=== PATIENT | female | born 1980 | race Caucasian/White ===

== ENCOUNTER → 2017-12-22 12:44 | Outpatient (CLI) | payer OTHER, SELFPAY ==
[2017-12-23 10:35] LABS: HIV-1/2 Ag & Ab Screen Negative (NEGAT)
[2017-12-23 11:24] LABS: Hepatitis C Ab w Rflx HCV PCR Negative (NEGAT)
[2017-12-23 11:32] LABS: HBs Antibody, Quant 569.2 mIU/mL; Hep B Surface Ab Positive; Hepatitis B Core Antibody Negative (NEGAT); Hepatitis B Surface Antigen Negative (NEGAT)
== END ==
PROVIDERS: PCP Internal Medicine; Visit Provider Internal Medicine
DX: Z77.21 Contact with and (suspected) exposure to potentially hazardous body fluids (principal); Z11.59 Encounter for screening for other viral diseases
CPT/HCPCS: 36415; 86704; 86706; 86803; 87340; 87389

== ENCOUNTER 2018-06-02 00:39 | Outpatient (CLI) | payer OTHER, SELFPAY ==
--- NOTE | 2018-06-02 12:50 | DI.CT_ITS ---
SYMPTOMS/DIAGNOSIS: CHRONIC SINUSITIS, J32.[address]: Routine examination was performed. No priors for comparison. The frontal sinuses are clear. The ethmoid air cells are clear. The sphenoid sinuses are clear. There is minimal mucosal thickening seen in the maxillary sinuses bilaterally. No fluid levels are seen in the visualized paranasal sinuses. The nasal septum is predominantly midline. The turbinates and ostiomeatal complexes are unremarkable. The mastoid air cells are well pneumatized. The bones appear intact. The orbits and retro-orbital soft tissues are grossly unremarkable. IMPRESSION: Minimal mucoperiosteal thickening in the maxillary sinuses bilaterally. No fluid levels or findings to suggest acute sinusitis.
== END 2018-06-02 00:59 ==
PROVIDERS: PCP Internal Medicine; Visit Provider Internal Medicine
DX: J32.0 Chronic maxillary sinusitis (principal)
CPT/HCPCS: 70486

== ENCOUNTER 2018-09-14 10:35 | Outpatient (CLI) | payer OTHER, SELFPAY ==
[2018-09-14 14:43] LABS: Abs Immature Grans 0.02 k/cumm (0.0-0.09); Absolute Basophil Count 0.02 k/cumm (0.0-0.2); Absolute Eosinophil Count 0.11 k/cumm (0.0-0.7); Absolute Lymphocyte Count 2.25 k/cumm (1.2-3.4); Absolute Monocyte Count 0.64 k/cumm (0.11-0.7); Absolute Neutrophil Count 5.18 k/cumm (1.2-6.7); Basophils % 0.2; Eosinophils % 1.3; HCT 41.5 % (36.0-46.0); HGB 14.1 g/dL (12.0-15.5); Immature Grans % 0.2; Lymphocytes % 27.4; Mean Corpuscular Hemoglobin 30.9 pg (27.0-33.0); Mean Corpuscular Volume 90.8 fL (80-95); Mean Platelet Volume 11.2 fL (8.0-11.0); Monocytes % 7.8; Neutrophils % 63.1; Platelet Count 288 x1000/uL (130-400); RBC 4.57 m/cumm (4.00-5.20); RBC Distribution Width 13.1 % (11.7-14.6); White Blood Cell Count 8.22 k/cumm (4.4-10.8)
[2018-09-14 15:11] LABS: ALT 36 U/L (12-78); AST 21 U/L (15-37); Albumin 4.1 g/dL (3.4-5.0); Alkaline Phosphatase 63 U/L (46-116); Anion Gap 9.8 mmol/L (3-11); BUN 13 mg/dL (7-18); Bilirubin, Total 0.6 mg/dL (0.2-1.0); CO2 27.2 mmol/L (21.0-32.0); CREATININE 0.98 mg/dL (0.55-1.02); Calcium 9.3 mg/dL (8.5-10.1); Chloride 102 mmol/L (98-107); Glucose 106 mg/dL (70-100); Potassium 4.1 mmol/L (3.5-5.1); Sodium 139 mmol/L (136-145); Total Protein 7.9 g/dL (6.4-8.2)
== END 2018-09-14 10:55 ==
PROVIDERS: PCP Internal Medicine; Visit Provider Internal Medicine
DX: J32.9 Chronic sinusitis, unspecified (principal); R63.5 Abnormal weight gain
CPT/HCPCS: 36415; 80053; 84443; 85025

== ENCOUNTER 2019-03-17 10:23 | Outpatient (REF) | payer OTHER, SELFPAY ==
--- NOTE | 2019-03-17 10:00 | PAPFT_PTH ---
PATIENT: Zenia Monreal LOC: [facility] U#:[id number] AGE/SX: 39/F ROOM: RE03/17/[address]: HESHAM Padilla : 1980 BED: DIS: 03/17/2019 SPEC #: [id number] RECD: 03/17/19 13:07 STATUS: RADHA REQ #: [id number] MILLY: 03/17/19 10:[address]: Radha España DEPT: [facility] Cytology RECD BY: Libby Womack ENTERED: 03/17/19 13:08 SP TYPE: PAPFT OTHR DR: Flor Webb MD Tissues: 1 - CX/ENDOCX FOR PAP SMEARS Procedures: PAP THIN PREP/UVM Screening HPV DNA PROBE Comments: [id number]
[2019-03-20 15:46] LABS: Chlamydia Result Negative (Negative); GC Result Negative (Negative); Specimen Description CERVIX
== END 2019-03-17 10:43 ==
LOC: LBN 10:23
PROVIDERS: PCP Internal Medicine; Visit Provider Nurse Practitioner Family
DX: Z11.3 Encounter for screening for infections with a predominantly sexual mode of transmission (principal); Z12.4 Encounter for screening for malignant neoplasm of cervix; Z11.51 Encounter for screening for human papillomavirus (HPV)
CPT/HCPCS: 87491; 87591; 88142; 87624

== ENCOUNTER 2019-05-18 22:58 | Outpatient (REF) | payer OTHER, SELFPAY | END 2019-05-18 23:18 | LOC: LBN 22:58 | PROVIDERS: PCP Internal Medicine; Visit Provider Nurse Practitioner | DX: R68.89 Other general symptoms and signs (principal) | CPT/HCPCS: 87449 ==

== ENCOUNTER 2019-11-24 08:35 | Outpatient (CLI) | payer BC, SELFPAY ==
[2019-12-01 09:26] LABS: SARS-CoV-2 RNA Undetected (Undetected)
== END 2019-11-24 08:55 ==
PROVIDERS: PCP Nurse Practitioner; Visit Provider Nurse Practitioner
DX: R50.9 Fever, unspecified (principal); Z11.59 Encounter for screening for other viral diseases
CPT/HCPCS: U0003

== ENCOUNTER 2019-12-08 08:18 | Outpatient (CLI) | payer BC, SELFPAY ==
[2019-12-12 23:31] LABS: SARS-CoV-2 RNA Undetected (Undetected); SARS-CoV-2 Specimen Source Nasopharynx
== END 2019-12-08 08:38 ==
PROVIDERS: PCP Nurse Practitioner; Visit Provider Nurse Practitioner
DX: Z11.59 Encounter for screening for other viral diseases (principal)
CPT/HCPCS: U0003

== ENCOUNTER 2020-01-19 09:56 | Outpatient (CLI) | payer BC, SELFPAY ==
[2020-01-21 14:51] LABS: Patient Race White; SARS-CoV-2 RNA Undetected (Undetected); SARS-CoV-2 Specimen Source Nasopharynx
== END 2020-01-19 10:16 ==
PROVIDERS: PCP Nurse Practitioner; Visit Provider Nurse Practitioner
DX: Z11.59 Encounter for screening for other viral diseases (principal)
CPT/HCPCS: U0003

== ENCOUNTER 2020-04-22 21:35 | Outpatient (REF) | payer BC, SELFPAY ==
[2020-04-22 22:07] LABS: Abs Immature Grans 0.03 10^3/uL (0.0-0.06); Absolute Basophil Count 0.02 10^3/uL (0.0-0.2); Absolute Eosinophil Count 0.08 10^3/uL (0.0-0.7); Absolute Lymphocyte Count 1.74 10^3/uL (1.2-3.4); Absolute Monocyte Count 0.55 10^3/uL (0.1-0.8); Absolute Neutrophil Count 4.08 10^3/uL (1.2-6.7); Basophils % 0.3; Eosinophils % 1.2; HGB 14.3 g/dL (11.2-15.7); Immature Grans % 0.5; Lymphocytes % 26.8; MCH 30.9 pg (27.0-33.0); MCHC 33.3 % (32.0-36.0); MCV 92.9 fL (80-95); MPV 11.7 fL (8.0-11.0); Monocytes % 8.5; Neutrophils % 62.7; Nucleated RBC 0 %; Platelet Count 278 10^3/uL (130-400); RBC 4.63 10^6/uL (3.93-5.22); RDW 12.8 % (11.7-14.6); RDW-SD 43.7 fL
[2020-04-22 22:43] LABS: ALT 23 U/L (14-59); AST 15 U/L (15-37); Albumin 4.3 g/dL (3.4-5.0); Alkaline Phosphatase 49 U/L (46-116); Anion Gap 8.3 mmol/L (3-11); BUN 16 mg/dL (7-18); Bilirubin, Total 0.6 mg/dL (0.2-1.0); CO2 26.7 mmol/L (21.0-32.0); CREATININE 0.96 mg/dL (0.55-1.02); Calcium 9.2 mg/dL (8.5-10.1); Chloride 102 mmol/L (98-107); Glucose 89 mg/dL (74-106); Potassium 4.4 mmol/L (3.5-5.1); Sodium 137 mmol/L (136-145); Total Protein 7.9 g/dL (6.4-8.2)
== END 2020-04-22 21:55 ==
LOC: NCHCN 21:35
PROVIDERS: PCP Nurse Practitioner; Visit Provider Physician Assistant
DX: R07.89 Other chest pain (principal)
CPT/HCPCS: 80053; 83735; 85025

== ENCOUNTER 2020-06-11 03:11 | Outpatient (CLI) | payer BC, SELFPAY ==
[2020-06-12 12:53] LABS: COVID-19 RT-PCR UVMMC Result Negative (Negative)
== END 2020-06-11 03:31 ==
PROVIDERS: PCP Nurse Practitioner; Visit Provider Nurse Practitioner
DX: Z11.52 Encounter for screening for COVID-19 (principal)
CPT/HCPCS: U0003

== ENCOUNTER 2020-06-26 09:15 | Outpatient (CLI) | payer BC, SELFPAY ==
[2020-06-27 14:36] LABS: COVID-19 RT-PCR UVMMC Result Negative (Negative)
== END 2020-06-26 09:16 | disposition home or self-care (01) ==
LOC: LBO 09:15
PROVIDERS: PCP Nurse Practitioner; Visit Provider Nurse Practitioner
DX: Z20.822 Contact with and (suspected) exposure to COVID-19 (principal)
CPT/HCPCS: U0003

== ENCOUNTER 2020-07-10 11:17 | Outpatient (CLI) | payer BC, SELFPAY ==
[2020-07-11 11:34] LABS: COVID-19 RT-PCR UVMMC Result Negative (Negative)
== END 2020-07-10 11:18 | disposition home or self-care (01) ==
LOC: LBO 11:17
PROVIDERS: PCP Nurse Practitioner; Visit Provider Nurse Practitioner
DX: Z20.822 Contact with and (suspected) exposure to COVID-19 (principal)
CPT/HCPCS: U0003

== ENCOUNTER 2021-03-04 19:54 | Emergency (ER) | payer BC, SELFPAY ==
[2021-03-04 19:57] VITALS: BP 133/77; PULSE 90; RESP 16; TEMP 36.6; O2SAT 98
--- NOTE | 2021-03-04 20:29 | W.ED.GENAD ---
Discharge Plan Disposition Patient Disposition: HOME Condition: Good Discharge Details Clinical Impression: Incomplete miscarriage Primary Care Provider: Nhung Pinto ED Provider: Tye Bernal Home Meds and New Rx's Prescriptions: Continued Centrum Women 18-400 mg-mcg tablet 1 tab PO DAILY RF: 0 ginkgo biloba 120 mg tablet 120 mg PO DAILY RF: 0 docusate sodium [Colace] 100 mg capsule 100 mg PO DAILY PRNRF: 0 spironolactone [Aldactone] 25 mg tablet 100 mg PO BID RF: 0 methocarbamol [Robaxin-750] 750 mg tablet 750 mg PO Q4H PRN Qty: 20 RF: 0 norethindrone (contraceptive) [Deblitane] 0.35 mg tablet 0.35 mg PO DAILY Qty: 84 RF: 3 Nicotrol 10 mg cartridge 1 inh inhalation 4-6XD PRN (Reason: nicotine cravings) Qty: 168 RF: 0 omeprazole 20 mg capsule,delayed release(DR/EC) 40 mg PO DAILY PRN (Reason: gerd) Qty: 60 RF: 6 betamethasone, augmented 50 GM cream 50 gm Topical bid to foot rash Qty: 1 RF: 3 lorazepam 0.5 mg tablet 0.5 mg PO TID PRN (Reason: anxiety) Qty: 30 RF: 0 COVID-19 vacc,mRNA(Moderna)-PF 100 mcg/0.5 mL suspension 0.5 ml IM ONCE Qty: 0.5 RF: 0 methylphenidate HCl [Ritalin LA] 10 mg capsule,ER biphasic 50-50 10 mg PO DAILY MDD 1 Qty: 30 RF: 0 Discharge Instructions Instructions: Miscarriage (ED) Additional Instructions: At this time you have an incomplete miscarriage. You are likely transitioning towards the end of it. You have been given the pill Methergine. Please take each 0.2 mg tablet every 4 hours until all the pills are gone. You can take ibuprofen 800 mg starting at 3:30 AM. You can take 1000 mg of Tylenol as soon as you get home. You can take that every 6 hours. Please drink plenty of fluids and follow-up promptly with the [facility] OB doctors tomorrow. Please call them tomorrow for an appointment time. If you notice any worsening of your symptoms, or any new symptoms such as vomiting, diarrhea, fever, chills, shortness of breath, chest pain, numbness, weakness, or fainting , please return immediately to the emergency department for reevaluation. Please follow up with your primary care provider as soon as possible for reassessment and reevaluation. As always, it was a pleasure participating in your medical care today. Referrals: Desire Ellington MD [ [facility] STAFF PHYSICIAN] - Crys Kidd DO [OSTEOPATHIC DOCTOR] - Christina Houston MD [ [facility] STAFF PHYSICIAN] - Medical Decision Making 41-year-old female who is a G5, P3 10 weeks female who is being followed by [facility] with a history of a blighted ovum who noticed by ultrasound that [facility] a decrease in gestational sac size over the last 2 weeks, with expectant miscarriage presents today for evaluation of miscarriage. Yesterday the patient had notable pelvic cramps, today the cramps subsided but she had notable blood clots and vaginal bleeding. She soaked through multiple pads, including unfortunately multiple pairs of pants as well. She took ibuprofen prior to going to the urgent care earlier today, and was seen and assessed there. While there she had a drop in her hemoglobin, continued vaginal bleeding, and had notable lightheadedness and dizziness when trying to stand. She was sent to the ER for further evaluation. Patient currently denies any pain whatsoever. She is not on any blood thinners. She did receive 2 L of normal saline at the urgent care. No other complaints at this time. No other modifying factors. She was not started on methotrexate or any other abortive medications. Physical exam demonstrates no tenderness in the pelvis or abdomen whatsoever. Heart rate normal, blood pressure stable. Concern is for continued vaginal bleeding and depletion of hemoglobin levels. We will get repeat CBC, perform pelvic exam, and monitor closely. If the patient continues to have a drop in her hemoglobin we will contact OB for potential observation versus surgical intervention. 9:30 PM Laboratory work-up is returned, hemoglobin is 11.4, which is a drop from her previous hemoglobin of 14 a year ago, but actually stable and slightly higher than hemoglobin of 10 that she had at the urgent care. Electrolytes stable. Vaginal exam was performed, large clot was noted in the vaginal vault there was a small to moderate amount of tissue noted in it. Suspect this is the ovum remnants. Patient's heart rate and blood pressure have remained stable. Patient is adamant that she would like to go home. With clearly demonstrated hemodynamic stability, stabilizing hemoglobin, I do feel that this is a reasonable approach at this time. We did contact [facility]ER[facility] to discuss the case with Dr. Ellington they agree with the plan and do recommend adding Methergine, 0.2 mg every 4 hours for 6 doses total with close follow-up with OB tomorrow. Patient feels comfortable with this plan. I did discuss with the patient the importance of close OB follow-up, as well as my availability here for contact or consult at any point during the evening. Discussed red flags which to return. Bleeding has stabilized, patient hemodynamically stable. Patient appropriate for discharge at this time. I have extensively reviewed the treatment plan and discharge instructions with the patient. I have addressed all patient concerns at this time. The patient was made aware of what symptoms to monitor for that would warrant a return to the emergency department. Discussed the plan with the patient, they demonstrate verbal understanding and agreement with our assessment and plan at this time. The documentation in this chart was dictated using [employer] dictation software. Please excuse any dictation errors. I status is Rh+. No indication for RhoGam HPI General Date/Time Provider Initiated Documentation: 03/04/21 19:58. HPI Narrative: 41-year-old female who is a G5, P3 10 weeks female who is being followed by [facility] with a history of a blighted ovum who noticed by ultrasound that [facility] a decrease in gestational sac size over the last 2 weeks, with expectant miscarriage presents today for evaluation of miscarriage. Yesterday the patient had notable pelvic cramps, today the cramps subsided but she had notable blood clots and vaginal bleeding. She soaked through multiple pads, including unfortunately multiple pairs of pants as well. She took ibuprofen prior to going to the urgent care earlier today, and was seen and assessed there. While there she had a drop in her hemoglobin, continued vaginal bleeding, and had notable lightheadedness and dizziness when trying to stand. She was sent to the ER for further evaluation. Patient currently denies any pain whatsoever. She is not on any blood thinners. She did receive 2 L of normal saline at the urgent care. No other complaints at this time. No other modifying factors. She was not started on methotrexate or any other abortive medications. Related Data Home Medications Medication Instructions Recorded Confirmed betamethasone, augmented 50 gm TOPICAL bid to foot rash #1 12/28/16 03/04/21 script ginkgo biloba 120 mg tablet 120 mg PO DAILY 09/14/18 03/04/21 multivitamin-ferrous 1 tab PO DAILY 09/14/18 03/04/21 fumarate-folic acid 18 mg-400 mcg tablet spironolactone 25 mg tablet 100 mg PO BID tab-cap 03/08/19 03/04/21 lorazepam 0.5 mg tablet 0.5 mg PO TID PRN #30 tab 01/16/20 03/04/21 methocarbamol 750 mg tablet 750 mg PO Q4H PRN #20 tab-cap 04/22/20 03/04/21 norethindrone (contraceptive) 0.35 0.35 mg PO DAILY #84 tab 05/14/20 03/04/21 mg tablet docusate sodium 100 mg capsule 100 mg PO DAILY PRN 11/01/20 03/04/21 nicotine 10 mg inhalation cartridge 1 inh INHALATION 4-6XD PRN #168 ea 11/01/20 03/04/21 omeprazole 20 mg capsule,delayed 40 mg PO DAILY PRN #60 cap 11/01/20 03/04/21 release methylphenidate HCl 10 mg biphasic 10 mg PO DAILY #30 cap MDD 1 01/23/21 03/04/21 50-50 capsule,extended release Previous Rx's Medication Instructions Recorded lorazepam 0.5 mg tablet 0.5 mg PO TID PRN #30 tab 01/16/20 methocarbamol 750 mg tablet 750 mg PO Q4H PRN #20 tab-cap 04/22/20 norethindrone (contraceptive) 0.35 0.35 mg PO DAILY #84 tab 05/14/20 mg tablet nicotine 10 mg inhalation cartridge 1 inh INHALATION 4-6XD PRN #168 ea 11/01/20 omeprazole 20 mg capsule,delayed 40 mg PO DAILY PRN #60 cap 11/01/20 release methylphenidate HCl 10 mg biphasic 10 mg PO DAILY #30 cap MDD 1 01/23/21 50-50 capsule,extended release Allergies Allergy/AdvReac Type Severity Reaction Status Date / Time shellfish derived Allergy Severe vomiting Verified 03/04/21 20:03 latex AdvReac local Verified 03/04/21 20:03 sensitivity General Stated 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 YOHANNES: 2 Review of Systems All systems reviewed & are unremarkable except as noted in HPI and below PFSH Medical History Acne uses spironolactone ADHD, adult residual type Anxiety Concentration deficit Surgical History Cholecystectomy (12/21/14) Family History Mother Depression Father Hyperlipidemia Heart disease Sister Depression Grandfather Diabetes Hyperlipidemia Alcohol abuse Grandfather Essential hypertension Heart disease Grandmother Cancer breast Dementia Grandmother Depression Alcohol abuse Social History Smoking/Tobacco Use Status: Current-Occasional Tobacco Type: cigarettes Smoking risk assessment performed?: Yes Alcohol Intake: former Drug use: Never Substance use type: does not use Seatbelt use: always Do you feel safe in your relationship?: Yes Exam Narrative Exam Narrative: 1.Const: Well-nourished, Well-developed, appearing stated age 2.Eyes: PERRL, no conjunctival injection, and symmetrical lids. 3.ENT: Atraumatic external nose and ears. Moist MM. Neck: Symmetric, trachea midline, No thyromegaly. 4.CVS: +S1/S2, No murmurs or gallops. Peripheral pulses 2+ and equal in all extremities. Brisk capillary refill in all extremities. 5.RESP: Unlabored respiratory effort. Clear to auscultation bilaterally. No wheezes rales or rhonchi 6.GI: Soft, Nontender/Nondistended, No hepatosplenomegaly. No guarding or rebound. 7.MSK: Normocephalic/Atraumatic, Extremities w/o deformity or ttp No cyanosis or clubbing, Normal movement of all extremities 8.Skin: Warm, Dry. No rashes or lesions. 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 Sensation grossly intact, no focal neurologic deficits. 10.Psych: (AAO) x3. Appropriate mood and affect Course Vital Signs Vital signs: Vital Signs Temperature 36.6 C 03/04/21 19:57 Pulse 90 03/04/21 19:57 Respiratory Rate 16 03/04/21 19:57 Blood Pressure 133/77 03/04/21 19:57 Pulse Oximetry 98 03/04/21 19:57 Temperature 36.6 C 03/04/21 19:57 Temperature Source Skin 03/04/21 19:57 Pulse 90 03/04/21 19:57 Respiratory Rate 16 03/04/21 19:57 Respiratory Effort Non-Labored 03/04/21 19:57 Blood Pressure 133/77 03/04/21 19:57 Blood Pressure Position Supine 03/04/21 19:57 Pulse Oximetry 98 03/04/21 19:57 Oxygen Delivery Method Room Air 03/04/21 19:57 Oxygen Flow Rate 0 03/04/21 19:57 Pain Level 0 03/04/21 19:57
[2021-03-04 20:51] LABS: Abs Immature Grans 0.06 10^3/uL (0.0-0.06); Absolute Basophil Count 0.03 10^3/uL (0.0-0.2); Absolute Eosinophil Count 0.09 10^3/uL (0.0-0.7); Absolute Monocyte Count 0.72 10^3/uL (0.1-0.8); Absolute Neutrophil Count 8.42 10^3/uL (1.2-6.7); Basophils % 0.3; Eosinophils % 0.8; HCT 34.9 % (36.0-46.0); HGB 11.4 g/dL (11.2-15.7); Immature Grans % 0.5; Lymphocytes % 17.4; MCHC 32.7 % (32.0-36.0); MCV 91.8 fL (80-95); MPV 10.6 fL (8.0-11.0); Monocytes % 6.4; Neutrophils % 74.6; Nucleated RBC 0 %; Platelet Count 233 10^3/uL (130-400); RDW 12.5 % (11.7-14.6); RDW-SD 42.1 fL; WBC 11.29 10^3/uL (4.4-10.8)
--- NOTE | 2021-03-04 20:56 | NUR.NOTE ---
Nursing Note: Pelvic exam performed by Dr. Bernal, accompanied by this RN during exam. Patient tolerated well.
[2021-03-04 21:02] LABS: Absolute Lymphocyte Count 1.96 10^3/uL (1.2-3.4)
--- NOTE | 2021-03-04 21:16 | NUR.NOTE ---
Referral faxed to [facility] to be seen 03/05/21 for miscarriage, case discussed with Dr. Ellington.Nursing Note:
[2021-03-04 21:24] LABS: ALT 30 U/L (14-59); AST 18 U/L (15-37); Albumin 3.6 g/dL (3.4-5.0); Alkaline Phosphatase 46 U/L (46-116); Anion Gap 9.8 mmol/L (3-11); BUN 15 mg/dL (7-18); Bilirubin, Total 0.6 mg/dL (0.2-1.0); CO2 23.2 mmol/L (21.0-32.0); CREATININE 0.8 mg/dL (0.55-1.02); Calcium 8.7 mg/dL (8.5-10.1); Chloride 105 mmol/L (98-107); Glucose 93 mg/dL (74-106); Potassium 3.9 mmol/L (3.5-5.1); Sodium 138 mmol/L (136-145); Total Protein 7.1 g/dL (6.4-8.2)
[2021-03-04 21:25] LABS: HCG Quant, Pregnancy 4709 mIU/mL (1-3)
[2021-03-04] MEDS: Ketorolac 15 MG/ML VIAL IVP (21:40)
[2021-03-04 22:05] VITALS: BP 110/68; PULSE 107; RESP 16; TEMP 37; O2SAT 97
[2021-03-04] MEDS: Methylergonovine 0.2 MG TAB 1.2 MG PO (22:07)
[2021-03-04] MEDS: Methylergonovine 0.2 MG TAB (22:07)
[2021-03-04] MEDS: Ondansetron O.D.T. 4 MG TABEF, 3 TABS/BTL PO (22:12)
== END 2021-03-04 22:12 | disposition home or self-care (01) ==
LOC: ER 22:12
PROVIDERS: Emergency Provider Student in an Organized Health Care Education/Training Program; PCP Nurse Practitioner
DX: O03.4 Incomplete spontaneous abortion without complication (principal); O02.0 Blighted ovum and nonhydatidiform mole; Z3A.10 10 weeks gestation of pregnancy; R42 Dizziness and giddiness
CPT/HCPCS: 36415; 80053; 86850; 86900; 86901; 96374; 99284; 84702; 85025; J1885

== ENCOUNTER 2021-05-08 03:34 | Outpatient (CLI) | payer BC, SELFPAY ==
[2021-05-08 15:04] LABS: ALT 46 U/L (14-59); AST 22 U/L (15-37); Albumin 3.8 g/dL (3.4-5.0); Alkaline Phosphatase 53 U/L (46-116); Bilirubin, Direct 0.2 mg/dL (0.0-0.2); Bilirubin, Total 0.6 mg/dL (0.2-1.0); Total Protein 7.6 g/dL (6.4-8.2)
[2021-05-08 15:40] LABS: Calculated LDL 63 mg/dL (<100); Cholesterol 137 mg/dL (<200); HDL Cholesterol 50 mg/dL (40-60); Triglyceride 123 mg/dL (<150)
== END 2021-05-08 03:35 | disposition home or self-care (01) ==
LOC: LBO 03:34
PROVIDERS: PCP Nurse Practitioner; Visit Provider Nurse Practitioner
DX: R10.11 Right upper quadrant pain (principal); Z13.6 Encounter for screening for cardiovascular disorders
CPT/HCPCS: 36415; 80061; 80076

== ENCOUNTER 2021-06-25 10:42 | Outpatient (REF) | payer BC, SELFPAY ==
[2021-06-26 13:32] LABS: Chlamydia Result Negative (Negative); GC Result Negative (Negative)
== END 2021-06-25 10:43 | disposition home or self-care (01) ==
LOC: LBN 10:42
PROVIDERS: PCP Nurse Practitioner; Visit Provider Obstetrics & Gynecology
DX: Z11.3 Encounter for screening for infections with a predominantly sexual mode of transmission (principal); R10.2 Pelvic and perineal pain
CPT/HCPCS: 87491; 87591

== ENCOUNTER 2021-07-03 08:55 | Outpatient (CLI) | payer BC, SELFPAY ==
[2021-07-03 11:29] LABS: HCG Quant, Pregnancy < 1 mIU/mL (1-3)
[2021-07-04 09:56] LABS: Syphilis Serology (RPR) Negative (Negative)
[2021-07-04 10:23] LABS: HIV-1/2 Ag & Ab Screen Negative (Negative)
[2021-07-04 10:25] LABS: HBs Antibody, Qual Positive (See Note); HBs Antibody, Quant 646.9 mIU/mL (See Note); Hepatitis B Core Antibody Negative (Negative); Hepatitis B surface Ag Negative (Negative); Hepatitis C Ab w Rflx HCV PCR Negative (Negative)
== END 2021-07-03 08:56 | disposition home or self-care (01) ==
LOC: LBO 08:57
PROVIDERS: Obstetrics & Gynecology; PCP Nurse Practitioner; Visit Provider Obstetrics & Gynecology
DX: Z11.3 Encounter for screening for infections with a predominantly sexual mode of transmission (principal); O26.851 Spotting complicating pregnancy, first trimester
CPT/HCPCS: 36415; 86704; 86706; 86803; 87340; 87389; 84702; 86592

== ENCOUNTER 2021-08-25 09:53 | Outpatient (REF) | payer BC, SELFPAY ==
[2021-08-25 17:36] LABS: Abs Immature Grans 0.04 10^3/uL (0.0-0.06); Absolute Basophil Count 0.02 10^3/uL (0.0-0.2); Absolute Eosinophil Count 0.03 10^3/uL (0.0-0.7); Absolute Lymphocyte Count 1.72 10^3/uL (1.2-3.4); Absolute Monocyte Count 0.46 10^3/uL (0.1-0.8); Absolute Neutrophil Count 5.86 10^3/uL (1.2-6.7); Basophils % 0.2; Eosinophils % 0.4; HCT 38.1 % (36.0-46.0); HGB 12.6 g/dL (11.2-15.7); Immature Grans % 0.5; Lymphocytes % 21.2; MCH 30.7 pg (27.0-33.0); MCHC 33.1 % (32.0-36.0); MCV 92.7 fL (80-95); MPV 11.5 fL (8.0-11.0); Monocytes % 5.7; Nucleated RBC 0 %; Platelet Count 278 10^3/uL (130-400); RBC 4.11 10^6/uL (3.93-5.22); RDW 12.6 % (11.7-14.6); RDW-SD 43.1 fL; WBC 8.13 10^3/uL (4.4-10.8)
== END 2021-08-25 09:54 | disposition home or self-care (01) ==
LOC: LBN 09:53
PROVIDERS: PCP Nurse Practitioner; Visit Provider Surgery
DX: K21.9 Gastro-esophageal reflux disease without esophagitis (principal); K92.1 Melena; R10.13 Epigastric pain; R51.9 Headache, unspecified
CPT/HCPCS: 82728; 85025

== ENCOUNTER 2021-11-27 04:06 | Outpatient (CLI) | payer OTHER, SELFPAY ==
--- NOTE | 2021-11-27 13:00 | NS.NUTBLAN_ITS ---
Zenia was referred for weight management education. 6'0 280 lbs BMI 37 She reports that in her 20s and before children she weighed around 130 lbs. She then steadily gained weight and was unable to lose weight despite reducing portions and exercising. Her goal weight is 180 lbs. Diet Recall: B: coffee, 10 am: cottage cheese, no lunch, Dinner: 1/2 bag of lettuce. Jennifer has been eating mostly protein and vegetables for last month with weight loss. PMH: Sleep apnea- will get CPAP at end of month. Session today focused on how to follow 3 meals per day and meet 9766-8226 kcal, 60-80 g protein, 45-55 g fat. Recommended using rose on phone to log meals. ALso recommend tracking steps and getting a minimum of 5000 steps daily. Also discussed use of GLP1 such as trulicity to aid in weight loss. Reviewed eligibility for weight loss surgery if unable to lose significant weight in next 3 months. Goal: 28 lbs weight loss in next 90 days Follow up planned for 12/25/21 at 3 pm
== END 2021-11-27 04:07 | disposition home or self-care (01) ==
LOC: DS 04:07
PROVIDERS: PCP Nurse Practitioner; Visit Provider Dietitian, Registered
DX: E66.8 Other obesity (principal); Z68.37 Body mass index [BMI] 37.0-37.9, adult; Z71.3 Dietary counseling and surveillance
CPT/HCPCS: 97802

== ENCOUNTER → 2022-01-07 01:35 | Outpatient (CLI) | payer OTHER, SELFPAY ==
--- NOTE | 2022-01-07 09:19 | DI.MAMMO_ITS ---
Exam(s) MAMMO SCREENING EXAM: MAMMO SCREENING CLINICAL HISTORY: screening,z12.39. TECHNIQUE: Bilateral full field digital CC and MLO mammographic images were obtained with 3D tomosyn thesis and utilizing computer aided detection (CAD). COMPARISON: None. This is a baseline mammogram on this 41-year-old patient. FINDINGS: There are no spiculated masses nor malignant appearing microcalcification groups. There is no significant architectural distortion nor skin thickening-retraction. IMPRESSION: No radiographic evidence of malignancy. BI-RADS Category 1 - Negative Breast Density - Category C - Heterogeneously dense Breast density Category C or D implies that the patient has dense breast tissue. Dense breast tissue can make it harder to find cancer on a mammogram. Dense breast tissue is also associated with an incr eased risk of breast cancer. This information about the result of the mammogram report was provided to the patient to raise their awareness. Use this report when you speak with the patient about their risks for breast cancer, which includes their family history. At that time, you may recommend additional screening tests (Ultrasoun d or MRI) as these tests may add significant information. A negative radiographic report should not delay biopsy if a dominant or clinically suspicious mass is present. Up to ten percent of cancers are not identified on mammography. A negative report may reinforce clinical impression. Adenosis and dense breasts may obscure an underlying neoplasm. False positive reports average 6 to 10%. Patient will receive a letter notifying them of these results.
== END ==
PROVIDERS: PCP Nurse Practitioner; Visit Provider Obstetrics & Gynecology
DX: Z12.31 Encounter for screening mammogram for malignant neoplasm of breast (principal); R92.8 Other abnormal and inconclusive findings on diagnostic imaging of breast
CPT/HCPCS: 77063; 77067

== ENCOUNTER 2022-03-03 12:31 | Outpatient (CLI) | payer OTHER, SELFPAY ==
[2022-03-03 11:01] LABS: HCG Quant, Pregnancy 166 mIU/mL (1-3)
--- OUTSIDE RECORDS SUMMARY | 2022-03-03 12:40 | XMS_ITS | Encounter Summary ---
:1980 Author Organization [facility] Address [address] [place] [address] Care Team Providers Name Role Phone Prem Sheehan MD Primary Care Provider Encounter Details Date Type Department Care Team Description 06/16/2013 Results Only [facility] Yesica Ware MD [phone] [place] [address] Social History Tobacco Use Types Packs/Day Years Used Date Never Assessed Sex Assigned at Date Recorded Not on file documented as of this encounter Plan of Treatment Not on filedocumented as of this encounter Procedures Procedure Name Priority Date/Time Associated Diagnosis Comme nts PAP TEST- RESULT Routine 06/16/2013 0:00 EST Resu lts for this ONLY procedure are i n the results section. documented in this encounter Results PAP TEST- RESULT ONLY (06/16/2013 0:00 EST) Pathology Report: CYTOPATHOLOGY REPORT [facility] Reports generated via electronic interface contain shaheed ginal data; however they are lacking the format of the original re port. Caution should be taken when reading/interpreting unfo rmatted reports. Name: ? QI CASH ? Accession #: ? [id number] ? : ? 1980 (Age: 33) ??F ?Collect Da te: ? 06/16/2013 ? Location: ? [facility] ? Receive Date: ? 014 ? Provider: YESICA WARE MD Copy to: PREM SHEEHAN MD ? Final Report SPECIMEN ADEQUACY ? Satisfactory for Evaluation - transformation zone component present GENERAL CATEGORIZATION ? Negative for Intraepithelial Lesion or Malignan cy ?? Last Menstrual Period: 05/26/2013 Specimen/Source: ??Pap Test, Cervix/Endocervix, ThinPr ep Imaging System with manual evaluation Document reviewed and electronically signed by: ? ODELL Caraballo(ASCP) ? Report ??Date: 06/23/2013 14:17 HPV with Pap Test ? Date Ordered: ? 06/23/2013 ? Status: ?? Signed Out ?Date Complete: ? 06/27/2013 ? By: ??S ystem Interface ? Date Reported: ? 06/27/2013 ? Interpretation RESULT: Negative for HPV. No E6 or E7 mRNA is detected from HPV types 16,18,31,3 3,35, 39,45,51,52,56,58,59,66, and 68 by marketing technologist media christal amplification. Comments Document reviewed and electronically signed by: ? System Interface ? Report date: 06/27/2013 By the signature above, the attending physician certif ies that he/she has personally conducted a gross and/or microscopic examin ation of the described specimens and rendered or confirmed the above diagnosi s. End of Report Specimen Performing Organization Address City/State/ZIP Code Phon e Number [facility] [address] [place] [address] SERVICES [facility] [address] [place] [address] documented in this encounter Visit Diagnoses Not on filedocumented in this encounter Care Teams Bulb Assembler Relationship Specialty Start Date End Date Prem Sheehan MD PCP - General 01/21/10 12/24/[address] [place] [address] documented as of this encounter
--- OUTSIDE RECORDS SUMMARY | 2022-03-03 12:40 | XMS_ITS | Encounter Summary ---
:1980 Author Organization [facility] Address [address] [place] [address] Care Team Providers Name Role Phone Marco Antonio Hernandez MD Primary Care Provider Unavailable Encounter Details Date Type Department Care Team Description 06/11/2020 Lab Requisition [facility] Outr Resulting Lab, Pathology & Laboratory Provider [facility] [address] [place] [address] Social History Tobacco Use Types Packs/Day Years Used Date Never Assessed Sex Assigned at Date Recorded Not on file documented as of this encounter Plan of Treatment Not on filedocumented as of this encounter Procedures Procedure Name Priority Date/Time Associated Diagnosis Comme nts COVID-19 TEST [facility] Today 06/11/2020 8:56 EST LAB PCR COVID-19 TESTING Routine 06/11/2020 8:56 EST Resu lts for this procedure are i n the results section. documented in this encounter Results COVID-19 TEST [facility] LAB PCR (06/11/2020 8:56 EST) Specimen Swab - Entire nasopharynx (body structur e) Performing Organization Address City/State/ZIP Code Phon e Number [facility] [address] [place] [address] SERVICES COVID-19 TESTING (06/11/2020 8:56 EST) COVID-19 rt-PCR Negative Negative [facility] Result Comment: [facility] Negative results do not prec lude 2019-nCoV infection and should not be used as the sole basis for treatment or other patient management decisions. Negative results must be combined with clinical observa SERVICES tions, patient history, and epidemiological informatio n. This test was developed and its performance characteristics determined by [facility]. It has not been cleared or approved by the US Food and Drug Administration. FDA does not require this test to go through premarket FDA review. This t est is used for clinical purposes. It should not be regarded as investigational or for research. This laboratory is certified under the Clinical Laboratory Improvement Amendm ents (CLIA) as qualified to perform high complexity clinical laboratory testing. This test is based on the CD C COVID-19 Emergency Use Authorization (EUA) assay, with minor modification as defined by the FDA Performed on the MeroArte Flex RT-PCR System. Performing Lab [facility] SERVICES Specimen Swab Performing Organization Address City/State/ZIP Code Phon e Number [facility] [address] [place] [address] SERVICES documented in this encounter Visit Diagnoses Not on filedocumented in this encounter Care Teams Concession Manager Relationship Specialty Start Date End Date Marco Antonio Hernandez MD PCP - General 12/25/14 documented as of this encounter
--- OUTSIDE RECORDS SUMMARY | 2022-03-03 12:40 | XMS_ITS | Encounter Summary ---
:1980 Author Organization [facility] Address [address] [place] [address] Care Team Providers Name Role Phone Marco Antonio Hernandez MD Primary Care Provider Unavailable Encounter Details Date Type Department Care Team Description 05/04/2017 Results Only [facility]- [facility] Addy Robles, [address] [phone] (Wo rk) Social History Tobacco Use Types Packs/Day Years Used Date Never Assessed Sex Assigned at Date Recorded Not on file documented as of this encounter Plan of Treatment Not on filedocumented as of this encounter Procedures Procedure Name Priority Date/Time Associated Diagnosis Comme nts FUNGAL Routine 05/04/2017 11:15 Results for this CULTURE/SMEAR, EST procedure are in SKIN, HAIR OR NAIL the resul ts section. documented in this encounter Results FUNGAL CULTURE/SMEAR, SKIN, HAIR OR NAIL (05/04/2017 11:15 EST) Fungal Smear Rare [facility] Fungal elements seen LABORATORY SERVICES Result TRICHOPHYTON SPECIES This mo uld is a member of the dermatophytes, a group of fungi that affect [facility] skin, nails, and hair (Trichophyton, Microsporum , Epidermophyton). LABORATORY SERVICES Specimen Skin Performing Organization Address City/State/ZIP Code Phon e Number [facility] [address] [place] [address] SERVICES documented in this encounter Visit Diagnoses Not on filedocumented in this encounter Care Teams Fish Trapper Relationship Specialty Start Date End Date Marco Antonio Hernandez MD PCP - General 12/25/14 documented as of this encounter
--- OUTSIDE RECORDS SUMMARY | 2022-03-03 12:40 | XMS_ITS | Encounter Summary ---
:1980 Author Organization [facility] Address [address] [place] [address] Care Team Providers Name Role Phone Marco Antonio Hernandez MD Primary Care Provider Unavailable Encounter Details Date Type Department Care Team Description 07/03/2021 Lab Requisition [facility] Outr Resulting Lab, Pathology & Laboratory Provider [facility] [address], [place] [id number] Social History Tobacco Use Types Packs/Day Years Used Date Never Assessed Sex Assigned at Date Recorded Not on file documented as of this encounter Plan of Treatment Not on filedocumented as of this encounter Procedures Procedure Name Priority Date/Time Associated Diagnosis Comme nts CHRONIC HEPATITIS Routine 07/03/2021 9:53 EST Res ults for this PROFILE, UNKNOWN procedure a re in TYPE the results section. documented in this encounter Results CHRONIC HEPATITIS PROFILE, UNKNOWN TYPE (07/03/2021 9:53 EST) Hep B Surface Ag Negative Negative [facility] Hep B Surface Ab, 646.9 See Note mIU/mL [facility] Quantitative Comment: [facility] Reference Range for Hep B Surface Ab, Quant: SERVICES Positive: >= 10.0 mIU/mL Negative: ??< 10.0 mIU/mL Patient is presumed to be immune to infection with Hep atitis B Virus. Hep B Surface Ab, Positive See Note [facility] Qualitative Comment: [facility] Reference Range for Hep B Surface Ab, Qual: SERVICES Unvaccinated: ??Negative Vaccinated: ??Positive Hepatitis B Core Negative Negative [facility] Ab, Total [facility] Hep C Antibody Negative Negative [facility] Specimen Blood - Venous blood (substance) Performing Organization Address City/State/ZIP Code Phon e Number [facility] [address] [place] [address] SERVICES documented in this encounter Visit Diagnoses Not on filedocumented in this encounter Care Teams Imaging Aide Relationship Specialty Start Date End Date Marco Antonio Hernandez MD PCP - General 12/25/14 documented as of this encounter
--- OUTSIDE RECORDS SUMMARY | 2022-03-03 12:40 | XMS_ITS | Encounter Summary ---
:1980 Author Organization [facility] Address [address] [place] [address] Care Team Providers Name Role Phone Prem Sheehan MD Primary Care Provider Encounter Details Date Type Department Care Team Description 12/21/2014 Results Only [facility] Hector Claudiostevefaisal, DO [address] [place] [address] (Wo rk) Social History Tobacco Use Types Packs/Day Years Used Date Never Assessed Sex Assigned at Date Recorded Not on file documented as of this encounter Plan of Treatment Not on filedocumented as of this encounter Procedures Procedure Name Priority Date/Time Associated Diagnosis Comme [facility] SURGICAL PATHOLOGY Routine 12/21/2014 10:16 Resul ts for this EDT procedure are i n the results section. documented in this encounter Results SURGICAL PATHOLOGY (12/21/2014 10:16 EDT) Pathology Report: SURGICAL PATHOLOGY REPORT [facility] Reports generated via electronic interface contain shaheed ginal data; LABORATORY however they are lacking the format of the original re port. SERVICES Caution should be taken when reading/interpreting unfo rmatted reports. Name: ? Germain BLAIR ? Accession #: ? [id number] ? : ? 1980 (Age: 34) ??F ? Collect Date: ? 12/21/2014 ? Location: ? [facility] ? Receive Date: ? 5 ? Provider: WILLIAN CLAUDIO DO Copy to: BASIM CASTELLANO MD ? Final Pathologic Diagnosis: GALLBLADDER, CHOLECYSTECTOMY: - ??Chronic cholecystitis. - ??Cholelithiasis. Document reviewed and electronically signed by: KAREN MCCARTY MD Report ??Date: 12/26/2014 14:42 By the signature above, the attending physician certif ies that he/she has personally conducted a gross and/or microscopic examin ation of the described specimens and rendered or confirmed the above diagnosi s. Specimen(s) Received: Gallbladder Clinical History: Biliary colic Gross Description: ? Received in formalin labelled with proper patient identification (initials H, J) and gallbladder is an intact gal lbladder (11.1 x 2.2 x 1.8 cm) with an attached segment of cystic duct (0.3 cm in length x 0. 2 cm in diameter). ? The serosa is pink-purple, smooth, and glisteni ng with cauterized adventitia. The mucosa is palacios-pink and velvety with fo candice thinned areas. The wall thickness varies from 0.1-0.2 cm. The cysti c duct lumen is obstructed by gallstones. The cystic duct margin is inked blue. Mult iple red-brown multifaceted choleliths are present, ranging from 0.5 to 1.1 cm in greatest dimension. ? Two office services representative sections and the inked face cystic duct margin are submitted in 1. Casandra12/24/2014 11:58 AM End of Report Specimen Performing Organization Address City/State/ZIP Code Phon e Number [facility] [address] [place] [address] SERVICES documented in this encounter Visit Diagnoses Not on filedocumented in this encounter Care Teams Displayer Relationship Specialty Start Date End Date Prem Sheehan MD PCP - General 01/21/10 12/24/[address] [place] [address] documented as of this encounter
--- OUTSIDE RECORDS SUMMARY | 2022-03-03 12:40 | XMS_ITS | Encounter Summary ---
:1980 Author Organization [facility] Address [address] [place] [address] Care Team Providers Name Role Phone Marco Antonio Hernandez MD Primary Care Provider Unavailable Encounter Details Date Type Department Care Team Description 06/25/2021 Lab Requisition [facility] Outr Resulting Lab, Pathology & Laboratory Provider [facility] [address] [place] [address] Social History Tobacco Use Types Packs/Day Years Used Date Never Assessed Sex Assigned at Date Recorded Not on file documented as of this encounter Plan of Treatment Not on filedocumented as of this encounter Procedures Procedure Name Priority Date/Time Associated Comments Diagnosis CHLAMYDIA/N. Routine 06/25/2021 9:00 Results for this GONORRHOEAE AMPLIFIED EST proced ure are in RNA the results section. documented in this encounter Results CHLAMYDIA/N. GONORRHOEAE AMPLIFIED RNA (06/25/2021 9:00 EST) Pathologist Sig nature Gonococcus Result Negative Negative [facility] Chlamydia Result Negative Negative [facility] Specimen Urine - Urine, Initial Void Narrative [facility] - 06/26/2021 13:25 EST A first catch urine specimen is acceptab le for detection of Gonorrhea and Chlamydia, but might detect up to 10% fewer infecti ons when compared with vaginal and endocervical swab samples. Performing Organization Address City/State/ZIP Code Phon e Number [facility] [address] [place] [address] SERVICES documented in this encounter Visit Diagnoses Not on filedocumented in this encounter Care Teams Property Preservation Specialist Relationship Specialty Start Date End Date Marco Antonio Hernandez MD PCP - General 12/25/14 documented as of this encounter
--- OUTSIDE RECORDS SUMMARY | 2022-03-03 12:40 | XMS_ITS | Encounter Summary ---
:1980 Author Organization [facility] [place] [address] Care Team Providers Name Role Phone Flor Schuler MD Primary Care Provider Reason for Visit Reason Comments Follow-up Encounter Details Date Type Department Care Team Description 02/16/2019 Office Visit Dermatology at [facility] Norm Cassidy MD Acne vulgaris [address] [place] [address] DERMATOLOGY [phone] [place], [place] [address] (Wo rk) Social History Tobacco Use Types Packs/Day Years Used Date Never Smoker Smokeless Tobacco: Never Used Sex Assigned at Date Recorded Not on file documented as of this encounter Progress Notes Norm Cassidy MD - 02/16/2019 11:30 AM EDT PROBLEM: 1. Follow up acne vulgaris on spironolactone. 2. History of tinea corporis. Zenia follows up and is been 2-1/2-year since I saw her last. She decided not to conceive a childafter our last visit. She is been taking his prolactin on a regular basis. She been taking it 1 a day as we had decided at that last visit, but finds that this is not quite effective for her. She wonders about going back to twice daily dosing. She would also like to refill the Spectazole cream for possible recurrences of tinea corporis. She had on the buttocks before. She has intermittent tinea pedis. She is back on the control pill and has been for the last year. Because of her smoking history and her age of 38, her PCP has limited choices as to what they can prescribe. She states that her acne on the whole is controlled but not adequately suppressed with current spironolactone therapy. Patient denies any headaches, intermenstrual spotting, menstrual irregularities, or diuresis with her spironolactone. She is not planning on any pregnancies in the near future. Physical examination reveals a pleasant 38-year-old woman who has a single erythematous papule on her right mid cheek and some faint erythematous macules of old acne sites along the jawline. Fortunately today it is almost quiescent. She does not have involvement on the shoulders chest or back. Today she has no tinea pedis and no tinea corporis on the buttock. Assessment plan: Acne vulgaris, and adult 1. Increase spironolactone dosing back to 100 mg 1 p.o. twice daily. Will dispense #180 for a 3-month supply with 3 refills. This will be called in to [facility] [place] 2. Continue current control pill, she is not sure the name of it. 3. If no improvement after 6 to 8 weeks with twice daily dosing of spironolactone, could consider switching to to Ortho Tri-Cyclen for better acne control, if approved by her PCP. 4. Reviewed safety profile of spironolactone, discussed its side effects, answered patient questions. 5. Recommend return to clinic in another 1 to 2 years for repeat check History of tinea corporis 1. May be related to excessive sweating, and wintertime dry skin. Winter is when this usually flareson the buttock. 2. Recommended changing socks midday if her feet are sweaty, and recommended once every 1 to 2 weeksapplication of Spectazole cream to her feet the soles of the feet and the toe webspaces, utilizing econazole nitrate 1% cream. 3. Will call in refill for her econazole nitrate 1% cream for twice daily application to buttock rash/athlete's foot as needed, dispense 30 g with 2 refills. CC: Flor Shculer MD documented in this encounter Plan of Treatment Not on filedocumented as of this encounter Visit Diagnoses Diagnosis Acne vulgaris Other acne documented in this encounter Care Teams Licensing Services Clerk Relationship Specialty Start Date End Date Flor Schuler MD PCP - General Internal Medicine 02/16/[address] [place] [address] documented as of this encounter
--- OUTSIDE RECORDS SUMMARY | 2022-03-03 12:40 | XMS_ITS | Encounter Summary ---
:1980 Author Organization [facility] Address [address] [place] [address] Care Team Providers Name Role Phone Marco Antonio Hernandez MD Primary Care Provider Unavailable Encounter Details Date Type Department Care Team Description 07/10/2020 Lab Requisition [facility] Outr Resulting Lab, Pathology & Laboratory Provider [facility] [address] [place] [address] Social History Tobacco Use Types Packs/Day Years Used Date Never Assessed Sex Assigned at Date Recorded Not on file documented as of this encounter Plan of Treatment Not on filedocumented as of this encounter Procedures Procedure Name Priority Date/Time Associated Diagnosis Comme nts COVID-19 TEST [facility] Today 07/10/2020 11:26 LAB PCR EST COVID-19 TESTING Routine 07/10/2020 11:26 Results for this EST procedure are i n the results section. documented in this encounter Results COVID-19 TEST [facility] LAB PCR (07/10/2020 11:26 EST) Specimen Swab - Entire nasopharynx (body structur e) Performing Organization Address City/State/ZIP Code Phon e Number [facility] [address] [place] [address] SERVICES COVID-19 TESTING (07/10/2020 11:26 EST) COVID-19 rt-PCR Negative Negative [facility] Result Comment: [facility] This test has not been FDA c leared or approved. This test has been authorized by FDA under an EUA for use by authorized laboratories. This test has been authorized only for detection of nucleic acid fro SERVICES m 2018-nCoV, not for any oth er viruses or pathogens. This test is only authorized for the duration of the declaration that circumstances exist justifying the authorization of emergency use of in vitro d iagnostic tests for detectio n and/or diagnosis of 2019-nCoV under section 564(b)(1) of Act, 21 U.S.C ?? 360bbb-3(b) (1), unless the authorization is terminated or revoked sooner. Negative results do not prec lude 2019-nCoV infection and should not be used as the sole basis for treatment or other patient management decisions. Negative results must be combined with clinical observa tions, patient history, and epidemiological informatio n. Testing was performed using the marli SARS-CoV-2 assay ([employer] on the Marli 6800 System Performing Lab Marli [address] [facility] Lab [facility] SERVICES Specimen Swab Performing Organization Address City/State/ZIP Code Phon e Number [facility] [address] [place] [address] SERVICES documented in this encounter Visit Diagnoses Not on filedocumented in this encounter Care Teams Assembler Skylights Relationship Specialty Start Date End Date Marco Antonio Hernandez MD PCP - General 12/25/14 documented as of this encounter
--- OUTSIDE RECORDS SUMMARY | 2022-03-03 12:40 | XMS_ITS | Encounter Summary ---
:1980 Author Organization [facility] [place] [address] Care Team Providers Name Role Phone Catie Chu MD Primary Care Provider Reason for Visit Reason Comments Medication Refill Encounter Details Date Type Department Care Team Description 02/07/2019 Refill Dermatology at [facility] Norm Aguayo MD [address] [address] [place] [address] DERMATOLOGY [phone] [place], [place] [address] (Wo rk) Social History Tobacco Use Types Packs/Day Years Used Date Never Smoker Sex Assigned at Date Recorded Not on file documented as of this encounter Plan of Treatment Not on filedocumented as of this encounter Visit Diagnoses Not on filedocumented in this encounter Care Teams Project Archivist Relationship Specialty Start Date End Date Catie Chu MD PCP - General Pediatrics 08/27/16 02/15/[address] [place] [address] documented as of this encounter
--- OUTSIDE RECORDS SUMMARY | 2022-03-03 12:40 | XMS_ITS | Encounter Summary ---
:1980 Author Organization [facility] Address [address] [place] [address] Care Team Providers Name Role Phone Unknown, Provider Primary Care Provider Prem Sheehan MD Primary Care Provider Encounter Details Date Type Department Care Team Description 09/26/2007 Results Only [facility] [address] [place], [place] [id number] [place] [id number] [phone] Social History Tobacco Use Types Packs/Day Years Used Date Never Assessed Sex Assigned at Date Recorded Not on file documented as of this encounter Plan of Treatment Not on filedocumented as of this encounter Procedures Procedure Name Priority Date/Time Associated Comments Diagnosis HPV DETECTION, HIGH Routine 09/26/2007 11:00 Resu lts for this RISK TYPES EDT procedure are i n the results section. CYTOPATHOLOGY Routine 09/26/2007 0:00 Results for this EDT procedure are i n the results section. documented in this encounter Results HUMAN PAPILLOMA VIRUS DNA TEST (09/26/2007 11:00 EDT) Specimen Description Cervix, ThinPrep [facility] Result Positive for one or more of HPV types 16,18,31,33,35,39,45,51,52,56,58,59, or 68. These [facility] high/intermediate risk HPV t ypes are associated with dysplasia and some cervical cancers. LAB Report Status Final [facility] [id number] LAB Specimen Performing Organization Address City/State/ZIP Code Phon e Number [facility] [address] [place] [phone] SERVICES [facility] [address] [place] [address] CYTOPATHOLOGY (09/26/2007 0:00 EDT) Pathology Report: CYTOPATHOLOGY REPORT [facility] Reports generated via electronic interface contain shaheed ginal data; however they are lacking the format of the original re port. Caution should be taken when reading/interpreting unfo rmatted reports. Name: ? QI CASH ? Accession #: ? [id number] : ? 1980 (Age: 27) ??F ?Collect Date: ? 09/14 Location: ? [facility] ? Receive Date : ? 09/27/2007 Provider: ?[facility] Copy to: ? Specimen/Source: ? ThinPrep Pap Test, Cervix/Endocervix, processed on [employer] ThinPrep Imaging System, with manual evaluation Last Menstrual Period: ? 12/10/06 Menstrual/ Status: ? Post Other: ? HPVA - HPV testing requested if ASC-US on the current ThinPrep Pap test. ? SPECIMEN ADEQUACY ? Satisfactory for Evaluation - transformation zone component present GENERAL CATEGORIZATION ? Epithelial Cell Abnormality INTERPRETATION ? Squamous Cell Abnormality - Atypical squamous c ells, undetermined significance (ASC-US). EDUCATIONAL NOTES/RECOMMENDATIONS ? [facility] recommends traceeo wing the 2006 Consensus Guidelines for the Management of Women with Abnormal Cervical Cancer Screening Tests (JLGTD, 2007;11(4):201-222). ??Consensus guidelines are availa ble online at www.ASCCP.org. ? Document reviewed and electronically signed by: ? PRAVEENA KELLY MD ? Report Date: ??09/29/2007 15:45 End of Report Specimen Performing Organization Address City/State/ZIP Code Phon e Number [facility] [address] [place] [address] SERVICES [facility] [address] [place] [address] documented in this encounter Visit Diagnoses Not on filedocumented in this encounter Care Teams Hoisting Pile Driving Engineer Relationship Specialty Start Date End Date Unknown, Maria Luisa, PCP - General 01/08/10 01/20/10 Prem Sheehan MD PCP - General 01/21/10 12/24/14 [address] [place], [place] [address] documented as of this encounter
--- OUTSIDE RECORDS SUMMARY | 2022-03-03 12:40 | XMS_ITS | Encounter Summary ---
:1980 Author Organization [facility] [place] [address] Care Team Providers Name Role Phone Catie Chu MD Primary Care Provider Reason for Visit Reason Comments Follow-up Encounter Details Date Type Department Care Team Description 08/27/2016 Office Visit Dermatology at [facility] Norm Cassidy MD Acne vulgaris [address] [facility] [address] [place] [address] DERMATOLOGY [phone] [place], [place] [address] (Wo rk) Social History Tobacco Use Types Packs/Day Years Used Date Never Smoker Sex Assigned at Date Recorded Not on file documented as of this encounter Progress Notes Norm Cassidy MD - 08/27/2016 10:00 AM EDT PROBLEM: 1. Follow up acne vulgaris on spironolactone. 2. History of tinea corporis. Zenia follows up and the spironolactone has worked wonders for her. I last saw her in 06/2014 and 100 mg 1 p.o. b.i.d. really pretty much has cleared it up. If she misses several doses the acne starts to come back again. Recently she has just been taking 1 pill a day and that has been controlling things for her. She states that she initially did have excessive diuresis and actually had to receive some IV fluids. She has had no issues since then. She drinks plenty of water. Her menstrual cycles are regular. She denies any headaches. Discussed with patient, the need for yearly followups as long as she is on spironolactone. Physical examination reveals a pleasant 36-year-old woman who has no active acne vulgaris today. Her complexion is clear. A/P: Acne vulgaris, adult. a. Drop spironolactone dosing from 100 mg b.i.d. to 1 p.o. daily, which really is what she is taking anyway. Ninety dispensed for a 3-month supply with 3 refills. This will be called in to [facility] in [place]. b. Again discussed benefits and risks of spironolactone including but not limited to intermenstrual spotting, headaches, and diuresis. c. Patient may try to conceive another child in the upcoming months. Recommend she stop the spironolactone a month ahead of that and then I would be happy to call in topical erythromycin for her to use and she could use benzoyl peroxide products as well. NOTE: Patient is concerned that her blood pressure might be possibly lower on spironolactone. It was checked today and it was 110/78. She states this is a little bit higher than it normally is, but she is also worried at the moment because her son is in the Emergency Room as we speak following a lacrosse injury. Reassured her, however, about the lack of significant hypotension with spironolactone; continue medication. cc: Maxi Ang MD documented in this encounter Plan of Treatment Not on filedocumented as of this encounter Visit Diagnoses Diagnosis Acne vulgaris Other acne documented in this encounter Care Teams Vegetable Preparer Relationship Specialty Start Date End Date Catie Chu MD PCP - General Pediatrics 08/27/16 02/15/19 [address] [address] documented as of this encounter
--- OUTSIDE RECORDS SUMMARY | 2022-03-03 12:40 | XMS_ITS | Encounter Summary ---
:1980 Author Organization [facility] Address [address] [place] [address] Care Team Providers Name Role Phone Prem Sheehan MD Primary Care Provider Encounter Details Date Type Department Care Team Description 12/21/2014 Hospital Encounter [facility] - S Unknown, Pro Johnnie palacios MD [address] [facility] [phone] [place] [address] (Work) [phone] Social History Tobacco Use Types Packs/Day Years Used Date Never Assessed Sex Assigned at Date Recorded Not on file documented as of this encounter Discharge Disposition Disposition Code Departure Means Destination Home or Self Senior Care documented in this encounter Plan of Treatment Not on filedocumented as of this encounter Visit Diagnoses Not on filedocumented in this encounter Care Teams Credit Charge Authorizer Relationship Specialty Start Date End Date Prem Sheehan MD PCP - General 01/21/10 12/24/14 [address] [place] [address] documented as of this encounter
--- OUTSIDE RECORDS SUMMARY | 2022-03-03 12:40 | XMS_ITS | Clinical Summary ---
:1980 Author Organization [facility] [place] [address] Care Team Providers Name Role Phone Flor Schuler MD Primary Care Provider Allergies Active Allergy Reactions Severity Noted Date Comments Latex 08/27/2016 Medications Medication Sig Dispensed Refills Start Date End Date Status multivitamin Take 1 tablet by 0 Active (THERAGRAN) Tablet mouth daily. sertraline (ZOLOFT) TAKE ONE TABLET BY 3 06/08/2016 Active 25 mg Tablet MOUTH EVERY DAY hydrocortisone INSERT 1 4 11/06/2018 Acti ve (ANUSOL-HC) 25 mg SUPPOSITORY Suppository RECTALLY TWICE A DAY FOR 2 WEEKS LORazepam (ATIVAN) TAKE ONE TABLET BY 0 09/14/2018 Active 0.5 mg Tablet MOUTH THREE TIMES A DAY NEEDED FOR ANXIETY methocarbamol TAKE ONE TABLET BY 0 09/14/2018 Active (ROBAXIN) 750 mg MOUTH EVERY 4 Tablet HOURS MEEDED DEBLITANE 0.35 mg TAKE ONE TABLET BY 3 11/06/2018 Active Tablet MOUTH EVERY DAY omeprazole (PRILOSEC) TAKE TWO CAPSULES 6 12/08/2018 Active 20 mg Capsule, BY MOUTH EVERY DAY Delayed Release(E.C.) spironolactone Take one tablet 180 tablet 3 02/16/2019 Active (ALDACTONE) 100 mg twice daily by Tablet mouth econazole nitrate 1 % Apply every 1-2 30 g 2 02/16/2019 Active Cream weeks to feet, the soles of the feet, and the toe webspace's. Active Problems Problem Noted Date Dermatitis 05/29/2014 Tinea pedis 05/29/2014 Acne 05/29/2014 Social History Tobacco Use Types Packs/Day Years Used Date Never Smoker Smokeless Tobacco: Never Used Sex Assigned at Date Recorded Not on file Plan of Treatment Health Maintenance Due Date Last Done Comments Covid-19 Vaccine (#1) 1980 HIV screen 02/29/2000 Hepatitis C Screening 02/29/2000 Tdap adult 2001 Tetanus vaccine 2001 HPV test 02/29/2012 PAP Smear 02/29/2012 Influenza (Flu) vaccine (1 of - Influenza standard 01/15/2022 series) Insurance Payer Benefit Plan / Subscriber ID Effective Dates Phone Addre ss Type Group [place] [id number] 2018-Present [phone] [id number] [phone] Care Teams Risk Control Field Representative Relationship Specialty Start Date End Date Flor Schuler MD PCP - General Internal Medicine 02/16/[address] [place], [place] [address]
--- OUTSIDE RECORDS SUMMARY | 2022-03-03 12:40 | XMS_ITS | Encounter Summary ---
:1980 Author Organization [facility] [place] [address] Care Team Providers Name Role Phone Maxi Ang MD Primary Care Provider Reason for Visit Reason Comments Follow-up Encounter Details Date Type Department Care Team Description 07/02/2014 Office Visit Dermatology at [facility] Norm Aguayo MD Acne vulgaris; [address] [place] [address] [place] [address] [phone] (Wo rk) Social History Tobacco Use Types Packs/Day Years Used Date Never Smoker Sex Assigned at Date Recorded Not on file documented as of this encounter Patient Instructions Patient InstructionsMaría Elena Sutton LPN - 07/02/2014 2:08 PM EST Images from the original note were not included. [facility] Acne: After Your Visit Your Care Instructions Acne is a skin problem that shows up as blackheads, whiteheads, and pimples. It most often affects the face, neck, and upper body. Acne occurs when oil and skin cells clog the skin's pores. Acne usually starts during the teen years and often lasts into adulthood. Gentle cleansing every daycontrols most mild acne. If home treatment does not work, your doctor may prescribe creams, antibiotics, or a stronger medicine called isotretinoin. Sometimes control pills help women who have monthly acne flare-ups. Follow-up care is a barnes part of your treatment and safety. Be sure to make and go to all appointments, and call your doctor if you are having problems. It???s also a good idea to know your test resultsand keep a list of the medicines you take. How can you care for yourself at home? ?? Gently wash your face 1 or 2 times a day with warm (not hot) water and a mild soap or cleanser. Always rinse well. ?? Use an bxre-ndr-tfprbel lotion or gel that contains benzoyl peroxide. Start with a small amount of 2.5% benzoyl peroxide and increase the strength as needed. Benzoyl peroxide works well for acne, but you may need to use it for up to 2 months before your acne starts to improve. ?? Apply acne cream, lotion, or gel to all the places you get pimples, blackheads, or whiteheads, not just where you have them now. Follow the instructions carefully. If your skin gets too dry and scaly or red and sore, reduce the amount. For the best results, apply medicines as directed. Try not to miss doses. ?? Do not squeeze or pick pimples and blackheads. This can cause infection and scarring. ?? Use only oil-free makeup, sunscreen, and other skin care products that will not clog your pores. ?? Wash your hair every day, and try to keep it off your face and shoulders. Consider pinning it back or cutting it short. When should you call for help? Watch closely for changes in your health, and be sure to contact your doctor if: ?? You have tried home treatment for 6 to 8 weeks and your acne is not better or gets worse. Your doctor may need to add to or change your treatment. ?? Your pimples become large and hard or filled with fluid. ?? Scars form after pimples heal. ?? You feel sad or hopeless, lack energy, or have other signs of depression while you are taking theprescription medicine isotretinoin. ?? You start to have other symptoms, such as facial hair growth in women or bone and muscle pain. Where can you learn more? Visit our health information library at [email or web address] You can also view health information on [employer], your personal patient account. Log in or sign up today. Enter V108 in the search box to learn more about Acne: After Your Visit. ?? [id number] [employer]. Care instructions adapted under license by [facility]. This care instruction is for use with your licensed healthcare professional. If you have questionsabout a medical condition or this instruction, always ask your healthcare professional. [employer] disclaims any warranty or liability for your use of this information. Content Version: 10.3.146465; Current as of: July 26, 2013 documented in this encounter Progress Notes Norm Cassidy MD - 07/02/2014 2:14 PM EST Problem: 1. Facial acne. 2. Irritant dermatitis, buttocks. 3. Tinea pedis. 4. History of tinea corporis. Zenia follows up and the spironolactone has helped her acne but not cleared it really. She tolerated the medication well without side effects. The Spectazole has really helped her feet, but the triamcinolone worsened the buttocks dermatitis. Physical examination confirms that the acneform papules on the lateral cheeks have almost cleared, but she still has a few active sites on the mid cheeks. She has mild tinea pedis on the sole of the left foot. Assessment and Plan: 1. Acne vulgaris, adult. a. Advance spironolactone from 50 b.i.d. to 100 mg p.o. b.i.d.; #60 dispensed with three refills. b. Again discussed benefits and side effects of spironolactone, including but not limited to intermenstrual spotting, headaches, and diuresis. 2. Irritant eczematous dermatitis, buttocks. a. As this has worsened with triamcinolone cream, this may in fact be tinea corporis. b. Would recommend that she apply Spectazole to this area b.i.d. for a couple of weeks to help clear it. 3. Tinea pedis, sole of left foot. a. The patient was applying Spectazole on an intermittent q.day basis, and has seen marked improvement but not yet clearing. Recommend that she continue q.day applications for another week or so to help clear up the foot rash. Return to clinic here will be p.r.n. Note: I would be happy to give the patient refills of spironolactone as necessary. COPY: Maxi Ang M.D. documented in this encounter Plan of Treatment Not on filedocumented as of this encounter Visit Diagnoses Diagnosis Acne vulgaris Other acne Tinea pedis Dermatophytosis of foot documented in this encounter Care Teams Landscape Engineer Relationship Specialty Start Date End Date Maxi Ang MD PCP - General 04/08/10 08/26/[address] [place] [id number] documented as of this encounter
--- OUTSIDE RECORDS SUMMARY | 2022-03-03 12:40 | XMS_ITS | Encounter Summary ---
:1980 Author Organization [facility] Address [address] [place] [address] Care Team Providers Name Role Phone Marco Antonio Hernandez MD Primary Care Provider Unavailable Encounter Details Date Type Department Care Team Description 07/03/2021 Lab Requisition [facility] Outr Resulting Lab, Pathology & Laboratory Provider [facility] [address] [place] [address] Social History Tobacco Use Types Packs/Day Years Used Date Never Assessed Sex Assigned at Date Recorded Not on file documented as of this encounter Plan of Treatment Not on filedocumented as of this encounter Procedures Procedure Name Priority Date/Time Associated Diagnosis Comme nts SYPHILIS SEROLOGY Routine 07/03/2021 9:53 EST Res ults for this procedure are i n the results section. documented in this encounter Results SYPHILIS SEROLOGY (07/03/2021 9:53 EST) Pathologist Sig nature Syphilis Serology Negative Negative [facility] Specimen Blood - Venous blood (substance) Performing Organization Address City/State/ZIP Code Phon e Number [facility] [address] [place] [address] SERVICES documented in this encounter Visit Diagnoses Not on filedocumented in this encounter Care Teams Kosher Dietary Service Supervisor Relationship Specialty Start Date End Date Marco Antonio Hernandez MD PCP - General 12/25/14 documented as of this encounter
--- OUTSIDE RECORDS SUMMARY | 2022-03-03 12:40 | XMS_ITS | Encounter Summary ---
:1980 Author Organization [facility] Address [address] [place] [address] Care Team Providers Name Role Phone Marco Antonio Hernandez MD Primary Care Provider Unavailable Encounter Details Date Type Department Care Team Description 03/17/2019 Results Only [facility] Catie George MD [phone] [address] [place] [address] Social History Tobacco Use Types Packs/Day Years Used Date Never Assessed Sex Assigned at Date Recorded Not on file documented as of this encounter Plan of Treatment Not on filedocumented as of this encounter Procedures Procedure Name Priority Date/Time Associated Diagnosis Comme nts PAP TEST- RESULT Routine 03/17/2019 0:00 EDT Resu lts for this ONLY procedure are i n the results section. documented in this encounter Results PAP TEST- RESULT ONLY (03/17/2019 0:00 EDT) Pathology Report: CYTOPATHOLOGY REPORT [facility] Reports generated via electronic interface contain shaheed ginal data; SERVICES however they are lacking the format of the original re port. Caution should be taken when reading/interpreting unfo rmatted reports. Name: ? Germain BLAIR ? Accession #: ? [id number] ? : ? 1980 (Age: 39) ??F ?Collect Date: ? 03/17/2019 ? Location: ? [facility] ? Receive Date: ? 03/20/20 19 ? Provider: CATIE GEORGE MD Copy to: DANIEL RODRIGUEZ MD ? Final Report SPECIMEN ADEQUACY ? Satisfactory for Evaluation - transformation zone component present GENERAL CATEGORIZATION ? Negative for Intraepithelial Lesion or Malignan cy ?? Hormonal/Contraceptive status: Yes: Progestin only pil l Specimen/Source: ??Pap Test, Cervix, ThinPrep Imaging System with manual evaluation Document reviewed and electronically signed by: ? Wilman Alex, CT(ASCP) ? Report ??Date: 03/23/2019 11:27 HPV with Pap Test ? Date Ordered: ? 03/23/2019 ? Status: ?? Signed Out ?Date Complete: ? 03/24/2019 ? By: ??Sy stem Interface ? Date Reported: ? 03/24/2019 ? Interpretation RESULT: Negative for HPV. No E6 or E7 mRNA is detected from HPV types 16,18,31,3 3,35, 39,45,51,52,56,58,59,66, and 68 by phlebotomy technician media christal amplification. Comments Document reviewed and electronically signed by: ? System Interface ? Report date: 03/24/2019 By the signature above, the attending physician certif ies that he/she has personally conducted a gross and/or microscopic examin ation of the described specimens and rendered or confirmed the above diagnosi s. End of Report Specimen Performing Organization Address City/State/ZIP Code Phon e Number [facility] [address] [place] [address] SERVICES documented in this encounter Visit Diagnoses Not on filedocumented in this encounter Care Teams Design Director Relationship Specialty Start Date End Date Marco Antonio Hernandez MD PCP - General 12/25/14 documented as of this encounter
--- OUTSIDE RECORDS SUMMARY | 2022-03-03 12:40 | XMS_ITS | Encounter Summary ---
:1980 Author Organization [facility] Address [address] [place] [address] Care Team Providers Name Role Phone Marco Antonio Hernandez MD Primary Care Provider Unavailable Encounter Details Date Type Department Care Team Description 07/03/2021 Lab Requisition [facility] Outr Resulting Lab, Pathology & Laboratory Provider [facility] [address] [place] [id number] Social History Tobacco Use Types Packs/Day Years Used Date Never Assessed Sex Assigned at Date Recorded Not on file documented as of this encounter Plan of Treatment Not on filedocumented as of this encounter Procedures Procedure Name Priority Date/Time Associated Comments Diagnosis HIV 1/2 ANTIGEN AND Routine 07/03/2021 9:53 EST R esults for this ANTIBODY, 4TH procedure are in GENERATION the results section. documented in this encounter Results HIV 1/2 ANTIGEN AND ANTIBODY, 4TH GENERATION (07/03/2021 9:53 EST) HIV 1 and 2 NegativeComment: If Negative [facility] Antibody/p24 acute HIV-1 LABORATORY Antigen, 4th infection is SERVICES Generation suspected in a high risk patient, submit plasma specimen for HIV-1 RNA quantitation test. Specimen Blood - Venous blood (substance) Narrative [facility] SERVICES - 07/04/2021 10:18 EST Fourth Generation assay performed on the Siemens BuysideFXaur XPT. Performing Organization Address City/State/ZIP Code Phon e Number [facility] [address] [place] [address] SERVICES documented in this encounter Visit Diagnoses Not on filedocumented in this encounter Care Teams Buzzsaw Operator Relationship Specialty Start Date End Date Marco Antonio Hernandez MD PCP - General 12/25/14 documented as of this encounter
--- OUTSIDE RECORDS SUMMARY | 2022-03-03 12:40 | XMS_ITS | Encounter Summary ---
:1980 Author Organization [facility] Address [address] [place] [address] Care Team Providers Name Role Phone Unknown, Provider Primary Care Provider Encounter Details Date Type Department Care Team Description 01/09/2010 Hospital Encounter [facility] - Luh Ware MD Other [address] [place] [phone] Social History Tobacco Use Types Packs/Day Years Used Date Never Assessed Sex Assigned at Date Recorded Not on file documented as of this encounter Discharge Disposition Disposition Code Departure Means Destination Home or Self Care documented in this encounter Plan of Treatment Not on filedocumented as of this encounter Visit Diagnoses Not on filedocumented in this encounter Care Teams Supervisor Prepress Relationship Specialty Start Date End Date Unknown, Provider, PCP - General 01/08/10 01/20/10 documented as of this encounter
--- OUTSIDE RECORDS SUMMARY | 2022-03-03 12:40 | XMS_ITS | Encounter Summary ---
:1980 Author Organization [facility] Address [address] [place] [address] Care Team Providers Name Role Phone Unavailable Primary Care Provider Unavailable Encounter Details Date Type Department Care Team Description 07/04/2008 Before [facility] Converted [facility] - Loreto De Luna, Visit (Maple) Maple conversion PUBLICIST [address] [place] [address] Social History Tobacco Use Types Packs/Day Years Used Date Never Assessed Sex Assigned at Date Recorded Not on file documented as of this encounter Plan of Treatment Not on filedocumented as of this encounter Procedures Procedure Name Priority Date/Time Associated Diagnosis Comme nts CYTOPATHOLOGY Routine 07/04/2008 0:00 EST Results for this procedure are i n the results section . documented in this encounter Results CYTOPATHOLOGY (07/04/2008 0:00 EST) Pathology Report: CYTOPATHOLOGY REPORT ? [facility] ? LAB Reports generated via electr Radius App interface contain original data; ? however they are lacking the format of the original report. ? Caution should be taken when reading/interpreting unformatted reports. ? Name: ? SHAILESH, QI L ? Accession #: ? [id number] ? : ? 1980 (Age: 28) ??F ?Collect Date: ? 07/04/2008 ? Location: ? [facility] ? Receive Date: ? 07/05/2008 ? Provider: ?JUAN M RO WLETT PUBLICIST ? Copy to: ? Specimen/Source: ? Pap Test, Cervix/Endocervix, ThinPrep Imaging System ? with manual evaluation ? Last Menstrual Period: ? Edgar.09 ? Hormonal/Contraceptive Statu s: ? Intrauterine device: Paragar d ? Previous Gynecologic Patholo gy: ? ASC-US: 5/12/08 ? HPV: + 5/12/08 ? Treatment History: ? Colposcopy: 6/24/08 Fragment s benign endocervical tissue ? SPECIMEN ADEQUACY ? - scant squamous epit helial component secondary to excessive inflammation ?? Satisfactory for Evaluation ? - transformation zone compon ent present ? GENERAL CATEGORIZATION ? Negative for Intraepi thelial Lesion or Malignancy ? INTERPRETATION ? Reactive cellular francesco nges associated with inflammation present (includes ?? repair). ? Shift in joshua present sugge stive of bacterial vaginosis. ? Document reviewed and electr onically signed by: ? Cindy C. Snider, MD ? Report Date: ??03/03/ 2009 09:13 ? End of Report ? Specimen Performing Organization Address City/State/ZIP Code Phon e Number [facility] [address] [place] [address] SERVICES [facility] [address] [place] [address] documented in this encounter Visit Diagnoses Not on filedocumented in this encounter
--- OUTSIDE RECORDS SUMMARY | 2022-03-03 12:40 | XMS_ITS | Encounter Summary ---
:1980 Author Organization [facility] Address [address] [place] [address] Care Team Providers Name Role Phone Unknown, Provider Primary Care Provider Prem Sheehan MD Primary Care Provider Encounter Details Date Type Department Care Team Description 11/08/2007 Results Only [facility] - Kellie nguyen, Latonia Francisco MD conversion [address] [place] [phone] Social History Tobacco Use Types Packs/Day Years Used Date Never Assessed Sex Assigned at Date Recorded Not on file documented as of this encounter Plan of Treatment Not on filedocumented as of this encounter Procedures Procedure Name Priority Date/Time Associated Diagnosis Comme [facility] SURGICAL PATHOLOGY Routine 11/08/2007 0:00 EDT Re sults for this procedure are i n the results section. documented in this encounter Results SURGICAL PATHOLOGY (11/08/2007 0:00 EDT) Pathology Report: SURGICAL PATHOLOGY REPORT [facility] Reports generated via electronic interface contain shaheed ginal data; LAB however they are lacking the format of the original re port. Caution should be taken when reading/interpreting unfo rmatted reports. Name: ? QI CASH ? Accession #: ? [id number] ? : ? 1980 (Age: 27) ??F ? Collect Date: ? 11/08/2007 ? Location: ? [facility] ? Receive Date: ? 008 ? Provider: LATONIA HAWLEY MD Copy to: DONY BOND MD ? Final Pathologic Diagnosis: A. ?Endocervix, curettage: 1. ?Fragments of benign endocervical tiss ue. 2. ? No dysplasia identified. B. ?Cervix, 12:00, biopsy: 1. ?Squamous metaplasia wit h mild chronic cervicitis and reactive epithelial changes. 2. ? No dysplasia identified. Document reviewed and electronically signed by: Kristin Mcdermott MD Report ??Date: 11/14/2007 16:45 By the signature above, the attending physician certif ies that he/she has personally conducted a gross and/or microscopic examin ation of the described specimens and rendered or confirmed the above diagnosi s. Specimen(s) Received: A. ?ECC (#1) B. ? Cervical biopsy @ 12 o'clock (#2) Clinical History: ? ASCUS Pap with (+) HPV; CECIL I on colpo Gross Description: ? Received in formalin labelled Heroux and endo cx is a 0.4 x 0.3 x 0.1 cm aggregate of mucinous and focally hemorrhagic mater ial. ??The specimen is submitted in toto as (A). Received in formalin labelled Heroux and cx 12 is a 0.4 x 0.3 x 0.2 cm palacios-pink, firm piece of tissue which is submitted inta ct as (B). ??(James Gomes/[facility] End of Report Specimen Performing Organization Address City/State/ZIP Code Phon e Number [facility] [address] [place] [phone] SERVICES [facility] [address] [place] [address] documented in this encounter Visit Diagnoses Not on filedocumented in this encounter Care Teams Field Identification Specialist Relationship Specialty Start Date End Date Unknown, Provider, PCP - General 01/08/10 01/20/10 Prem Sheehan MD PCP - General 01/21/10 12/24/[address] [place] [phone] documented as of this encounter
--- OUTSIDE RECORDS SUMMARY | 2022-03-03 12:40 | XMS_ITS | Encounter Summary ---
:1980 Author Organization [facility] Address [address] [place] [address] Care Team Providers Name Role Phone Unavailable Primary Care Provider Unavailable Encounter Details Date Type Department Care Team Description 01/06/2010 Results Only [facility] Yesica Ware MD [phone] [place] [address] Social History Tobacco Use Types Packs/Day Years Used Date Never Assessed Sex Assigned at Date Recorded Not on file documented as of this encounter Plan of Treatment Not on filedocumented as of this encounter Procedures Procedure Name Priority Date/Time Associated Diagnosis Comme nts SURGICAL PATHOLOGY Routine 01/06/2010 0:00 EDT Re sults for this procedure are i n the results section. documented in this encounter Results SURGICAL PATHOLOGY (01/06/2010 0:00 EDT) Pathology Report: SURGICAL PATHOLOGY REPORT ? [facility] ? LAB Reports generated via Mapplas interface contain original data; ? however they are lacking the format of the original report. ? Caution should be taken when reading/interpreting unformatted reports. ? Name: ? HEROUX, QI L ? Accession #: ? [id number] ? : ? 1980 (Age: 29) ??F ?Collect Date: ? 01/06/2010 ? Location: ? [facility] ? R eceive Date: ? 01/07/2010 ? Provider: YESICA WARE MD ? Copy to: SHANITA Arciniega D ? Addendum ? Date Ordered: ? 0 01/22/2010 ? Status: Signed Out ? Date Complete: ? 01/22/2010 ? By: Elena Chapa ? Date Reported: ? 01/23/2010 ? Addendum Comment ? This addendum is bein g issued to report the result of DNA ploidy analysis ?? by florescent in situ hybrid ization (FISH) performed at the [facility]. ??No ? clonal aneuploidy was detect ed and therefore there is no support for a partial ?? molar . ??The morph ologic ??changes seen in this case can also be ? observed in early non-molar . ??The findings have been communicated to ?? Dr. Yesica Ware's office on 01/22/[address] Damon Melendez. ??A copy of the ? FISH analysis will be faxed to the clinician's office under separate cover. ??The original diagnosis is unchan ged. ??(Dr. Ambaye)/mpl ? Document reviewed and electr onically signed by: ? SALVADOR B AMBAYE MD ? Report date: 01/24/20 ? By the signature above, the attending physician certifies that he/she has ? personally conducted a gross and/or microscopic examination of the described ? specimens and rendered or co nfirmed the above diagnosis. ? Final Report ? Final Pathologic Diagnosis: ? Uterine contents, cur ettage: ? 1. ?Immature ch orionic villi with hydropic changes. See comment. ? 2. ? Gestational endomet rium with placental site change. ? Comment: ? This case was reviewe d in the intradepartmental consultation conference. ?? The specimen consists of a m ixture of hydropic and normal appearing chorionic ?? villi. Some of the hydropic villi show a central, acellular cistern-like ? formation. The trophoblastic proliferation is essentially polar. A non-molar ? hydropic abortus, is favored . However a partial molar can not be ruled out on H&E morphologic groun ds alone. Hence Formalin fixed paraffin embedded ? block (A3) is being sent to the [facility], for evaluation of DNA ploidy. The result of this a ssay will be issued separately in an addendum ? report. ? Gross Description: ? Received in formalin labelled Heroux, Qi and uterus are 3.0 x 2.5 x 0.4 cm of multiple palacios-pin k to red, hemorrhagic irregular soft tissue ? fragments. ??No parts are grossly identified. ??The specimen is entirely ? submitted as (A1)-(A3) follo wing filtration. ??(Santos Mistry)/mpl ? Clinical History: ? Blighted ovum on U/S IUD in cervix ? Specimens Received: ? Uterine suctioned con tents with office P[place] ? Document reviewed and electr onically signed by: ? SALVADOR B AMBAYE MD ? Report ??Date: 2009 08:37 ? By the signature above, the attending physician certifies that he/she has ? personally conducted a gross and/or microscopic examination of the described ? specimens and rendered or co nfirmed the above diagnosis. ? End of Report ? Specimen Performing Organization Address City/State/ZIP Code Phon e Number [facility] [address] [place] [address] SERVICES [facility] [address] [place] [address] documented in this encounter Visit Diagnoses Not on filedocumented in this encounter
--- OUTSIDE RECORDS SUMMARY | 2022-03-03 12:40 | XMS_ITS | Encounter Summary ---
:1980 Author Organization [facility] Address [address] [place] [address] Care Team Providers Name Role Phone Unknown, Provider Primary Care Provider Encounter Details Date Type Department Care Team Description 01/09/2010 Results Only [facility] Diana Ware MD [phone] [place] [address] Social History Tobacco Use Types Packs/Day Years Used Date Never Assessed Sex Assigned at Date Recorded Not on file documented as of this encounter Plan of Treatment Not on filedocumented as of this encounter Procedures Procedure Name Priority Date/Time Associated Comments Diagnosis MISCELLANEOUS TEST, Routine 01/09/2010 11:22 Resu lts for this OTHER EDT procedure are i n the results section. documented in this encounter Results MISCELLANEOUS TEST, OTHER (01/09/2010 11:22 EDT) Pathologist Sig nature Test Name ANEUPLOIDY DETECTION BY [facility] FISH Result [facility] Aneuploidy Detection, POC, F ANDRIY ? Specimen ?? Tissue-Paraffin ? Specimen ID ?? [id number] ? Source ? POC [id number] ? Order Date ?? 10 Jan 2010 08 :21 ? Reason For Referral ??r/o mo lar ? Method ? FISH analysis of 100 nuclei with probes for Xcen (DXZ1), ? Ycen (DYZ3), 13q14 (Rb1), 15 sotero (D15Z4), 16cen (D16Z3), ? 18cen (D18Z1), 21q22 (D21S34 1) and 22q11.2 (BCR). ? Results ? Chromosome ??Result ? --- ? XY ?? normal ? 13 ?? normal ? 15 ?? normal ? 16 ?? normal ? 18 ?? normal ? 21 ?? normal ? 22 ?? normal ? NOMENCLATURE: ? nuc ? andriy(DXZ1x1,DYZ3x1,A85L7i8),( Rb1,P23M369)x2,(D15Z4,D16Z3, ? BCR)x2 ? Of 100 nuclei, 99 had 1 DXZ1 and 1 DYZ3 signal, 97 had 2 ? D18Z1 signals, 97 had 2 sign als for 13q14, 99 had 2 signals ? for 21q22, 97 had 2 signals for D15Z4, 99 had 2 signals for ? D16Z3 and 97 had 2 signals f or BCR. ? Interpretation ? A normal signal pattern for chromosomes 13, 15, 16, 18, 21, ? 22 and XY was observed. ? The reason for testing provi ded was rule out molar ? . This testing is not sufficient to rule out a ? complete molar . A surgical pathology consult on ? paraffin-embedded tissue (te st #[id number]) is recommended to test ? for complete molar . If interested in this ? testing, please call [phone]. ? DISCLAIMER: This test was de veloped and its performance ? characteristics determined b y Laboratory Medicine and ? Pathology, [facility] Reta ster. It has not been cleared ? or approved by the U.S. Food and Drug Administration. This ? FISH test does not rule out other chromosome anomalies. ? Arti et al., [place] Clin Proc 73:132-137, 1998. ? Alcohol Still Operator ? Maxi Carolina MD, PhD ? Report Date ?? 22 Jan 2010 1 0:21 ? * Performing Site: ? [facility] Dpt of Lab Med & Pathology ? [address] [facility] [address] ? Supervisor Mixing: Von howard III, M.D. ? Specimen Performing Organization Address City/[facility]/ZIP Code Phon e Number [facility] [address] [place] [address] SERVICES [facility] [address] [place] [address] documented in this encounter Visit Diagnoses Not on filedocumented in this encounter Care Teams Commercial Counsel Relationship Specialty Start Date End Date Unknown, Provider, PCP - General 01/08/10 01/20/10 documented as of this encounter
--- OUTSIDE RECORDS SUMMARY | 2022-03-03 12:40 | XMS_ITS | Encounter Summary ---
:1980 Author Organization [facility] [place] [address] Care Team Providers Name Role Phone Maxi Ang MD Primary Care Provider Encounter Details Date Type Department Care Team Description 05/29/2014 Office Visit Dermatology at [facility] Norm Cassidy MD Dermatitis; [address] Tinea pedis; [place] [address] DERMATOLOGY Acne vulgaris [phone] [place], [place] [address] (Wo rk) Social History Tobacco Use Types Packs/Day Years Used Date Never Assessed Sex Assigned at Date Recorded Not on file documented as of this encounter Progress Notes Norm Cassidy MD - 05/29/2014 9:35 AM EST Problems: 1. Facial acne. 2. Buttocks rash. 3. Foot rash. 4. History of tinea corporis. Zenia follows up and has been having problems this winter again with a rash on the bottom. In the past, it has been tinea corporis, ANNA positive. She also had a rash on her left foot, which has not responded to clotrimazole cream. She has been having a problem with facial acne for the last four or five years that has not responded to numerous [id number] products including witch simone, Proactiv, etc. I last saw the patient in 2009. Physical examination reveals a pleasant, 34-year-old woman who has ANNA-negative erythematous patches on the buttocks, not extending into the gluteal cleft, consistent most with irritant eczematous dermatitis. She has dry scaling and peeling with some subcorneal vesicles present on the sole of her left foot, extending up into the toe web spaces of that left foot as well. She has tinea unguium only of the left fifth toenail. She has no involvement on the right foot. Assessment and Plan: 1. Acne vulgaris, adult. a. The patient points out that her brother and sister also have problems with adult acne. b. I explained that she needs to advance from topicals to orals. I recommended spironolactone 50 mg one p.o. q.a.m. for a week, then one p.o. b.i.d.; #60 dispensed with two refills. c. Return to clinic in a month and a half for repeat check. d. We discussed benefits and side effects of the spironolactone including but not limited to intermenstrual spotting, headaches, and diuresis. 2. Irritant eczematous dermatitis, buttocks. a. Begin trial of triamcinolone cream 0.1%, applying b.i.d. to affected area for a week, then discontinue; 30 grams dispensed with zero refills. 3. Tinea pedis, sole of left foot. a. Prescription given for Spectazole cream to apply b.i.d. to affected area for seven days, then discontinue; 30 grams dispensed with two refills. b. Return to clinic in a month and a half for repeat check. Note: The patient in winter often has the buttock/flank rash. We have discussed using milder soap, decreasing frequency of washing and showering, etc. COPY: Maxi Ang M.D. Note: Half an hour was spent with the patient, more than half spent in counseling. documented in this encounter Plan of Treatment Not on filedocumented as of this encounter Visit Diagnoses Diagnosis Dermatitis Contact dermatitis and other eczema, due to unspecified cause Tinea pedis Dermatophytosis of foot Acne vulgaris Other acne documented in this encounter Care Teams Umbrella Tipper Machine Relationship Specialty Start Date End Date Maxi Ang MD PCP - General 04/08/10 08/26/[address] [place] [id number] documented as of this encounter
--- OUTSIDE RECORDS SUMMARY | 2022-03-03 12:40 | XMS_ITS | Encounter Summary ---
:1980 Author Organization [facility] [place] [address] Care Team Providers Name Role Phone Flor Schuler MD Primary Care Provider Encounter Details Date Type Department Care Team Description 02/16/2019 Refill Dermatology at [facility] Marlin Jameson, GENDER STUDIES PROFESSOR [address] [place] [address] Social History Tobacco Use Types Packs/Day Years Used Date Never Smoker Smokeless Tobacco: Never Used Sex Assigned at Date Recorded Not on file documented as of this encounter Plan of Treatment Not on filedocumented as of this encounter Visit Diagnoses Not on filedocumented in this encounter Care Teams Overhauler Bus Truck Relationship Specialty Start Date End Date Flor Schuler MD PCP - General Internal Medicine 02/16/[address] [place] [address] documented as of this encounter
--- OUTSIDE RECORDS SUMMARY | 2022-03-03 12:40 | XMS_ITS | Encounter Summary ---
:1980 Author Organization [facility] [address] Care Team Providers Name Role Phone Catie Chu MD Primary Care Provider Reason for Visit Reason Comments Medication Refill Encounter Details Date Type Department Care Team Description 08/25/2016 Refill Dermatology at [facility] Norm Aguayo MD [address] [facility] [address] [place] [address] DERMATOLOGY [phone] [place], [place] [address] (Wo rk) Social History Tobacco Use Types Packs/Day Years Used Date Never Smoker Sex Assigned at Date Recorded Not on file documented as of this encounter Plan of Treatment Not on filedocumented as of this encounter Visit Diagnoses Not on filedocumented in this encounter Care Teams Assistant Winemaker Relationship Specialty Start Date End Date Catie Chu MD PCP - General Pediatrics 08/27/16 02/15/[address] [place] [address] [place] [address] documented as of this encounter
== END 2022-03-03 12:32 | disposition home or self-care (01) ==
LOC: LBO 12:38
PROVIDERS: PCP Nurse Practitioner; Visit Provider Nurse Practitioner Women's Health
DX: N92.5 Other specified irregular menstruation (principal)
CPT/HCPCS: 36415; 84702

== ENCOUNTER 2022-04-16 03:52 | Outpatient (CLI) | payer OTHER, SELFPAY ==
[2022-04-16 15:11] LABS: Panorama Kit Sent via Fed Ex
[2022-04-16 15:14] LABS: Abs Immature Grans 0.05 10^3/uL (0.0-0.06); Absolute Basophil Count 0.03 10^3/uL (0.0-0.2); Absolute Eosinophil Count 0.13 10^3/uL (0.0-0.7); Absolute Lymphocyte Count 1.91 10^3/uL (1.2-3.4); Absolute Monocyte Count 0.84 10^3/uL (0.1-0.8); Absolute Neutrophil Count 7.13 10^3/uL (1.2-6.7); Basophils % 0.3; Eosinophils % 1.3; HGB 13.1 g/dL (11.2-15.7); Immature Grans % 0.5; Lymphocytes % 18.9; MCH 31.2 pg (27.0-33.0); MCHC 34.5 % (32.0-36.0); MCV 91 fL (80-95); MPV 10.5 fL (8.0-11.0); Monocytes % 8.3; Neutrophils % 70.7; Platelet Count 279 10^3/uL (130-400); RDW 13.2 % (11.7-14.6); RDW-SD 43.3 fL; WBC 10.09 10^3/uL (4.4-10.8)
[2022-04-16 15:25] LABS: Glucose,1 Hr (Glucola) 76 mg/dL (80-140)
[2022-04-16 16:14] LABS: ALT 39 U/L (14-59); AST 19 U/L (15-37); Albumin 3.7 g/dL (3.4-5.0); Alkaline Phosphatase 60 U/L (46-116); Anion Gap 6.1 mmol/L (3-11); BUN 18 mg/dL (7-18); Bilirubin, Total 0.5 mg/dL (0.2-1.0); CO2 27.9 mmol/L (21.0-32.0); CREATININE 0.9 mg/dL (0.55-1.02); Calcium 9.1 mg/dL (8.5-10.1); Chloride 100 mmol/L (98-107); Estimated GFR 82.88 (mL/min/1.73m2); Glucose 76 mg/dL (74-106); Potassium 3.3 mmol/L (3.5-5.1); Sodium 134 mmol/L (136-145); TSH (W/Ref FT4) 3.33 uIU/mL (0.36-3.74); Total Protein 8.1 g/dL (6.4-8.2)
[2022-04-19 14:26] LABS: Syphilis IgG w/Reflex Nonreactive (Nonreactive)
[2022-04-20 09:14] LABS: Varicella IgG Antibody Positive (See Note)
[2022-04-20 09:17] LABS: Rubella IgG Ab (UVM) Positive (See Note)
[2022-04-20 09:34] LABS: Hepatitis B Surface Ag Negative (Negative)
[2022-04-20 10:06] LABS: Hepatitis C Ab w Rflx HCV PCR Negative (Negative)
[2022-04-20 10:15] LABS: HIV-1/2 Ag & Ab Screen Negative (Negative)
== END 2022-04-16 03:53 | disposition home or self-care (01) ==
LOC: LBO 03:52
PROVIDERS: PCP Family Medicine; Visit Provider Advanced Practice Midwife
DX: O09.521 Supervision of elderly multigravida, first trimester (principal); O99.341 Other mental disorders complicating pregnancy, first trimester; F41.8 Other specified anxiety disorders; F90.8 Attention-deficit hyperactivity disorder, other type; Z3A.12 12 weeks gestation of pregnancy
CPT/HCPCS: 36415; 80053; 82950; 86787; 86803; 86850; 86900; 86901; 87340; 87389; 84443; 85025; 86762; 86780

== ENCOUNTER 2022-04-16 16:20 | Outpatient (REF) | payer OTHER, SELFPAY ==
[2022-04-16 17:27] LABS: *AMPHETAMINES SCREEN URINE Negative (Negative); *BENZODIAZEPINES SCREEN URINE Negative (Negative); Cocaine Screen,Urine Negative (Negative)
[2022-04-16 17:28] LABS: *BARBITURATES SCREEN URINE Negative (Negative); Cannabinoids THC Negative (Negative); OPIATES URINE SCREEN Negative (Negative); Tricyclic Antidepressants Negative (Negative)
[2022-04-23 12:38] LABS: Buprenorphine Negative ng/mL (Cutoff: 5.0); Norbuprenorphine Negative ng/mL (Cutoff: 2.5)
== END 2022-04-16 16:21 | disposition home or self-care (01) ==
LOC: LBN 16:20
PROVIDERS: PCP Family Medicine; Visit Provider Advanced Practice Midwife
DX: Z34.91 Encounter for supervision of normal pregnancy, unspecified, first trimester (principal)
CPT/HCPCS: 80307; 80348; 87086

== ENCOUNTER 2022-04-29 03:12 | Outpatient (CLI) | payer OTHER, SELFPAY ==
[2022-05-04 17:37] LABS: Specimen WB Whole Blood
[2022-06-08 15:34] LABS: Specimen WB Whole Blood
== END 2022-04-29 03:13 | disposition home or self-care (01) ==
LOC: LBO 03:12
PROVIDERS: PCP Family Medicine; Visit Provider Advanced Practice Midwife
DX: Z34.91 Encounter for supervision of normal pregnancy, unspecified, first trimester (principal)
CPT/HCPCS: 36415; 81220; 81222; 81329

== ENCOUNTER 2022-04-30 17:35 | Outpatient (REF) | payer OTHER, SELFPAY ==
[2022-04-30 16:48] LABS: ROM Plus Negative
== END 2022-04-30 17:36 | disposition home or self-care (01) ==
LOC: LBN 17:35
PROVIDERS: PCP Family Medicine; Visit Provider Advanced Practice Midwife
DX: N89.8 Other specified noninflammatory disorders of vagina (principal); Z34.91 Encounter for supervision of normal pregnancy, unspecified, first trimester
CPT/HCPCS: 84112; 87480; 87510; 87660

== ENCOUNTER 2022-05-22 12:34 | Outpatient (REF) | payer OTHER, SELFPAY ==
[2022-05-24 12:17] LABS: COVID-19 RT-PCR UVMMC Result Negative (Negative)
== END 2022-05-22 12:35 | disposition home or self-care (01) ==
LOC: LBN 12:34
PROVIDERS: PCP Family Medicine; Visit Provider Physician Assistant Medical
DX: Z20.822 Contact with and (suspected) exposure to COVID-19 (principal); J34.89 Other specified disorders of nose and nasal sinuses
CPT/HCPCS: U0003

== ENCOUNTER 2022-08-06 12:33 | Outpatient (CLI) | payer OTHER, SELFPAY ==
[2022-08-06 12:49] LABS: HCT 33.2 % (36.0-46.0); HGB 11.3 g/dL (11.2-15.7); MCV 91 fL (80-95); Platelet Count 244 10^3/uL (130-400); RBC 3.65 10^6/uL (3.93-5.22); RDW 13.2 % (11.7-14.6); RDW-SD 43.5 fL; WBC 9.52 10^3/uL (4.4-10.8)
[2022-08-07 16:22] LABS: Bile Acids, Total 7 mcmol/L (<=10)
== END 2022-08-06 12:34 | disposition home or self-care (01) ==
LOC: LBO 12:37
PROVIDERS: Advanced Practice Midwife; PCP Family Medicine; Visit Provider Advanced Practice Midwife
DX: Z34.90 Encounter for supervision of normal pregnancy, unspecified, unspecified trimester (principal)
CPT/HCPCS: 36415; 85027; 82239

== ENCOUNTER 2022-08-10 15:24 | Outpatient (CLI) | payer OTHER, SELFPAY ==
[2022-08-10 15:48] VITALS: BP 112/60; PULSE 91; TEMP 36.6
[2022-08-10 15:55] VITALS: BP 112/60; PULSE 91
[2022-08-10 16:20] VITALS: BP 112/60; PULSE 91; TEMP 36.6
--- NOTE | 2022-08-10 16:20 | W.OBNST ---
Date of service: 08/10/22 Time of Service: 16:20 NST Evaluation Reason for NST Reasons for Nonstress Test: OTHER, SEE COMMENT Reason for NST Other: headache Gestational Age Gestational Age in Weeks and Days: 27 Weeks and 3Days Test and Monitor Explained Test/Monitor Explained: Test Explained, Monitor Explained and Patient Verbalized Understanding Vital Signs Blood Pressure: 112/60 Pulse: 91 Temperature: 97.9 F Urine Results Urine Protein: Negative NST Information Time on Monitor: 15:46 Date off Monitor: 08/10/22 Time off Monitor: 16:13 NST Interventions: PO Hydration Contraction Frequency: 0 NST Evaluation Patient States Movement: Present FHR Baseline: 135 Variability: Moderate 6-25 bpm Accelerations: 15x15 Decelerations: None NST Results: Reactive Note N/A NST Note Note: Urine protein is negative but specific gravity is high. Has not taken tylenol for FINN but has had relief with ice and hydration. VS stable. We discussed signs of pre-eclampsia and when to call. To keep next appointment as scheduled. [place] NST Reviewed and Verified by: Cara Smith
== END 2022-08-10 16:23 | disposition home or self-care (01) ==
LOC: BCD 15:25 → OBS 15:36
PROVIDERS: PCP Family Medicine; Visit Provider Advanced Practice Midwife
DX: R51.9 Headache, unspecified (principal); Z3A.27 27 weeks gestation of pregnancy; O26.893 Other specified pregnancy related conditions, third trimester
CPT/HCPCS: 59025

== ENCOUNTER 2022-08-20 03:29 | Outpatient (CLI) | payer OTHER, SELFPAY ==
[2022-08-20 15:09] LABS: Glucose,1 Hr (Glucola) 154 mg/dL (80-140)
[2022-08-22 09:34] LABS: Bile Acids, Total 6 mcmol/L (<=10)
== END 2022-08-20 03:30 | disposition home or self-care (01) ==
LOC: LBO 03:29
PROVIDERS: Advanced Practice Midwife; PCP Family Medicine; Visit Provider Advanced Practice Midwife
DX: O12.03 Gestational edema, third trimester (principal); O99.713 Diseases of the skin and subcutaneous tissue complicating pregnancy, third trimester; L29.8 Other pruritus; Z3A.29 29 weeks gestation of pregnancy
CPT/HCPCS: 36415; 82950; 82239

== ENCOUNTER 2022-09-01 02:33 | Outpatient (CLI) | payer OTHER, SELFPAY ==
[2022-09-01 09:42] LABS: COMMENT (LAB VIEW ONLY) 116.82 mg/dL; PROTEIN 19.6 mg/dL; Prot/Crea Ur Ratio 0.16
[2022-09-01 11:00] LABS: Glucose 1 Hour 178 mg/dL
[2022-09-01 13:14] LABS: Glucose 3 Hour 66 mg/dL
== END 2022-09-01 02:34 | disposition home or self-care (01) ==
LOC: LBO 02:33
PROVIDERS: Advanced Practice Midwife; PCP Family Medicine; Visit Provider Advanced Practice Midwife
DX: O09.523 Supervision of elderly multigravida, third trimester (principal); O12.03 Gestational edema, third trimester; Z3A.30 30 weeks gestation of pregnancy
CPT/HCPCS: 36415; 82565; 82951; 84156

== ENCOUNTER 2022-09-30 15:03 | Outpatient (REF) | payer OTHER, SELFPAY | END 2022-09-30 15:04 | disposition home or self-care (01) | LOC: LBN 15:03 | PROVIDERS: PCP Family Medicine; Visit Provider Advanced Practice Midwife | DX: O26.893 Other specified pregnancy related conditions, third trimester (principal); N89.8 Other specified noninflammatory disorders of vagina; Z3A.34 34 weeks gestation of pregnancy | CPT/HCPCS: 87086 ==

== ENCOUNTER 2022-09-30 17:06 | Outpatient (CLI) | payer OTHER, SELFPAY ==
[2022-10-02 20:25] LABS: Bile Acids, Total 9 mcmol/L (<=10)
== END 2022-09-30 17:07 | disposition home or self-care (01) ==
LOC: LBO 17:17
PROVIDERS: PCP Family Medicine; Visit Provider Advanced Practice Midwife
DX: O12.03 Gestational edema, third trimester (principal); O99.713 Diseases of the skin and subcutaneous tissue complicating pregnancy, third trimester; L29.8 Other pruritus; Z87.19 Personal history of other diseases of the digestive system; Z87.59 Personal history of other complications of pregnancy, childbirth and the puerperium; Z3A.34 34 weeks gestation of pregnancy
CPT/HCPCS: 36415; 82239

== ENCOUNTER 2022-10-07 05:48 | Outpatient (CLI) | payer OTHER, SELFPAY ==
[2022-10-10 08:49] LABS: Bile Acids, Total 52 mcmol/L (<=10)
== END 2022-10-07 05:49 | disposition home or self-care (01) ==
LOC: LBO 05:49
PROVIDERS: PCP Family Medicine; Visit Provider Advanced Practice Midwife
DX: L29.8 Other pruritus (principal); O99.713 Diseases of the skin and subcutaneous tissue complicating pregnancy, third trimester; Z3A.35 35 weeks gestation of pregnancy
CPT/HCPCS: 36415; 82239

== ENCOUNTER 2022-10-11 18:37 | Outpatient (CLI) | payer OTHER, SELFPAY ==
[2022-10-11 18:56] VITALS: BP 139/67; PULSE 93; TEMP 36.7
[2022-10-11 19:18] VITALS: BP 119/66; PULSE 91
--- NOTE | 2022-10-11 20:05 | W.OBNST ---
Date of service: 10/11/22 Time of Service: 19:45 NST Evaluation Reason for NST Reasons for Nonstress Test: OTHER, SEE COMMENT Reason for NST Other: Elevated bile acids Gestational Age Gestational Age in Weeks and Days: 36 Weeks and 2Days Test and Monitor Explained Test/Monitor Explained: Test Explained, Monitor Explained and Patient Verbalized Understanding Vital Signs Blood Pressure: 139/67 Pulse: 93 Temperature: 98.1 F Urine Results Urine Protein: Positive Urine Ketones: Negative Urine Glucose: Negative Urine Blood: Negative NST Information Date on Monitor: 10/11/22 Time on Monitor: 18:54 Date off Monitor: 10/11/22 Time off Monitor: 19:16 Total Time on Monitor: 22 NST Interventions: PO Hydration NST Evaluation Patient States Movement: Present FHR Baseline: 125 Variability: Moderate 6-25 bpm Accelerations: 15x15 Decelerations: None NST Results: Reactive Note Ultrasound Done: N/A. NST Note Note: NST is reactive and reassuring. Will return in 2 days for repeat NST. Plan IOL 37 weeks due to IHC. Ursodiol initiated and consult with Dr. Bernabe jones who agrees with plan. NST Reviewed and Verified by: Cara Smith
[2022-10-11 20:06] VITALS: BP 139/67; PULSE 93; TEMP 36.7
[2022-10-11] MEDS: Ursodiol 300 MG CAP PO (20:08)
== END 2022-10-11 20:12 | disposition home or self-care (01) ==
LOC: BCD 18:41 → OBS 18:46
PROVIDERS: PCP Family Medicine; Visit Provider Advanced Practice Midwife
DX: O26.613 Liver and biliary tract disorders in pregnancy, third trimester (principal); Z3A.36 36 weeks gestation of pregnancy
CPT/HCPCS: 59025

== ENCOUNTER 2022-10-11 23:41 | Observation (INO) | payer OTHER, SELFPAY ==
--- NOTE | 2022-10-11 23:22 | HPE_ITS ---
Date of service: 10/11/22 Time of Service: 23:23 Assessment and Plan Assessment and plan (1) Shortness of breath due to in third trimester: Status: Acute Assessment and plan: 1. Patient feels she is having an adverse reaction to her Ursodiol she received earlier today 2. Physical exam is normal 3. Will give IV hydration and IV benadryl 4. Will get CMP, CBC, LDH due to cholestasis 5. 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 No evidence of jaundice 2. Will draw labs and continue to assess. [facility] OB-HPI Labor/Delivery History of Present Illness Reason for Visit: NST Chief Complaint: Other (fatigue and feeling she cannot get a deep breath status post ursodiol). BOB Calculator Estimated Delivery Date Method Current WG Current Estimate 11/06/22 Ultrasound #1 36w 2d Other Estimates 10/11/22 LMP (Uncertain) 40w 0d History of Present Expected Delivery Route/Plan - CNM FOB - Mitchell Reyna (his first child) BB yes to circ Specific Issues/Plan 1. BM 38 and hx macrosomia w/first baby - early GTT = 76 2. AMA- referred for level 2 US at [facility]; genetic screens drawn 3a. Level 2 scan @ [facility] is nml 3. 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 SMA=neg, AFP declined. 4. Hx intrahepatic cholestasis of , baseline CMP nml at initial visit 4a. Pruritis - Bile Acid 08/06/22 - 7 4b. Bile acids repeated 08/20/22-6 4c. 9 5. Discussed recommendation for ASA due to age and BMI. Pt declines d/t hx gastric ulcer 6. History of anxiety and ADHD- Discontinued trazadone, taking ritalin daily- stopped taking 7. History of sleep apnea - recently prescribed CPAP and will start using soon. 05/13 - has not started yet. 8. GERD and ulcer, no meds currently, manages symptoms with foods, declines medications. 9. 1 hour 154, 3 hr- 97/178/119/66- Jennifer will continue to monitor QID at home 3 x per week due to elevated fasting. 9A. Jennifer has been monitoring fasting blood sugar and fasting levels have been 96, she will bring logs at next visit. 10. Pedal edema - protein/creatinene ratio ordered-09/01 -0.16 11. Bile acids 52 on 10/11. NST's and plan delivery at 37 weeks per consult with Dr. Kidd. Ursodiol started 10/11 Assessment: History Reviewed & Current Review of Systems Narrative: Patient was seen for NST earlier due to cholestasis. She was urged to begin Ursodiol therapy for bile acids of 52. She was hesitant but agreed to begin therapy. She had 300 mg PO prior to discharge to home but became very fatigued and anxious feeling. Reports difficulty breathing when being upright but better when reclining or laying down. She is able to answer questions and talk without SOB. She is breathing a a normal rate. NST is already reactive. Tolerating PO hydration. Agreed to IV and benadryl. Will get labs of CMP, CBC, LDH. As O2 sat is 98% on room air and lung sounds are clear on auscultation to bases on both sides will observe with rest, hydration and benadryl and reassess as indicated. 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, antepartum (Acute) Leukorrhea (Acute) Advanced maternal age in multigravida (Acute) Sleep apnea (Acute) CPAP prescribed recently (Acute) BMI 38.0-38.9,adult (Acute) ADHD, adult residual type (Acute) GERD (gastroesophageal reflux disease) (Chronic) Anxiety (Chronic) Nausea (Acute) Medical History (Updated 10/11/22 @ 23:31 by Cara Smith CNM) Acne uses spironolactone Allergic rhinitis (10/19/14) warm months Former tobacco use Pelvic pain SAB (spontaneous ) Snoring Surgical History (Updated 10/02/22 @ 12:02 by Cara Leigh CNM) Cholecystectomy (12/21/14) H/O hemorrhoidectomy 2019 S/P appendectomy Family History Father Hyperlipidemia Heart disease Alcohol use disorder Sister Depression Grandfather Diabetes Hyperlipidemia Alcohol abuse Grandfather Essential hypertension Heart disease Grandmother Cancer breast Dementia Social History Smoking/Tobacco Use Status: Former Tobacco Use Quit Date: 04/03/21 Smoking risk assessment performed?: Yes Alcohol Intake: former Drug use: Never Substance use type: does not use Number of Children: 3 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 Date GA/Weeks # Preg Succ Route Wgt Sex Labor Lgth Anesth esia Location Prov Complic Unknown No 06/18/02 42 No Yes vaginal 9 lb 15 oz [place] 12/04/03 41 Yes Yes vaginal 6 lb 15 oz Male [place] 12/04/03 41 Yes Yes vaginal 7 lb 2 oz [place] 08/15/08 38 No Yes vaginal 7 lb Male [facility] 03/04/21 No in [place] Delivery Date: Last Updated by: Cara Leigh CNM ETOP Delivery Date: 06/18/02 Last Updated by: Cara Leigh CNM precipitous delivery Delivery Date: 12/04/03 Last Updated by: Yolande Manrique IOL postdates. twins 6-15 and 7-2 Delivery Date: 08/15/08 Last Updated by: Yolande Manrique IOL for intrahepatic cholestasis of Gregg Delivery Date: 03/04/21 Last Updated by: Yolande Manrique SAB of twins Meds Allergies and Home Medications Allergies Allergy/AdvReac Type Severity Reaction Status Date / Time shellfish derived Allergy Severe vomiting Verified 09/30/22 13:49 citalopram AdvReac Mild sarai Verified 09/30/22 13:49 latex AdvReac local Verified 09/30/22 13:49 sensitivity lotions Allergy Hives Uncoded 09/30/22 13:49 Home Medications Medication Instructions Recorded Confirmed Type omega-3 fatty acids 1,250 mg 1,250 mg PO DAILY 01/07/22 09/30/22 History capsule vit no.95-ferrous 1 tab PO DAILY 06/10/22 09/30/22 History fumarate 28 mg-folic acid 800 mcg tablet ( Multivitamins) cholecalciferol (vitamin D3) 25 25 mcg PO DAILY 09/18/22 09/30/22 History mcg (1,000 unit) capsule magnesium citrate 100 mg capsule 100 mg PO DAILY 09/18/22 09/30/22 History ursodiol 300 mg capsule 300 mg PO BID #14 caps 10/11/22 Rx Exam Constitutional Constitutional: mild distress (anxious about her breathing but reassured by O2 saturation) Detailed Labor and Delivery Exam Everett Score: Cervical Points Exam 0 1 2 3 Dilation Closed 1-2cm 3-4 cm 5-6cm Effacement 0-30% 40-50% 60-70% 80% Consistency Firm Medium Soft Station -3 -2 -1,0 +1,+2 Position Posterior Mid Anterior Comments: VE deferred, not in labor, antepartum patient Fetus A Heart Rate Baseline: 125 Monitor Accelerations: 15 X 15 Monitor Decelerations: None Variability: Moderate (6-25 BPM) Categories: Category I HEENT Exam HEENT Exam: Normal (visual exam) Neck Exam Neck Exam: Normal (visual exam) Chest/Brest/Axilla Exam Chest Exam: Normal (breath sounds clear to auscultation bilaterally to bases) Breast Exam Breast Exam: Not Done Respiratory Exam Respiratory Exam: Normal (breath sounds clear to auscultation bilaterally) Abdominal Exam Abdominal Exam: Normal (gravid uterus at 36w2d) Rectal Exam Rectal Exam: Not Done Exam Exam: Not Done Extremities Exam Extremities Exam: Abnormal (1-2+ edema of lower extremities bilaterally, urine dip earlier today, trace protein) Back/Spine/Pelvis Exam Back Exam: Not Done Skin Exam Skin Exam: Normal Neurological Exam Neurological Exam: Normal Psychiatric Exam Psychiatric Exam: Normal (mildly anxious) Risk Assessment Risk for Shoulder Dystocia Historical/Initial OB: POSITIVE FOR: Previous Macrosomia Risk for Pre-Eclampsia Yes, if 2 or more: POSITIVE FOR: Age>= 35 yrs and BMI>30 Risk for Post- Hemorrhage Initial: NEGATIVE FOR: Multiple Gestation, Previous PPH, Known Clotting Deficiency, Grand Multiparity or Anticoagulation Risks Reviewed Risks Reviewed Upon Admission: No (antepartum patient, not in labor)
[2022-10-11 23:27] VITALS: PULSE 93
[2022-10-11 23:28] VITALS: PULSE 92; O2SAT 97
[2022-10-11 23:31] VITALS: PULSE 94
[2022-10-11 23:33] VITALS: PULSE 95; O2SAT 97
[2022-10-11 23:35] VITALS: PULSE 96
--- NOTE | 2022-10-11 23:39 | W.PM.PROGNOT ---
Date of Service Date of service: 10/11/22 Time of Service: 23:39 Assessment and Plan Assessment and plan (1) Shortness of breath due to in third trimester: Status: Acute Assessment and plan: 1. Exam reviewed with Dr. Kidd, physician agrees to this plan of care. Will keep patient overnight for observation. Exam Narrative Exam Narrative: Exam reviewed with Dr. Kidd, physician agrees to this plan of care. Will keep patient overnight for observation. Objective Last Vital Signs Pulse 96 H 10/11/22 23:35 Pulse Ox 97 10/11/22 23:33 Time Spent with Patient Time Spent with Patient: <25 minutes Time was spent: referring, communicating with other health healthcare educator
[2022-10-11] MEDS: diphenhydrAMINE 50 MG/ML VIAL 25 MG IVP (23:44)
[2022-10-11] MEDS: Lactated Ringers 1,000 ML 150 ML IV (23:45)
[2022-10-11 23:48] LABS: HCT 33.8 % (36.0-46.0); HGB 11.2 g/dL (11.2-15.7); MCHC 33.1 % (32.0-36.0); MCV 91 fL (80-95); MPV 10.6 fL (8.0-11.0); Platelet Count 246 10^3/uL (130-400); RBC 3.73 10^6/uL (3.93-5.22); RDW 14.1 % (11.7-14.6); RDW-SD 46.4 fL; WBC 9.33 10^3/uL (4.4-10.8)
[2022-10-11] MEDS: Normal Saline Flush 10 ML SYR ×2 (23:51→23:54)
[2022-10-11] MEDS: Ondansetron 4 MG/2 ML VIAL IVP (23:52)
[2022-10-12 00:04] VITALS: BP 121/73; PULSE 96; PULSE 99; RESP 18; TEMP 36.4; O2SAT 97
[2022-10-12 00:04] LABS: ALT 29 U/L (14-59); AST 18 U/L (15-37); Albumin 2.2 g/dL (3.4-5.0); Alkaline Phosphatase 211 U/L (46-116); BUN 12 mg/dL (7-18); Bilirubin, Total 0.5 mg/dL (0.2-1.0); CREATININE 0.7 mg/dL (0.55-1.02); Calcium 8.9 mg/dL (8.5-10.1); Chloride 102 mmol/L (98-107); Estimated GFR 112.05 (mL/min/1.73m2); Glucose 154 mg/dL (74-106); LDH 120 U/L (81-234); Potassium 3.3 mmol/L (3.5-5.1); Sodium 136 mmol/L (136-145); Total Protein 6.5 g/dL (6.4-8.2)
[2022-10-12 05:14] VITALS: BP 120/75; PULSE 81
[2022-10-12 05:18] VITALS: BP 120/75; PULSE 81; TEMP 36.4
[2022-10-12 06:34] VITALS: BP 120/75; PULSE 83; TEMP 36.4
--- NOTE | 2022-10-12 06:57 | W.OBNST ---
Date of service: 10/12/22 Time of Service: 06:57 NST Evaluation Reason for NST Reasons for Nonstress Test: OTHER, SEE COMMENT Reason for NST Other: c/o reaction to ursidol Gestational Age Gestational Age in Weeks and Days: 36 Weeks and 3Days Test and Monitor Explained Test/Monitor Explained: Test Explained, Monitor Explained and Patient Verbalized Understanding Vital Signs Blood Pressure: 120/75 Pulse: 83 Temperature: 97.6 F Urine Results Urine Protein: Negative Urine Ketones: Negative Urine Glucose: Negative Urine Blood: Negative NST Information Date on Monitor: 10/12/22 Time on Monitor: 06:05 Date off Monitor: 10/12/22 Time off Monitor: 06:36 Total Time on Monitor: 31 NST Interventions: None Contraction Frequency: irregular NST Evaluation Patient States Movement: Present FHR Baseline: 125 Variability: Moderate 6-25 bpm Accelerations: 15x15 Decelerations: None NST Results: Reactive Note Ultrasound Done: N/A. NST Note Note: NST was done and is reactive and reassuring. Will return on 10/13 for NST and 10/16 for induction due to cholestasis affecting . She will discontinue Ursodiol due to adverse reaction. [place] NST Reviewed and Verified by: Cara Smith
[2022-10-12 06:59] VITALS: BP 120/75; PULSE 83; TEMP 36.4
--- NOTE | 2022-10-12 06:59 | DSE_ITS ---
Date of service: 10/12/22 Time of Service: 06:59 DS: Diagnosis Discharge Diagnosis (1) Shortness of breath due to in third trimester: Status: Acute Asessment and Plan: 1. All symptoms have resolved, will add Ursodiol to allergy list due to adverse reaction 2. Will return on 10/13 for NST due to Cholestasis and then induction on 10/[address] Kidd as bile acids increased to 52. Discharge Plan Disposition Patient Disposition: Home Condition: Good Discharge Details Reason For Visit: NST Admit Date/Time: 10/11/22 23:41 Admit Provider: Cara Smith Attending Provider: Cara Smith Primary Care Provider: Alejandar Jorgensen Hospital Course Hospital Course: Zenia Monreal arrived for evaluation and treatment of adverse reaction to Ursodiol. She had perceived difficulty breathing and extreme fatigue from a single dose of Ursodiol 300 mg in the evening of 10/11. Her VS and physical exam were benign on arrival to hospital but symptoms improved with IV hydration and a dose of 25mg IV Bendaryl. She had NST on arrival and this morning which were reactive and reassuring. Lab evaluation of liver enzymes were normal. She plans to return 10/13 for NST and IOL on Wednesday, 10/16 due to cholestasis affecting . KH Home Meds and New Rx's Prescriptions: Continued cholecalciferol (vitamin D3) 25 mcg (1,000 unit) capsule 25 mcg PO DAILY Patient Comments: with K2 omega-3 fatty acids 1,250 mg capsule 1,250 mg PO DAILY PNV cmb#95-ferrous fumarate-FA [ Multivitamins] 28 mg iron- 800 mcg tablet 1 tab PO DAILY magnesium citrate 100 mg capsule 100 mg PO DAILY Discontinued ursodiol 300 mg capsule 300 mg PO BID Qty: 14 0RF Discharge Instructions Activity:: Activity as Tolerated Equipment/Supplies:: No Equipment Needed Diet:: As Tolerated Discharge Orders Discharge Orders: Discharge Order (Routine); Ordered 10/12/22 Ordered By: Caar Smith OB:DS Summary Contraception Discussed Contraception Discussed: No (N/A antepartum patient), Status at Discharge Functional status at discharge: independent ambulation Overall status at discharge: patient is back to baseline Mental Status: mental status grossly normal Speech and Movement: speech and movement normal Mood: congruent mood Affect: normal affect Time Spent with Patient providing and/or coordinating discharge services: Less than 30 minutes Exam Physical Exam Vital signs: Temp Pulse Resp BP Pulse Ox 97.6 F 81 18 120/75 97 10/12/22 05:18 10/12/22 05:18 10/12/22 00:04 10/12/22 05:18 10/12/22 00:04 Vital Signs Reviewed: Yes Constitutional Constitutional: no acute distress HEENT Exam HEENT Exam: Normal (visual exam) Neck Exam Neck Exam: Normal (visual exam) Respiratory Exam Respiratory Exam: Normal Cardiovascular Exam Cardiovascular Exam: Normal Abdominal Exam Comments: gravid uterus Rectal Exam Rectal Exam: Not Done Exam Comments: not indicated for admission concnermyrna. 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, antepartum (Acute) Leukorrhea (Acute) Advanced maternal age in multigravida (Acute) Sleep apnea (Acute) CPAP prescribed recently (Acute) BMI 38.0-38.9,adult (Acute) ADHD, adult residual type (Acute) GERD (gastroesophageal reflux disease) (Chronic) Anxiety (Chronic) Nausea (Acute) Medical History Acne uses spironolactone Allergic rhinitis (10/19/14) warm months Former tobacco use Pelvic pain SAB (spontaneous ) Snoring Surgical History Cholecystectomy (12/21/14) H/O hemorrhoidectomy 2019 S/P appendectomy Family History Father Hyperlipidemia Heart disease Alcohol use disorder Sister Depression Grandfather Diabetes Hyperlipidemia Alcohol abuse Grandfather Essential hypertension Heart disease Grandmother Cancer breast Dementia Social History Smoking/Tobacco Use Status: Former Tobacco Use Quit Date: 04/03/21 Smoking risk assessment performed?: Yes Alcohol Intake: former Drug use: Never Substance use type: does not use Number of Children: 3 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 Date GA/Weeks # Preg Succ Route Wgt Sex Labor Lgth Anesth esia Location Prov Complic Unknown No 06/18/02 42 No Yes vaginal 9 lb 15 oz Female regional [place] 12/04/03 41 Yes Yes vaginal 6 lb 15 oz Male [place] 12/04/03 41 Yes Yes vaginal 7 lb 2 oz [place] 08/15/08 38 No Yes vaginal 7 lb Male [facility] 03/04/21 No in [place] Delivery Date: Last Updated by: Cara Leigh CNM ETOP Delivery Date: 06/18/02 Last Updated by: Cara Leigh CNM precipitous delivery Delivery Date: 12/04/03 Last Updated by: Yolande Manrique IOL postdates. twins 6-15 and 7-2 Delivery Date: 08/15/08 Last Updated by: Yolande Manrique IOL for intrahepatic cholestasis of Gregg Delivery Date: 03/04/21 Last Updated by: Yolande Manrique SAB of twins DS: Data Vitals/I&O Vitals and I&O: Vital Signs Temperature 97.6 F 10/12/22 05:18 Temperature 97.6 F 10/12/22 06:59 Temperature Source Oral 10/12/22 05:18 Pulse 81 10/12/22 05:18 Pulse 83 10/12/22 06:59 Respiratory Rate 18 10/12/22 00:04 Blood Pressure 120/75 10/12/22 05:18 Blood Pressure 120/75 10/12/22 06:59 Blood Pressure Mean 90 10/12/22 05:18 Pulse Oximetry 97 10/12/22 00:04 Oxygen Delivery Method Room Air 10/12/22 00:04 Oxygen Flow Rate 0 10/12/22 00:04 Pain Level 0 10/12/22 00:04 Intake & Output 10/11/22 10/11/22 10/12/22 11:59 23:59 11:59 Weight 320 lb 320 lb Other: Urine Color Light Allie Data Completed and Pending Labs on day of discharge: Labs from last 24 hours 10/11/22 10/11/22 23:38 23:38 WBC 9.33 RBC 3.73 L Hgb 11.2 Hct 33.8 L MCV 91 MCH 30.0 MCHC 33.1 RDW 14.1 Plt Count 246 MPV 10.6 Sodium 136 Potassium 3.3 L Chloride 102 Carbon Dioxide 20.0 L Anion Gap 14.0 H BUN 12 Creatinine 0.7 Est GFR (CKD-EPI 2020) 112.05 Glucose 154 H Calcium 8.9 Total Bilirubin 0.5 AST 18 ALT 29 Alkaline Phosphatase 211 H Lactate Dehydrogenase 120 Total Protein 6.5 Albumin 2.2 L
[2022-10-12 14:06] VITALS: BP 137/88; PULSE 75
== END 2022-10-12 06:40 | disposition home or self-care (01) ==
LOC: OBS 10-12 00:26 → BCD 10-16 12:25
PROVIDERS: Admitting Provider Advanced Practice Midwife; PCP Family Medicine; Visit Provider Advanced Practice Midwife
DX: O26.893 Other specified pregnancy related conditions, third trimester (principal); R06.02 Shortness of breath; T50.995A Adverse effect of other drugs, medicaments and biological substances, initial encounter; O26.613 Liver and biliary tract disorders in pregnancy, third trimester; K83.1 Obstruction of bile duct; Z3A.36 36 weeks gestation of pregnancy; O99.613 Diseases of the digestive system complicating pregnancy, third trimester; K21.9 Gastro-esophageal reflux disease without esophagitis; G47.33 Obstructive sleep apnea (adult) (pediatric); Z87.11 Personal history of peptic ulcer disease; F90.9 Attention-deficit hyperactivity disorder, unspecified type; F41.9 Anxiety disorder, unspecified; O99.343 Other mental disorders complicating pregnancy, third trimester; L29.9 Pruritus, unspecified; O12.03 Gestational edema, third trimester; O99.513 Diseases of the respiratory system complicating pregnancy, third trimester
CPT/HCPCS: 36415; 80053; 85027; 96360; 96361; 59025; 83615; G0378; J1200; J2405

== ENCOUNTER 2022-10-14 03:41 | Outpatient (CLI) | payer OTHER, SELFPAY ==
[2022-10-14 08:37] VITALS: BP 116/62; PULSE 96; TEMP 36.4
--- NOTE | 2022-10-14 10:08 | W.OBNST ---
Date of service: 10/14/22 Time of Service: 10:08 NST Evaluation Reason for NST Reasons for Nonstress Test: OTHER, SEE COMMENT Reason for NST Other: Cholestasis Gestational Age Gestational Age in Weeks and Days: 36 Weeks and 5Days Test and Monitor Explained Test/Monitor Explained: Test Explained, Monitor Explained and Patient Verbalized Understanding Vital Signs Blood Pressure: 116/62 Pulse: 96 Temperature: 97.5 F NST Information Date on Monitor: 10/14/22 Time on Monitor: 08:00 Date off Monitor: 10/14/22 Time off Monitor: 08:29 Total Time on Monitor: 29 NST Interventions: PO Hydration Contraction Frequency: 0 NST Evaluation Patient States Movement: Present FHR Baseline: 130 Variability: Moderate 6-25 bpm Accelerations: 15x15 Decelerations: None NST Results: Reactive Note Ultrasound Done: N/A. NST Note Note: Reacive NST. matias wishes to proceed with IOL due to discomforts of , itching and cholestasis of . She will return tomorrow evening to begin cervical ripening. She declines cervical exam today. She has one more day of work today. NST Reviewed and Verified by: Cara Leigh
[2022-10-14 10:10] VITALS: BP 116/62; PULSE 96; TEMP 36.4
== END 2022-10-14 09:00 | disposition home or self-care (01) ==
LOC: BCD 03:47 → OBS 08:11
PROVIDERS: PCP Family Medicine; Visit Provider Advanced Practice Midwife
DX: O26.613 Liver and biliary tract disorders in pregnancy, third trimester (principal); Z3A.36 36 weeks gestation of pregnancy
CPT/HCPCS: 59025

== ENCOUNTER 2022-10-15 16:45 | Inpatient (IN) | payer OTHER, SELFPAY ==
[2022-10-15] VITALS (8 sets, daily range): BP systolic 109–117; BP diastolic 61–67; PULSE 0–110; RESP 20; TEMP 36.6; O2SAT 97
--- NOTE | 2022-10-15 18:12 | PDOC.ANES ---
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 The patient reports felt fine after the spinal until she went home and then developed a significant headache and lost her vision it was total blackness. Per patient came to the ER for blood patches x2. Discussed that I can give no assurances that a subsequent spinal (foe section) or inadvertant puncture of the dura during an epidural would not result in the same symtpoms. Discussed that the rate of inadvertant dural puncture is low and that I think an epidural would be a reasonable therapy for her during her induction. Patient reports that she had epidurals x3 prior to her last spinal and that they worked well for her past deliveries. She reports a slipped disc at what the patient believes was the L5 level and a compressed nerve as well for which she received one YOHANNES, worked well and did not get the additional two ESIs that were offered to her. Patient denied any further questions and I educated her on how to get in contact with the anesthesia oncall and that we are available 24 hours a day.
[2022-10-15 18:25] LABS: Abs Immature Grans 0.14 10^3/uL (0.0-0.06); Absolute Basophil Count 0.03 10^3/uL (0.0-0.2); Absolute Eosinophil Count 0.18 10^3/uL (0.0-0.7); Absolute Lymphocyte Count 2.19 10^3/uL (1.2-3.4); Absolute Monocyte Count 0.88 10^3/uL (0.1-0.8); Absolute Neutrophil Count 5.61 10^3/uL (1.2-6.7); Basophils % 0.3; HCT 34.6 % (36.0-46.0); HGB 11.7 g/dL (11.2-15.7); Immature Grans % 1.6; Lymphocytes % 24.3; MCH 30.1 pg (27.0-33.0); MCHC 33.8 % (32.0-36.0); MCV 89 fL (80-95); MPV 10.6 fL (8.0-11.0); Monocytes % 9.7; Neutrophils % 62.1; Platelet Count 269 10^3/uL (130-400); RBC 3.89 10^6/uL (3.93-5.22); RDW 13.9 % (11.7-14.6); RDW-SD 44.9 fL; WBC 9.03 10^3/uL (4.4-10.8)
[2022-10-15] MEDS: miSOPROStol 25 MCG TAB PO ×2 (18:37→23:11)
[2022-10-15 18:40] LABS: ALT 34 U/L (14-59); AST 22 U/L (15-37); Albumin 2.4 g/dL (3.4-5.0); Alkaline Phosphatase 237 U/L (46-116); Bilirubin, Direct 0.2 mg/dL (0.0-0.2); Bilirubin, Total 0.6 mg/dL (0.2-1.0)
[2022-10-15] MEDS: Zolpidem 5 MG TAB 10 MG PO (23:52)
[2022-10-16] VITALS (26 sets, daily range): BP systolic 107–126; BP diastolic 67–68; PULSE 0–110; RESP 16; TEMP 36.4–36.6; O2SAT 98–99
--- NOTE | 2022-10-16 00:02 | W.PM.OBHPL1 ---
Date of service: 10/15/22 Time of Service: 18:00 Assessment and Plan Assessment and plan (1) Intrahepatic cholestasis of in third trimester: Status: Acute Assessment and plan: Admit to Center. Per consultation with MD group, IOL at 37 weeks has been recommended to Zenia previously due to bile acids of 52. Due to pruritis and discomfort and intolerance of ursadiol previously, Zenia and her partner strongly desire cervical ripening this evening. methods of ripening discussed and Zenia prefers to use oral misoprostol. This was ordered to start this evening. Risks and benefits of IOL at 37 weeks discussed including respiratory and feeding issues related to near-term . Risks of cholestasis also discussed. Will proceed with oral misoprostol per protocol. CBCand type and screen with liver enzymes ordered. Comfort measures. Anticipate . (2) Advanced maternal age in multigravida: Status: Acute (3) Encounter for induction of labor: Status: Acute OB-HPI Labor/Delivery History of Present Illness Reason for Visit: Cholestasis of Chief Complaint: Scheduled Induction of Labor (intrahepatic cholestasis of ) Indication for Induction: Other. BOB Calculator Estimated Delivery Date Method Current WG Current Estimate 11/06/22 Ultrasound #1 37w 0d Other Estimates 10/11/22 LMP (Uncertain) 40w 5d History of Present Expected Delivery Route/Plan - CNM FOB - Mitchell Reyna (his first child) BB yes to circ Specific Issues/Plan 1. BM 38 and hx macrosomia w/first baby - early GTT = 76 2. AMA- [place] 2 [place] [facility] screens drawn 3a. Level 2 scan @ [facility] [place] nml 3. 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 SMA=neg, AFP declined. 4. Hx intrahepatic cholestasis of , baseline CMP nml at initial visit 4a. Pruritis - Bile Acid 08/06/22 - 7 4b. Bile acids repeated 08/20/22-6 4c. 9 5. Discussed recommendation for ASA due to age and BMI. Pt declines d/t hx gastric ulcer 6. History of anxiety and ADHD- Discontinued trazadone, taking ritalin daily- stopped taking 7. History of sleep apnea - recently prescribed CPAP and will start using soon. 05/13 - has not started yet. 8. GERD and ulcer, no meds currently, manages symptoms with foods, declines medications. 9. 1 hour 154, 3 hr- 97/178/119/66- Jennifer will continue to monitor QID at home 3 x per week due to elevated fasting. 9A. Jennifer has been monitoring fasting blood sugar and fasting levels have been 96, she will bring logs at next visit. 10. Pedal edema - protein/creatinene ratio ordered-09/01 -0.16 11. Bile acids 52 on 10/11. NST's and plan delivery at 37 weeks per consult with Dr. Kidd. 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, antepartum (Acute) Leukorrhea (Acute) Advanced maternal age in multigravida (Acute) Sleep apnea (Acute) CPAP prescribed recently (Acute) BMI 38.0-38.9,adult (Acute) ADHD, adult residual type (Acute) GERD (gastroesophageal reflux disease) (Chronic) Anxiety (Chronic) Nausea (Acute) Medical History Acne uses spironolactone Allergic rhinitis (10/19/14) warm months Former tobacco use Pelvic pain SAB (spontaneous ) Snoring Surgical History Cholecystectomy (12/21/14) H/O hemorrhoidectomy 2019 S/P appendectomy Family History Father Hyperlipidemia Heart disease Alcohol use disorder Sister Depression Grandfather Diabetes Hyperlipidemia Alcohol abuse Grandfather Essential hypertension Heart disease Grandmother Cancer breast Dementia Social History Smoking/Tobacco Use Status: Former Tobacco Use Quit Date: 04/03/21 Smoking risk assessment performed?: Yes Alcohol Intake: former Drug use: Never Substance use type: does not use Number of Children: 3 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 Date GA/Weeks # Preg Succ Route Wgt Sex Labor Lgth Anesthesia Location Prov Complic Unknown No 06/18/02 42 No Yes vaginal 9 lb 15 oz Female [place] 12/04/03 41 Yes Yes vaginal 6 lb 15 oz [place] 12/04/03 41 Yes Yes vaginal 7 lb 2 oz [place] 08/15/08 38 No Yes vaginal 7 lb Male [facility] 03/04/21 No in [place] Delivery Date: Last Updated by: Cara Leigh CNM ETOP Delivery Date: 06/18/02 Last Updated by: Cara Leigh CNM precipitous delivery Delivery Date: 12/04/03 Last Updated by: Yolande Manrique IOL postdates. twins 6-15 and 7-2 Delivery Date: 08/15/08 Last Updated by: Yolande Manrique IOL for intrahepatic cholestasis of Gregg Delivery Date: 03/04/21 Last Updated by: Yolande Manrique SAB of twins Meds Allergies and Home Medications Allergies Allergy/AdvReac Type Severity Reaction Status Date / Time shellfish derived Allergy Severe vomiting Verified 09/30/22 13:49 citalopram AdvReac Mild sarai Verified 09/30/22 13:49 ursodiol AdvReac Mild Other (See Verified 10/12/22 06:56 Comment) latex AdvReac local Verified 09/30/22 13:49 sensitivity lotions Allergy Hives Uncoded 09/30/22 13:49 Home Medications Medication Instructions Recorded Confirmed Type omega-3 fatty acids 1,250 mg 1,250 mg PO DAILY 01/07/22 10/15/22 History capsule vit no.95-ferrous 1 tab PO DAILY 06/10/22 10/15/22 History fumarate 28 mg-folic acid 800 mcg tablet ( Multivitamins) cholecalciferol (vitamin D3) 25 25 mcg PO DAILY 09/18/22 10/15/22 History mcg (1,000 unit) capsule magnesium citrate 100 mg capsule 100 mg PO DAILY 09/18/22 10/15/22 History Exam Physical Exam Vital signs: Temp Pulse Resp BP Pulse Ox 97.9 F 88 20 109/61 97 10/15/22 17:30 10/15/22 23:13 10/15/22 17:30 10/15/22 23:13 10/15/22 17:33 Detailed Labor and Delivery Exam Dilation: 1 Effacement (%): 50 station: -2 Cervix position: mid Consistency: soft Maynard Score: Cervical Points Exam 0 1 2 3 Dilation Closed 1-2cm 3-4 cm 5-6cm Effacement 0-30% 40-50% 60-70% 80% Consistency Firm Medium Soft Station -3 -2 -1,0 +1,+2 Position Posterior Mid Anterior MAYNARD Score(Cervical Ripeness Score): 6 Amniotic Membrane Status: Intact Monitor Mode: External Contraction Frequency(min): none Fetus A Heart Rate Baseline: 140 Monitor Accelerations: 15 X 15 Monitor Decelerations: None Variability: Moderate (6-25 BPM) Presentation: Vertex Categories: Category I Respiratory Exam Respiratory Exam: Normal Cardiovascular Exam Cardiovascular Exam: Normal Abdominal Exam Abdominal Exam: Normal Exam Exam: Normal Extremities Exam Extremities Exam: Normal Skin Exam Skin Exam: Normal Psychiatric Exam Psychiatric Exam: Normal Results Abnormal Lab Findings: Abnormal Labs 10/15/22 10/15/22 18:12 18:12 RBC 3.89 L Hct 34.6 L Absolute Monocytes 0.88 H Alkaline Phosphatase 237 H Albumin 2.4 L Risk Assessment Risk for Shoulder Dystocia Historical/Initial OB: POSITIVE FOR: Previous Macrosomia Delivery Plan @ 36wks: delivery at 37 weeks due to cholestasis of Risk for Pre-Eclampsia Daily Dose ASA Indicated: Yes Date Initiated/Initials: Zenia declined due to history of ulcer Yes, if 2 or more: POSITIVE FOR: Age>= 35 yrs and BMI>30 Risk for Post- Hemorrhage Initial: NEGATIVE FOR: Multiple Gestation, Previous PPH, Known Clotting Deficiency, Grand Multiparity or Anticoagulation Risks Reviewed Risks Reviewed Upon Admission: Yes
[2022-10-16] MEDS: miSOPROStol 25 MCG TAB PO ×2 (03:32→07:35)
--- NOTE | 2022-10-16 09:11 | W.PM.OBNL1 ---
Date of service: 10/16/22 Time of Service: 08:00 Pelvic Exam Comments: Exam deferred at this time Contractions Monitor Mode: External Contraction Frequency(min): evry 3-5 Contraction Duration(sec): 50-60 Intensity: Mild Fetus A Monitor: External (US) Heart Rate Baseline: 125 Variability: Moderate (6-25 BPM) Categories: Category I Accelerations: 15 X 15 Decelerations: None Amniotic Membrane Status: Intact Assessment and Plan Assessment and plan (1) Encounter for induction of labor: Status: Acute Assessment and plan: Reassess after 1100 and consider repeat dose of misoprostol if indicated. (2) Intrahepatic cholestasis of in third trimester: Status: Acute Objective Abnormal lab results 10/15/22 10/15/22 Range/Units 18:12 18:12 RBC 3.89 L (3.93-5.22) 10^6/uL Hct 34.6 L (36.0-46.0) % Absolute Monocytes 0.88 H (0.1-0.8) 10^3/uL Alkaline Phosphatase 237 H (46-116) U/L Albumin 2.4 L (3.4-5.0) g/dL Temp Pulse Resp BP Pulse Ox 97.9 F 79 16 113/67 99 10/16/22 07:29 10/16/22 09:08 10/16/22 07:29 10/16/22 07:29 10/16/22 07:29 Laboratory Results WBC 9.03 10^3/uL (4.4-10.8) 10/15/22 18:12 RBC 3.89 10^6/uL (3.93-5.22) L 10/15/22 18:12 Hgb 11.7 g/dL (11.2-15.7) 10/15/22 18:12 Hct 34.6 % (36.0-46.0) L 10/15/22 18:12 MCV 89 fL (80-95) 10/15/22 18:12 MCH 30.1 pg (27.0-33.0) 10/15/22 18:12 MCHC 33.8 % (32.0-36.0) 10/15/22 18:12 RDW 13.9 % (11.7-14.6) 10/15/22 18:12 Plt Count 269 10^3/uL (130-400) 10/15/22 18:12 MPV 10.6 fL (8.0-11.0) 10/15/22 18:12 Immature Gran % 1.6 10/15/22 18:12 Neutrophils % 62.1 10/15/22 18:12 Lymphocytes % 24.3 10/15/22 18:12 Monocytes % 9.7 10/15/22 18:12 Eosinophils % 2.0 10/15/22 18:12 Basophils % 0.3 10/15/22 18:12 Nucleated RBC % 0.0 % (0.0-0.3) 10/15/22 18:12 Absolute Neutrophils 5.61 10^3/uL (1.2-6.7) 10/15/22 18:12 Absolute Lymphocytes 2.19 10^3/uL (1.2-3.4) 10/15/22 18:12 Absolute Monocytes 0.88 10^3/uL (0.1-0.8) H 10/15/22 18:12 Absolute Eosinophils 0.18 10^3/uL (0.0-0.7) 10/15/22 18:12 Absolute Basophils 0.03 10^3/uL (0.0-0.2) 10/15/22 18:12 Total Bilirubin 0.6 mg/dL (0.2-1.0) 10/15/22 18:12 Conjugated Bilirubin 0.2 mg/dL (0.0-0.2) 10/15/22 18:12 AST 22 U/L (15-37) 10/15/22 18:12 ALT 34 U/L (14-59) 10/15/22 18:12 Alkaline Phosphatase 237 U/L (46-116) H 10/15/22 18:12 Total Protein 7.0 g/dL (6.4-8.2) 10/15/22 18:12 Albumin 2.4 g/dL (3.4-5.0) L 10/15/22 18:12 Patient ABO/Rh A Positive 10/15/22 18:12 Antibody Screen NEGATIVE 10/15/22 18:12 Subjective Interval history since last seen: Zenia slept intermittently last night and she received 4th dose of misoprostol this morning. She is experiencing pressure but mild discomfort. Vital signs stable. Results Hemoglobin/Hematocrit: Hgb 11.7 g/dL (11.2-15.7) 10/15/22 18:12 Hct 34.6 % (36.0-46.0) L 10/15/22 18:12 Abnormal Lab Findings: Abnormal Labs 10/15/22 10/15/22 18:12 18:12 RBC 3.89 L Hct 34.6 L Absolute Monocytes 0.88 H Alkaline Phosphatase 237 H Albumin 2.4 L
[2022-10-16] MEDS: miSOPROStol 25 MCG TAB 50 MCG VG (11:25)
--- NOTE | 2022-10-16 12:32 | W.PM.OBNL1 ---
Date of service: 10/16/22 Time of Service: 12:32 Pelvic Exam Dilation: 1 Effacement (%): 50 station: -3 Position: VAN Cervix Position: mid Consistency: soft Contractions Monitor Mode: External Contraction Frequency(min): every 5-6 Contraction Duration(sec): 50-60 Intensity: Mild Fetus A Monitor: External (US) Heart Rate Baseline: 130 Presentation: Vertex Variability: Moderate (6-25 BPM) Categories: Category I Accelerations: 15 X 15 Decelerations: None Assessment and Plan Assessment and plan (1) Encounter for induction of labor: Status: Acute Assessment and plan: Reviewed options of pitocin augmentation with a cervical ripening balloon or misoprostol with a cervical ripening balloon. Zenia prefers misoprostol but would like to wait a few hours before inserting the balloon. Dr. Houston notified of progress of IOL. Objective Abnormal lab results 10/15/22 10/15/22 Range/Units 18:12 18:12 RBC 3.89 L (3.93-5.22) 10^6/uL Hct 34.6 L (36.0-46.0) % Absolute Monocytes 0.88 H (0.1-0.8) 10^3/uL Alkaline Phosphatase 237 H (46-116) U/L Albumin 2.4 L (3.4-5.0) g/dL Temp Pulse Resp BP Pulse Ox 97.9 F 79 16 113/67 99 10/16/22 07:29 10/16/22 09:08 10/16/22 07:29 10/16/22 07:29 10/16/22 07:29 Laboratory Results WBC 9.03 10^3/uL (4.4-10.8) 10/15/22 18:12 RBC 3.89 10^6/uL (3.93-5.22) L 10/15/22 18:12 Hgb 11.7 g/dL (11.2-15.7) 10/15/22 18:12 Hct 34.6 % (36.0-46.0) L 10/15/22 18:12 MCV 89 fL (80-95) 10/15/22 18:12 MCH 30.1 pg (27.0-33.0) 10/15/22 18:12 MCHC 33.8 % (32.0-36.0) 10/15/22 18:12 RDW 13.9 % (11.7-14.6) 10/15/22 18:12 Plt Count 269 10^3/uL (130-400) 10/15/22 18:12 MPV 10.6 fL (8.0-11.0) 10/15/22 18:12 Immature Gran % 1.6 10/15/22 18:12 Neutrophils % 62.1 10/15/22 18:12 Lymphocytes % 24.3 10/15/22 18:12 Monocytes % 9.7 10/15/22 18:12 Eosinophils % 2.0 10/15/22 18:12 Basophils % 0.3 10/15/22 18:12 Nucleated RBC % 0.0 % (0.0-0.3) 10/15/22 18:12 Absolute Neutrophils 5.61 10^3/uL (1.2-6.7) 10/15/22 18:12 Absolute Lymphocytes 2.19 10^3/uL (1.2-3.4) 10/15/22 18:12 Absolute Monocytes 0.88 10^3/uL (0.1-0.8) H 10/15/22 18:12 Absolute Eosinophils 0.18 10^3/uL (0.0-0.7) 10/15/22 18:12 Absolute Basophils 0.03 10^3/uL (0.0-0.2) 10/15/22 18:12 Total Bilirubin 0.6 mg/dL (0.2-1.0) 10/15/22 18:12 Conjugated Bilirubin 0.2 mg/dL (0.0-0.2) 10/15/22 18:12 AST 22 U/L (15-37) 10/15/22 18:12 ALT 34 U/L (14-59) 10/15/22 18:12 Alkaline Phosphatase 237 U/L (46-116) H 10/15/22 18:12 Total Protein 7.0 g/dL (6.4-8.2) 10/15/22 18:12 Albumin 2.4 g/dL (3.4-5.0) L 10/15/22 18:12 Patient ABO/Rh A Positive 10/15/22 18:12 Antibody Screen NEGATIVE 10/15/22 18:12 Subjective Interval history since last seen: Zenia took a nap and she is experiencing cramping. her contractions are mild Results Hemoglobin/Hematocrit: Hgb 11.7 g/dL (11.2-15.7) 10/15/22 18:12 Hct 34.6 % (36.0-46.0) L 10/15/22 18:12 Abnormal Lab Findings: Abnormal Labs 10/15/22 10/15/22 18:12 18:12 RBC 3.89 L Hct 34.6 L Absolute Monocytes 0.88 H Alkaline Phosphatase 237 H Albumin 2.4 L Pocus Exam Limited OB Exam DATE OF EXAM:: 10/16/22 TIME OF EXAM:: 12:36 PROVIDER THAT PERFORMED THE STUDY: Cara Leigh IS THIS A REPEAT EXAM DURING THIS ENCOUNTER: No Type of Exam: Pelvic OB Trans Abdominal (confirm position) REASON FOR EXAM: other (confirm position) indication: confirm position Exam Complete.
--- NOTE | 2022-10-16 21:03 | W.PM.OBNL1 ---
Date of service: 10/16/22 Time of Service: 18:30 Pelvic Exam Dilation: 3 Effacement (%): 70 station: -2 Cervix Position: mid Consistency: soft Contractions Monitor Mode: External Contraction Frequency(min): every 3-5 Contraction Duration(sec): 50-60 Intensity: Mild/Moderate Fetus A Monitor: External (US) Heart Rate Baseline: 130 Presentation: Vertex Variability: Moderate (6-25 BPM) Categories: Category I Accelerations: 15 X 15 Decelerations: None Amniotic Membrane Status: Intact Assessment and Plan Assessment and plan (1) Encounter for induction of labor: Status: Acute Assessment and plan: Will continue to assess labor progress and anticipate . Will consider pitocin augmentation or AROM if indicated. (2) Intrahepatic cholestasis of in third trimester: Status: Acute Objective Temp Pulse Resp BP Pulse Ox 97.5 F L 96 H 16 126/67 98 10/16/22 13:00 10/16/22 17:31 10/16/22 13:00 10/16/22 17:31 10/16/22 13:00 Laboratory Results WBC 9.03 10^3/uL (4.4-10.8) 10/15/22 18:12 RBC 3.89 10^6/uL (3.93-5.22) L 10/15/22 18:12 Hgb 11.7 g/dL (11.2-15.7) 10/15/22 18:12 Hct 34.6 % (36.0-46.0) L 10/15/22 18:12 MCV 89 fL (80-95) 10/15/22 18:12 MCH 30.1 pg (27.0-33.0) 10/15/22 18:12 MCHC 33.8 % (32.0-36.0) 10/15/22 18:12 RDW 13.9 % (11.7-14.6) 10/15/22 18:12 Plt Count 269 10^3/uL (130-400) 10/15/22 18:12 MPV 10.6 fL (8.0-11.0) 10/15/22 18:12 Immature Gran % 1.6 10/15/22 18:12 Neutrophils % 62.1 10/15/22 18:12 Lymphocytes % 24.3 10/15/22 18:12 Monocytes % 9.7 10/15/22 18:12 Eosinophils % 2.0 10/15/22 18:12 Basophils % 0.3 10/15/22 18:12 Nucleated RBC % 0.0 % (0.0-0.3) 10/15/22 18:12 Absolute Neutrophils 5.61 10^3/uL (1.2-6.7) 10/15/22 18:12 Absolute Lymphocytes 2.19 10^3/uL (1.2-3.4) 10/15/22 18:12 Absolute Monocytes 0.88 10^3/uL (0.1-0.8) H 10/15/22 18:12 Absolute Eosinophils 0.18 10^3/uL (0.0-0.7) 10/15/22 18:12 Absolute Basophils 0.03 10^3/uL (0.0-0.2) 10/15/22 18:12 Total Bilirubin 0.6 mg/dL (0.2-1.0) 10/15/22 18:12 Conjugated Bilirubin 0.2 mg/dL (0.0-0.2) 10/15/22 18:12 AST 22 U/L (15-37) 10/15/22 18:12 ALT 34 U/L (14-59) 10/15/22 18:12 Alkaline Phosphatase 237 U/L (46-116) H 10/15/22 18:12 Total Protein 7.0 g/dL (6.4-8.2) 10/15/22 18:12 Albumin 2.4 g/dL (3.4-5.0) L 10/15/22 18:12 Patient ABO/Rh A Positive 10/15/22 18:12 Antibody Screen NEGATIVE 10/15/22 18:12 Subjective Interval history since last seen: cervical ripening balloon placed at 1545. Zenia reported stronger contractions and the balloon expelled spontaneously at 1730. Results Hemoglobin/Hematocrit: Hgb 11.7 g/dL (11.2-15.7) 10/15/22 18:12 Hct 34.6 % (36.0-46.0) L 10/15/22 18:12 Abnormal Lab Findings: Abnormal Labs 10/15/22 10/15/22 18:12 18:12 RBC 3.89 L Hct 34.6 L Absolute Monocytes 0.88 H Alkaline Phosphatase 237 H Albumin 2.4 L
[2022-10-17] VITALS (79 sets, daily range): BP systolic 98–135; BP diastolic 54–74; PULSE 0–118; RESP 17–20; TEMP 36.4–37; O2SAT 85–99; BMI 43.0
--- NOTE | 2022-10-17 03:02 | W.PM.OBNL1 ---
Date of service: 10/17/22 Time of Service: 03:03 Pelvic Exam Dilation: 4 Effacement (%): 70 station: -2 Cervix Position: posterior Consistency: soft Vaginal Exam Presentation: Vertex Comments: vertex is well applied. Contractions Monitor Mode: External Contraction Frequency(min): every 6 min Contraction Duration(sec): 50-80 Intensity: Mild Fetus A Monitor: External (US) Heart Rate Baseline: 120 Presentation: Vertex Variability: Moderate (6-25 BPM) Categories: Category I FHR Rhythm: Regular Accelerations: 15 X 15 Decelerations: None Amniotic Membrane Status: Ruptured Rupture Method: Artifical Amniotic Fluid: Clear Assessment and Plan Assessment and plan (1) Encounter for induction of labor: Status: Acute Assessment and plan: Anticipate . Zenia requests to use the tub for comfort when necessary. Dr Houston is present on the unit. (2) Intrahepatic cholestasis of in third trimester: Status: Acute Objective Temp Pulse Resp BP Pulse Ox 97.5 F L 96 H 16 126/67 98 10/16/22 13:00 10/16/22 17:31 10/16/22 13:00 10/16/22 17:31 10/16/22 13:00 Laboratory Results WBC 9.03 10^3/uL (4.4-10.8) 10/15/22 18:12 RBC 3.89 10^6/uL (3.93-5.22) L 10/15/22 18:12 Hgb 11.7 g/dL (11.2-15.7) 10/15/22 18:12 Hct 34.6 % (36.0-46.0) L 10/15/22 18:12 MCV 89 fL (80-95) 10/15/22 18:12 MCH 30.1 pg (27.0-33.0) 10/15/22 18:12 MCHC 33.8 % (32.0-36.0) 10/15/22 18:12 RDW 13.9 % (11.7-14.6) 10/15/22 18:12 Plt Count 269 10^3/uL (130-400) 10/15/22 18:12 MPV 10.6 fL (8.0-11.0) 10/15/22 18:12 Immature Gran % 1.6 10/15/22 18:12 Neutrophils % 62.1 10/15/22 18:12 Lymphocytes % 24.3 10/15/22 18:12 Monocytes % 9.7 10/15/22 18:12 Eosinophils % 2.0 10/15/22 18:12 Basophils % 0.3 10/15/22 18:12 Nucleated RBC % 0.0 % (0.0-0.3) 10/15/22 18:12 Absolute Neutrophils 5.61 10^3/uL (1.2-6.7) 10/15/22 18:12 Absolute Lymphocytes 2.19 10^3/uL (1.2-3.4) 10/15/22 18:12 Absolute Monocytes 0.88 10^3/uL (0.1-0.8) H 10/15/22 18:12 Absolute Eosinophils 0.18 10^3/uL (0.0-0.7) 10/15/22 18:12 Absolute Basophils 0.03 10^3/uL (0.0-0.2) 10/15/22 18:12 Total Bilirubin 0.6 mg/dL (0.2-1.0) 10/15/22 18:12 Conjugated Bilirubin 0.2 mg/dL (0.0-0.2) 10/15/22 18:12 AST 22 U/L (15-37) 10/15/22 18:12 ALT 34 U/L (14-59) 10/15/22 18:12 Alkaline Phosphatase 237 U/L (46-116) H 10/15/22 18:12 Total Protein 7.0 g/dL (6.4-8.2) 10/15/22 18:12 Albumin 2.4 g/dL (3.4-5.0) L 10/15/22 18:12 Patient ABO/Rh A Positive 10/15/22 18:12 Antibody Screen NEGATIVE 10/15/22 18:12 Subjective Interval history since last seen: Zenia requested to sleep before proceeding with the next phase of induction. She was able to take a nap and is now awake but she reports that her contractions are mild. We discussed AROM at this time and Zenia agrees. She is experiencing mild pruritis Results Hemoglobin/Hematocrit: Hgb 11.7 g/dL (11.2-15.7) 06/01/23 18:12 Hct 34.6 % (36.0-46.0) L 10/15/22 18:12 Abnormal Lab Findings: Abnormal Labs 10/15/22 10/15/22 18:12 18:12 RBC 3.89 L Hct 34.6 L Absolute Monocytes 0.88 H Alkaline Phosphatase 237 H Albumin 2.4 L
--- NOTE | 2022-10-17 07:06 | ANES.PREOP_ITS ---
General Info Date of Service Date Performed: 10/17/22 Height: 6 ft Weight: 143.789 kg Body Mass Index (BMI): 43.0 Meds Allergies and Home Medications Allergies Allergy/AdvReac Type Severity Reaction Status Date / Time shellfish derived Allergy Severe vomiting Verified 09/30/22 13:49 citalopram AdvReac Mild sarai Verified 09/30/22 13:49 ursodiol AdvReac Mild Other (See Verified 10/12/22 06:56 Comment) latex AdvReac local Verified 09/30/22 13:49 sensitivity lotions Allergy Hives Uncoded 09/30/22 13:49 Home Medication Medication Instructions Recorded omega-3 fatty acids 1,250 mg 1,250 mg PO DAILY 01/07/22 capsule vit no.95-ferrous 1 tab PO DAILY 06/10/22 fumarate 28 mg-folic acid 800 mcg tablet ( Multivitamins) cholecalciferol (vitamin D3) 25 25 mcg PO DAILY 09/18/22 mcg (1,000 unit) capsule magnesium citrate 100 mg capsule 100 mg PO DAILY 09/18/22 Current Visit Medications: Current Medications Generic Name Dose Route Start Last Admin Trade Name Freq PRN Reason Stop Dose Admin Fentanyl/Ropivacaine 200 ml 10/17/22 07:00 Fentanyl/Ropivacaine 2 Mcg/Ml And 0.1% 200 Ml Cadd Cassette EP DIRECTED JO-ANN Ringer's Solution 1,000 mls @ 200 mls/hr 10/15/22 16:45 IV INFUSION JO-ANN Sodium Chloride 500 mls @ 0 mls/hr 10/15/22 16:45 Saline 500ml Bag IV PRN PRN As Directed IV Miscellaneous Supplies 1 each 10/15/22 16:45 Iv Access IV DIRECTED JO-ANN Misoprostol 25 mcg 10/15/22 17:00 10/16/22 07:35 Misoprostol 25 Mcg Tab PO 25 mcg Q4H JO-ANN Administration Sodium Chloride 0 ml 10/15/22 16:45 Normal Saline Flush 10 Ml Syr IVP PRN PRN Terbutaline Sulfate 0.25 mg 10/15/22 16:45 Terbutaline 1 Mg/Ml Vial SC PRN PRN PFSH Active Problems Active Problems: Problem Status Onset Code Encounter for induction of labor Z34.90 Intrahepatic cholestasis of in third trimester O26.613, K83.1 Vaginal irritation N89.8 Edema R60.9 Pruritus of in third trimester O99.713, L29.9 History of cholestasis during Z87.59, Z87.19 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, antepartum 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.892, Z14.1 Leukorrhea N89.8 Advanced maternal age in multigravida O09.529 Sleep apnea G47.30 Z34.90 BMI 38.0-38.9,adult Z68.38 ADHD, adult residual type F90.8 GERD (gastroesophageal reflux disease) K21.9 Anxiety F41.9 Nausea R11.0 Medical History Medical History Acne uses spironolactone Allergic rhinitis (10/19/14) warm months Former tobacco use Pelvic pain SAB (spontaneous ) Snoring Surgical History Surgical History Cholecystectomy (12/21/14) H/O hemorrhoidectomy 2019 S/P appendectomy Tobacco Smoking/Tobacco Use Status: Former Tobacco Use Alcohol Alcohol Intake: former Substance Use Substance use: Never Substance use type: does not use Prental History History 7 Para 3 Hx # Term Pregnancies 3 Multiple births 1 Hx # Pregnancies 0 Ectopic pregnancies 1 AB induced 1 Hx Number of Living Children 4 AB spontaneous 2 Past Pregnancies Del. Date GA/Weeks # Preg Succ Route Wgt Sex Labor Lgth Anesth esia Location Prov Complic Unknown No 06/18/02 42 No Yes vaginal 4507.574 g Female [place] 12/04/03 41 Yes Yes vaginal 3146.797 g Male [place] 12/04/03 41 Yes Yes vaginal 3231.846 g [place] 08/15/08 38 No Yes vaginal 3175.147 g Male [facility] 03/04/21 No in [place] Delivery Date: Last Updated by: Cara Leigh CNM ETOP Delivery Date: 06/18/02 Last Updated by: Cara Leigh CNM precipitous delivery Delivery Date: 12/04/03 Last Updated by: Yolande Manrique IOL postdates. twins 6-15 and 7-2 Delivery Date: 08/15/08 Last Updated by: Yolande Manrique IOL for intrahepatic cholestasis of [place] Delivery Date: 03/04/21 Last Updated by: Yolande Manrique SAB of twins Vital Signs and Lab Results Vital Signs Most Recent Vital Signs in EMR: Most Recent Vital Signs Temp Pulse Resp BP Pulse Ox 36.4 C L 76 16 121/73 98 10/17/22 04:50 10/17/22 04:51 10/16/22 13:00 10/17/22 04:51 10/16/22 13:00 Lab Results 10/15/22 18:12 Blood Type / Crossmatch: Patient ABO/Rh A Positive 10/15/22 Antibody Screen NEGATIVE 10/15/22 Complete Blood Count: White Blood Count 9.03 10^3/uL (4.4-10.8) 10/15/22 18:12 Red Blood Count 3.89 10^6/uL (3.93-5.22) L 10/15/22 18:12 Hemoglobin 11.7 g/dL (11.2-15.7) 10/15/22 18:12 Hematocrit 34.6 % (36.0-46.0) L 10/15/22 18:12 Platelet Count 269 10^3/uL (130-400) 10/15/22 18:12 Complete Metabolic Panel: Sodium 136 mmol/L (136-145) 10/11/22 23:38 Potassium 3.3 mmol/L (3.5-5.1) L 10/11/22 23:38 Chloride 102 mmol/L (98-107) 10/11/22 23:38 Carbon Dioxide 20.0 mmol/L (21.0-32.0) L 10/11/22 23:38 BUN 12 mg/dL (7-18) 10/11/22 23:38 Creatinine 0.7 mg/dL (0.55-1.02) 10/11/22 23:38 Est GFR (CKD-EPI 2020) 112.05 (mL/min/1.73m2) 10/11/22 23:38 Calcium 8.9 mg/dL (8.5-10.1) 10/11/22 23:38 Albumin 2.4 g/dL (3.4-5.0) L 10/15/22 18:12 Glucose 154 mg/dL (74-106) H 10/11/22 23:38 Liver Function Panel: Alanine Aminotransferase (ALT/SGPT) 34 U/L (14-59) 10/15/22 18: 12 Aspartate Amino Transf (AST/SGOT) 22 U/L (15-37) 10/15/22 18:12 Coagulation Panel: No Data to Display Cardiac Panel: No Data to Display Arterial Blood Gas: No Data to Display Venous Blood Gas: No Data to Display Pancreas Panel: No Data to Display Thyroid Panel: No Data to Display Infectious Disease: No Data to Display Blood Cultures: No Data to Display Toxicology Panel: No Data to Display Panel: No Data to Display Anesthesia Assessment and Plan Anesthesia History Personal History: No History of Anesthesia Complications Family History: No Family History of Anesthesia Complications Exercise Tolerance Exercise Tolerance: Metabolic Equivalents>4 Cardiac & Pulmonary Exam Cardiac Exam: Normal S1/S2 Heart Sounds Pulmonary Exam: Clear Bilateral Breath Sounds Implantable Cardiac Device Does patient have a Pacemaker or an ICD?: No Airway Exam Known Difficult Airway: No Mallampati Class: 2 Mouth Opening: Normal (> 3cm) Thyromental Distance: Greater than 3 cm Neck Range of Motion: Full ROM Neck Circumference: Normal Teeth Condition: Normal Dentition ASA Classification ASA Score: ASA 2 Emergency Case?: No NPO Status NPO Status: Full Stomach Status Status: Confirmed Anesthesia Plan Resuscitation Status: Full Code Anesthesia Technique: Labor Epidural Airway Planned: Natural Airway Monitors Used: Standard Monitors
--- NOTE | 2022-10-17 07:27 | W.ANESPROC ---
Intrathecal Analgesia Date Performed: 10/17/22 Procedure Time: 07:25 Requesting Provider: Cara Leigh Procedure Location: Obstetrics Reason Performed: Labor Intrathecal Analgesia Standard Monitors Applied: Blood Pressure, SpO2 and See EMR for corresponding vital signs Patient Position: Sitting Timeout Performed: Yes Sedation Given (Indicate Dose Given): No Sedation given Patient Mental Status: Awake Sterility: Hand Hygiene, Surgical Cap, Surgical Mask, Sterile Gloves, Sterile Drape/Sheet and Chlorhexidine Placement Site: L3-L4 Interspace Spinal Needle Type: Sprotte 25 Gauge Needle Length: 3.5 Inch Spinal Procedure: Site Prepped, Sterile Drape Placed, 1% Lidocaine to skin and subcutaneous tissue with 25G needle, Introducer Needle Used, Spinal Needle Placed, Negative Heme, Positive CSF Flow and Medication Injected Paresthesia: None Spinal Local Anesthetic (Indicate Dose Given): Bupivacaine 0.25% PF (ml) Dose:: 1 ml Additives (Indicate Dose Given): Fentanyl PF Dose:: 20 mcg and Duramorph PF Dose:: 200 mcg Ultrasound: Not Used Number of Attempts (See previous attempts in note section): 1 Procedure Tolerated: No Complications Procedure Outcome: Successful Performed By: Michelle Oleary
[2022-10-17] MEDS: Oxytocin/Normal Saline 30 UNITS/500 ML BAG 95 UNITS IV (09:25)
[2022-10-17] MEDS: Methylergonovine 0.2 MG/ML VIAL IM (09:30)
[2022-10-17] MEDS: miSOPROStol 200 MCG TAB 800 MCG PR (09:36)
[2022-10-17] MEDS: hydrOXYzine HCL 25 MG TAB PO (10:25)
--- NOTE | 2022-10-17 10:31 | W.PM.OBNL1 ---
Date of service: 10/17/22 Time of Service: 08:00 Pelvic Exam Dilation: 6 Effacement (%): 100 Position: SALMA Cervix Position: mid Consistency: soft Pooling: Positive Contractions Monitor Mode: External Contraction Frequency(min): ever 2-3 min Contraction Duration(sec): 60 Intensity: Moderate/Strong Fetus A Monitor: External (US) Heart Rate Baseline: 120 Presentation: Vertex Variability: Moderate (6-25 BPM) Categories: Category I Accelerations: 15 X 15 Decelerations: None Assessment and Plan Assessment and plan (1) Encounter for induction of labor: Status: Acute Assessment and plan: Rest encouraged. Anticipate (2) Intrahepatic cholestasis of in third trimester: Status: Acute Objective Temp Pulse Resp BP Pulse Ox 97.7 F 81 18 106/59 L 85 L 10/17/22 08:03 10/17/22 10:22 10/17/22 08:03 10/17/22 10:22 10/17/22 09:18 Laboratory Results WBC 9.03 10^3/uL (4.4-10.8) 10/15/22 18:12 RBC 3.89 10^6/uL (3.93-5.22) L 10/15/22 18:12 Hgb 11.7 g/dL (11.2-15.7) 10/15/22 18:12 Hct 34.6 % (36.0-46.0) L 10/15/22 18:12 MCV 89 fL (80-95) 10/15/22 18:12 MCH 30.1 pg (27.0-33.0) 10/15/22 18:12 MCHC 33.8 % (32.0-36.0) 10/15/22 18:12 RDW 13.9 % (11.7-14.6) 10/15/22 18:12 Plt Count 269 10^3/uL (130-400) 10/15/22 18:12 MPV 10.6 fL (8.0-11.0) 10/15/22 18:12 Immature Gran % 1.6 10/15/22 18:12 Neutrophils % 62.1 10/15/22 18:12 Lymphocytes % 24.3 10/15/22 18:12 Monocytes % 9.7 10/15/22 18:12 Eosinophils % 2.0 10/15/22 18:12 Basophils % 0.3 10/15/22 18:12 Nucleated RBC % 0.0 % (0.0-0.3) 10/15/22 18:12 Absolute Neutrophils 5.61 10^3/uL (1.2-6.7) 10/15/22 18:12 Absolute Lymphocytes 2.19 10^3/uL (1.2-3.4) 10/15/22 18:12 Absolute Monocytes 0.88 10^3/uL (0.1-0.8) H 10/15/22 18:12 Absolute Eosinophils 0.18 10^3/uL (0.0-0.7) 10/15/22 18:12 Absolute Basophils 0.03 10^3/uL (0.0-0.2) 10/15/22 18:12 Total Bilirubin 0.6 mg/dL (0.2-1.0) 10/15/22 18:12 Conjugated Bilirubin 0.2 mg/dL (0.0-0.2) 10/15/22 18:12 AST 22 U/L (15-37) 10/15/22 18:12 ALT 34 U/L (14-59) 10/15/22 18:12 Alkaline Phosphatase 237 U/L (46-116) H 10/15/22 18:12 Total Protein 7.0 g/dL (6.4-8.2) 10/15/22 18:12 Albumin 2.4 g/dL (3.4-5.0) L 10/15/22 18:12 Patient ABO/Rh A Positive 10/15/22 18:12 Antibody Screen NEGATIVE 10/15/22 18:12 Subjective Interval history since last seen: Zenia progressed into active labor after AROM for clear fluid. She used the ball and tub for comfort and progressed to 6 cms. She requested an epidural/ intrathecal and that was placed an 0725 with good effect and she is resting. Results Hemoglobin/Hematocrit: Hgb 11.7 g/dL (11.2-15.7) 10/15/22 18:12 Hct 34.6 % (36.0-46.0) L 10/15/22 18:12 Abnormal Lab Findings: Abnormal Labs 10/15/22 10/15/22 18:12 18:12 RBC 3.89 L Hct 34.6 L Absolute Monocytes 0.88 H Alkaline Phosphatase 237 H Albumin 2.4 L
--- NOTE | 2022-10-17 10:35 | W.OBDELIVERY ---
Date of service: 10/17/22 Time of Service: 10:35 OB Labor/ Delivery Information Baby A Delivery Delivery Method: Spontaneaous Presentation: Vertex Vertex Position: Left Occipital Anterior Amniotic Fluid: Clear Estimated Blood Loss: 1200 Delivery Outcome: Liveborn Infant Complications: none Transferred: Remains with Mother Note: xFHTs 120s during first stage of labor. Zenia awoke with discomfort from a nap after intrathecal was placed. She was examined and was fully dilated and +3. FHTs 120s in second stage. Progressed to full dilation and began pushing. She began pushing and rapidly delivered a male infant in LOAposition. Baby was placed on mother's abdomen and dried and stimulated. Spontaneous cry. Cord was clamped and cut by the baby's father after it stopped pulsing The placenta delivered spontaneously and appears to by intact with a three vessel cord. (See post hemorrhage). The perineum was inspected and it was intact . The baby did breastfeed. After delivery, Mother and baby and father of the baby were stable and bonding well in the delivery room. Providers Nurse Professor Of Architecture: Cara Leigh Nurse: Cindy Red Nurse: Soniya Stewart Labor/Delivery Information Number of Babies in Womb: 1 Steroids Given: None Reason Steroids Not Administered: N/A Group Beta Strep: N/A Rubella Status: Immune Blood Type: A+ Varicella Immunity: Immune Born En Route: No Maternal Complications: None Shoulder Dystocia: No Stages of Labor ROM Baby A: 10/17/22 ROM Baby A: 02:48 Infant Delivery Date-Baby A: 10/17/22 Delivery Time-Baby A: 09:18 Placenta Delivery Date-Baby A: 10/17/22 Placenta Delivery Time-Baby A: 09:27 Labor-Stage 3 Duration: 9 minutes Baby A Gender: Male Gestational Status: Early Term (37-38.6 wks) Gestational Age in Weeks/Days: 37 Weeks and 1 Days Hemorrrhage Note Note Note: Pitocin 30 Units IV was administered immediately after delivery per protocol. There was a large gush of blood and amniotic fluid prior to the delivery of the placenta, The placenta delivered spontaneously and there was another large gush after the placenta was delivered. Cytotec 800 mcg was adminstered per rectum and fundal massage performed. She was straight catheterized for 200 cc concentrated urine. QBL was 1200 cc poured from the drape and captured in the basin after the placenta delivered. methergine 0.2 mg IM was administered and the fundus remained firm with minimal bleeding. I plan to continue methergine 0.2 mg PO every 4 hours x 24 hours. Hemorrhage Recognized Date Hemorrhage Recognized: 10/17/22 Time Hemorrhage Recognized: 09:28 Call for Help Date: 10/17/22 Time: 09:28 2nd RN in Room Date: 10/17/22 Time: 09:28 2nd RN: Soniya Stewart Provider in Room Date: 10/17/22 Time: 09:18 Provider: Cara Leigh QBL Scale in Room Date: 10/17/22 Time: 09:28 OB Emergency Cart at Bedside Date: 10/17/22 Time: 09:28 Renee Catheter Urinary Catheter Date of Insertion: 10/17/22 Time of insertion: 09:29 Inserted by: axel Medication Administration 1st Administration: Medication: Oxytocin 30U/500 ml IV Administration Date: 10/17/22 Administration Time: 09:20 2nd Administration: Medication: Misoprostol 800 mcg Rectal Administration Date: 10/17/22 Administration Time: 09:20 3rd Administration: Medication: Methergine 0.2 mg IM Administration Date: 10/17/22 Administration Time: 09:34 4th Administration: Medication: Methergine 0.2 mg PO Administration Date: 10/17/22 Administration Time: 11:30 Total Blood Loss for PPH Event Quantitative Blood Loss: 1,200
[2022-10-17] MEDS: Ondansetron 4 MG/2 ML VIAL IVP (11:25)
[2022-10-17] MEDS: Methylergonovine 0.2 MG TAB PO ×4 (11:30→23:46)
[2022-10-17] MEDS: diphenhydrAMINE 50 MG/ML VIAL 25 MG IVP ×2 (11:40→20:01)
[2022-10-17] MEDS: Lactated Ringers 500 ML IV (11:45)
[2022-10-17] MEDS: Lactated Ringers 1,000 ML 200 ML IV (13:45)
--- NOTE | 2022-10-17 17:27 | W.ANESPOSTOP ---
Postoperative Evaluation Date, Time and Location Date Performed: 10/17/22 Time Performed: 17:27 Patient Location: Obstetrics Vital Signs Most Recent Imported Vital Signs: Most Recent Vital Signs Temp Pulse Resp BP Pulse Ox 36.5 C 84 20 113/74 96 10/17/22 15:15 10/17/22 15:15 10/17/22 15:15 10/17/22 15:15 10/17/22 15:15 Pain Score Most Recent Pain Score: Most Recent Pain Score Pain Level 0 10/15/22 17:30 Assessment Mental Status: Awake (Alert & Oriented to Patient Baseline) Airway and Respiratory Function: Patent airway with normal (patient baseline) respiratory exam Cardiovascular Function: Hemodynamically Stable Hydration Status: Adequately Hydrated Nausea & Vomiting: No Nausea or Vomiting Pain: Pain is tolerable per patient Peripheral Nerve Block: Patient did not receive a nerve block
[2022-10-17] MEDS: Normal Saline Flush 10 ML SYR IVP (20:02)
[2022-10-18] MEDS: Methylergonovine 0.2 MG TAB PO (05:02)
[2022-10-18 06:47] LABS: MCH 30.1 pg (27.0-33.0); MCHC 33.3 % (32.0-36.0); MCV 90 fL (80-95); MPV 11.5 fL (8.0-11.0); Platelet Count 248 10^3/uL (130-400); RBC 3.66 10^6/uL (3.93-5.22); RDW-SD 46.4 fL; WBC 14.44 10^3/uL (4.4-10.8)
[2022-10-18 08:05] VITALS: BP 105/68; PULSE 84; RESP 16; TEMP 36.7
[2022-10-18 15:40] VITALS: BP 108/64; PULSE 78; RESP 16; TEMP 36.5
--- NOTE | 2022-10-18 15:56 | OBPPV_ITS ---
Date of service: 10/18/22 Time of Service: 15:56 Assessment and Plan Assessment and plan (1) Term of male : Status: Acute Assessment and plan: Caring for baby independently. Pain is managed well with oral analgesics. Voiding without difficulty. well. A - stable mother and baby , Post day 1 P - Discharge to home tomorrow. Routine post instructions. [facility] Subjective Subjective Interval history: Baby has been spitting up and Jennifer and her partner Mitchell are concerned about this. Baby Geoff has been stable and well. Jennifer was catheterized yesterday for 600 cc but today has been OOB and caring for herself and baby independently Patient comments: Other (occasional cramping) Patient's Mood: good. [place] baby status: Doing well and Nursing well [place] feeding status: Exclusively breast feeding Exam Physical Exam Vital signs: Temp Pulse Resp BP Pulse Ox 98.1 F 84 16 105/68 98 10/18/22 08:05 10/18/22 08:05 10/18/22 08:05 10/18/22 08:05 10/17/22 23:47 Respiratory Exam Respiratory Exam: Normal Cardiovascular Exam Cardiovascular Exam: Normal Fundal Exam Fundus: Below Umbilicus and Firm Exam Comments: delivered over intact perineum Extremities Exam Extremity Exam: Normal Psychiatric Exam Psychiatric Exam: Normal Results Hemoglobin/Hematocrit: Hgb 11.0 g/dL (11.2-15.7) L 10/18/22 05:53 Hct 33.0 % (36.0-46.0) L 10/18/22 05:53 Abnormal Lab Findings: Abnormal Labs 10/15/22 10/15/22 10/18/22 18:12 18:12 05:53 WBC 14.44 H RBC 3.89 L 3.66 L Hgb 11.0 L Hct 34.6 L 33.0 L MPV 11.5 H Absolute Monocytes 0.88 H Alkaline Phosphatase 237 H Albumin 2.4 L 10/15/22 17:25 Vaginal/Rectal Group B Streptococcus Culture - Final Hemorrrhage Note Hemorrhage Recognized Date Hemorrhage Recognized: 10/17/22 Time Hemorrhage Recognized: 09:28 Call for Help Date: 10/17/22 Time: 09:28 2nd RN in Room Date: 10/17/22 Time: 09:28 2nd RN: Soniya Stewart Provider in Room Date: 10/17/22 Time: 09:18 Provider: Cara Leigh QBL Scale in Room Date: 10/17/22 Time: 09:28 OB Emergency Cart at Bedside Date: 10/17/22 Time: 09:28 Renee Catheter Urinary Catheter Date of Insertion: 10/17/22 Time of insertion: 09:29 Inserted by: axel Total Blood Loss for PPH Event Quantitative Blood Loss: 1,200
[2022-10-18] MEDS: Ibuprofen 600 MG TAB PO (18:30)
[2022-10-19 08:00] VITALS: BP 114/75; PULSE 76; RESP 14; TEMP 36.8
[2022-10-19] MEDS: Ibuprofen 600 MG TAB PO (09:45)
--- NOTE | 2022-10-19 10:58 | W.PM.OBDISCH ---
Date of service: 10/19/22 Time of Service: 10:58 DS: Diagnosis Discharge Diagnosis (1) Term of male : Status: Acute Asessment and Plan: Jennifer complains of left ankle pain which she noticed yesterday. Caring for baby independently. Pain is managed well with oral analgesics. Voiding without difficulty. well. O- slightly mor edema in left ankle A - stable mother and baby , Post day 2, left ankle pain P - Discharge to home today. Routine post instructions. Ice, epsom salt baths and heat recommended and ibuprofen in scheduled dosing at home. Call if no improvement in ankle pain. [facility] Discharge Plan Disposition Patient Disposition: Home Condition: Good Discharge Details Reason For Visit: Cholestasis of Admit Date/Time: 10/15/22 16:45 Admit Provider: Cara Leigh Attending Provider: Cara Leigh Primary Care Provider: Alejandra Jorgensen Home Meds and New Rx's Prescriptions: No Action cholecalciferol (vitamin D3) 25 mcg (1,000 unit) capsule 25 mcg PO DAILY Patient Comments: with K2 omega-3 fatty acids 1,250 mg capsule 1,250 mg PO DAILY PNV cmb#95-ferrous fumarate-FA [ Multivitamins] 28 mg iron- 800 mcg tablet 1 tab PO DAILY magnesium citrate 100 mg capsule 100 mg PO DAILY Discharge Instructions Stand Alone Forms: BC Instructions, BC Post Vaginal Deliver Activity:: Activity as Tolerated Equipment/Supplies:: No Equipment Needed Diet:: As Tolerated Discharge Orders Discharge Orders: Discharge Order (Routine); Ordered 10/19/22 Ordered By: Cara Leigh OB:DS Summary Summary Vaginal Delivery Method: Spontaneaous Episiotomy Description: None Laceration Description: None Laceration Extension: N/A Contraception Discussed Contraception Discussed: No, [place] Gender-Baby A: Male weight: 8 lb 3.219 oz Status at Discharge Functional status at discharge: independent ambulation Overall status at discharge: patient is back to baseline Mental Status: mental status grossly normal Speech and Movement: speech and movement normal Mood: congruent mood Affect: normal affect Exam Physical Exam Vital signs: Temp Pulse Resp BP Pulse Ox 98.2 F 76 14 114/75 98 10/19/22 08:00 10/19/22 08:00 10/19/22 08:00 10/19/22 08:00 10/17/22 23:47 Respiratory Exam Respiratory Exam: Normal Cardiovascular Exam Cardiovascular Exam: Normal Fundal Exam Fundus: Below Umbilicus and Firm Exam Patient deferred: external exam Comments: intact perineum Extremities Exam Extremity Exam: Edema (no edma in left ankle, trace in left ankle) Skin Exam Skin Exam: Normal Psychiatric Exam Psychiatric Exam: Normal PFSH All Active Problems (Updated 10/18/22 @ 16:01 by Cara Leigh CNM) Term of male (Acute) Vaginal irritation (Acute) Edema (Acute) Leukorrhea (Acute) Sleep apnea (Acute) CPAP prescribed recently BMI 38.0-38.9,adult (Acute) ADHD, adult residual type (Acute) GERD (gastroesophageal reflux disease) (Chronic) Anxiety (Chronic) Nausea (Acute) Medical History (Updated 10/18/22 @ 16:01 by Cara Leigh CNM) Acne uses spironolactone Allergic rhinitis (10/19/14) warm months 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, antepartum Former tobacco use History of cholestasis during Pelvic pain SAB (spontaneous ) Snoring Surgical History Cholecystectomy (12/21/14) H/O hemorrhoidectomy 2019 S/P appendectomy Family History Father Hyperlipidemia Heart disease Alcohol use disorder Sister Depression Grandfather Diabetes Hyperlipidemia Alcohol abuse Grandfather Essential hypertension Heart disease Grandmother Cancer breast Dementia Social History Smoking/Tobacco Use Status: Former Tobacco Use Quit Date: 04/03/21 Smoking risk assessment performed?: Yes Alcohol Intake: former Drug use: Never Substance use type: does not use Number of Children: 3 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 Date GA/Weeks # Preg Succ Route Wgt Sex Labor Lgth Anesthesia Location Prov Complic Unknown No 06/18/02 42 No Yes vaginal 9 lb 15 oz Female regional [place] 12/04/03 41 Yes Yes vaginal 6 lb 15 oz Male [place] 12/04/03 41 Yes Yes vaginal 7 lb 2 oz [place] 08/15/08 38 No Yes vaginal 7 lb Male [facility] 03/04/21 No in [place] Delivery Date: Last Updated by: Cara Leigh CNM ETOP Delivery Date: 06/18/02 Last Updated by: Cara Leigh CNM precipitous delivery Delivery Date: 12/04/03 Last Updated by: Yolande Manrique IOL postdates. twins 6-15 and 7-2 Delivery Date: 08/15/08 Last Updated by: Yolande Manrique IOL for intrahepatic cholestasis of [place] Delivery Date: 03/04/21 Last Updated by: Yolande Manrique SAB of twins DS: Data Vitals/I&O Vitals and I&O: Vital Signs Temperature 98.2 F 10/19/22 08:00 Temperature Source Oral 10/19/22 08:00 Pulse 76 10/19/22 08:00 Pulse Rhythm Regular 10/19/22 08:00 Respiratory Rate 14 10/19/22 08:00 Respiratory Depth Normal 10/17/22 20:12 Blood Pressure 114/75 10/19/22 08:00 Blood Pressure Mean 88 10/19/22 08:00 Pulse Oximetry 98 10/17/22 23:47 Oxygen Delivery Method Room Air 10/15/22 17:30 Oxygen Flow Rate 0 10/15/22 17:30 Pain Level 5 10/19/22 09:45 Comment pt respecfully declines 10/19/22 04:00 Intake & Output 10/18/22 10/18/22 10/19/22 11:59 23:59 11:59 Output Total 250 / 250 Balance -250 / -250 Output: Urine 250 / 250 Other: Urine Color Yellow Yellow
== END 2022-10-19 16:00 | disposition home or self-care (01) | DRG 805 ==
PROVIDERS: Admitting Provider Advanced Practice Midwife; PCP Family Medicine; Visit Provider Advanced Practice Midwife
DX: O26.62 Liver and biliary tract disorders in childbirth (principal); K83.1 Obstruction of bile duct; Z37.0 Single live birth; O72.1 Other immediate postpartum hemorrhage; Z3A.37 37 weeks gestation of pregnancy; O99.344 Other mental disorders complicating childbirth; F41.9 Anxiety disorder, unspecified; O12.04 Gestational edema, complicating childbirth; O99.62 Diseases of the digestive system complicating childbirth; K21.9 Gastro-esophageal reflux disease without esophagitis; K27.9 Peptic ulcer, site unspecified, unspecified as acute or chronic, without hemorrhage or perforation; Z14.1 Cystic fibrosis carrier; G47.30 Sleep apnea, unspecified; O26.893 Other specified pregnancy related conditions, third trimester; Z87.891 Personal history of nicotine dependence
CPT/HCPCS: 36415; 80076; 85027; 86850; 86900; 86901; 85025; 87081; J1200; J2210; J2405; J3010; J3490

== ENCOUNTER 2022-10-26 04:51 | Outpatient (CLI) | payer OTHER, SELFPAY ==
[2022-10-26 12:19] LABS: Abs Immature Grans 0.04 10^3/uL (0.0-0.06); Absolute Basophil Count 0.04 10^3/uL (0.0-0.2); Absolute Eosinophil Count 0.17 10^3/uL (0.0-0.7); Absolute Lymphocyte Count 2.51 10^3/uL (1.2-3.4); Absolute Monocyte Count 0.56 10^3/uL (0.1-0.8); Absolute Neutrophil Count 3.48 10^3/uL (1.2-6.7); Basophils % 0.6; Eosinophils % 2.5; HCT 39.4 % (36.0-46.0); HGB 13.2 g/dL (11.2-15.7); Immature Grans % 0.6; Lymphocytes % 36.9; MCH 29.9 pg (27.0-33.0); MCHC 33.5 % (32.0-36.0); MCV 89 fL (80-95); MPV 10.6 fL (8.0-11.0); Monocytes % 8.2; Neutrophils % 51.2; Platelet Count 320 10^3/uL (130-400); RBC 4.41 10^6/uL (3.93-5.22); RDW 13.5 % (11.7-14.6); RDW-SD 44.3 fL
[2022-10-26 12:22] LABS: ESR 34 mm/hr (0-20)
[2022-10-26 12:51] LABS: ALT 35 U/L (14-59); AST 20 U/L (15-37); Alkaline Phosphatase 137 U/L (46-116); Anion Gap 9.5 mmol/L (3-11); BUN 12 mg/dL (7-18); Bilirubin, Total 0.4 mg/dL (0.2-1.0); CO2 25.5 mmol/L (21.0-32.0); Calcium 9.2 mg/dL (8.5-10.1); Chloride 102 mmol/L (98-107); Estimated GFR 73.04 (mL/min/1.73m2); Glucose 91 mg/dL (74-106); Potassium 3.8 mmol/L (3.5-5.1); Sodium 137 mmol/L (136-145); TSH (W/Ref FT4) 3.13 uIU/mL (0.36-3.74); Total Protein 7.7 g/dL (6.4-8.2)
[2022-10-26 21:54] LABS: CRP, High Sensitivity 7.41 mg/L (See Note)
[2022-10-27 11:28] LABS: Lyme Ab w Rflx to Lyme Confirm Negative (Negative)
[2022-10-29 13:17] LABS: Lab Add On Test DONE
[2022-10-29 15:49] LABS: Anaplasma phagocytophilum Negative (Negative); B. miyamotoi PCR Negative (Negative); Babesia divergens/MO-1 Negative (Negative); Babesia duncani Negative (Negative); Babesia microti Negative (Negative); Ehrlichia chaffeensis Negative (Negative); Ehrlichia ewingii/canis Negative (Negative); Ehrlichia muris eauclairensis Negative (Negative)
[2022-10-29 21:46] LABS: Rheumatoid Factor <8.6 IU/mL (<12.0)
[2022-10-30 14:59] LABS: ANA Interpretation Negative (Negative)
== END 2022-10-26 04:52 | disposition home or self-care (01) ==
LOC: LOS 04:52
PROVIDERS: Nurse Practitioner Family; PCP Family Medicine; Visit Provider Nurse Practitioner Family
DX: M13.89 Other specified arthritis, multiple sites (principal)
CPT/HCPCS: 36415; 80053; 85652; 86141; 87798; 84443; 85025; 86038; 86431; 86618

== ENCOUNTER 2022-11-11 02:47 | Outpatient (CLI) | payer OTHER, SELFPAY ==
[2022-11-11 10:48] LABS: ESR 24 mm/hr (0-20)
[2022-11-11 11:10] LABS: ALT 41 U/L (14-59); AST 19 U/L (15-37); Albumin 3.4 g/dL (3.4-5.0); Alkaline Phosphatase 85 U/L (46-116); Anion Gap 13.2 mmol/L (3-11); BUN 20 mg/dL (7-18); Bilirubin, Total 0.4 mg/dL (0.2-1.0); CO2 22.8 mmol/L (21.0-32.0); CREATININE 1.1 mg/dL (0.55-1.02); Calcium 9.3 mg/dL (8.5-10.1); Chloride 103 mmol/L (98-107); Estimated GFR 65.14 (mL/min/1.73m2); Ferritin 33 ng/mL (8-252); Glucose 128 mg/dL (74-106); Potassium 4.2 mmol/L (3.5-5.1); Sodium 139 mmol/L (136-145); Total Protein 7.8 g/dL (6.4-8.2)
[2022-11-11 18:27] LABS: CRP, High Sensitivity 4.16 mg/L (See Note)
[2022-11-13 10:32] LABS: EBNA IgG Positive (Negative); EBV Interpretation (See Note); VCA IgG Positive (Negative); VCA IgM Negative (Negative)
== END 2022-11-11 02:48 | disposition home or self-care (01) ==
LOC: LOS 02:47
PROVIDERS: PCP Family Medicine; Visit Provider Nurse Practitioner Family
DX: M25.50 Pain in unspecified joint (principal)
CPT/HCPCS: 36415; 80053; 85652; 86141; 82728; 86664; 86665

== ENCOUNTER 2022-11-16 10:56 | Outpatient (CLI) | payer OTHER, SELFPAY | END 2022-11-16 10:57 | disposition home or self-care (01) | LOC: DI.CM 10:57 | PROVIDERS: PCP Family Medicine; Visit Provider Nurse Practitioner Family | DX: R10.9 Unspecified abdominal pain (principal) | CPT/HCPCS: 93010 ==

== ENCOUNTER 2022-11-19 12:02 | Outpatient (CLI) | payer OTHER, SELFPAY ==
--- NOTE | 2022-11-19 11:00 | DI.RAD_ITS ---
Exam(s) XR ANKLE LT COMPLETE EXAM: XR ANKLE LT COMPLETE CLINICAL HISTORY: left ankle pain, M25.572 TECHNIQUE: 2D digital imaging was performed. Three views. COMPARISON: No exams were available for comparison FINDINGS: BONES: No acute fracture is present. No bony destructive lesion is seen. JOINTS:The ankle mortise is normally aligned. SOFT TISSUE: Lateral swelling. IMPRESSION: Lateral swelling. DATA REPOSITORY: RADIATION DOSE DELIVERED:
== END 2022-11-19 12:22 ==
LOC: DI 12:08
PROVIDERS: PCP Family Medicine; Visit Provider Nurse Practitioner Family
DX: M25.572 Pain in left ankle and joints of left foot (principal); R22.42 Localized swelling, mass and lump, left lower limb
CPT/HCPCS: 73610

== ENCOUNTER 2022-12-01 01:44 | Day surgery (SDC) | payer OTHER, SELFPAY ==
[2022-12-01] VITALS (57 sets, daily range): BP systolic 108–138; BP diastolic 61–96; PULSE 48–90; RESP 8–28; TEMP 36.3–36.5; O2SAT 91–99; BMI 41.6
--- NOTE | 2022-12-01 02:00 | DI.CT_ITS ---
Exam(s) CT ABDOMEN PELVIS W EXAM: CT ABDOMEN PELVIS W CLINICAL HISTORY: left mid abdominal pain TECHNIQUE: Imaging Protocol: Axial computed tomography images with coronal and sagittal reformatted images were created and reviewed CONTRAST MATERIAL: Intravenous: Omnipaque 350 Contrast volume:100 mL Oral: No COMPARISON: CT CHEST FOR PULMONARY EMBOLUS from 11/02/2016 FINDINGS: ABDOMEN: Lung Bases: Normal where visualized. Liver: There is fatty infiltration of the liver. No measurable mass. Portal, Superior Mesenteric, and Splenic Veins: Unremarkable. Gallbladder and Biliary Tract: Status post cholecystectomy. No biliary ductal dilatation. Pancreas: Normal density, no abnormal calcifications or inflammatory process. Spleen: Normal. Adrenals: No masses seen. Kidneys: Normal size, contour and axis. No radiodense stones or obstructive uropathy. No masses seen. Abdominal Aorta: Abdominal portion non-dilated. Bowel: No obstruction or bowel wall thickening. There is no evidence of appendicitis. There is a sma ll hyperattenuating focus in the gastric antrum. Peritoneal Cavity: No ascites, collection or mesenteric inflammatory response. No free air. Lymph Nodes: Within normal limits. Bones: Within normal limits for the patient's age. Soft Tissues: There is a fat containing umbilical hernia. PELVIS: Bladder: The urinary bladder is incompletely distended but grossly unremarkable. Reproductive Organs: There is a normal uterus. Lymph Nodes: Within normal limits. Bones: Within normal limits for the patient's age. IMPRESSION: 1. Small hyperattenuating focus in the gastric antrum likely reflecting gastric contents but hemorrha ge is not excludable. Please correlate clinically for upper GI bleed. 2. No other findings to suggest an acute abdominal or pelvic process. RADIATION DOSE DELIVERED: 1,422.29mGy.cm Total DLP DATA REPOSITORY: All CT scans at this facility are submitted to the National Radiology Data Registry (NRDR) Dose Index Registry (DIR) with the [employer] (ACR). RADIATION OPTIMIZATION: All CT scans at this facility use at least one of these dose optimization te chniques: automated exposure control; mA and/or kV adjustment per patient size (includes targeted exa ms where dose is matched to clinical indication); or iterative reconstruction.
[2022-12-01 02:20] LABS: Abs Immature Grans 0.05 10^3/uL (0.0-0.06); Absolute Basophil Count 0.04 10^3/uL (0.0-0.2); Absolute Eosinophil Count 0.23 10^3/uL (0.0-0.7); Absolute Lymphocyte Count 3.45 10^3/uL (1.2-3.4); Absolute Monocyte Count 0.63 10^3/uL (0.1-0.8); Absolute Neutrophil Count 5.65 10^3/uL (1.2-6.7); Basophils % 0.4; Eosinophils % 2.3; HCT 38.4 % (36.0-46.0); Immature Grans % 0.5; Lymphocytes % 34.3; MCHC 33.9 % (32.0-36.0); MCV 89 fL (80-95); MPV 10.4 fL (8.0-11.0); Monocytes % 6.3; Neutrophils % 56.2; Platelet Count 253 10^3/uL (130-400); RBC 4.34 10^6/uL (3.93-5.22); RDW 14.6 % (11.7-14.6); RDW-SD 47.4 fL; WBC 10.05 10^3/uL (4.4-10.8)
[2022-12-01 02:36] LABS: Albumin 3.9 g/dL (3.4-5.0); Alkaline Phosphatase 69 U/L (46-116); Anion Gap 9.8 mmol/L (3-11); BUN 21 mg/dL (7-18); Bilirubin, Total 0.6 mg/dL (0.2-1.0); CO2 25.2 mmol/L (21.0-32.0); CREATININE 1.5 mg/dL (0.55-1.02); Calcium 8.9 mg/dL (8.5-10.1); Chloride 103 mmol/L (98-107); Glucose 114 mg/dL (74-106); Lipase 42 U/L (16-77); Potassium 3.6 mmol/L (3.5-5.1); Sodium 138 mmol/L (136-145); Total Protein 7.8 g/dL (6.4-8.2)
[2022-12-01] MEDS: ACETAMINOPHEN 1,000 MG/100 ML BTL 400 MG IVPB (02:40)
[2022-12-01] MEDS: Normal Saline Flush 10 ML SYR IVP (02:44)
[2022-12-01] MEDS: Omnipaque 350 MG/ML 100 ML BTL IJ (02:44)
[2022-12-01] MEDS: Normal Saline - Diluent 50 ML VIAL IJ (02:44)
[2022-12-01] MEDS: Lactated Ringers 1,000 ML 150 ML IV ×2 (02:46→09:29)
--- NOTE | 2022-12-01 02:50 | ED.GENADUL_ITS ---
Discharge Plan Disposition Patient Disposition: Admit to [facility] Discharge Details Chief Complaint: Abd Prob Clinical Impression: Abdominal pain, acute, Gastric ulcer Primary Care Provider: Alejandra Jorgensen ED Provider: Andreas Lane Home Meds and New Rx's Prescriptions: No Action cholecalciferol (vitamin D3) 25 mcg (1,000 unit) capsule 25 mcg PO DAILY Patient Comments: with K2 omega-3 fatty acids 1,250 mg capsule 1,250 mg PO DAILY PNV cmb#95-ferrous fumarate-FA [ Multivitamins] 28 mg iron- 800 mcg tablet 1 tab PO DAILY magnesium citrate 100 mg capsule 100 mg PO DAILY Patient Comments: Not currently taking prednisone 20 mg tablet 10 - 60 mg PO DAILY Qty: 58 0RF Rx Instructions: Take 3 tablets for 10 days then 2 tablets for 7 days then 1 tablet for 7 days then half a tablet for 7 days ferrous sulfate [iron] 325 mg (65 mg iron) tablet 325 mg PO DAILY calcium carbonate 600 mg calcium (1,500 mg) tablet 600 mg PO DAILY glucosamine-chondroitin 900 mg tablet See Rx Instructions PO DAILY Patient Comments: Not currently taking Rx Instructions: 3 tablets orally daily; sodium hyaluronate 20 mg capsule See Rx Instructions PO DAILY Patient Comments: Not currently taking Rx Instructions: 1 tablet orally daily; fenugreek seed extract 500 mg capsule See Rx Instructions PO DAILY Patient Comments: Not currently taking Rx Instructions: 2 tablets daily orally daily; norethindrone (contraceptive) [Ml] 0.35 mg tablet 0.35 mg PO DAILY Qty: 84 3RF Patient Comments: Not currently taking cyclobenzaprine 5 mg tablet 5 mg PO QHS Qty: 10 1RF Patient Comments: Not currently taking Medical Decision Making 255 --42-year-old female here approximately 1.5 months status post induced vaginal delivery with severe left mid to upper abdominal pain over the past 2 to 3 days. Left upper abdomen is tender to palpation. Patient also with recent vaginal bleeding over the past 4 days. Patient has had polyarthralgia and has been taking prednisone over the past 3 weeks. Consider gastric ulcer and perforation versus other acute surgical pathology. Plan to obtain CT of the abdomen pelvis. I will give acetaminophen IV for pain. Will give pepcid IV. 432 --CT of the abdomen pelvis interpreted by radiology: Hyperattenuating focus in the gastric antrum may represent gastric contents but hemorrhage is not excluded. Correlate for evidence of upper GI bleed. Fatty liver. Umbilical hernia containing fat. Will start Protonix 80 mg IV infusion. --Patient was reassessed and pain has improved but still present. 615 --spoke with on-call surgeon, Dr. Pires, discussed ED presentation and course, plan will be for admission for endoscopy. HPI General Mode of arrival: ambulatory . Date/Time Provider Initiated Documentation: 12/01/22 01:50 . Limitations to Documentation: no limitations . Information obtained by: patient . HPI Narrative: 42-year-old female presents approximately 1.5 months status post induced vaginal delivery with complaint of abdominal pain. Patient notes abdominal pain for the past 2 days, worsening and now severe. Pain localized to the mid to upper left abdomen. Pain is now constant. No associated nausea or vomiting. Patient is on prednisone for treatment of polyarthralgias over the past 3 weeks. Patient also notes fairly heavy vaginal bleeding over the past 4 days. Related Data Home Medications Medication Instructions Recorded Confirmed omega-3 fatty acids 1,250 mg 1,250 mg PO DAILY 01/07/22 12/01/22 capsule vit no.95-ferrous 1 tab PO DAILY 06/10/22 12/01/22 fumarate 28 mg-folic acid 800 mcg tablet ( Multivitamins) cholecalciferol (vitamin D3) 25 25 mcg PO DAILY 09/18/22 12/01/22 mcg (1,000 unit) capsule magnesium citrate 100 mg capsule 100 mg PO DAILY 09/18/22 11/20/22 cyclobenzaprine 5 mg tablet 5 mg PO QHS #10 tabs 10/20/22 11/20/22 antiarthritic combination no.2 900 See Rx Instructions PO DAILY 11/03/22 11/20/22 mg tablet (glucosamine-chondroitin) calcium carbonate 600 mg calcium 600 mg PO DAILY 11/03/22 12/01/22 (1,500 mg) tablet fenugreek seed extract 500 mg See Rx Instructions PO DAILY 11/03/22 11/20/22 capsule ferrous sulfate 325 mg (65 mg 325 mg PO DAILY 11/03/22 12/01/22 iron) tablet (iron) norethindrone (contraceptive) 0.35 0.35 mg PO DAILY #84 tabs 11/03/22 11/20/22 mg tablet (Ml) sodium hyaluronate 20 mg capsule See Rx Instructions PO DAILY 11/03/22 11/20/22 prednisone 20 mg tablet 10 - 60 mg PO DAILY #58 tabs 11/20/22 12/01/22 Previous Rx's Medication Instructions Recorded cyclobenzaprine 5 mg tablet 5 mg PO QHS #10 tabs 10/20/22 norethindrone (contraceptive) 0.35 0.35 mg PO DAILY #84 tabs 11/03/22 mg tablet (Ml) prednisone 20 mg tablet 10 - 60 mg PO DAILY #58 tabs 11/20/22 Allergies Allergy/AdvReac Type Severity Reaction Status Date / Time shellfish derived Allergy Severe vomiting Verified 12/01/22 02:15 citalopram AdvReac Mild sarai Verified 12/01/22 02:15 ursodiol AdvReac Mild Other (See Verified 12/01/22 02:15 Comment) latex AdvReac local Verified 12/01/22 02:15 sensitivity General Stated Complaint: Abd Prob YOHANNES: 3 Review of Systems All systems reviewed & are unremarkable except as noted in HPI and below Constitutional Constitutional: Denies fever(s) Gastrointestinal Gastrointestinal: Reports as per HPI, Reports abdominal pain, Denies melena, Denies hematochezia and Denies nausea PFSH All Active Problems (Updated 12/01/22 @ 06:[address] MD) Abdominal pain, acute (Acute) Gastric ulcer (Acute) Umbilical hernia (Acute) Polyarthralgia (Acute ~10/2022) Obstructive sleep apnea (Chronic) ADHD, adult residual type (Chronic) Generalized anxiety disorder (Chronic) GERD (gastroesophageal reflux disease) (Chronic) Allergic rhinitis (Chronic) Medical History 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, antepartum Former tobacco use History of cholestasis during Surgical History H/O hemorrhoidectomy 2019 S/P appendectomy Status post cholecystectomy Family History Mother Rheumatoid arthritis Father Depression Heart disease Alcohol use disorder Hyperlipidemia Sister Depression Son Psoriasis Social History Smoking/Tobacco Use Status: Former Tobacco Use Quit Date: 04/03/21 Smoking risk assessment performed?: Yes Alcohol Intake: former Drug use: Never Substance use type: does not use Number of Children: 3 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 Date GA/Weeks # Preg Succ Route Wgt Sex Labor Lgth Anesth esia Location Prov Complic Unknown No 06/18/02 42 No Yes vaginal 4507.574 g Female regional [place] 12/04/03 41 Yes Yes vaginal 3146.797 g Male [place] 12/04/03 41 Yes Yes vaginal 3231.846 g [place] 08/15/08 38 No Yes vaginal 3175.147 g Male [facility] 03/04/21 No in [place] 10/17/22 37 No Yes vaginal 3719.457 g Male [facility] Harry CNM Delivery Date: Last Updated by: Cara Leigh CNM ETOP Delivery Date: 06/18/02 Last Updated by: Cara Leigh CNM precipitous delivery Delivery Date: 12/04/03 Last Updated by: Yolande Manrique IOL postdates. twins 6-15 and 7-2 Delivery Date: 08/15/08 Last Updated by: Yolande Manrique IOL for intrahepatic cholestasis of [place] Delivery Date: 03/04/21 Last Updated by: Yolande Manrique SAB of twins Delivery Date: 10/17/22 Last Updated by: MAKENNA Segovia; Intrahepatic cholestasis of , 3rd trimester. Exam [facility] Mouth: moist mucous membranes Eyes Conjunctivae: normal conjunctivae Sclera: normal sclerae Resp Auscultation: clear to auscultation bilaterally, no rales, no rhonchi and no wheezes Cardio Rate: tachycardic Rhythm: regular rhythm GI Palpation: soft, not firm, no guarding, no masses, not rigid and tender in the LUQ Auscultation: normal bowel sounds Skin General skin exam: no rashes or lesions noted Neuro General: patient alert, patient awake and tone normal Extrem General: no edema Psych Appearance: grossly normal Mental Status: mental status grossly normal Course Vital Signs Vital signs: Vital Signs Temperature 36.5 C 12/01/22 01:48 Pulse 88 12/01/22 01:48 Respiratory Rate 16 12/01/22 01:48 Blood Pressure 131/66 12/01/22 01:48 Pulse Oximetry 98 12/01/22 01:48 Temperature 36.5 C 12/01/22 01:48 Pulse 88 12/01/22 01:48 Respiratory Rate 16 12/01/22 01:48 Blood Pressure 131/66 12/01/22 01:48 Pulse Oximetry 98 12/01/22 01:48 Oxygen Delivery Method Room Air 12/01/22 01:48 Oxygen Flow Rate 0 12/01/22 01:48 Pain Level 8 12/01/22 01:48 Lab/Test Results Lab/Test Results: Laboratory Tests Range/Units 12/01/22 12/01/22 12/01/22 01:57 01:57 02:34 WBC (4.4-10.8) 10^3/uL 10.05 RBC (3.93-5.22) 10^6/uL 4.34 Hgb (11.2-15.7) g/dL 13.0 Hct (36.0-46.0) % 38.4 MCV (80-95) fL 89 MCH (27.0-33.0) pg 30.0 MCHC (32.0-36.0) % 33.9 RDW (11.7-14.6) % 14.6 Plt Count (130-400) 10^3/uL 253 MPV (8.0-11.0) fL 10.4 Immature Gran % 0.5 Neutrophils % 56.2 Lymphocytes % 34.3 Monocytes % 6.3 Eosinophils % 2.3 Basophils % 0.4 Nucleated RBC % (0.0-0.3) % 0.0 Absolute Neutrophils (1.2-6.7) 10^3/uL 5.65 Absolute Lymphocytes (1.2-3.4) 10^3/uL 3.45 H Absolute Monocytes (0.1-0.8) 10^3/uL 0.63 Absolute Eosinophils (0.0-0.7) 10^3/uL 0.23 Absolute Basophils (0.0-0.2) 10^3/uL 0.04 VBG Lactate (0.6-1.4) mmol/L 1.0 Sodium (136-145) mmol/L 138 Potassium (3.5-5.1) mmol/L 3.6 Chloride (98-107) mmol/L 103 Carbon Dioxide (21.0-32.0) mmol/L 25.2 Anion Gap (3-11) mmol/L 9.8 BUN (7-18) mg/dL 21 H Creatinine (0.55-1.02) mg/dL 1.5 H Est GFR (CKD-EPI 2020) (mL/min/1.73m2) 44.90 Glucose (74-106) mg/dL 114 H Calcium (8.5-10.1) mg/dL 8.9 Total Bilirubin (0.2-1.0) mg/dL 0.6 Alkaline Phosphatase (46-116) U/L 69 Total Protein (6.4-8.2) g/dL 7.8 Albumin (3.4-5.0) g/dL 3.9 Lipase (16-77) U/L 42
[2022-12-01 03:01] LABS: ALT 13 U/L (14-59); AST 15 U/L (15-37)
[2022-12-01 03:02] LABS: HCG Qual (Serum) Negative
[2022-12-01] MEDS: Famotidine 20 MG/2 ML VIAL IVP (03:07)
[2022-12-01 03:27] LABS: Bilirubin Negative (Negative); Blood Moderate (Negative); Clarity Sl Cloudy (Clear); Glucose Negative (Negative); Ketones Negative (Negative); Leukocyte Esterase Negative (Negative); Nitrite Negative (Negative); Urobilinogen 0.2 mg/dL (Up to 0.2)
[2022-12-01 03:35] LABS: Bacteria Rare HPF (Negative); C & S Indicated? No; Crystals Negative HPF (Negative); Epithelial Cells Rare HPF (Negative); Mucus Trace (Negative); WBC 0-2 HPF (0-5)
--- NOTE | 2022-12-01 04:23 | DI.VRAD_ITS ---
PROCEDURE INFORMATION: Exam: CT Abdomen And Pelvis With Contrast Exam date and time: 12/01/2022 2:49 AM Age: 42 years old Clinical indication: Localized; Prior surgery; Surgery date: 6+ months; Surgery type: Cholecystectomy and appendectomy; Patient HX: Left mid abdominal pain; Additional info: 6 weeks TECHNIQUE: Imaging protocol: Computed tomography of the abdomen and pelvis with contrast. Radiation optimization: All CT scans at this facility use at least one of these dose optimization techniques: automated exposure control; mA and/or kV adjustment per patient size (includes targeted exams where dose is matched to clinical indication); or iterative reconstruction. Contrast material: OMNIPAQUE 350; Contrast volume: 100 ml; Contrast route: INTRAVENOUS (IV); COMPARISON: US ABDOMEN 05/08/2021 1:39 PM FINDINGS: Liver: Hepatic fatty infiltration. Gallbladder and bile ducts: Cholecystectomy. Pancreas: Normal. No ductal dilation. Spleen: Normal. No splenomegaly. Adrenal glands: Normal. No mass. Kidneys and ureters: Normal. No hydronephrosis. Stomach and bowel: Small hyperattenuating focus in the gastric antrum. No obstruction. No mucosal thickening. Appendix: Appendectomy by history. Intraperitoneal space: Unremarkable. No free air. No significant fluid collection. Vasculature: Unremarkable. No abdominal aortic aneurysm. Lymph nodes: Prominent right inguinal lymph nodes. Urinary bladder: Unremarkable as visualized. Reproductive: Prominent uterus. Bones/joints: Degenerative disc disease at L5-S1. No fracture. Soft tissues: Umbilical hernia containing fat. IMPRESSION: 1. Hyperattenuating focus in the gastric antrum may represent gastric contents but hemorrhage is not excluded. Correlate for evidence of upper GI bleed. 2. Fatty liver. 3. Umbilical hernia containing fat. Dictated and Authenticated by: Pavel Hidalgo MD. Ordering:JV Johns MD
[2022-12-01] MEDS: PANTOPRAZOLE 80 MG in Normal Saline 100 ML 10 MG IV (05:58)
--- NOTE | 2022-12-01 08:22 | HPE_ITS ---
Date of service: 12/01/22 Time of Service: 08:44 Assessment and Plan Assessment and plan (1) Abdominal pain, acute: Status: Acute Assessment and plan: Abdominal pain for 3-4 days without improvement. Abdominal pain has improved slightly after IV tylenol and Protonix. DDX Gastritis vs. gastric ulcer -Discussed Upper endoscopy procedure and the need to be NPO after midnight the night prior. Discussed possible complications of the procedure to include bleeding, pain, perforation, missed small lesion/polyp/ulcers, sore throat, aspiration and adverse reaction to the medications or sedation. Questions were answered to patient?s satisfaction. No guarantees were implied or given. Will proceed with EGD with Dr. Mcgrath. Will recheck labs. -see notation on H&P from surgery (2) Gastric ulcer: Status: Deleted (3) Polyarthralgia: Status: Acute Assessment and plan: Currently on Prednisone Concern for increased bleeding with this. (4) ADHD, adult residual type: Status: Chronic (5) Obstructive sleep apnea: Status: Chronic (6) GERD (gastroesophageal reflux disease): Status: Chronic (7) state: Status: Acute Assessment and plan: 6 weeks 3 days post- s/p vaginal delivery Patient describes that she started menstrating 5 days ago and describes her flow as heavy. She states that her post- bleeding subsided prior to starting her period. History of Present Illness Narrative: 42 y/o female with a history of ADHD, polyarthralgia, MOISES and GERD presented to the ER for further evaluation of severe abdominal pain in her upper abdominal area for the past 3-4 days. Patient describes her pain as severe, which caused her to double over in pain, that she could not walk. She is 6 wks 3 days post . She describes that she started menstruating 5 days ago and shortly afterwards she noted abdominal discomfort. She describes in the past she has taken sucrafate and PPI's for her GERD, which she stopped because she did not like how they made her feel. Denies chest pain, palpitations, dyspnea or dyspnea with exertion. Denies personal or family history of adverse reactions to anesthesia. She states that she has had previous complications with anesthesia involving spinal's during labor. Denies any history of DC, stroke, seizures, clotting disorders. She has been noticing bruising on her legs and arms since starting the prednisone. Denies having any implanted metal. Denies any history of chemotherapy or radiation. While in the ER CT of the abdomen pelvis interpreted by radiology: Hyperattenuating focus in the gastric antrum may represent gastric contents but hemorrhage is not excluded.? Correlate for evidence of upper GI bleed.? Fatty liver.? Umbilical hernia containing fat. She was treated with IV tylenol and Protonix with some improvement in her symptoms. 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, antepartum Former tobacco use History of cholestasis during Surgical History H/O hemorrhoidectomy 2019 S/P appendectomy Status post cholecystectomy Family History Mother Rheumatoid arthritis Father Depression Heart disease Alcohol use disorder Hyperlipidemia Sister Depression Son Psoriasis Social History Smoking/Tobacco Use Status: Former Tobacco Use Quit Date: 04/03/21 Smoking risk assessment performed?: Yes Alcohol Intake: former Drug use: Never Substance use type: does not use Number of Children: 3 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 Date GA/Weeks # Preg Succ Route Wgt Sex Labor Lgth Anesth esia Location Prov Complic Unknown No 06/18/02 42 No Yes vaginal 4507.574 g Female regional [place] 12/04/03 41 Yes Yes vaginal 3146.797 g Male [place] 12/04/03 41 Yes Yes vaginal 3231.846 g [place] 08/15/08 38 No Yes vaginal 3175.147 g Male [facility] 03/04/21 No in [place] 10/17/22 37 No Yes vaginal 3719.457 g Male [facility] Luh Harry CNM Delivery Date: Last Updated by: Cara Leigh CNM ETOP Delivery Date: 06/18/02 Last Updated by: Cara Leigh CNM precipitous delivery Delivery Date: 12/04/03 Last Updated by: Yolande Manrique IOL postdates. twins 6-15 and 7-2 Delivery Date: 08/15/08 Last Updated by: Yolande Manrique IOL for intrahepatic cholestasis of Gregg Delivery Date: 03/04/21 Last Updated by: Yolande Manrique SAB of twins Delivery Date: 10/17/22 Last Updated by: MAKENNA Segovia; Intrahepatic cholestasis of , 3rd trimester. Meds Allergies and Home Medications Allergies Allergy/AdvReac Type Severity Reaction Status Date / Time shellfish derived Allergy Severe vomiting Verified 12/01/22 08:41 citalopram AdvReac Mild sarai Verified 12/01/22 08:41 ursodiol AdvReac Mild Other (See Verified 12/01/22 08:41 Comment) latex AdvReac local Verified 12/01/22 08:41 sensitivity Home Medications Medication Instructions Recorded Confirmed Type omega-3 fatty acids 1,250 mg 1,250 mg PO DAILY 01/07/22 12/01/22 History capsule vit no.95-ferrous 1 tab PO DAILY 06/10/22 12/01/22 History fumarate 28 mg-folic acid 800 mcg tablet ( Multivitamins) cholecalciferol (vitamin D3) 25 25 mcg PO DAILY 09/18/22 12/01/22 History mcg (1,000 unit) capsule magnesium citrate 100 mg capsule 100 mg PO DAILY 09/18/22 12/01/22 History cyclobenzaprine 5 mg tablet 5 mg PO QHS #10 tabs 10/20/22 12/01/22 Rx antiarthritic combination no.2 900 See Rx Instructions PO DAILY 11/03/22 12/01/22 History mg tablet (glucosamine-chondroitin) calcium carbonate 600 mg calcium 600 mg PO DAILY 11/03/22 12/01/22 History (1,500 mg) tablet fenugreek seed extract 500 mg See Rx Instructions PO DAILY 11/03/22 12/01/22 History capsule ferrous sulfate 325 mg (65 mg 325 mg PO DAILY 11/03/22 12/01/22 History iron) tablet (iron) norethindrone (contraceptive) 0.35 0.35 mg PO DAILY #84 tabs 11/03/22 12/01/22 Rx mg tablet (Ml) sodium hyaluronate 20 mg capsule See Rx Instructions PO DAILY 11/03/22 12/01/22 History prednisone 20 mg tablet 10 - 60 mg PO DAILY #58 tabs 11/20/22 12/01/22 Rx Exam Const General: cooperative, healthy appearing and comfortable Orientation: alert and oriented x3 Other: Afebrile, Non-toxic Resp Effort & Inspection: normal respiratory effort, no audible wheezes and no cough Auscultation: clear to auscultation bilaterally GI Inspection: normal to inspection Palpation: soft, no guarding and tender Skin Other: scattered bruises on joni. LE's and UEs. Results Labs 12/01/22 09:05 12/01/22 01:57 Labs: Laboratory Results - last 24 hr 12/01/22 12/01/22 12/01/22 01:57 01:57 02:34 WBC 10.05 RBC 4.34 Hgb 13.0 Hct 38.4 MCV 89 MCH 30.0 MCHC 33.9 RDW 14.6 Plt Count 253 MPV 10.4 Immature Gran % 0.5 Neutrophils % 56.2 Lymphocytes % 34.3 Monocytes % 6.3 Eosinophils % 2.3 Basophils % 0.4 Nucleated RBC % 0.0 Absolute Neutrophils 5.65 Absolute Lymphocytes 3.45 H Absolute Monocytes 0.63 Absolute Eosinophils 0.23 Absolute Basophils 0.04 VBG Lactate 1.0 Sodium 138 Potassium 3.6 Chloride 103 Carbon Dioxide 25.2 Anion Gap 9.8 BUN 21 H Creatinine 1.5 H Est GFR (CKD-EPI 2020) 44.90 Glucose 114 H Calcium 8.9 Total Bilirubin 0.6 AST 15 ALT 13 L Alkaline Phosphatase 69 Total Protein 7.8 Albumin 3.9 Lipase 42 Serum HCG, Qual Urine Color Urine Clarity Urine pH Ur Specific Jackson Urine Protein Urine Ketones Urine Blood Urine Nitrite Urine Bilirubin Urine Urobilinogen Ur Leukocyte Esterase Urine RBC Urine WBC Ur Epithelial Cells Urine Crystals Urine Bacteria Urine Mucus Ur Culture Indicated? Urine Glucose 12/01/22 12/01/22 02:34 03:15 WBC RBC Hgb Hct MCV MCH MCHC RDW Plt Count MPV Immature Gran % Neutrophils % Lymphocytes % Monocytes % Eosinophils % Basophils % Nucleated RBC % Absolute Neutrophils Absolute Lymphocytes Absolute Monocytes Absolute Eosinophils Absolute Basophils VBG Lactate Sodium Potassium Chloride Carbon Dioxide Anion Gap BUN Creatinine Est GFR (CKD-EPI 2020) Glucose Calcium Total Bilirubin AST ALT Alkaline Phosphatase Total Protein Albumin Lipase Serum HCG, Qual Negative Urine Color Yellow Urine Clarity Sl Cloudy Urine pH 5.0 Ur Specific Jackson 1.020 Urine Protein Negative Urine Ketones Negative Urine Blood Moderate H Urine Nitrite Negative Urine Bilirubin Negative Urine Urobilinogen 0.2 Ur Leukocyte Esterase Negative Urine RBC 10-20 H Urine WBC 0-2 Ur Epithelial Cells Rare Urine Crystals Negative Urine Bacteria Rare Urine Mucus Trace Ur Culture Indicated? No Urine Glucose Negative Last Vital Signs Temp 36.5 C 12/01/22 01:48 Pulse 66 12/01/22 07:01 Resp 17 12/01/22 07:20 BP 121/63 12/01/22 07:01 Pulse Ox 97 12/01/22 07:20 Time Spent Time spent with Patient: 55-74 minutes Time was spent: preparing to see the patient(eg.review tests), obtaining and/or reviewing separately otained hiistory, ordering medications,tests, procedures, referring, communicating with other health hospice patient care secretary, indepentently interpreting results, counseling the patient and care coordination
[2022-12-01 09:12] LABS: Abs Immature Grans 0.02 10^3/uL (0.0-0.06); Absolute Basophil Count 0.03 10^3/uL (0.0-0.2); Absolute Eosinophil Count 0.18 10^3/uL (0.0-0.7); Absolute Lymphocyte Count 2.23 10^3/uL (1.2-3.4); Absolute Monocyte Count 0.53 10^3/uL (0.1-0.8); Absolute Neutrophil Count 4.26 10^3/uL (1.2-6.7); Basophils % 0.4; Eosinophils % 2.5; HCT 37.4 % (36.0-46.0); HGB 12.3 g/dL (11.2-15.7); Immature Grans % 0.3; Lymphocytes % 30.8; MCH 28.7 pg (27.0-33.0); MCHC 32.9 % (32.0-36.0); MCV 87 fL (80-95); MPV 9.9 fL (8.0-11.0); Monocytes % 7.3; Neutrophils % 58.7; Platelet Count 209 10^3/uL (130-400); RBC 4.28 10^6/uL (3.93-5.22); RDW 14.5 % (11.7-14.6); RDW-SD 46.6 fL; WBC 7.25 10^3/uL (4.4-10.8)
[2022-12-01 09:36] LABS: HCG Quant, Pregnancy < 1 mIU/mL (1-3)
[2022-12-01 09:45] LABS: Folate > 20.0 ng/mL (8.6-20.0)
[2022-12-01 09:56] LABS: Ferritin 63 ng/mL (8-252); Vitamin B12 339 pg/mL (193-986)
--- NOTE | 2022-12-01 10:29 | ANES.PREOP_ITS ---
General Info Date of Service Date Performed: 12/01/22 Height: 6 ft Weight: 139.253 kg Body Mass Index (BMI): 41.6 Surgical Procedure: Operation Date: 12/01/22 10:05 Proposed Procedure Side Surgeon p Gastroscopy Monica Mcgrath, DO Meds Allergies and Home Medications Allergies Allergy/AdvReac Type Severity Reaction Status Date / Time shellfish derived Allergy Severe vomiting Verified 12/01/22 08:41 citalopram AdvReac Mild sarai Verified 12/01/22 08:41 ursodiol AdvReac Mild Other (See Verified 12/01/22 08:41 Comment) latex AdvReac local Verified 12/01/22 08:41 sensitivity Home Medication Medication Instructions Recorded omega-3 fatty acids 1,250 mg 1,250 mg PO DAILY 01/07/22 capsule vit no.95-ferrous 1 tab PO DAILY 06/10/22 fumarate 28 mg-folic acid 800 mcg tablet ( Multivitamins) cholecalciferol (vitamin D3) 25 25 mcg PO DAILY 09/18/22 mcg (1,000 unit) capsule magnesium citrate 100 mg capsule 100 mg PO DAILY 09/18/22 cyclobenzaprine 5 mg tablet 5 mg PO QHS #10 tabs 10/20/22 antiarthritic combination no.2 900 See Rx Instructions PO DAILY 11/03/22 mg tablet (glucosamine-chondroitin) calcium carbonate 600 mg calcium 600 mg PO DAILY 11/03/22 (1,500 mg) tablet fenugreek seed extract 500 mg See Rx Instructions PO DAILY 11/03/22 capsule ferrous sulfate 325 mg (65 mg 325 mg PO DAILY 11/03/22 iron) tablet (iron) norethindrone (contraceptive) 0.35 0.35 mg PO DAILY #84 tabs 11/03/22 mg tablet (Ml) sodium hyaluronate 20 mg capsule See Rx Instructions PO DAILY 11/03/22 prednisone 20 mg tablet 10 - 60 mg PO DAILY #58 tabs 11/20/22 Current Visit Medications: Current Medications Generic Name Dose Route Start Last Admin Trade Name Freq PRN Reason Stop Dose Admin Ferrous Sulfate 325 mg 12/01/22 08:30 Ferrous Sulfate 325 Mg Tab PO DAILY JO-ANN Ringer's Solution 1,000 mls @ 150 mls/hr 12/01/22 02:30 12/01/22 09:42 IV 75 mls/hr INFUSION JO-ANN Infusion Pantoprazole Sodium 80 mg/ 100 mls @ 10 mls/hr 12/01/22 04:30 12/01/22 09:27 Sodium Chloride IV 10 mls/hr INFUSION [facility] Infusion Sodium Chloride 500 mls @ 0 mls/hr 12/01/22 07:02 Saline 500ml Bag IV PRN PRN As Directed Ringer's Solution 1,000 mls @ 75 mls/hr 12/01/22 07:15 IV INFUSION JO-ANN Acetaminophen 1,000 mg in 100 mls @ 400 mls/hr 12/01/22 07:15 Ofirmev IVPB Q6H [facility] IV Miscellaneous Supplies 1 each 12/01/22 02:15 Iv Access-Emergency Dept IV DIRECTED [facility] IV Miscellaneous Supplies 1 each 12/01/22 07:15 Iv Access IV DIRECTED [facility] Iohexol 100 ml 12/01/22 02:45 12/01/22 02:44 Omnipaque 350 Mg/Ml 100 Ml Btl IJ 12/31/22 23:59 100 ml DIRECTED JO-ANN Administration Morphine Sulfate 2 mg 12/01/22 07:02 Morphine 2 Mg/Ml Syr IVP Q1H PRN PRN Ondansetron HCl 4 mg 12/01/22 07:02 Ondansetron 4 Mg/2 Ml Vial IVP Q4H PRN PRN Prednisone 10 - 60 mg 12/01/22 08:30 Prednisone 20 Mg Tab PO DAILY JO-ANN Sodium Chloride 0 ml 12/01/22 02:08 12/01/22 02:44 Normal Saline Flush 10 Ml Syr IVP 10 ml PRN PRN Administration Sodium Chloride 50 ml 12/01/22 02:45 12/01/22 02:44 Normal Saline - Diluent 50 Ml Vial IJ 50 ml .FOR DI USE JO-ANN Administration Sodium Chloride 0 ml 12/01/22 07:02 Normal Saline Flush 10 Ml Syr IVP PRN PRN PFSH Active Problems Active Problems: Problem Status Onset Code Abdominal pain, acute R10.9 Gastric ulcer K25.9 Umbilical hernia K42.9 Polyarthralgia ~10/2022 M25.50 Obstructive sleep apnea G47.33 ADHD, adult residual type F90.8 Generalized anxiety disorder F41.1 GERD (gastroesophageal reflux disease) K21.9 Allergic rhinitis J30.9 Medical History Medical History 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 Date GA/Weeks # Preg Succ Route Wgt Sex Labor Lgth Anesth esia Location Prov Complic Unknown No 06/18/02 42 No Yes vaginal 4507.574 g Female regional [place] 12/04/03 41 Yes Yes vaginal 3146.797 g Male [place] 12/04/03 41 Yes Yes vaginal 3231.846 g [place] 08/15/08 38 No Yes vaginal 3175.147 g Male [facility] 03/04/21 No in [place] 10/17/22 37 No Yes vaginal 3719.457 g Male [facility] [place] Luh Harry CNM Delivery Date: Last Updated by: Cara Leigh CNM ETOP Delivery Date: 06/18/02 Last Updated by: Cara Leigh CNM precipitous delivery Delivery Date: 12/04/03 Last Updated by: Yolande Manrique IOL postdates. twins 6-15 and 7-2 Delivery Date: 08/15/08 Last Updated by: Yolande Manrique IOL for intrahepatic cholestasis of Gregg Delivery Date: 03/04/21 Last Updated by: Yolande Manrique SAB of twins Delivery Date: 10/17/22 Last Updated by: MAKENNA Segovia; Intrahepatic cholestasis of , 3rd trimester. Vital Signs and Lab Results Vital Signs Most Recent Vital Signs in EMR: Most Recent Vital Signs Temp Pulse Resp BP Pulse Ox 36.5 C 71 16 117/80 96 12/01/22 08:42 12/01/22 08:42 12/01/22 08:42 12/01/22 08:42 12/01/22 08:42 Lab Results 12/01/22 09:05 12/01/22 01:57 Blood Type / Crossmatch: No Data to Display Complete Blood Count: White Blood Count 7.25 10^3/uL (4.4-10.8) 12/01/22 09:05 Red Blood Count 4.28 10^6/uL (3.93-5.22) 12/01/22 09:05 Hemoglobin 12.3 g/dL (11.2-15.7) 12/01/22 09:05 Hematocrit 37.4 % (36.0-46.0) 12/01/22 09:05 Platelet Count 209 10^3/uL (130-400) 12/01/22 09:05 Venous Blood Lactate 1.0 mmol/L (0.6-1.4) 12/01/22 02:34 Complete Metabolic Panel: Sodium 138 mmol/L (136-145) 12/01/22 01:57 Potassium 3.6 mmol/L (3.5-5.1) 12/01/22 01:57 Chloride 103 mmol/L (98-107) 12/01/22 01:57 Carbon Dioxide 25.2 mmol/L (21.0-32.0) 12/01/22 01:57 BUN 21 mg/dL (7-18) H 12/01/22 01:57 Creatinine 1.5 mg/dL (0.55-1.02) H 12/01/22 01:57 Est GFR (CKD-EPI 2020) 44.90 (mL/min/1.73m2) 12/01/22 01:57 Calcium 8.9 mg/dL (8.5-10.1) 12/01/22 01:57 Albumin 3.9 g/dL (3.4-5.0) 12/01/22 01:57 Glucose 114 mg/dL (74-106) H 12/01/22 01:57 Liver Function Panel: Alanine Aminotransferase (ALT/SGPT) 13 U/L (14-59) L 12/01/22 0 1:57 Aspartate Amino Transf (AST/SGOT) 15 U/L (15-37) 12/01/22 01:57 Coagulation Panel: No Data to Display Cardiac Panel: No Data to Display Arterial Blood Gas: No Data to Display Venous Blood Gas: 2 No Data to Display Pancreas Panel: Lipase 42 U/L (16-77) 12/01/22 01:57 Thyroid Panel: No Data to Display Infectious Disease: No Data to Display Blood Cultures: No Data to Display Toxicology Panel: No Data to Display Panel: Serum HCG, Qualitative Negative 12/01/22 02:34 Beta HCG, Quantitative < 1 mIU/mL (1-3) L 12/01/22 09:05 Anesthesia Assessment and Plan Anesthesia History Personal History: Other Family History: No Family History of Anesthesia Complications Exercise Tolerance Exercise Tolerance: Metabolic Equivalents>4 Cardiac & Pulmonary Exam Cardiac Exam: Normal S1/S2 Heart Sounds Pulmonary Exam: Clear Bilateral Breath Sounds Implantable Cardiac Device Does patient have a Pacemaker or an ICD?: No Airway Exam Known Difficult Airway: No Mallampati Class: 2 Mouth Opening: Normal (> 3cm) Thyromental Distance: Greater than 3 cm Neck Range of Motion: Full ROM Neck Circumference: Normal Teeth Condition: Normal Dentition ASA Classification ASA Score: ASA 3 Emergency Case?: Yes NPO Status NPO Status: NPO Clears >2 hours, Solids >8 hours Status Status: Negative HCG Anesthesia Plan Resuscitation Status: Full Code Anesthesia Technique: General Anesthesia Airway Planned: Endotracheal Tube Monitors Used: Standard Monitors
--- NOTE | 2022-12-01 11:40 | BOWEL_PTH ---
PATIENT: Zenia Monreal LOC: [facility] U#:[id number] AGE/SX: 42/F ROOM: RE12/01/[address]: Monica Mcgrath : 1980 BED: DIS: 12/01/2022 SPEC #: [id number] RECD: 12/01/22 13:08 STATUS: RADHA RE #: [id number] MILLY: 12/01/22 11:[address]: Jarvis Pires DEPT: Surgical Specimen RECD BY: Silvia Molina ENTERED: 12/01/22 13:13 SP TYPE: Bowel OTHR DR: Alejandra Jorgensen Tissues: 1 - BIOPSY BOWEL 2 - BIOPSY BOWEL 3 - STOMACH BIOPSY 4 - ESOPHAGUS BIOPSY 5 - ESOPHAGUS BIOPSY Procedures: GROSS AND MICRO LEVEL 4 Comments: [id number]
--- NOTE | 2022-12-01 11:59 | PDOC.DSDIS_ITS ---
Date of service: 12/01/22 Time of Service: 11:59 Discharge Plan Disposition Patient Disposition: Home Condition: Good Discharge Details Reason For Visit: Peptic Ulcer Attending Provider: Jarvis Pires Primary Care Provider: Alejandra Jorgensen Home Meds and New Rx's Prescriptions: No Action cholecalciferol (vitamin D3) 25 mcg (1,000 unit) capsule 25 mcg PO DAILY Patient Comments: with K2 omega-3 fatty acids 1,250 mg capsule 1,250 mg PO DAILY PNV cmb#95-ferrous fumarate-FA [ Multivitamins] 28 mg iron- 800 mcg tablet 1 tab PO DAILY magnesium citrate 100 mg capsule 100 mg PO DAILY Patient Comments: Not currently taking prednisone 20 mg tablet 10 - 60 mg PO DAILY Qty: 58 0RF Rx Instructions: Take 3 tablets for 10 days then 2 tablets for 7 days then 1 tablet for 7 days then half a tablet for 7 days ferrous sulfate [iron] 325 mg (65 mg iron) tablet 325 mg PO DAILY calcium carbonate 600 mg calcium (1,500 mg) tablet 600 mg PO DAILY glucosamine-chondroitin 900 mg tablet See Rx Instructions PO DAILY Patient Comments: Not currently taking Rx Instructions: 3 tablets orally daily; sodium hyaluronate 20 mg capsule See Rx Instructions PO DAILY Patient Comments: Not currently taking Rx Instructions: 1 tablet orally daily; fenugreek seed extract 500 mg capsule See Rx Instructions PO DAILY Patient Comments: Not currently taking Rx Instructions: 2 tablets daily orally daily; norethindrone (contraceptive) [Ml] 0.35 mg tablet 0.35 mg PO DAILY Qty: 84 3RF Patient Comments: Not currently taking cyclobenzaprine 5 mg tablet 5 mg PO QHS Qty: 10 1RF Patient Comments: Not currently taking Discharge Instructions Additional Instructions: No lifting over 20# x 24 hours No asa/nsaids ? Tylenol is OK - Continue with lifestyle modifications: no alcohol, tobacco products, Aspirin or NSAID's (ibuprofen, Motrin, Naprosyn, aleve, etc), soda pop/any carbonated beverages, caffeine (including tea & chocolate), and acidic foods, (tomatoes, citrus, onions, peppermints) spicy or fried/fatty foods. Do not lie down for 30 minutes after eating, and do not eat 2 hours prior to bedtime. Avoid wearing tight fitting clothing/ belts Rx: Carafate QID until follow-up appt.. It is okay to take if you are breast- feeding. Make sure you are taking it on an empty stomach. Do not take any other medications with the Carafate/ do not take other medications 2 hours after taking carafate US: pelvis next week to evaluate bleeding OK to resume breast feeding today No driving x 24 hours. Do not return to work for 24 hours. ? You will receive a letter with results of polyp in about 2 weeks, and when to repeat colonoscopy. EGD's should follow-up in clinic w/ Dr. Mcgrath in 2 weeks? s time After EGD: For the first meal after the scope, eat a light diet- don't eat any fast foods/heavy or greasy foods.? Start with a light meal, otherwise you may experience some nausea or vomiting from the sedation.? You may have a sore throat for 1-2 days after the procedure.? If you experience any bleeding with bowel movements, please call the clinic or go to the ER after hours. If you experience severe chest pain, shortness of breath, or uncontrollable vomiting, go to the ER. Activity:: see above Diet:: see above DS: Diagnosis Discharge Diagnosis (1) Abdominal pain, acute: Status: Acute (2) Polyarthralgia: Status: Acute (3) ADHD, adult residual type: Status: Chronic (4) Obstructive sleep apnea: Status: Chronic (5) GERD (gastroesophageal reflux disease): Status: Chronic (6) state: Status: Acute (7) Bile reflux gastritis: Status: Acute Asessment and Plan: Patient is seen and examined after they are endoscopy.? Patient has minimal sore throat.? They have been able to tolerate liquids.? They do not have any nausea vomiting.? They are not having any chest pain or shortness of breath.? They have been able to pass gas and are not having any abdominal pain or distention.? They have not vomited any blood.? The vital signs have been stable-see nursing notes. We discussed findings on their endoscopy. We reviewed the importance of lifestyle modification-see discharge instructions We reviewed any new medications that the patient may be prescribed-see discharge instructions Patient will either be sent a letter with the biopsy results or follow-up in the office-see discharge instructions. Patient was given explicit instructions to follow-up regarding post endoscopy- refer to discharge Patient verbalized understanding and discharged in stable and satisfactory condition.? See nursing notes. (8) Former tobacco use: (9) Pelvic pain: Status: Acute (10) bleeding: Status: Acute
--- NOTE | 2022-12-01 12:30 | ENDO_ITS ---
Date of service: 12/01/22 Time of Service: 12:31 Endoscopy Report DATE OF PROCEDURE: 12/01/22 PRE-OP DIAGNOSIS: epigastric abdominal pain/Hx of GERD POST-OP DIAGNOSIS: other (same and bile reflux gastritis ) SURGEON: Monica Mcgrath ANESTHESIA TYPE: General LMA/ETT ESTIMATED BLOOD LOSS: 1 PATHOLOGY: other COMPLICATIONS: None DISPOSITION: same day PROCEDURE DESCRIPTION: After informed consent was obtained the patient was take to the procedure room and placed in a supine position. Monitors were applied and a time out was done. The patients name, date of , procedure type, allergies to medications and metal in their body was reviewed. A bite block was placed and the patient was sedated. Once sedated and comfortable the gastroscope was advanced through the oropharynx which was grossly normal into the esophagus. The proximal and mid- esophagus were normal. In the distal esophagus there was some mild esophagitis. There is no hiatal hernia. There is no stricture or diverticula noted. Upon entering the stomach there is a large amount of bile noted within the stomach. There is some mild gastritis noted in the antrum. It is in a diffuse erythematous pattern. There is no signs of active bleeding or infection. The scope was advanced into the stomach and through the pylorus into the 3rd portion of the duodenum. The duodenum was noted to be normal; the mucosa has a normal architectural gross visualization. Biopsies were done, all specimens are retrieved and no bleeding is noted.. The scope was retracted back into the stomach and biopsies were done to rule out H. pylori. There were no ulcers. The scope was retroflexed. The cardia and fundus were noted to be normal. There is no hiatal hernia noted. The scope was retracted back into the esophagus and biopsies were done of the GE junction to rule out Javier's. The Z line was regular. The GE junction was at 38 cm. Biopsies were taken of the distal esophagus which is at 36 cm. The scope was removed and the patient was woken up and taken back to [facility] in stable condition. Follow up: 2 wks See discharge orders.
[2022-12-01] MEDS: Sucralfate 1 GM TAB PO (12:53)
--- NOTE | 2022-12-01 12:53 | W.ANESPOSTOP ---
Postoperative Evaluation Date, Time and Location Date Performed: 12/01/22 Time Performed: 12:53 Patient Location: Day Surgery Unit Vital Signs Most Recent Imported Vital Signs: Most Recent Vital Signs Temp Pulse Resp BP Pulse Ox 36.3 C L 75 16 128/90 97 12/01/22 12:20 12/01/22 12:20 12/01/22 12:20 12/01/22 12:20 12/01/22 12:20 Pain Score Most Recent Pain Score: Most Recent Pain Score Pain Level 0 12/01/22 12:20 Assessment Mental Status: Awake (Alert & Oriented to Patient Baseline) Airway and Respiratory Function: Patent airway with normal (patient baseline) respiratory exam Cardiovascular Function: Hemodynamically Stable Hydration Status: Adequately Hydrated Nausea & Vomiting: No Nausea or Vomiting Pain: Pt. Denies Any Pain Peripheral Nerve Block: Patient did not receive a nerve block
[2022-12-01 17:43] LABS: Lab Add On Test DONE
[2022-12-01 17:51] LABS: C-Reactive Protein 0.74 mg/dL (0.0-0.3)
== END 2022-12-01 13:48 | disposition home or self-care (01) ==
LOC: ER 08:11 → SUR 08:37 → ER 08:50
PROVIDERS: Emergency Provider Student in an Organized Health Care Education/Training Program; PCP Family Medicine; Visit Provider Surgery
PROC: 0DJ68ZZ Inspection of Stomach, Via Natural or Artificial Opening Endoscopic (ICD-10-PCS; CPT 43235; principal; 2022-12-01 10:00)
DX: K29.60 Other gastritis without bleeding (principal); K21.9 Gastro-esophageal reflux disease without esophagitis; R10.10 Upper abdominal pain, unspecified; G47.33 Obstructive sleep apnea (adult) (pediatric); K22.89 Other specified disease of esophagus
CPT/HCPCS: 43239; 36415; 80053; 81025; 83690; 88305; 74177; 81003; 81015; 82607; 82728; 82746; 83605; 84702; 84703; 85025; 86140; J0131; J2001; J2405; J2704; J3490

== ENCOUNTER 2022-12-08 02:08 | Outpatient (CLI) | payer OTHER, SELFPAY ==
--- NOTE | 2022-12-08 08:30 | DI.MRI_ITS ---
Exam(s) MR LOWER JOINT LT WO EXAM: MR LOWER JOINT LT WO CLINICAL HISTORY: left ankle pain, M25.572 TECHNIQUE: Multiplanar multisequence MRI was performed without intravenous contrast. COMPARISON: CR XR ANKLE LT COMPLETE from 11/19/2022 FINDINGS: SKIN: No evidence of ulcer nor subcutaneous tract. BONES/JOINTS: There is bone contusion signal evident within the distal half of the calcaneus. No oth er intraosseous signal abnormality including at the talar dome level. No evidence of osseous tarsal coalition. Small amount of increased fluid in the tibiotalar joint. The ankle mortise is maintain ed. There is no evidence of para-articular ganglion. LIGAMENTS: The anterior and posterior tibiofibular and calcaneofibular ligaments are intact. The ante rior and posterior talofibular ligaments are intact. The deltoid ligament is intact. SINUS TARSI: There is no loss of the normal fat signal in this space. Interosseous ligament is intac t. There is no evidence of sinus tarsi ganglion cyst. ANTEROLATERAL GUTTER:There is no abnormal signal/abnormal tissue in this space. MUSCULOTENDINOUS STRUCTURES: Achilles tendon: Unremarkable. No evidence of tear nor tendinitis/tendinosis. Plantar fascia: Unremarkable. No evidence of tear, abnormal thickening, nor abnormal nodularity. Anterior Extensor tendons: Unremarkable. Medial Tendons: Posterior Tibialis: No tear. Very mild tenosynovitis. Flexor Digitorum longus: Unremarkable. No tear or tenosynovitis evident. Flexor Hallicus longus: Unremarkable. No tear or tenosynovitis evident. Lateral Tendons: Peroneus longus: Unremarkable. No tear nor tenosynovitis evident. Peroneus brevis:Unremarkable. No tear nor tenosynovitis evident. SOFT TISSUES: Unremarkable. OTHER FINDINGS: None. IMPRESSION: 1. There is signal abnormality in the distal half of the calcaneus consistent with bone contusion. T here are no distinct fracture lines. No other intraosseous signal abnormality in the ankle and malle adela. Talar dome unremarkable.. 2. No tendon tears nor prominent tenosynovitis. There is very mild tenosynovitis of the tibialis pos terior tendon. No evidence of tendon tear. 3. No significant ligament tears. DATA REPOSITORY:
== END 2022-12-08 02:28 ==
LOC: DI 02:08
PROVIDERS: PCP Nurse Practitioner Family; Visit Provider Nurse Practitioner Family
DX: M25.572 Pain in left ankle and joints of left foot (principal); S90.32XA Contusion of left foot, initial encounter; X58.XXXA Exposure to other specified factors, initial encounter
CPT/HCPCS: 73721

== ENCOUNTER 2023-01-06 08:22 | Day surgery (SDC) | payer OTHER, SELFPAY ==
[2023-01-06] VITALS (11 sets, daily range): BP systolic 98–124; BP diastolic 55–86; PULSE 55–83; RESP 14–24; TEMP 36.3–36.7; O2SAT 94–98; BMI 41.1
--- NOTE | 2023-01-06 06:13 | W.ANESPRE ---
General Info Date of Service Date Performed: 01/06/23 Height: 6 ft Weight: 137.438 kg Body Mass Index (BMI): 41.1 Surgical Procedure: Operation Date: 01/06/23 10:55 Proposed Procedure Side Surgeon p Herniorrhaphy Umbilical w/Mesh Nunu Olivas MD Meds Allergies and Home Medications Allergies Allergy/AdvReac Type Severity Reaction Status Date / Time shellfish derived Allergy Severe vomiting Verified 01/06/23 08:42 citalopram AdvReac Mild sarai Verified 01/06/23 08:42 ursodiol AdvReac Mild Other (See Verified 01/06/23 08:42 Comment) latex AdvReac local Verified 01/06/23 08:42 sensitivity Home Medication Medication Instructions Recorded omega-3 fatty acids 1,250 mg 1,250 mg PO DAILY 01/07/22 capsule vit no.95-ferrous 1 tab PO DAILY 06/10/22 fumarate 28 mg-folic acid 800 mcg tablet ( Multivitamins) cholecalciferol (vitamin D3) 25 25 mcg PO DAILY 09/18/22 mcg (1,000 unit) capsule magnesium citrate 100 mg capsule 100 mg PO DAILY 09/18/22 antiarthritic combination no.2 900 See Rx Instructions PO DAILY 11/03/22 mg tablet (glucosamine-chondroitin) calcium carbonate 600 mg calcium 600 mg PO DAILY 11/03/22 (1,500 mg) tablet fenugreek seed extract 500 mg See Rx Instructions PO DAILY 11/03/22 capsule sodium hyaluronate 20 mg capsule See Rx Instructions PO DAILY 11/03/22 omeprazole 40 mg capsule,delayed 40 mg PO DAILY #90 caps 12/25/22 release famotidine 40 mg tablet 40 mg PO DAILY 01/04/23 norethindrone (contraceptive) 0.35 0.35 mg PO DAILY 01/04/23 mg tablet (Deblitane) Current Visit Medications: Current Medications Generic Name Dose Route Start Last Admin Trade Name Freq PRN Reason Stop Dose Admin Acetaminophen 1,000 mg 01/06/23 06:00 Acetaminophen 500 Mg Tab PO 01/06/23 23:59 PREOP JO-ANN Celecoxib 200 mg 01/06/23 06:00 Celecoxib 200 Mg Cap PO 01/06/23 23:59 PREOP JO-ANN Gabapentin 600 mg 01/06/23 06:00 Gabapentin 300 Mg Cap PO 01/06/23 23:59 PREOP JO-ANN Ringer's Solution 1,000 mls @ 80 mls/hr 01/06/23 06:00 IV 01/06/23 23:59 INFUSION JO-ANN Cefazolin Sodium/Dextrose 2 gm in 50 mls @ 100 mls/hr 01/06/23 06:00 Ancef Duplex IVPB 01/06/23 23:59 PREOP JO-ANN IV Miscellaneous Supplies 1 each 01/06/23 06:00 Iv Access IV 01/06/23 23:59 DIRECTED JO-ANN Sodium Chloride 0 ml 01/06/23 06:00 Normal Saline Flush 10 Ml Syr IV 01/06/23 23:59 PRN PRN Sodium Chloride 0 ml 01/06/23 06:00 Normal Saline 10 Ml Vial IJ 01/06/23 23:59 DIRECTED PRN Sterile Water 0 ml 01/06/23 06:00 Water,Injection,Sterile 10 Ml Vial IJ 01/06/23 23:59 DIRECTED PRN PFSH Active Problems Active Problems: Problem Status Onset Code Allergic rhinitis J30.9 ADHD, adult residual type F90.8 GERD (gastroesophageal reflux disease) K21.9 Obstructive sleep apnea G47.33 Generalized anxiety disorder F41.1 Umbilical hernia K42.9 bleeding O72.1 Pelvic pain R10.2 Bile reflux gastritis K29.60 Fibromyalgia M79.7 Herpes simplex B00.9 Medical History Medical History 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 Date GA/Weeks # Preg Succ Route Wgt Sex Labor Lgth Anesthesia Location Prov Complic Unknown No 06/18/02 42 No Yes vaginal 4507.574 g Female [place] 12/04/03 41 Yes Yes vaginal 3146.797 g Male [place] 12/04/03 41 Yes Yes vaginal 3231.846 g [place] 08/15/08 38 No Yes vaginal 3175.147 g Male [facility] 03/04/21 No in [place] 10/17/22 37 No Yes vaginal 3719.457 g Male [facility] Delivery Date: Last Updated by: Cara Leigh CNM ETOP Delivery Date: 06/18/02 Last Updated by: Cara Leigh CNM precipitous delivery Delivery Date: 12/04/03 Last Updated by: Yolande Manrique IOL postdates. twins 6-15 and 7-2 Delivery Date: 08/15/08 Last Updated by: Yolande Manrique IOL for intrahepatic cholestasis of [place] Delivery Date: 03/04/21 Last Updated by: Yolande Manrique SAB of twins Delivery Date: 10/17/22 Last Updated by: MAKENNA Segovia; Intrahepatic cholestasis of , 3rd trimester. Vital Signs and Lab Results Vital Signs Most Recent Vital Signs in EMR: Temp Pulse Resp BP Pulse Ox 36.4 C L 83 17 121/86 96 01/06/23 08:29 01/06/23 08:29 01/06/23 08:29 01/06/23 08:29 01/06/23 08:29 Lab Results Blood Type / Crossmatch: No Data to Display Complete Blood Count: No Data to Display Complete Metabolic Panel: No Data to Display Liver Function Panel: No Data to Display Coagulation Panel: No Data to Display Cardiac Panel: No Data to Display Arterial Blood Gas: No Data to Display Venous Blood Gas: No Data to Display Pancreas Panel: No Data to Display Thyroid Panel: No Data to Display Infectious Disease: No Data to Display Blood Cultures: No Data to Display Toxicology Panel: No Data to Display Panel: No Data to Display Anesthesia Assessment and Plan Anesthesia History Personal History: No History of Anesthesia Complications Family History: No Family History of Anesthesia Complications Exercise Tolerance Exercise Tolerance: Metabolic Equivalents>4 Pertinent Negatives Pertinent Negatives: No Symptoms of GERD and No Major Cardiovascular Symptoms or Complaints Cardiac & Pulmonary Exam Cardiac Exam: Normal S1/S2 Heart Sounds Pulmonary Exam: Clear Bilateral Breath Sounds Implantable Cardiac Device Does patient have a Pacemaker or an ICD?: No Airway Exam Known Difficult Airway: No Mallampati Class: 2 Mouth Opening: Normal (> 3cm) Thyromental Distance: Greater than 3 cm Neck Range of Motion: Full ROM Neck Circumference: Normal Teeth Condition: Normal Dentition ASA Classification ASA Score: ASA 3 Emergency Case?: No NPO Status NPO Status: NPO Clears >2 hours, Solids >8 hours Status Status: Negative HCG Anesthesia Plan Resuscitation Status: Full Code Anesthesia Technique: General Anesthesia Airway Planned: Endotracheal Tube Pain Management: Surgeon and patient request nerve block Monitors Used: Standard Monitors Preoperative Comments:: 42 yo female for umbilical hernia repair. Sig PMHx: GERD/bile reflux (omeprazole, famotidine), fibromyalgia, polyarthralgia (has been on prednisone in the past, last dose 11/30/22), OMISES, anxiety, former smoker. Previous Anes: - EGD, prop, midaz, glide 3 grade 1, no issues.
--- NOTE | 2023-01-06 06:48 | PGE_ITS ---
Date of Service Date of service: 01/06/23 Time of Service: 08:41 Assessment and Plan Assessment and plan (1) Umbilical hernia: Status: Acute Assessment and plan: Jennifer has a quarter size reducible umbilical hernia.? It is causing her discomfort.? I reviewed the surgery with her using a pamphlet.? We reviewed the surgery as well as the risks, complications and benefits.? After our conversation she had a good understanding of the risks, benefits and complications.? Risks, benefits and complications have been reviewed. Complications include but are not limited to bleeding, pain, infection, injury to underlying structures like bowel, recurrence, hematoma, seroma, chronic pain and adverse reaction to the medication.? Questions were entertained and answered to their satisfaction and they wished to proceed. No guarantees were given or implied.? Subjective Subjective Interval history since last seen: I saw Cielo in the SDS room prior to her surgery. She is doing well. She has had no new issues with her hernia. She has no chest pain or SOB. She is having some post nasal drip due to allergies. NO fevers or chills. We reviewed the complications and the surgery. =She had no questions about the surgery or the complications and wished to proceed. Exam Const General: comfortable and no acute distress [facility] Head: normocephalic and atraumatic Resp Effort & Inspection: normal respiratory effort GI Inspection: visible herniation Palpation: soft and hernia umbilical Time Spent with Patient Time Spent with Patient: <25 minutes Time was spent: counseling the patient
--- NOTE | 2023-01-06 06:49 | W.PM.OP ---
Date of service: 01/06/23 Time of Service: 11:26 Operative Note Operative Note DATE OF PROCEDURE: 01/06/23 PRE-OP DIAGNOSIS: umbilical hernia PROCEDURE: Umbilical hernia repair with mesh SURGEON: Nunu Olivas HOSPITAL SECURITY OFFICER: Joshua Babcock ANESTHESIA TYPE: General LMA/ETT Refer to Anesthesia Record ESTIMATED BLOOD LOSS: 10 PATHOLOGY: none sent COMPLICATIONS: None Patient was transported to: PACU Patient's condition: stable Implants: Ventralex 2.5: REF- [id number] LOT- [id number] 2023-11-12 Indications: Jennifer has a quarter size reducible umbilical hernia.? It is causing her discomfort.? I reviewed the surgery with her using a pamphlet.? We reviewed the surgery as well as the risks, complications and benefits.? After our conversation she had a good understanding of the risks, benefits and complications.? Risks, benefits and complications have been reviewed. Complications include but are not limited to bleeding, pain, infection, injury to underlying structures like bowel, recurrence, hematoma, seroma, chronic pain and adverse reaction to the medication.? Questions were entertained and answered to their satisfaction and they wished to proceed. No guarantees were given or implied.? We also discussed signs and symptoms of incarceration between now and the time of her surgery for which she should get immediate medical attention. Findings: Incarcerated omentum Procedure Description: After informed consent was obtained the patient was taken to the operating room and placed in a supine position. Monitors and SCDs were applied and a timeout was done. The patient's name, date of , procedure type, procedure site, allergies to medications, preoperative antibiotic, and DVT prophylaxis were all reviewed. Fire risk was assessed. Once anesthesia was done the abdomen was prepped and draped in a sterile surgical fashion. 0.5% Bupivacaine was injected into the dermis just above the umbilicus. An incision was made with a 10 blade. Dissection was done with cautery through the subcutaneous tissues down to the fascia. The hernia defect was identified and measured 2 cm. The hernia sac was opened and there was incarcerated omentum. I was unable to reduce the omentum. I suture ligated the omentum and ambutated it with cautery. The rest was then easily reduced. The peritoneum was swept for adhesions. No adhesions were noted. A 2.5 inch round mesh was then placed under the peritoneum and secured in 2 quarters with 2-0 Vicryl. The other 2 quarters were secured with tacks. Once the mesh was secured the tissues were irrigated with some normal saline. No bleeding was identified. The fascia was closed over the mesh with 2-0 proline running suture. The subcutaneous tissue was re-approximated with 0 vicryl. The dermis was re-approximated with a running 4-0 Vicryl. The skin was cleaned and dried and skin affix was applied. The patient was woken up and taken back to recovery in stable condition. There were no immediate complications. Sponge, instrument and needle counts were correct at the end of the case x2.
--- NOTE | 2023-01-06 06:50 | W.PM.DSUDISC ---
Date of service: 01/06/23 Time of Service: 13:03 Discharge Plan Disposition Patient Disposition: Home Condition: Stable Discharge Details Reason For Visit: umbilical hernia Attending Provider: Nunu Daley Primary Care Provider: Araceli Miner Home Meds and New Rx's Prescriptions: New oxycodone 5 mg tablet 5 mg PO Q6H PRNQty: 14 0RF Continued cholecalciferol (vitamin D3) 25 mcg (1,000 unit) capsule 25 mcg PO DAILY Patient Comments: with K2 omega-3 fatty acids 1,250 mg capsule 1,250 mg PO DAILY PNV cmb#95-ferrous fumarate-FA [ Multivitamins] 28 mg iron- 800 mcg tablet 1 tab PO DAILY magnesium citrate 100 mg capsule 100 mg PO DAILY Patient Comments: Not currently taking calcium carbonate 600 mg calcium (1,500 mg) tablet 600 mg PO DAILY glucosamine-chondroitin 900 mg tablet See Rx Instructions PO DAILY Patient Comments: Not currently taking Rx Instructions: 3 tablets orally daily; sodium hyaluronate 20 mg capsule See Rx Instructions PO DAILY Patient Comments: Not currently taking Rx Instructions: 1 tablet orally daily; fenugreek seed extract 500 mg capsule See Rx Instructions PO DAILY Patient Comments: Not currently taking Rx Instructions: 2 tablets daily orally daily; omeprazole 40 mg capsule,delayed release(DR/EC) 40 mg PO DAILY Qty: 90 3RF famotidine 40 mg tablet 40 mg PO DAILY Patient Comments: TAKE 1 TABLET BY MOUTH EVERY NIGHT AT BEDTIME norethindrone (contraceptive) [Deblitane] 0.35 mg tablet 0.35 mg PO DAILY Patient Comments: TAKE ONE TABLET BY MOUTH EVERY DAY Discharge Instructions Instructions: Umbilical Hernia Repair (GEN) Additional Instructions: Activity at Home after surgery: 1. Make sure you walk outside at least 4 times per day 2. You should be able to climb a flight of stairs 3. No driving while in pain or taking pain medications 4. No strenuous activity or heavy lifting for 2 weeks (laparoscopic surgery) or 4 weeks (open surgery) Diet, Nutrition, & wound healin. Avoid alcohol until after you are recovered from your surgery 2. Make sure to eat plenty of lean protein (meat, fish, eggs, cottage cheese, beans) 3. Eat a variety of fruits and vegetables. Eat plenty of high fiber foods to avoid constipation. 4. Drink plenty of liquids to stay hydrated and avoid constipation Pain Medications: 1. Tylenol 650mg every 6 hours as needed and Ibuprofen 600 mg every 6 hours as needed. You may alternate between the 2 medications every 3 hours 2. If a narcotic has been prescribed take as directed only for breakthrough pain For Constipation: 1. Take Milk of Magnesia or MiraLax as needed for constipation Other: 1. You may shower daily. Do not scrub the incisions 2. Do not soak the incisions for 1 week 3. You may alternate ice and heat as needed for pain and swelling Wound Care: 1. Keep the incisions clean and dry Please call our office if you develop: 1. Fevers >101.5 2. Nausea or Vomiting 3. Worsening pain 4. Redness and thick discharge from the wounds If after hours please call the Hospital at and ask to speak to the on-call surgeon Dr. daley's Cell phone: - if I do not answer I may not have service. Please call the hospital and speak to the continuous dryout operator helper Surgeon Activity:: as above Remove Dressings/Wound Care:: 24 hours Shower/Bathe:: 24 hours Diet:: As Tolerated Discharge Orders Discharge Orders: Discharge Order (Routine); Ordered 01/06/23 Ordered By: Nunu Daley DS: Diagnosis Discharge Diagnosis (1) Umbilical hernia: Status: Acute Asessment and Plan: The patient is doing well post-op from their umbilical hernia surgery.? They are having no nausea or vomiting. They are tolerating liquids and a snack. The pt is not having any chest pain or SOB.? Their pain is adequately controlled. They have been able to urinate.? ?HEENT:? no eye pain/drainage/redness/swelling. Mild sore throat ?Cardio- NSR, no chest pain, BP stable- see VS record ?Pulm: no sob or productive cough. No hemoptysis ?Incision- dressing is c/d/i w/ no excessive bleeding or drainage ?I discussed with the patient the findings at the time of surgery and the patient?s progress. ?We reviewed expectations at home; what the patient could expect for recovery time, and in the post-operative period.? We discussed the importance of walking to avoid blood clots and pneumonia.? We discussed and reviewed the patient's post-operative wound care and dressing needs.?? We reviewed their step-pina pain management plan, Rx called to the pharmacy of their choice.? We reviewed activity and limitations-see discharge instructions. We reviewed warning signs, and when to seek medical attention- see d/c instructions.?? Patient was given a postoperative follow-up appointment. Patient verbalized understanding of their postoperative instructions, how do to take care of themselves and their incision, and the pain management plan. Please see discharge instructions.?
[2023-01-06] MEDS: Lactated Ringers 1,000 ML 80 ML IV (08:59)
[2023-01-06] MEDS: Gabapentin 300 MG CAP 600 MG PO (09:24)
[2023-01-06] MEDS: Acetaminophen 500 MG TAB 1000 MG PO (09:25)
[2023-01-06] MEDS: Celecoxib 200 MG CAP PO (09:25)
[2023-01-06] MEDS: Scopolamine 1 MG/3 DAYS PATCH TD (09:26)
[2023-01-06] MEDS: ceFAZolin 3,000 MG in Normal Saline 100 ML 200 MG IVPB (10:28)
[2023-01-06] MEDS: Bupivacaine 0.25% Pres-Free 30 ML VIAL (10:45)
--- NOTE | 2023-01-06 11:40 | W.ANESPOSTOP ---
Postoperative Evaluation Date, Time and Location Date Performed: 01/06/23 Time Performed: 11:40 Patient Location: PACU Vital Signs Most Recent Imported Vital Signs: Most Recent Vital Signs Temp Pulse Resp BP Pulse Ox 36.4 C L 56 L 14 110/68 95 01/06/23 11:35 01/06/23 11:35 01/06/23 11:35 01/06/23 11:35 01/06/23 11:35 Pain Score Most Recent Pain Score: Most Recent Pain Score Pain Level 5 01/06/23 11:35 Assessment Mental Status: Awake (Alert & Oriented to Patient Baseline) Airway and Respiratory Function: Patent airway with normal (patient baseline) respiratory exam Cardiovascular Function: Hemodynamically Stable Hydration Status: Adequately Hydrated Nausea & Vomiting: No Nausea or Vomiting Pain: Pain is Moderate or Severe Postoperative Pain Management: Pain being addressed with medication Peripheral Nerve Block: Patient did not receive a nerve block
[2023-01-06] MEDS: fentaNYL 100 MCG/2 ML VIAL IVP ×2 (11:50→12:00)
[2023-01-06] MEDS: oxyCODONE 5 MG TAB PO (12:50)
== END 2023-01-06 14:05 | disposition home or self-care (01) ==
PROVIDERS: PCP Nurse Practitioner Family; Visit Provider Surgery
PROC: (CPT 49592; principal; 2023-01-06 10:45)
DX: K42.9 Umbilical hernia without obstruction or gangrene (principal); K21.9 Gastro-esophageal reflux disease without esophagitis; G47.33 Obstructive sleep apnea (adult) (pediatric)
CPT/HCPCS: 49592; 81025; C1781; J0690; J1100; J1885; J2250; J2405; J2704; J3010; J3475

== ENCOUNTER 2023-01-08 16:54 | Observation (INO) | payer OTHER, SELFPAY ==
--- NOTE | 2023-01-08 17:00 | DI.CT_ITS ---
Exam(s) CT ABDOMEN PELVIS W EXAM: CT ABDOMEN PELVIS W CLINICAL HISTORY: post operative pain. TECHNIQUE: Imaging Protocol: Axial computed tomography images with coronal and sagittal reformatted images were created and reviewed CONTRAST MATERIAL: Intravenous: Omnipaque-350 100cc Oral: None COMPARISON: CT CT ABDOMEN PELVIS W from 12/01/2022 FINDINGS: VISUALIZED LUNG BASES: There is atelectasis and mild infiltrate in both lung bases. No pleural effus ions.. ABDOMEN: There is density-streaking in the umbilicus probably postop port site findings. However, there are g as bubbles in the subcutaneous fat at this level and infectious etiology is also consideration althou gh there is no drainable fluid collection at this location. Just deep to this there is some abnormal density in the anterior fat of the mesentery in the abdominal cavity. Small fluid collection at thi s level with free gas bubbles. Probable abscess. Cannot exclude possibility of injury of the adjace nt small bowel loop. LIVER: There are no focal hepatic lesions evident. No dilated intrahepatic ducts. GALLBLADDER/BILIARY: Gallbladder is again noted be surgically absent. CBD is not dilated. PANCREAS: No evidence of pancreatic mass nor dilatation of the pancreatic duct. SPLEEN: Spleen is not enlarged. No obvious intrasplenic lesions. Splenic and portal veins are paten t. ADRENALS: There are no significant adrenal masses. KIDNEYS:No cysts evident. No solid renal masses. No calculi nor hydronephrosis.. ABDOMINAL AORTA: Abdominal aorta is not enlarged. LYMPH NODES:There is no retroperitoneal nor paraaortic adenopathy. ABDOMINAL WALL: See above discussion. GI: See above discussion PELVIS: GI: No evidence of appendicitis.No evidence of sigmoid diverticulitis. LYMPH NODES: There is no intrapelvic nor inguinal adenopathy. REPRODUCTIVE: Uterus and adnexal regions age-appropriate. Tiny amount of fluid in the cul-de-sac. URINARY BLADDER: No calculi nor obvious masses evident. No gas within the urinary bladder lumen. OSSEOUS: No fractures and no significant osseous lesions. Chronic disc space narrowing evident at L5-S1 level. IMPRESSION: 1. Compared to the prior CT scan of 12/01/2022 there has been interval midline surgery which is proba eileen umbilical hernia repair. However, there is now abnormal density in the umbilicus and surrounding subcutaneous fat as well as in the anterior intraperitoneal fat. There is abnormal fat streaking an d gas bubbles and what appears to be possible developing abscess in the anterior aspect of the abdomi nal cavity at this level. There is an adjacent small bowel loop which appears slightly thickened. C annot exclude the possibility of subjacent bowel wall injury. Report called by myself to ER provider. RADIATION DOSE DELIVERED: 1,536.95mGy.cm Total DLP DATA REPOSITORY: All CT scans at this facility are submitted to the National Radiology Data Registry (NRDR) Dose Index Registry (DIR) with the [employer] (A[employer]). RADIATION OPTIMIZATION: All CT scans at this facility use at least one of these dose optimization te chniques: automated exposure control; mA and/or kV adjustment per patient size (includes targeted exa ms where dose is matched to clinical indication); or iterative reconstruction.
[2023-01-08 17:02] VITALS: PULSE 85; RESP 18; TEMP 36.6; O2SAT 98
[2023-01-08 18:00] LABS: Lactate 1.3 mmol/L (0.6-1.4)
[2023-01-08 18:01] LABS: Abs Immature Grans 0.03 10^3/uL (0.0-0.06); Absolute Basophil Count 0.03 10^3/uL (0.0-0.2); Absolute Eosinophil Count 0.18 10^3/uL (0.0-0.7); Absolute Lymphocyte Count 2.05 10^3/uL (1.2-3.4); Absolute Monocyte Count 0.75 10^3/uL (0.1-0.8); Absolute Neutrophil Count 5.76 10^3/uL (1.2-6.7); Basophils % 0.3; HCT 39.2 % (36.0-46.0); HGB 13.1 g/dL (11.2-15.7); Immature Grans % 0.3; Lymphocytes % 23.3; MCH 29.2 pg (27.0-33.0); MCHC 33.4 % (32.0-36.0); MCV 88 fL (80-95); MPV 10.3 fL (8.0-11.0); Monocytes % 8.5; Neutrophils % 65.6; Platelet Count 227 10^3/uL (130-400); RBC 4.48 10^6/uL (3.93-5.22); RDW 14.7 % (11.7-14.6); RDW-SD 47.5 fL
[2023-01-08] MEDS: ACETAMINOPHEN 1,000 MG/100 ML BTL 400 MG IVPB (18:08)
[2023-01-08] MEDS: Ketorolac 30 MG/ML VIAL IVP (18:08)
[2023-01-08] MEDS: Droperidol 5 MG/2 ML VIAL 2.5 MG IVP (18:08)
[2023-01-08] MEDS: Normal Saline 1,000 ML 1000 ML IV (18:08)
[2023-01-08] MEDS: Omnipaque 350 MG/ML 100 ML BTL IJ (18:14)
[2023-01-08] MEDS: Normal Saline - Diluent 50 ML VIAL IJ (18:14)
[2023-01-08 18:31] LABS: ALT 74 U/L (14-59); AST 46 U/L (15-37); Albumin 3.5 g/dL (3.4-5.0); Alkaline Phosphatase 66 U/L (46-116); BUN 18 mg/dL (7-18); CREATININE 1.1 mg/dL (0.55-1.02); Calcium 8.8 mg/dL (8.5-10.1); Chloride 103 mmol/L (98-107); Estimated GFR 65.14 (mL/min/1.73m2); Glucose 91 mg/dL (74-106); Potassium 3.9 mmol/L (3.5-5.1); Sodium 139 mmol/L (136-145); Total Protein 7.7 g/dL (6.4-8.2)
--- NOTE | 2023-01-08 18:55 | ED.GENADUL_ITS ---
Discharge Plan Disposition Patient Disposition: Admit to [facility] Condition: Stable Discharge Details Clinical Impression: Postoperative abdominal pain Admit Date/Time: 01/08/23 20:46 Admit Provider: Jarvis Pires Attending Provider: Jarvis Pires Primary Care Provider: Araceli Miner ED Provider: Gale Orta Discharge Data Discharge Date/Time-TO BE ENTERED AT DEPARTURE: 01/08/23 21:28 Medical Decision Making This is a 42-year-old female patient status post umbilical hernia repair on Wednesday presents to the emergency department today after reporting bilateral umbilical abdominal pain. She has had no fever she reports nausea she has been using APAP and ibuprofen with no improvement in her symptoms. IV will be established we will check CBC CMP lactic acid give 1 L of normal saline with droperidol 2.5 mg IV push 1000 mg of acetaminophen IV piggyback and Toradol 30 mg IV push. Labs reviewed and are reassuring with normal white count and lactic acid but CT report per radiologist concerning for possible small bowel injury possible abscess. Case is discussed with Dr. Pires from general surgery who came to assess patient and will refer to observation for further management and evaluation. Report and care of patient signed off to Dr. Pires Medical Records Medical records reviewed: Yes I reviewed the patient's medical records. Imaging Data Radiologic Study: Radiologist's impression: Exam(s) a CT:CT abdomen & pelvis w Exam(s) CT ABDOMEN ? PELVIS W EXAM: ? CT ABDOMEN ? PELVIS W CLINICAL HISTORY: ? post operative pain. ? TECHNIQUE:? Imaging Protocol: Axial computed tomography images with coronal and sagittal reformatted images were created and reviewed CONTRAST MATERIAL:? Intravenous: Omnipaque-350? 100cc Oral: None COMPARISON:? CT CT ABDOMEN ? PELVIS W from 12/01/2022 FINDINGS: VISUALIZED LUNG BASES: There is atelectasis and mild infiltrate in both lung bases.? No pleural effusions..? ABDOMEN: There is density-streaking in the umbilicus probably postop port site findings.? However, there are gas bubbles in the subcutaneous fat at this level and inf ectious etiology is also consideration although there is no drainable fluid collection at this location.? Just deep to this there is some abnormal density in the anterior fat of the mesentery in the abdominal cavity.? Small fluid collection at this level with free gas bubbles.? Probable abscess.? Cannot exclude possibility of injury of the adjacent small bowel loop. LIVER: There are no focal hepatic lesions evident.? No dilated intrahepatic ducts. GALLBLADDER/BILIARY: Gallbladder is again noted be surgically absent.? CBD is not dilated. PANCREAS: No evidence of pancreatic mass nor dilatation of the pancreatic duct.? SPLEEN: Spleen is not enlarged.? No obvious intrasplenic lesions.? Splenic and portal veins are patent. ADRENALS: There are no significant adrenal masses. KIDNEYS:No cysts evident.? No solid renal masses.? No calculi nor hydronephrosis.. ABDOMINAL AORTA: Abdominal aorta is not enlarged. LYMPH NODES:There is no retroperitoneal nor paraaortic adenopathy. ABDOMINAL WALL: See above discussion. GI: See above discussion PELVIS:? GI: No evidence of appendicitis.No evidence of sigmoid diverticulitis. LYMPH NODES: There is no intrapelvic nor inguinal adenopathy. REPRODUCTIVE: Uterus and adnexal regions age-appropriate.? Tiny amount of fluid in the cul-de-sac. URINARY BLADDER: No calculi nor obvious masses evident.? No gas within the urinary bladder lumen. OSSEOUS: No fractures and no significant osseous lesions. Chronic disc space narrowing evident at L5-S1 level. IMPRESSION: 1. Compared to the prior CT scan of 12/01/2022 there has been interval midline surgery which is probably umbilical hernia repair.? However, there is now abnormal density in the umbilicus and surrounding subcutaneous fat as well as in the anterior intraperitoneal fat.? There is abnormal fat streaking and gas bubbles and what appears to be possible developing abscess in the anterior aspect of the abdominal cavity at this level.? There is an adjacent small bowel loop which appears slightly thickened.? Cannot exclude the possibility of subjacent bowel wall injury. Report called by myself to ER provider. Lab Data Lab results reviewed: Yes I reviewed the patient's lab results. Lab results narrative: Laboratory Tests Range/Units 01/08/23 01/08/23 01/08/23 17:56 17:56 17:56 WBC (4.4-10.8) 10^3/uL 8.80 RBC (3.93-5.22) 10^6/uL 4.48 Hgb (11.2-15.7) g/dL 13.1 Hct (36.0-46.0) % 39.2 MCV (80-95) fL 88 MCH (27.0-33.0) pg 29.2 MCHC (32.0-36.0) % 33.4 RDW (11.7-14.6) % 14.7 H Plt Count (130-400) 10^3/uL 227 MPV (8.0-11.0) fL 10.3 Immature Gran % 0.3 Neutrophils % 65.6 Lymphocytes % 23.3 Monocytes % 8.5 Eosinophils % 2.0 Basophils % 0.3 Nucleated RBC % (0.0-0.3) % 0.0 Absolute Neutrophils (1.2-6.7) 10^3/uL 5.76 Absolute Lymphocytes (1.2-3.4) 10^3/uL 2.05 Absolute Monocytes (0.1-0.8) 10^3/uL 0.75 Absolute Eosinophils (0.0-0.7) 10^3/uL 0.18 Absolute Basophils (0.0-0.2) 10^3/uL 0.03 VBG Lactate (0.6-1.4) mmol/L 1.3 Sodium (136-145) mmol/L 139 Potassium (3.5-5.1) mmol/L 3.9 Chloride (98-107) mmol/L 103 Carbon Dioxide (21.0-32.0) mmol/L 27.0 Anion Gap (3-11) mmol/L 9.0 BUN (7-18) mg/dL 18 Creatinine (0.55-1.02) mg/dL 1.1 H Est GFR (CKD-EPI 2020) (mL/min/1.73m2) 65.14 Glucose (74-106) mg/dL 91 Calcium (8.5-10.1) mg/dL 8.8 Total Bilirubin (0.2-1.0) mg/dL 1.0 AST (15-37) U/L 46 H ALT (14-59) U/L 74 H Alkaline Phosphatase (46-116) U/L 66 Total Protein (6.4-8.2) g/dL 7.7 Albumin (3.4-5.0) g/dL 3.5 Urine Color (Yellow) Urine Clarity (Clear) Urine pH (5-8) Ur Specific [place] (1.005-1.025) Urine Protein (Negative) mg/dL Urine Ketones (Negative) mg/dL Urine Blood (Negative) Urine Nitrite (Negative) Urine Bilirubin (Negative) Urine Urobilinogen (Up to 0.2) mg/dL Ur Leukocyte Esterase (Negative) Urine RBC (0-2) HPF Urine WBC (0-5) HPF Ur Epithelial Cells (Negative) HPF Urine Crystals (Negative) HPF Urine Bacteria (Negative) HPF Urine Casts (Negative) LPF Urine Mucus (Negative) Ur Culture Indicated? Urine Glucose (Negative) mg/dL Range/Units 01/08/23 19:10 WBC (4.4-10.8) 10^3/uL RBC (3.93-5.22) 10^6/uL Hgb (11.2-15.7) g/dL Hct (36.0-46.0) % MCV (80-95) fL MCH (27.0-33.0) pg MCHC (32.0-36.0) % RDW (11.7-14.6) % Plt Count (130-400) 10^3/uL MPV (8.0-11.0) fL Immature Gran % Neutrophils % Lymphocytes % Monocytes % Eosinophils % Basophils % Nucleated RBC % (0.0-0.3) % Absolute Neutrophils (1.2-6.7) 10^3/uL Absolute Lymphocytes (1.2-3.4) 10^3/uL Absolute Monocytes (0.1-0.8) 10^3/uL Absolute Eosinophils (0.0-0.7) 10^3/uL Absolute Basophils (0.0-0.2) 10^3/uL VBG Lactate (0.6-1.4) mmol/L Sodium (136-145) mmol/L Potassium (3.5-5.1) mmol/L Chloride (98-107) mmol/L Carbon Dioxide (21.0-32.0) mmol/L Anion Gap (3-11) mmol/L BUN (7-18) mg/dL Creatinine (0.55-1.02) mg/dL Est GFR (CKD-EPI 2020) (mL/min/1.73m2) Glucose (74-106) mg/dL Calcium (8.5-10.1) mg/dL Total Bilirubin (0.2-1.0) mg/dL AST (15-37) U/L ALT (14-59) U/L Alkaline Phosphatase (46-116) U/L Total Protein (6.4-8.2) g/dL Albumin (3.4-5.0) g/dL Urine Color (Yellow) Yellow Urine Clarity (Clear) Sl Cloudy Urine pH (5-8) 5.5 Ur Specific [place] (1.005-1.025) 1.010 Urine Protein (Negative) mg/dL Negative Urine Ketones (Negative) mg/dL Negative Urine Blood (Negative) Small H Urine Nitrite (Negative) Negative Urine Bilirubin (Negative) Negative Urine Urobilinogen (Up to 0.2) mg/dL 0.2 Ur Leukocyte Esterase (Negative) Negative Urine RBC (0-2) HPF 5-10 H Urine WBC (0-5) HPF 3-5 Ur Epithelial Cells (Negative) HPF Few Urine Crystals (Negative) HPF Negative Urine Bacteria (Negative) HPF Negative Urine Casts (Negative) LPF Negative Urine Mucus (Negative) Negative Ur Culture Indicated? No Urine Glucose (Negative) mg/dL Negative HPI General Mode of arrival: ambulatory . Date/Time Provider Initiated Documentation: 01/08/23 16:57 . Limitations to Documentation: no limitations . Information obtained by: patient . HPI Narrative: patient presents with onset of severe abdominal pain following a umbilical hernia repair, no fever, has nausea, pain not responsive to apap, ibuprofen and oxydocone. Related Data Home Medications Medication Instructions Recorded Confirmed omega-3 fatty acids 1,250 mg 1,250 mg PO DAILY 01/07/22 01/08/23 capsule vit no.95-ferrous 1 tab PO DAILY 06/10/22 01/08/23 fumarate 28 mg-folic acid 800 mcg tablet ( Multivitamins) cholecalciferol (vitamin D3) 25 25 mcg PO DAILY 09/18/22 01/08/23 mcg (1,000 unit) capsule magnesium citrate 100 mg capsule 100 mg PO DAILY 09/18/22 01/08/23 antiarthritic combination no.2 900 See Rx Instructions PO DAILY 11/03/22 01/08/23 mg tablet (glucosamine-chondroitin) calcium carbonate 600 mg calcium 600 mg PO DAILY 11/03/22 01/08/23 (1,500 mg) tablet fenugreek seed extract 500 mg See Rx Instructions PO DAILY 11/03/22 01/08/23 capsule sodium hyaluronate 20 mg capsule See Rx Instructions PO DAILY 11/03/22 01/08/23 omeprazole 40 mg capsule,delayed 40 mg PO DAILY #90 caps 12/25/22 01/08/23 release famotidine 40 mg tablet 40 mg PO DAILY 01/04/23 01/08/23 norethindrone (contraceptive) 0.35 0.35 mg PO DAILY 01/04/23 01/08/23 mg tablet (Deblitane) oxycodone 5 mg tablet 5 mg PO Q6H PRN #14 tabs 01/06/23 01/08/23 scopolamine base 1 mg over 3 days 1 mg transdermal 3XD 01/08/23 01/08/23 transdermal patch spironolactone 100 mg tablet 100 mg PO 2XD 01/08/23 01/08/23 sucralfate 1 gram tablet 1 g PO 1XD 01/08/23 01/08/23 cyclobenzaprine 10 mg tablet 10 mg PO TID PRN #9 tabs 01/09/23 lidocaine 4 % topical patch 1 patch topical DAILY #5 ea 01/09/23 tramadol 50 mg tablet 50 mg PO BID PRN #6 tabs 01/09/23 Previous Rx's Medication Instructions Recorded omeprazole 40 mg capsule,delayed 40 mg PO DAILY #90 caps 12/25/22 release oxycodone 5 mg tablet 5 mg PO Q6H PRN #14 tabs 01/06/23 cyclobenzaprine 10 mg tablet 10 mg PO TID PRN #9 tabs 01/09/23 lidocaine 4 % topical patch 1 patch topical DAILY #5 ea 01/09/23 tramadol 50 mg tablet 50 mg PO BID PRN #6 tabs 01/09/23 Allergies Allergy/AdvReac Type Severity Reaction Status Date / Time shellfish derived Allergy Severe vomiting Verified 01/06/23 08:42 citalopram AdvReac Mild sarai Verified 01/06/23 08:42 ursodiol AdvReac Mild Other (See Verified 01/06/23 08:42 Comment) latex AdvReac local Verified 01/06/23 08:42 sensitivity General Stated Complaint: Abd Prob YOHANNES: 3 Review of Systems All systems reviewed & are unremarkable except as noted in HPI and below PFSH All Active Problems (Updated 01/10/23 @ 14:08 by Gale Orta NP) Postoperative abdominal pain (Acute) Post-operative pain (Acute) Allergic rhinitis (Chronic) ADHD, adult residual type (Chronic) GERD (gastroesophageal reflux disease) (Chronic) Obstructive sleep apnea (Chronic) Generalized anxiety disorder (Chronic) bleeding (Acute) Pelvic pain (Acute) Bile reflux gastritis (Acute) Fibromyalgia (Chronic) Herpes simplex (Acute) Medical History 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, antepartum Former tobacco use History of cholestasis during Surgical History H/O esophagogastroduodenoscopy (~12/02/22) H/O hemorrhoidectomy 2019-pt .denies S/P appendectomy Status post cholecystectomy Umbilical hernia (~12/2022) Family History Mother Rheumatoid arthritis Father Depression Heart disease Alcohol use disorder Hyperlipidemia Sister Depression Son Psoriasis Social History Smoking/Tobacco Use Status: Former Tobacco Use Quit Date: 04/03/21 Smoking risk assessment performed?: Yes Alcohol Intake: never Drug use: Never Substance use type: does not use Housing: house Number of Children: 3 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 Date GA/Weeks # Preg Succ Route Wgt Sex Labor Lgth Anesth esia Location Prov Complic Unknown No 06/18/02 42 No Yes vaginal 4507.574 g Female [facility] 12/04/03 41 Yes Yes vaginal 3146.797 g Male [place] 12/04/03 41 Yes Yes vaginal 3231.846 g [place] 08/15/08 38 No Yes vaginal 3175.147 g Male [facility] 03/04/21 No in [place] 10/17/22 37 No Yes vaginal 3719.457 g Male [facility] Luh Harry CNM Delivery Date: Last Updated by: Cara Leigh CNM ETOP Delivery Date: 06/18/02 Last Updated by: Cara Leigh CNM precipitous delivery Delivery Date: 12/04/03 Last Updated by: Yolande Manrique IOL postdates. twins 6-15 and 7-2 Delivery Date: 08/15/08 Last Updated by: Yolande Manrique IOL for intrahepatic cholestasis of [place] Delivery Date: 03/04/21 Last Updated by: Yolande Manrique SAB of twins Delivery Date: 10/17/22 Last Updated by: MAKENNA Segovia; Intrahepatic cholestasis of , 3rd trimester. Exam Const General: in distress (Abdominal pain) moderate Nutritional Appearance: obese Orientation: alert, awake and oriented x3 HENMT Head: normal to inspection, normocephalic and atraumatic Face and sinus: normal facial exam Mouth: moist mucous membranes abnormal (Slightly dry) Chest Chest: normal inspection of the chest Resp Effort & Inspection: tachypneic Auscultation: clear to auscultation bilaterally Cardio Rate: regular rate Rhythm: regular rhythm GI Inspection: normal to inspection Palpation: guarding and tender periumbilically Auscultation: hypoactive bowel sounds Skin Rashes: no rashes Neuro General: patient alert, patient awake and patient oriented x3 Course Vital Signs Vital signs: Vital Signs Temperature 36.6 C 01/08/23 17:02 Pulse 85 01/08/23 17:02 Respiratory Rate 18 01/08/23 17:02 Pulse Oximetry 98 01/08/23 17:02 Temperature 36.6 C 01/08/23 17:02 Temperature Source Temporal Artery Scan 01/08/23 17:02 Pulse 85 01/08/23 17:02 Respiratory Rate 18 01/08/23 17:02 Respiratory Effort Normal, Non-Labored 01/08/23 17:05 Blood Pressure Position Sitting 01/08/23 17:02 Pulse Oximetry 98 01/08/23 17:02 Oxygen Delivery Method Room Air 01/08/23 17:02 Oxygen Flow Rate 0 01/08/23 17:02 Pain Level 10 01/08/23 17:02 Lab/Test Results Lab/Test Results: Laboratory Tests Range/Units 01/08/23 01/08/23 01/08/23 17:56 17:56 17:56 WBC (4.4-10.8) 10^3/uL 8.80 RBC (3.93-5.22) 10^6/uL 4.48 Hgb (11.2-15.7) g/dL 13.1 Hct (36.0-46.0) % 39.2 MCV (80-95) fL 88 MCH (27.0-33.0) pg 29.2 MCHC (32.0-36.0) % 33.4 RDW (11.7-14.6) % 14.7 H Plt Count (130-400) 10^3/uL 227 MPV (8.0-11.0) fL 10.3 Immature Gran % 0.3 Neutrophils % 65.6 Lymphocytes % 23.3 Monocytes % 8.5 Eosinophils % 2.0 Basophils % 0.3 Nucleated RBC % (0.0-0.3) % 0.0 Absolute Neutrophils (1.2-6.7) 10^3/uL 5.76 Absolute Lymphocytes (1.2-3.4) 10^3/uL 2.05 Absolute Monocytes (0.1-0.8) 10^3/uL 0.75 Absolute Eosinophils (0.0-0.7) 10^3/uL 0.18 Absolute Basophils (0.0-0.2) 10^3/uL 0.03 VBG Lactate (0.6-1.4) mmol/L 1.3 Sodium (136-145) mmol/L 139 Potassium (3.5-5.1) mmol/L 3.9 Chloride (98-107) mmol/L 103 Carbon Dioxide (21.0-32.0) mmol/L 27.0 Anion Gap (3-11) mmol/L 9.0 BUN (7-18) mg/dL 18 Creatinine (0.55-1.02) mg/dL 1.1 H Est GFR (CKD-EPI 2020) (mL/min/1.73m2) 65.14 Glucose (74-106) mg/dL 91 Calcium (8.5-10.1) mg/dL 8.8 Total Bilirubin (0.2-1.0) mg/dL 1.0 AST (15-37) U/L 46 H ALT (14-59) U/L 74 H Alkaline Phosphatase (46-116) U/L 66 Total Protein (6.4-8.2) g/dL 7.7 Albumin (3.4-5.0) g/dL 3.5
[2023-01-08 19:22] LABS: Bilirubin Negative (Negative); Blood Small (Negative); Clarity Sl Cloudy (Clear); Glucose Negative (Negative); Ketones Negative (Negative); Leukocyte Esterase Negative (Negative); Nitrite Negative (Negative); Urobilinogen 0.2 mg/dL (Up to 0.2); pH 5.5 (5-8)
[2023-01-08 19:28] LABS: Bacteria Negative HPF (Negative); C & S Indicated? No; Casts Negative LPF (Negative); Crystals Negative HPF (Negative); Epithelial Cells Few HPF (Negative); Mucus Negative (Negative)
[2023-01-08] MEDS: PIPERACILLIN/TAZO 3.375 GM in Normal Saline 50 ML IVPB (20:00)
--- NOTE | 2023-01-08 20:51 | HPE_ITS ---
Date of service: 01/08/23 Time of Service: 20:51 Assessment and Plan Assessment and plan (1) Umbilical hernia: Assessment and plan: Although her pain is very concerning, other clinical features are inconsistent with iatrogenic injury or infection. Certainly, the skin does not seem consistent with acute surgical site infection. And while I agree that there are some periumbilical changes on the CAT scan, there is certainly no evidence of s ignificant free air or free fluid to suggest iatrogenic hollow visceral perforation. Furthermore, her white blood cell count and hemodynamics are reassuring For now, we will admit her to the hospital for observation and try to get her pain a little better controlled. I will repeat the white blood cell count as well as a CRP tomorrow. If her symptoms worsen, or any of the other surrogate markers start to decompensate, that we can give reconsideration to exploratory laparoscopy to rule out surgical site problems. History of Present Illness History of Present Illness Chief Complaint: Abdominal pain Narrative: It is very nice to meet Zenia in the emergency department. She is 42 years old, and she underwent open umbilical herniorrhaphy with implantation of a Ventralex mesh 2 days ago. Her postoperative course has been complicated by pain across the midportion of her abdomen. Medications were adjusted yesterday, but they failed to provide appropriate relief. Pain increased again today, and she has been unable to tolerate pain medications by mouth because of nausea and vomiting. In the emergency department, she is afebrile, with a normal white blood cell count. She underwent CAT scan of the abdomen and pelvis that showed some changes in the soft tissues around the umbilical incision site. She tells me that the pain feels like stabbing of a knife, a little more so to the right of her umbilicus than towards the left. Pain is worse when she lays on her side. She has some relief laying on her back. She has not moved her bowels since the operation. She has nausea without vomiting at this time. Past surgical history includes a laparoscopic cholecystectomy and an open appendectomy. Past medical history is significant for obstructive sleep apnea, anxiety, gastritis, fibromyalgia Review of Systems Constitutional Constitutional: Reports fatigue, Denies fever(s), Reports night sweats, Reports poor appetite and Reports weakness Eyes Eyes: Reports system reviewed and no additional complaints, except as documented ENT Ears, Nose, Mouth, and Throat: Reports system reviewed and no additional complaints, except as documented Cardiovascular Cardiovascular: Denies chest pain, Denies irregular heart rhythm, Reports lightheadedness and Denies dyspnea Respiratory Respiratory: Denies cough and Denies dyspnea Gastrointestinal Gastrointestinal: Reports abdominal pain, Reports bloating, Denies diarrhea, Rep orts nausea and Denies vomiting Genitourinary Genitourinary: Reports system reviewed and no additional complaints, except as documented Musculoskeletal Musculoskeletal: Reports system reviewed and no additional complaints, except as documented Neurologic Neurologic: Reports system reviewed and no additional complaints, except as documented and Reports weakness Psychiatric Psychiatric: Reports system reviewed and no additional complaints, except as documented Endocrine Endocrine: Reports fatigue Hematologic/Lymphatic Hematologic/Lymphatic: Denies easy bleeding and Denies easy bruising PFSH All Active Problems Allergic rhinitis (Chronic) ADHD, adult residual type (Chronic) GERD (gastroesophageal reflux disease) (Chronic) Obstructive sleep apnea (Chronic) Generalized anxiety disorder (Chronic) bleeding (Acute) Pelvic pain (Acute) Bile reflux gastritis (Acute) Fibromyalgia (Chronic) Herpes simplex (Acute) Medical History 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, antepartum Former tobacco use History of cholestasis during Surgical History H/O esophagogastroduodenoscopy (~12/02/22) H/O hemorrhoidectomy 2019-pt .denies S/P appendectomy Status post cholecystectomy Umbilical hernia (~12/2022) Family History Mother Rheumatoid arthritis Father Depression Heart disease Alcohol use disorder Hyperlipidemia Sister Depression Son Psoriasis Social History Smoking/Tobacco Use Status: Former Tobacco Use Quit Date: 04/03/21 Smoking risk assessment performed?: Yes Alcohol Intake: never Drug use: Never Substance use type: does not use Housing: house Number of Children: 3 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 Date GA/Weeks # Preg Succ Route Wgt Sex Labor Lgth Anesth esia Location Prov Complic Unknown No 06/18/02 42 No Yes vaginal 9 lb 15 oz Female [facility] [place] 12/04/03 41 Yes Yes vaginal 6 lb 15 oz Male [place] 12/04/03 41 Yes Yes vaginal 7 lb 2 oz [place] 08/15/08 38 No Yes vaginal 7 lb Male [facility] 03/04/21 No in [place] 10/17/22 37 No Yes vaginal 8 lb 3.2 oz Male [facility] Delivery Date: Last Updated by: Cara Leigh CNM ETOP Delivery Date: 06/18/02 Last Updated by: Cara Leigh CNM precipitous delivery Delivery Date: 12/04/03 Last Updated by: Yolande Manrique IOL postdates. twins 6-15 and 7-2 Delivery Date: 08/15/08 Last Updated by: Yolande Manrique IOL for intrahepatic cholestasis of [place] Delivery Date: 03/04/21 Last Updated by: Yolande Manrique SAB of twins Delivery Date: 10/17/22 Last Updated by: MAKENNA Segovia; Intrahepatic cholestasis of , 3rd trimester. Meds Allergies and Home Medications Allergies Allergy/AdvReac Type Severity Reaction Status Date / Time shellfish derived Allergy Severe vomiting Verified 01/06/23 08:42 citalopram AdvReac Mild sarai Verified 01/06/23 08:42 ursodiol AdvReac Mild Other (See Verified 01/06/23 08:42 Comment) latex AdvReac local Verified 01/06/23 08:42 sensitivity Home Medications Medication Instructions Recorded Confirmed Type omega-3 fatty acids 1,250 mg 1,250 mg PO DAILY 01/07/22 01/08/23 History capsule vit no.95-ferrous 1 tab PO DAILY 06/10/22 01/08/23 History fumarate 28 mg-folic acid 800 mcg tablet ( Multivitamins) cholecalciferol (vitamin D3) 25 25 mcg PO DAILY 09/18/22 01/08/23 History mcg (1,000 unit) capsule magnesium citrate 100 mg capsule 100 mg PO DAILY 09/18/22 01/08/23 History antiarthritic combination no.2 900 See Rx Instructions PO DAILY 11/03/22 01/08/23 History mg tablet (glucosamine-chondroitin) calcium carbonate 600 mg calcium 600 mg PO DAILY 11/03/22 01/08/23 History (1,500 mg) tablet fenugreek seed extract 500 mg See Rx Instructions PO DAILY 11/03/22 01/08/23 History capsule sodium hyaluronate 20 mg capsule See Rx Instructions PO DAILY 11/03/22 01/08/23 History omeprazole 40 mg capsule,delayed 40 mg PO DAILY #90 caps 12/25/22 01/08/23 Rx release famotidine 40 mg tablet 40 mg PO DAILY 01/04/23 01/08/23 History norethindrone (contraceptive) 0.35 0.35 mg PO DAILY 01/04/23 01/08/23 History mg tablet (Deblitane) oxycodone 5 mg tablet 5 mg PO Q6H PRN #14 tabs 01/06/23 01/08/23 Rx scopolamine base 1 mg over 3 days 1 mg transdermal 3XD 01/08/23 01/08/23 History transdermal patch spironolactone 100 mg tablet 100 mg PO 2XD 01/08/23 01/08/23 History sucralfate 1 gram tablet 1 g PO 1XD 01/08/23 01/08/23 History Exam Const General: cooperative and not in acute distress Nutritional Appearance: overweight Orientation: alert, awake and oriented x3 HENMT Head: normal to inspection Neck Neck: normal visual inspection and full ROM Resp Auscultation: clear to auscultation bilaterally Cardio Rate: regular rate Rhythm: regular rhythm GI Inspection: non-distended Palpation: soft, guarding, no hernias and tender Auscultation: hypoactive bowel sounds Other: The incision site is clean. The wound is closed with skin affix. Its not swollen. There are some mild discoloration mostly on the underside. There is no erythema or discharge. There is no fluctuance. Results Imaging Abdomen CT scan report/results: report reviewed and image reviewed CT scan - pelvis: report reviewed and image reviewed Labs 01/08/23 17:56 01/08/23 17:56 Labs: Laboratory Results - last 24 hr 01/08/23 01/08/23 01/08/23 17:56 17:56 17:56 WBC 8.80 RBC 4.48 Hgb 13.1 Hct 39.2 MCV 88 MCH 29.2 MCHC 33.4 RDW 14.7 H Plt Count 227 MPV 10.3 Immature Gran % 0.3 Neutrophils % 65.6 Lymphocytes % 23.3 Monocytes % 8.5 Eosinophils % 2.0 Basophils % 0.3 Nucleated RBC % 0.0 Absolute Neutrophils 5.76 Absolute Lymphocytes 2.05 Absolute Monocytes 0.75 Absolute Eosinophils 0.18 Absolute Basophils 0.03 VBG Lactate 1.3 Sodium 139 Potassium 3.9 Chloride 103 Carbon Dioxide 27.0 Anion Gap 9.0 BUN 18 Creatinine 1.1 H Est GFR (CKD-EPI 2020) 65.14 Glucose 91 Calcium 8.8 Total Bilirubin 1.0 AST 46 H ALT 74 H Alkaline Phosphatase 66 Total Protein 7.7 Albumin 3.5 Urine Color Urine Clarity Urine pH Ur Specific [place] Urine Protein Urine Ketones Urine Blood Urine Nitrite Urine Bilirubin Urine Urobilinogen Ur Leukocyte Esterase Urine RBC Urine WBC Ur Epithelial Cells Urine Crystals Urine Bacteria Urine Casts Urine Mucus Ur Culture Indicated? Urine Glucose 01/08/23 19:10 WBC RBC Hgb Hct MCV MCH MCHC RDW Plt Count MPV Immature Gran % Neutrophils % Lymphocytes % Monocytes % Eosinophils % Basophils % Nucleated RBC % Absolute Neutrophils Absolute Lymphocytes Absolute Monocytes Absolute Eosinophils Absolute Basophils VBG Lactate Sodium Potassium Chloride Carbon Dioxide Anion Gap BUN Creatinine Est GFR (CKD-EPI 2020) Glucose Calcium Total Bilirubin AST ALT Alkaline Phosphatase Total Protein Albumin Urine Color Yellow Urine Clarity Sl Cloudy Urine pH 5.5 Ur Specific [place] 1.010 Urine Protein Negative Urine Ketones Negative Urine Blood Small H Urine Nitrite Negative Urine Bilirubin Negative Urine Urobilinogen 0.2 Ur Leukocyte Esterase Negative Urine RBC 5-10 H Urine WBC 3-5 Ur Epithelial Cells Few Urine Crystals Negative Urine Bacteria Negative Urine Casts Negative Urine Mucus Negative Ur Culture Indicated? No Urine Glucose Negative Last Vital Signs Temp 97.8 F 01/08/23 17:02 Pulse 85 01/08/23 17:02 Resp 18 01/08/23 17:02 Pulse Ox 98 01/08/23 17:02 Time Spent Time spent with Patient: 55-74 minutes Time was spent: preparing to see the patient(eg.review tests), obtaining and/or reviewing separately otained hiistory, ordering medications,tests, procedures, referring, communicating with other health medicare insurance specialist, indepentently interpreting results and counseling the patient
[2023-01-08] MEDS: Famotidine 20 MG/2 ML VIAL (21:21)
[2023-01-08 21:35] VITALS: BP 124/73; PULSE 68; RESP 21; TEMP 36.7; O2SAT 94
[2023-01-08] MEDS: Enoxaparin 40 MG/0.4 ML SYR SC (23:43)
[2023-01-08] MEDS: Ondansetron 4 MG/2 ML VIAL IVP (23:43)
[2023-01-08] MEDS: Lactated Ringers 1,000 ML 75 ML IV (23:45)
[2023-01-09] MEDS: Ketorolac 30 MG/ML VIAL IVP ×3 (02:29→14:49)
[2023-01-09] MEDS: traMADol 50 MG TAB 100 MG PO (02:29)
--- NOTE | 2023-01-09 07:10 | W.PM.PROGNOT ---
Date of Service Date of service: 01/09/23 Time of Service: 07:11 Assessment and Plan Assessment and plan (1) Post-operative pain: Status: Acute Assessment and plan: The WBC and CRP are reassuring. Hemodynaics are fine. Wound does not appear infected. I'll add some cyclobenzaprine this morning and advance the diet a bit. I'll stop the IVF today and we can see how her pain evolves as I cut down the IV meds Subjective Subjective Interval history since last seen: She feels better this morning with pain decreased from 10 yeaterday to 5 through the night. She is tolerating clears witout any nausea. She had a bowel movement this morning. Exam GI Other: Abdomen remains soft. She is not distended this morning. Tenderness is the same. Wound looks the same. Objective Last Vital Signs Temp 98.1 F 01/08/23 21:35 Pulse 68 01/08/23 21:35 Resp 21 01/08/23 21:35 BP 124/73 01/08/23 21:35 Pulse Ox 94 01/08/23 21:35 Laboratory Results - last 24 hr 01/08/23 01/08/23 01/08/23 17:56 17:56 17:56 WBC 8.80 RBC 4.48 Hgb 13.1 Hct 39.2 MCV 88 MCH 29.2 MCHC 33.4 RDW 14.7 H Plt Count 227 MPV 10.3 Immature Gran % 0.3 Neutrophils % 65.6 Lymphocytes % 23.3 Monocytes % 8.5 Eosinophils % 2.0 Basophils % 0.3 Nucleated RBC % 0.0 Absolute Neutrophils 5.76 Absolute Lymphocytes 2.05 Absolute Monocytes 0.75 Absolute Eosinophils 0.18 Absolute Basophils 0.03 VBG Lactate 1.3 Sodium 139 Potassium 3.9 Chloride 103 Carbon Dioxide 27.0 Anion Gap 9.0 BUN 18 Creatinine 1.1 H Est GFR (CKD-EPI 2020) 65.14 Glucose 91 Calcium 8.8 Total Bilirubin 1.0 AST 46 H ALT 74 H Alkaline Phosphatase 66 Total Protein 7.7 Albumin 3.5 Urine Color Urine Clarity Urine pH Ur Specific [place] Urine Protein Urine Ketones Urine Blood Urine Nitrite Urine Bilirubin Urine Urobilinogen Ur Leukocyte Esterase Urine RBC Urine WBC Ur Epithelial Cells Urine Crystals Urine Bacteria Urine Casts Urine Mucus Ur Culture Indicated? Urine Glucose 01/08/23 19:10 WBC RBC Hgb Hct MCV MCH MCHC RDW Plt Count MPV Immature Gran % Neutrophils % Lymphocytes % Monocytes % Eosinophils % Basophils % Nucleated RBC % Absolute Neutrophils Absolute Lymphocytes Absolute Monocytes Absolute Eosinophils Absolute Basophils VBG Lactate Sodium Potassium Chloride Carbon Dioxide Anion Gap BUN Creatinine Est GFR (CKD-EPI 2020) Glucose Calcium Total Bilirubin AST ALT Alkaline Phosphatase Total Protein Albumin Urine Color Yellow Urine Clarity Sl Cloudy Urine pH 5.5 Ur Specific [place] 1.010 Urine Protein Negative Urine Ketones Negative Urine Blood Small H Urine Nitrite Negative Urine Bilirubin Negative Urine Urobilinogen 0.2 Ur Leukocyte Esterase Negative Urine RBC 5-10 H Urine WBC 3-5 Ur Epithelial Cells Few Urine Crystals Negative Urine Bacteria Negative Urine Casts Negative Urine Mucus Negative Ur Culture Indicated? No Urine Glucose Negative Time Spent with Patient Time Spent with Patient: 25-34 minutes Time was spent: preparing to see the patient(eg.review tests), indepentently interpreting results and counseling the patient
[2023-01-09 07:12] LABS: Abs Immature Grans 0.03 10^3/uL (0.0-0.06); Absolute Basophil Count 0.02 10^3/uL (0.0-0.2); Absolute Eosinophil Count 0.22 10^3/uL (0.0-0.7); Absolute Lymphocyte Count 1.78 10^3/uL (1.2-3.4); Absolute Neutrophil Count 4.84 10^3/uL (1.2-6.7); Basophils % 0.3; Eosinophils % 2.9; HCT 34.8 % (36.0-46.0); HGB 11.6 g/dL (11.2-15.7); Immature Grans % 0.4; Lymphocytes % 23.5; MCHC 33.3 % (32.0-36.0); MCV 87 fL (80-95); MPV 10.6 fL (8.0-11.0); Monocytes % 9.2; Neutrophils % 63.7; Platelet Count 213 10^3/uL (130-400); RDW 14.8 % (11.7-14.6); RDW-SD 47.6 fL; WBC 7.59 10^3/uL (4.4-10.8)
[2023-01-09 07:21] LABS: Anion Gap 9.4 mmol/L (3-11); BUN 17 mg/dL (7-18); CO2 25.6 mmol/L (21.0-32.0); Calcium 8.9 mg/dL (8.5-10.1); Chloride 104 mmol/L (98-107); Estimated GFR 73.04 (mL/min/1.73m2); Glucose 92 mg/dL (74-106); Potassium 4.1 mmol/L (3.5-5.1); Sodium 139 mmol/L (136-145)
[2023-01-09 07:24] LABS: C-Reactive Protein 3.24 mg/dL (0.0-0.3)
[2023-01-09 07:26] VITALS: BP 101/68; PULSE 62; RESP 16; TEMP 36.4; O2SAT 95
[2023-01-09] MEDS: Famotidine 20 MG TAB 40 MG PO (07:30)
[2023-01-09] MEDS: ACETAMINOPHEN 1,000 MG/100 ML BTL 400 MG IVPB (07:47)
[2023-01-09] MEDS: Sucralfate 1 GM TAB PO ×2 (07:49→10:58)
[2023-01-09] MEDS: Omeprazole 20 MG CAPCR 40 MG PO (07:49)
[2023-01-09] MEDS: Ondansetron 4 MG/2 ML VIAL IVP (07:50)
[2023-01-09] MEDS: Cyclobenzaprine 10 MG TAB PO (11:40)
--- NOTE | 2023-01-09 11:47 | PDOC.CMIN ---
Date of service: 01/09/23 Time of Service: 11:47 Care Management Initial Assmt Initial Assessment REASON FOR HOSPITALIZATION:: umbilical hernia PREVIOUS FUNCTIONAL STATUS/SOCIAL/FAMILY SUPPORTS:: Jennifer lives in a single family home in [place] with her life partner Mitchell. She has 5 children including a son who is 2 months old. 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 She is independent at baseline and does not receive any community services. CURRENT FUNCTIONAL STATUS:: Jennifer was lying in bed when CM met with her. 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 Jennifer discussed her current and recent medical issues and the challenges they have presented, especially since the baby was born. She has been told she either has post- arthritis which should clear in 6 months from the or fibromyalgia. She also had an umbilical hernia repaired 3 days ago and continues to have issues with nausea, vomiting and pain. Jennifer shared that with all of her recent health issues and hospitalizations, she has some significant medical expenses. She requested a Patient Financial Assist packet, which CM provided. ADVANCE DIRECTIVES:: none on file Has patient been provided with info about the portal/API?: Yes Did the patient sign up for the portal?: Yes CODE STATUS:: Full Code INSURANCE COVERAGE / FINANCIAL ISSUES:: CBA PRIMARY CARE PHYSICIAN:: Araceli Miner POTENTIAL DISCHARGE NEEDS:: follow up with PATIENT/FAMILY EDUCATION NEEDS:: Review of discharge instructions, limitations, activity, follow up plan, discuss Ask Me Three TRANSPORTATION:: via private vehicle with family PLAN:: Anticipate Jennifer will be discharged home with no new services. She will follow up with her surgeon and plan of care and transport with Mitchell. 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, antepartum Former tobacco use History of cholestasis during Surgical History H/O esophagogastroduodenoscopy (~12/02/22) H/O hemorrhoidectomy 2019-pt .denies S/P appendectomy Status post cholecystectomy Umbilical hernia (~12/2022) Family History Mother Rheumatoid arthritis Father Depression Heart disease Alcohol use disorder Hyperlipidemia Sister Depression Son Psoriasis Social History Smoking/Tobacco Use Status: Former Tobacco Use Quit Date: 04/03/21 Smoking risk assessment performed?: Yes Alcohol Intake: never Drug use: Never Substance use type: does not use Housing: house Number of Children: 3 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 Date GA/Weeks # Preg Succ Route Wgt Sex Labor Lgth Anesthesia Location Prov Complic Unknown No 06/18/02 42 No Yes vaginal 4507.574 g Female [facility] 12/04/03 41 Yes Yes vaginal 3146.797 g Male [place] 12/04/03 41 Yes Yes vaginal 3231.846 g [place] 08/15/08 38 No Yes vaginal 3175.147 g Male [facility] 03/04/21 No in [place] 10/17/22 37 No Yes vaginal 3719.[address] [facility] Delivery Date: Last Updated by: Cara Leigh CNM ETOP Delivery Date: 06/18/02 Last Updated by: Cara Leigh CNM precipitous delivery Delivery Date: 12/04/03 Last Updated by: Yolande Manrique IOL postdates. twins 6-15 and 7-2 Delivery Date: 08/15/08 Last Updated by: Yolande Manrique IOL for intrahepatic cholestasis of [place] Delivery Date: 03/04/21 Last Updated by: Yolande Manrique SAB of twins Delivery Date: 10/17/22 Last Updated by: MAKENNA Segovia; Intrahepatic cholestasis of , 3rd trimester.
[2023-01-09] MEDS: Scopolamine 1 MG/3 DAYS PATCH TD (12:00)
[2023-01-09] MEDS: Patch Removal 1 EACH TP (12:01)
--- NOTE | 2023-01-09 13:34 | W.PM.DS.N ---
Date of service: 01/09/23 Time of Service: 13:35 DS: Diagnosis Discharge Diagnosis (1) Post-operative pain: Status: Acute Asessment and Plan: Improved with gentle resuscitation and adjustment of medications. Discharge Plan Disposition Condition: Stable Condition: Good Discharge Details Reason For Visit: umbilica hernia Admit Date/Time: 01/08/23 20:46 Admit Provider: Jarvis Pires Attending Provider: Jarvis Pires Primary Care Provider: Araceli Miner [facility] Hospital Course: Jennifer is a 42-year-old woman who underwent umbilical hernia repair with implantation of a permanent mesh 2 days prior to her presentation. While recovering at home, she was experiencing pain that was poorly controlled. She had difficulty maintaining appropriate diet and hydration since her pain was complicated by nausea with vomiting. She came to the emergency department, was found to have a normal white blood cell count. She underwent a CAT scan of the abdomen and pelvis that demonstrated appropriate postoperative findings. She was admitted for short period of observation. She remained afebrile with a normal white blood cell count. Pain control was improved with adjustment of medications. She was discharged home with plan short interval follow-up. Home Meds and New Rx's Prescriptions: New cyclobenzaprine 10 mg tablet 10 mg PO TID PRNQty: 9 0RF Rx Instructions: Take 1 tablet by mouth up to every 8 hours if needed for pain and muscle spasms. Do not drive while taking this medication. lidocaine 4 % adhesive patch,medicated 1 patch topical DAILY Qty: 5 0RF Rx Instructions: may leave on for up to 12 hrs tramadol 50 mg tablet 50 mg PO BID PRNQty: 6 0RF Rx Instructions: Take 1 tablet by mouth up to twice a day if needed for severe pain. This tablet can be broken in half, for a smaller dose. Take great caution while using this medication with cyclobenzaprine, as they can be quite sedating when combined. Continued cholecalciferol (vitamin D3) 25 mcg (1,000 unit) capsule 25 mcg PO DAILY Patient Comments: with K2 omega-3 fatty acids 1,250 mg capsule 1,250 mg PO DAILY PNV cmb#95-ferrous fumarate-FA [ Multivitamins] 28 mg iron- 800 mcg tablet 1 tab PO DAILY magnesium citrate 100 mg capsule 100 mg PO DAILY Patient Comments: Not currently taking calcium carbonate 600 mg calcium (1,500 mg) tablet 600 mg PO DAILY glucosamine-chondroitin 900 mg tablet See Rx Instructions PO DAILY Patient Comments: Not currently taking Rx Instructions: 3 tablets orally daily; sodium hyaluronate 20 mg capsule See Rx Instructions PO DAILY Patient Comments: Not currently taking Rx Instructions: 1 tablet orally daily; fenugreek seed extract 500 mg capsule See Rx Instructions PO DAILY Patient Comments: Not currently taking Rx Instructions: 2 tablets daily orally daily; omeprazole 40 mg capsule,delayed release(DR/EC) 40 mg PO DAILY Qty: 90 3RF famotidine 40 mg tablet 40 mg PO DAILY Patient Comments: TAKE 1 TABLET BY MOUTH EVERY NIGHT AT BEDTIME norethindrone (contraceptive) [Deblitane] 0.35 mg tablet 0.35 mg PO DAILY Patient Comments: TAKE ONE TABLET BY MOUTH EVERY DAY oxycodone 5 mg tablet 5 mg PO Q6H PRNQty: 14 0RF scopolamine base 1 mg over 3 days Patch 3 Day 1 mg transdermal 3XD Rx Instructions: R ear sucralfate 1 gram tablet 1 g PO 1XD spironolactone 100 mg tablet 100 mg PO 2XD Discharge Instructions Additional Instructions: Jennifer I am glad you are feeling better after your stay in the hospital with us. I have made some changes to your pain medications to see if that helps over the coming days. Like we talked about, I added some cyclobenzaprine (Flexeril) to help with muscle spasms. Please feel free to shrimp picker the prescription, or use the 1 that you have at home. I have also added a prescription for some tramadol, which was one of the medications that we used here. Please stop the oxycodone that was previously prescribed, and use the tramadol instead. I have also provided a prescription for some lidocaine patches. Check with the pharmacy to see the gonzalez. Sometimes these are cheaper to buy [id number]. I will have the office reach out to you early this week to check up. Assuming that she continue to improve a little bit each day, we will plan to just keep your routine postoperative follow-up visit. If you need to get in sooner, we can try to accommodate that. I would also make sure that you maintain a normal bowel pattern with the use of these pain medications. They can be constipating, and that can contribute to some of the pain like we talked about this morning. Metamucil, Colace, Senokot, MiraLAX, and similar medications can all provide great therapeutic effect. If you have any questions at all, please do not hesitate to call. Activity:: no heavy lifting Shower/Bathe:: 24 hours Diet:: As Tolerated DS: Summary Time Spent with Patient providing and/or coordinating discharge services: Less than 30 minutes Status at Discharge Functional status at discharge: independent ambulation Overall status at discharge: patient is progressing back to baseline Mental Status: mental status grossly normal Speech and Movement: speech and movement normal Mood: congruent mood Affect: normal affect Exam GI Other: Abdomen is soft and nondistended. The wound looks clean. Psych Mental Status: mental status grossly normal Speech and Movement: speech and movement normal Mood: congruent mood Affect: normal affect DS: Data Vitals/I&O Vitals and I&O: Vital Signs Temperature 97.5 F L 01/09/23 07:26 Temperature Source Tympanic 01/09/23 07:26 Pulse 62 01/09/23 07:26 Pulse Rhythm Irregular 01/09/23 08:00 Respiratory Rate 16 01/09/23 07:26 Respiratory Effort Normal, Non-Labored 01/09/23 08:00 Respiratory Depth Normal 01/09/23 08:00 Respiratory Pattern Normal 01/09/23 08:00 Blood Pressure 101/68 01/09/23 07:26 Blood Pressure Position Sitting 01/08/23 17:02 Pulse Oximetry 95 01/09/23 07:26 Oxygen Delivery Method Room Air 01/09/23 07:26 Oxygen Flow Rate 0 01/09/23 07:26 Pain Level 0 01/09/23 08:49 Intake & Output 01/08/23 01/09/23 01/09/23 23:59 11:59 23:59 Intake Total 1150 / 1150 803.75 / 803.75 Output Total 750 / 750 Balance 1150 / 1150 53.75 / 53.75 Weight 303 lb Intake: IV 1150 / 1150 803.75 / 803.75 Output: Urine 750 / 750 Other: Urine Color Straw Urine Appearance Clear Urine Odor Strong Voiding Methods Toilet Data Completed and Pending Labs on day of discharge: Labs from last 24 hours 01/09/23 01/09/23 01/09/23 06:15 06:15 06:15 WBC 7.59 RBC 4.00 Hgb 11.6 Hct 34.8 L MCV 87 MCH 29.0 MCHC 33.3 RDW 14.8 H Plt Count 213 MPV 10.6 Immature Gran % 0.4 Neutrophils % 63.7 Lymphocytes % 23.5 Monocytes % 9.2 Eosinophils % 2.9 Basophils % 0.3 Nucleated RBC % 0.0 Absolute Neutrophils 4.84 Absolute Lymphocytes 1.78 Absolute Monocytes 0.70 Absolute Eosinophils 0.22 Absolute Basophils 0.02 VBG Lactate Sodium 139 Potassium 4.1 Chloride 104 Carbon Dioxide 25.6 Anion Gap 9.4 BUN 17 Creatinine 1.0 Est GFR (CKD-EPI 2020) 73.04 Glucose 92 Calcium 8.9 Total Bilirubin AST ALT Alkaline Phosphatase C-Reactive Protein 3.24 H Total Protein Albumin Urine Color Urine Clarity Urine pH Ur Specific [place] Urine Protein Urine Ketones Urine Blood Urine Nitrite Urine Bilirubin Urine Urobilinogen Ur Leukocyte Esterase Urine RBC Urine WBC Ur Epithelial Cells Urine Crystals Urine Bacteria Urine Casts Urine Mucus Ur Culture Indicated? Urine Glucose 01/08/23 01/08/23 01/08/23 19:10 17:56 17:56 WBC 8.80 RBC 4.48 Hgb 13.1 Hct 39.2 MCV 88 MCH 29.2 MCHC 33.4 RDW 14.7 H Plt Count 227 MPV 10.3 Immature Gran % 0.3 Neutrophils % 65.6 Lymphocytes % 23.3 Monocytes % 8.5 Eosinophils % 2.0 Basophils % 0.3 Nucleated RBC % 0.0 Absolute Neutrophils 5.76 Absolute Lymphocytes 2.05 Absolute Monocytes 0.75 Absolute Eosinophils 0.18 Absolute Basophils 0.03 VBG Lactate Sodium 139 Potassium 3.9 Chloride 103 Carbon Dioxide 27.0 Anion Gap 9.0 BUN 18 Creatinine 1.1 H Est GFR (CKD-EPI 2020) 65.14 Glucose 91 Calcium 8.8 Total Bilirubin 1.0 AST 46 H ALT 74 H Alkaline Phosphatase 66 C-Reactive Protein Total Protein 7.7 Albumin 3.5 Urine Color Yellow Urine Clarity Sl Cloudy Urine pH 5.5 Ur Specific [place] 1.010 Urine Protein Negative Urine Ketones Negative Urine Blood Small H Urine Nitrite Negative Urine Bilirubin Negative Urine Urobilinogen 0.2 Ur Leukocyte Esterase Negative Urine RBC 5-10 H Urine WBC 3-5 Ur Epithelial Cells Few Urine Crystals Negative Urine Bacteria Negative Urine Casts Negative Urine Mucus Negative Ur Culture Indicated? No Urine Glucose Negative 01/08/23 17:56 WBC RBC Hgb Hct MCV MCH MCHC RDW Plt Count MPV Immature Gran % Neutrophils % Lymphocytes % Monocytes % Eosinophils % Basophils % Nucleated RBC % Absolute Neutrophils Absolute Lymphocytes Absolute Monocytes Absolute Eosinophils Absolute Basophils VBG Lactate 1.3 Sodium Potassium Chloride Carbon Dioxide Anion Gap BUN Creatinine Est GFR (CKD-EPI 2020) Glucose Calcium Total Bilirubin AST ALT Alkaline Phosphatase C-Reactive Protein Total Protein Albumin Urine Color Urine Clarity Urine pH Ur Specific [place] Urine Protein Urine Ketones Urine Blood Urine Nitrite Urine Bilirubin Urine Urobilinogen Ur Leukocyte Esterase Urine RBC Urine WBC Ur Epithelial Cells Urine Crystals Urine Bacteria Urine Casts Urine Mucus Ur Culture Indicated? 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, antepartum Former tobacco use History of cholestasis during Surgical History H/O esophagogastroduodenoscopy (~12/02/22) H/O hemorrhoidectomy 2019-pt .denies S/P appendectomy Status post cholecystectomy Umbilical hernia (~12/2022) Family History Mother Rheumatoid arthritis Father Depression Heart disease Alcohol use disorder Hyperlipidemia Sister Depression Son Psoriasis Social History Smoking/Tobacco Use Status: Former Tobacco Use Quit Date: 04/03/21 Smoking risk assessment performed?: Yes Alcohol Intake: never Drug use: Never Substance use type: does not use Housing: house Number of Children: 3 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 Date GA/Weeks # Preg Succ Route Wgt Sex Labor Lgth Anesthesia Location Prov Complic Unknown No 06/18/02 42 No Yes vaginal 9 lb 15 oz Female regional [facility] 12/04/03 41 Yes Yes vaginal 6 lb 15 oz Male ID 12/04/03 41 Yes Yes vaginal 7 lb 2 oz ID 08/15/08 38 No Yes vaginal 7 lb Male [facility] 03/04/21 No in ID 10/17/22 37 No Yes vaginal 8 lb 3.[address] [facility] Delivery Date: Last Updated by: Cara Leigh CNM ETOP Delivery Date: 06/18/02 Last Updated by: Cara Leigh CNM precipitous delivery Delivery Date: 12/04/03 Last Updated by: Yolande Manrique IOL postdates. twins 6-15 and 7-2 Delivery Date: 08/15/08 Last Updated by: Yolande Manrique IOL for intrahepatic cholestasis of [place] Delivery Date: 03/04/21 Last Updated by: Yolande Manrique SAB of twins Delivery Date: 10/17/22 Last Updated by: MAKENNA Segovia; Intrahepatic cholestasis of , 3rd trimester. Time Spent with Patient Time Spent with Patient: <45 minutes Time was spent: preparing to see the patient(eg.review tests) and counseling the patient
[2023-01-09] MEDS: Acetaminophen 500 MG TAB 1000 MG PO (14:48)
--- NOTE | 2023-01-09 16:49 | PDOC.CMDIS ---
Date of service: 01/09/23 Time of Service: 16:49 LACE Index Scoring Tool Questions: Length of Stay (in days): 1 Was the patient admitted via the E.D.?: Yes E.D. Visits: 1 Answers: Total Score: 5 Risk of Readmission: Low Risk Care Management Discharge Plan Reason for Hospitalization: umbilical hernia Discharge Plan: Jennifer will be discharged home with no new services. She will follow up with her surgeon and plan of care and transport with [facility]. Patient/Family Education Needs: Review of discharge instructions, limitations, activity, follow up plan, discuss Ask Me Three
== END 2023-01-09 15:15 | disposition home or self-care (01) ==
LOC: ER 21:31 → MS 01-09 14:05 → ER 01-11 15:13 → MS 01-11 15:13
PROVIDERS: Admitting Provider Surgery; Emergency Provider Nurse Practitioner Acute Care; PCP Nurse Practitioner Family; Visit Provider Surgery
DX: K42.9 Umbilical hernia without obstruction or gangrene (principal); G89.18 Other acute postprocedural pain; R10.33 Periumbilical pain; R11.2 Nausea with vomiting, unspecified; G47.33 Obstructive sleep apnea (adult) (pediatric); M79.7 Fibromyalgia; K29.70 Gastritis, unspecified, without bleeding; J30.9 Allergic rhinitis, unspecified; F90.9 Attention-deficit hyperactivity disorder, unspecified type; K21.9 Gastro-esophageal reflux disease without esophagitis; F41.1 Generalized anxiety disorder; Z87.891 Personal history of nicotine dependence
CPT/HCPCS: 36415; 80048; 80053; 96365; 96367; 96374; 96375; 99285; J1650; 74177; 81003; 81015; 83605; 85025; 86140; G0378; J0131; J1790; J1885; J2405; J2543; J3490

== ENCOUNTER 2023-01-19 02:27 | Outpatient (CLI) | payer OTHER, SELFPAY ==
[2023-01-19 11:47] LABS: C-Reactive Protein 1.35 mg/dL (0.0-0.3)
[2023-01-20 09:52] LABS: HSV Type 1 Ab, IgG Positive (Negative); HSV Type 2 Ab, IgG Positive (Negative)
== END 2023-01-19 02:28 | disposition home or self-care (01) ==
LOC: LBO 02:27
PROVIDERS: Advanced Practice Midwife; PCP Nurse Practitioner Family; Visit Provider Advanced Practice Midwife
DX: Z72.51 High risk heterosexual behavior (principal); B00.9 Herpesviral infection, unspecified
CPT/HCPCS: 36415; 82951; 86140; 86695; 86696

== ENCOUNTER 2023-02-02 03:34 | Outpatient (CLI) | payer OTHER, SELFPAY ==
[2023-02-02 11:33] LABS: GTT Comment See Comments
[2023-02-03 09:49] LABS: HSV Type 1 Ab, IgG Negative (Negative); HSV Type 2 Ab, IgG Positive (Negative)
== END 2023-02-02 03:35 | disposition home or self-care (01) ==
LOC: LBO 03:34
PROVIDERS: PCP Nurse Practitioner Family; Visit Provider Advanced Practice Midwife
DX: L98.9 Disorder of the skin and subcutaneous tissue, unspecified; B00.9 Herpesviral infection, unspecified
CPT/HCPCS: 36415; 82951; 86695; 86696

== ENCOUNTER 2023-12-09 08:16 | Outpatient (CLI) | payer OTHER, SELFPAY ==
[2023-12-09 08:19] LABS: Anion Gap 6.5 mmol/L (3-11); BUN 16 mg/dL (7-18); CO2 26.5 mmol/L (21.0-32.0); Calculated LDL 74 mg/dL (<100); Chloride 103 mmol/L (98-107); Cholesterol 136 mg/dL (<200); Estimated GFR 72.58 (mL/min/1.73m2); Glucose 115 mg/dL (74-106); HDL Cholesterol 41 mg/dL (40-60); Potassium 3.7 mmol/L (3.5-5.1); Sodium 136 mmol/L (136-145); Triglyceride 105 mg/dL (<150)
--- OUTSIDE RECORDS SUMMARY | 2023-12-09 08:19 | XMS_ITS | Clinical Summary ---
Author Organization [facility] Address [address] [place] [id number] Care Team Providers Care Die Repair Name Role Phone Marco Antonio Hernandez MD Primary Care Provider [phone] Social History Tobacco Use Types Packs/Day Years Used Date Smoking Tobacco: Never Assessed Sex and Gender Information Value Date Recorded Sex Assigned at Not on file Gender Identity Not on file Sexual Orientation Not on file Plan of Treatment Health Maintenance Due Date Last Done Comments Hepatitis B Vaccine (1 of 3 - 19+ 3-dose series) 02/28 COVID-19 Vaccine ( season) 2023 Hepatitis C Screen Completed 04/16/2022 Procedures Procedure Name Priority Date/Time Associated Diagnosis Comments HEPATITIS C AB W REFLEX TO HCV RNA BY PCR Routine 04/16/2022 14:58 EST from Last 3 Months or Most Recently Relevant to Health Maintenance Results * HEPATITIS C AB W REFLEX TO HCV RNA BY PCR (04/16/2022 14:58 EST) Hep C Antibody Negative Negative 04/20/2022 10:02 EST [facility] Blood VENOUS BLOOD / Unknown 04/16/2022 14:58 EST 04/17/2022 18:35 EST Provider Outr Resulting Lab CHEMISTRY & BLOOD GAS ORDERABLES [facility] [address] [place] [address] from Last 3 Months or Most Recently Relevant to Health Maintenance Care Teams Die Repair Relationship Specialty Start Date End Date Marco Antonio Hernandez MD PCP - General 12/25/14
--- OUTSIDE RECORDS SUMMARY | 2023-12-09 08:19 | XMS_ITS | Encounter Summary ---
Author Organization [facility] Address [address] [place] [address] Care Team Providers Care Coffee Plantation Worker Name Role Phone Marco Antonio Hernandez MD Primary Care Provider [phone] Encounter Details Date Type Department Care Team (Late st Contact Info) Description 10/29/2022 Lab Requisition [facility] Pathology & Laboratory Medicine - [address] [address] Outr Resulting Lab, Provider Social History Tobacco Use Types Packs/Day Years Used Date Smoking Tobacco: Never Assessed Sex and Gender Information Value Date Recorded Sex Assigned at Not on file Gender Identity Not on file Sexual Orientation Not on file documented as of this encounter Plan of Treatment Not on file documented as of this encounter Procedures Procedure Name Priority Date/Time Associated Diagnosis Comments RHEUMATOID FACTOR Routine 10/26/2022 11: 05 EDT ANTI NUCLEAR AB (JENNA), IFA Routine 10/26/2022 11:05 EDT documented in this encounter Results * RHEUMATOID FACTOR (10/26/2022 11:05 EDT) Rheumatoid Factor <8.6 <12.0 IU/mL 10/29/2022 21:41 EDT [facility] Blood VENOUS BLOOD / Unknown 10/26/2022 11:05 EDT 10/29/2022 21:18 EDT Provider Outr Resulting Lab CHEMISTRY & BLOOD GAS ORDERABLES Performing Organization Address City/[facility] Co de Phone Number [facility] [address] [place] [address] * ANTI NUCLEAR AB (JENNA), IFA (10/26/2022 11:05 EDT) JENNA Interpretation Negative Negative 2022 14:52 EDT [facility] Comment:No titer performed, JENNA Screen is negative. Blood VENOUS BLOOD / Unknown 10/26/2022 11:05 EDT 10/29/2022 21:18 EDT Narrative [facility] - 10/30/2022 14:52 EDT Results were obtained with the [employer] NOVA Lite HEp-2 JENNA Kit by indirect immunofluorescence. Provider Outr Resulting Lab IMMUNOLOGY A ND SEROLOGY ORDERABLES Performing Organization Address [facility] de Phone Number [facility] [address] [place] [address] documented in this encounter Visit Diagnoses Not on filedocumented in this encounter Care Teams Coffee Plantation Worker Relationship Specialty Start Date End Date Marco Antonio Hernandez MD PCP - General 12/25/14 documented as of this encounter
--- OUTSIDE RECORDS SUMMARY | 2023-12-09 08:19 | XMS_ITS | Encounter Summary ---
Author Organization [facility] Address [address] [place] [address] Care Team Providers Care Cloth Washer Back Tender Name Role Phone Marco Antonio Hernandez MD Primary Care Provider [phone] Encounter Details Date Type Department Care Team (Late st Contact Info) Description 10/26/2022 Lab Requisition [facility] Pathology & Laboratory Medicine - [address] [address] Outr Resulting Lab, Provider Social History Tobacco [...] Procedure Name Priority Date/Time Associated Diagnosis Comments LYME AB Routine 10/26/2022 11:00 EDT HIGH SENSITIVITY C-REACTIVE PROTEIN (CARDIOVASCULAR DISEASE) Routine 10/26/2022 11:00 EDT documented in this encounter Results * LYME AB (10/26/2022 11:00 EDT) Lyme Ab Negative Negative 10/27/2022 11:22 EDT [facility] Blood VENOUS BLOOD / Unknown 10/26/2022 11:00 EDT 10/26/2022 21:34 EDT Provider Outr Resulting Lab IMMUNOLOGY A ND SEROLOGY ORDERABLES [facility] [address] [place] [address] * HIGH SENSITIVITY C-REACTIVE PROTEIN (CARDIOVASCULAR DISEASE) (10/26/2022 11:00 EDT) High Sensitivity CRP 7.41 See Note mg/L 10/26/2022 21:50 EDT [facility] Comment: Reference Range: ??Low Risk: ? <1.0 mg/L ??Average Risk: ?? 1.0 - 3.0 mg/L ??High Risk: ?>3.0 mg/L ??Indeterminate*: >10.0 mg/L ??*May be an indication of another source of inflammation or infection Blood VENOUS BLOOD / Unknown 10/26/2022 11:00 EDT 10/26/2022 21:34 EDT Provider Outr Resulting Lab CHEMISTRY & BLOOD GAS ORDERABLES Performing Organization Address [facility] Co de Phone Number [facility] [address] [place] [address] documented in this encounter Visit Diagnoses Not on filedocumented in this encounter Care Teams Cloth Washer Back Tender Relationship Specialty Start Date End Date Marco Antonio Hernandez MD PCP - General 12/25/14 documented as of this encounter
--- OUTSIDE RECORDS SUMMARY | 2023-12-09 08:19 | XMS_ITS | Encounter Summary ---
Author Organization [facility] Address [address] [place] [address] Care Team Providers Care Meter Tester Polyphase Name Role Phone Marco Antonio Hernandez MD Primary Care Provider [phone] Encounter Details Date Type Department Care Team (Late st Contact Info) Description 02/02/2023 Lab Requisition [facility] Pathology & Laboratory Medicine - [address] [address] Outr Resulting Lab, Provider Social History Tobacco [...] Procedure Name Priority Date/Time Associated Diagnosis Comments HERPES SIMPLEX VIRUS (HSV) TYPE 1 & 2 AB, IGG Routine 02/02/2023 9:01 EDT documented in this encounter Results * (ABNORMAL) HERPES SIMPLEX VIRUS (HSV) TYPE 1 & 2 AB, IGG (02/02/2023 9:01 EDT) HSV Type 1 Ab, IgG Negative Negative 02/03/2023 9:44 EDT [facility] Comment: No detectable antibodies to HSV 1 were found. A negative result generally indicates that the patient has not been infected, but does not always rule out acute HSV infection. If clinical exposure to HSV is suspected despite a negative finding a second sample should be collected and tested no less than 4-6 weeks later. HSV Type 2 Ab, IgG Positive(A) Negative 02/03/2023 9:44 EDT [facility] Comment:Indicates the presen ce of detectable IGG antibody to HSV 2 Blood VENOUS BLOOD / Unknown 02/02/2023 9:01 EDT 02/02/2023 17:29 EDT Provider Outr Resulting Lab IMMUNOLOGY A ND SEROLOGY ORDERABLES [facility] [address] [place] [address] documented in this encounter Visit Diagnoses Not on filedocumented in this encounter Care Teams Meter Tester Polyphase Relationship Specialty Start Date End Date Marco Antonio Hernandez MD PCP - General 12/25/14 documented as of this encounter
--- OUTSIDE RECORDS SUMMARY | 2023-12-09 08:19 | XMS_ITS | Encounter Summary ---
Author Organization [facility] Address [address] [place] [address] Care Team Providers Care Musical Engineer Name Role Phone Marco Antonio Hernandez MD Primary Care Provider [phone] Encounter Details Date Type Department Care Team (Late st Contact Info) Description 11/11/2022 Lab Requisition [facility] Pathology & Laboratory Medicine - [address] [address] Outr Resulting Lab, Provider Social History Tobacco [...] Procedure Name Priority Date/Time Associated Diagnosis Comments HANANE-VELA PANEL Routine 11/11/2022 9: 23 EDT HIGH SENSITIVITY C-REACTIVE PROTEIN (CARDIOVASCULAR DISEASE) Routine 11/11/2022 9:23 EDT documented in this encounter Results * (ABNORMAL) HANANE-VELA PANEL (11/11/2022 9:23 EDT) EBV VCA IgM, Antibody Negative Negative 11/13/2022 10:27 EDT [facility] Comment:Absence of detectabl e VCA IgM antibodies. EBV VCA IgG, Antibody Positive(A) Negative 11/13/2022 10:27 EDT [facility] Comment:Presence of detectab le VCA IgG antibodies. EBNA IgG Antibody Positive(A) Negative 2022 10:27 EDT [facility] Comment:Presence of detectab le EBNA IgG antibodies. 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 <1.0 mg/L ??Average Risk: ?? 1.0 - 3.0 mg/L ??High Risk: ?>3.0 mg/L ??Indeterminate*: >10.0 mg/L ??*May be an indication of another source of inflammation or infection Blood VENOUS BLOOD / Unknown 11/11/2022 9:23 EDT 11/11/2022 17:07 EDT Provider Outr Resulting Lab CHEMISTRY & BLOOD GAS ORDERABLES Performing Organization Address [facility] Co de Phone Number [facility] [address] [place] [address] documented in this encounter Visit Diagnoses Not on filedocumented in this encounter Care Teams Musical Engineer Relationship Specialty Start Date End Date Marco Antonio Hernandez MD PCP - General 12/25/14 documented as of this encounter
--- OUTSIDE RECORDS SUMMARY | 2023-12-09 08:19 | XMS_ITS | Encounter Summary ---
Author Organization [facility] Address [address] [place] [address] Care Team Providers Care Sink Cutter Name Role Phone Marco Antonio Hernandez MD Primary Care Provider [phone] Encounter Details Date Type Department Care Team (Late st Contact Info) Description 12/01/2022 Lab Requisition [facility] Pathology & Laboratory Medicine - [address] [address] Monica Mcgrath, DO [address] [place] [address] Gastric ulcer, unspecified as acute or chronic, without hemorrhage or perforation; Other immediate hemorrhage; Pelvic and perineal pain; Personal history of nicotine dependence; Other gastritis without bleeding; Encounter for routine follow-up; Gastro-esophageal reflux disease without esophagitis; Obstructive sleep apnea (adult) (pediatric); Attention-deficit hyperactivity disorder, other type; Pain in unspecified joint; Unspecified abdominal pain Social History Tobacco Use Types Packs/Day Years Used Date Smoking Tobacco: Never Assessed Sex and Gender Information Value Date Recorded Sex Assigned at Not on file Gender Identity Not on file Sexual Orientation Not on file documented as of this encounter Plan of Treatment Not on file documented as of this encounter Procedures Procedure Name Priority Date/Time Associated Diagnosis Comments SURGICAL PATHOLOGY Today 12/01/2022 11 :40 EDT Gastric ulcer, unspecified as acute or chronic, without hemorrhage or perforation Other immediate hemorrhage Pelvic and perineal pain Personal history of nicotine dependence Other gastritis without bleeding Encounter for routine follow-up Gastro-esophageal reflux disease without esophagitis Obstructive sleep apnea (adult) (pediatric) Attention-deficit hyperactivity disorder, other type Pain in unspecified joint Unspecified abdominal pain documented in this encounter Results * SURGICAL PATHOLOGY (12/01/2022 11:40 EDT) Note to Patient The following pathology results have been interpreted by your pathologist and may be available to you before your health provider has had the opportunity to review them. Please allow time for your provider to receive these results and explore management options, if applicable. 12/02/2022 11:33 [facility] Final Diagnosis A. JEJUNUM, PROXIMAL, BIOPSY: - Small intestinal mucosa with no significant diagnostic abnormalities. B. DUODENUM, BULB, BIOPSY: - Duodenal mucosa with no significant diagnostic abnormalities. C. STOMACH, ANTRUM, BIOPSY: - Antral mucosa with reactive (chemical) gastropathy. - Negative for Helicobacter pylori on H&E stained sections. D. GASTROESOPHAGEAL JUNCTION, 38 CMS, BIOPSY: - Consistent with reflux esophagitis. E. ESOPHAGUS, DISTAL, BIOPSY: - Squamous mucosa with mild reactive changes. 12/02/2022 11:33 [facility] Attestation By the signature below, the attending physician certifies that they have 1) personally conducted a gross and/or microscopic examination of the described specimen(s), and/or personally interpreted the results of laboratory testing of the described specimen(s), and 2) personally rendered or confirmed the above diagnosis. 12/02/2022 11:33 [facility] at 1133 Clinical History Bile reflux gastritis, mild; GERD 12/02/2022 11:33 [facility] Gross Description A. Received in formalin labelled with proper patient identification (initials H, J) and proximal jejunum bx is a palacios-pink tissue measuring 0.3 x 0.3 x 0.2 cm. Submitted intact in A1. B. Received in formalin labelled with proper patient identification (initials H, J) and duodenal bulb bx is palacios-pink tissue measuring 0.4 x 0.2 x 0.2 cm. Submitted intact in B1. C. Received in formalin labelled with proper patient identification (initials H, J) and antrum bx are 2 palacios-pink tissues measuring 0.2 x 0.2 x 0.1 cm and 0.3 x 0.3 x 0.2 cm. Submitted intact in C1. D. Received in formalin labelled with proper patient identification (initials H, J) and GE junction at 38 cm are 2 palacios-pink tissues measuring 0.3 x 0.3 x 0.1 cm and 0.5 x 0.2 x 0.1 cm. Submitted intact in D1. E. Received in formalin labelled with proper patient identification (initials H, J) and distal esophagus bx is a palacios-pink tissue measuring 0.3 x 0.2 x 0.2 cm. Submitted intact in E1. DAMIAN PULIDO(ASCP) 12/01/2022 19:22 12/02/2022 11:33 EDT [facility] Performing Lab [facility] 11:33 EDT [facility] Scanned Images 12/02/2022 11:33 EDT [facility] Tissue ENTIRE ESOPHAGUS / Unknown 12/01/2022 11:40 EDT 12/01/2022 17:33 EDT Tissue specimen (specimen) STRUCTURE OF SMALL INTESTINE / Unknown 12/01/2022 11:40 EDT 12/01/2022 17:33 EDT Tissue specimen (specimen) STOMACH STRUCTURE / Unknown 12/01/2022 11:40 EDT 12/01/2022 17:33 EDT Tissue specimen (specimen) ESOPHAGEAL STRUCTURE / Unknown 12/01/2022 11:40 EDT 12/01/2022 17:33 EDT Tissue specimen (specimen) ESOPHAGEAL STRUCTURE / Unknown 12/01/2022 11:40 EDT 12/01/2022 17:33 EDT Monica Mcgrath DO PATHOLOGY ORDERABLES [facility] [address] [place] [address] documented in this encounter Visit Diagnoses Diagnosis Gastric ulcer, unspecified as acute or chronic, without hemorrhage or perforation Other immediate hemorrhage Pelvic and perineal pain Unspecified symptom associated with female genital organs Personal history of nicotine dependence Personal history of tobacco use, presenting hazards to health Other gastritis without bleeding Encounter for routine follow-up Routine follow-up Gastro-esophageal reflux disease without esophagitis Esophageal reflux Obstructive sleep apnea (adult) (pediatric) Attention-deficit hyperactivity disorder, other type Pain in unspecified joint Unspecified abdominal pain documented in this encounter Care Teams Sink Cutter Relationship Specialty Start Date End Date Marco Antonio Hernandez MD PCP - General 12/25/14 documented as of this encounter
--- OUTSIDE RECORDS SUMMARY | 2023-12-09 08:19 | XMS_ITS | Encounter Summary ---
Author Organization [facility] Address [address] [place] [address] Care Team Providers Care Web Press Jogger Name Role Phone Marco Antonio Hernandez MD Primary Care Provider [phone] Encounter Details Date Type Department Care Team (Late st Contact Info) Description 05/23/2022 Lab Requisition [facility] Pathology & Laboratory Medicine - [address] [address] Outr Resulting Lab, Provider Social History Tobacco [...] Procedure Name Priority Date/Time Associated Diagnosis Comments ZZCOVID-19 TEST [facility] LAB PCR Today 05/22/2022 12:09 EST COVID-19 TESTING Routine 05/22/2022 12:0 9 EST documented in this encounter Results * COVID-19 TEST [facility] PCR (05/22/2022 12:09 EST) Swab 05/22/2022 12:0 9 EST 05/23/2022 22:39 EST Provider Outr Resulting Lab MICROBIOLOGY - GENERAL ORDERABLES [facility] [address] [place] [address] * COVID-19 TESTING (05/22/2022 12:09 EST) COVID-19 rt-PCR Result Negative Negative 05/24/2022 12:11 EST [facility] Comment: This test has not been FDA cleared or approved. This test has been authorized by FDA under an EUA for use by authorized laboratories. This test has been authorized only for detection of nucleic acid from 2019-nCoV, not for any other viruses or pathogens. This test is only authorized for the duration of the declaration that circumstances exist justifying the authorization of emergency use of in vitro diagnostic tests for detection and/or diagnosis of 2019-nCoV under section 564(b)(1) of Act, 21 U.S.C ?? 360bbb-3(b) (1), unless the authorization is terminated or revoked sooner. Negative results do not preclude 2019-nCoV infection and should not be used as the sole basis for treatment or other patient management decisions. Negative results must be combined with clinical observations, patient history, and epidemiological information. Testing was performed using the sherry SARS-CoV-2 assay ([employer] on the Sherry 6800 System Performing Lab Sherry [address] [facility] 05/24/2022 12:11 EST [facility] Swab 05/22/2022 12:0 9 EST 05/23/2022 22:39 EST Provider Outr Resulting Lab MICROBIOLOGY - GENERAL ORDERABLES [facility] [address] [place] [address] documented in this encounter Visit Diagnoses Not on filedocumented in this encounter Care Teams Web Press Jogger Relationship Specialty Start Date End Date Marco Antonio Hernandez MD PCP - General 12/25/14 documented as of this encounter
--- OUTSIDE RECORDS SUMMARY | 2023-12-09 08:19 | XMS_ITS | Referral Summary ---
Author Organization [facility] Address [address] [place] [address] Care Team Providers Care Linotype Mechanic Name Role Phone Marco Antonio Hernandez MD Primary Care Provider [phone] Social History Tobacco Use Types Packs/Day Years Used Date Smoking Tobacco: Never Assessed Sex and Gender Information Value Date Recorded Sex Assigned at Not on file Gender Identity Not on file Sexual Orientation Not on file Plan of Treatment Not on file Procedures Procedure Name Priority Date/Time Associated Diagnosis Comments HEPATITIS C AB W REFLEX TO HCV RNA BY PCR Routine 04/16/2022 14:58 EST from Last 3 Months or Most Recently Relevant to Health Maintenance Results * HEPATITIS C AB W REFLEX TO HCV RNA BY PCR (04/16/2022 14:58 EST) Hep C Antibody Negative Negative 04/20/2022 10:02 EST [facility] Blood VENOUS BLOOD / Unknown 04/16/2022 14:58 EST 04/17/2022 18:35 EST Provider Outr Resulting Lab CHEMISTRY & BLOOD GAS ORDERABLES [facility] [address] [place] [address] from Last 3 Months or Most Recently Relevant to Health Maintenance Care Teams Linotype Mechanic Relationship Specialty Start Date End Date Marco Antonio Hernandez MD PCP - General 12/25/14
--- OUTSIDE RECORDS SUMMARY | 2023-12-09 08:19 | XMS_ITS | Encounter Summary ---
Author Organization [facility] Address [address] [place] [address] Care Team Providers Care Patient Registration Supervisor Name Role Phone Marco Antonio Hernandez MD Primary Care Provider [phone] Encounter Details Date Type Department Care Team (Late st Contact Info) Description 01/19/2023 Lab Requisition [facility] Pathology & Laboratory Medicine - [address] [address] Outr Resulting Lab, Provider Social History Tobacco [...] TYPE 1 & 2 AB, IGG Routine 01/19/2023 10:56 EDT documented in this encounter Results * (ABNORMAL) HERPES SIMPLEX VIRUS (HSV) TYPE 1 & 2 AB, IGG (01/19/2023 10:56 EDT) HSV Type 1 Ab, IgG Positive( A) Negative 01/20/2023 9:48 EDT [facility] Comment:Indicates the presen ce of detectable IGG Antibody to HSV1 HSV Type 2 Ab, IgG Positive( A) Negative 01/20/2023 9:48 EDT [facility] Comment:Indicates the presen ce of detectable IGG antibody to HSV 2 Blood VENOUS BLOOD / Unknown 01/19/2023 10:56 EDT 01/19/2023 17:26 EDT Provider Outr Resulting Lab IMMUNOLOGY A ND SEROLOGY ORDERABLES [facility] [address] [place] [address] documented in this encounter Visit Diagnoses Not on filedocumented in this encounter Care Teams Patient Registration Supervisor Relationship Specialty Start Date End Date Marco Antonio Hernandez MD PCP - General 12/25/14 documented as of this encounter
--- OUTSIDE RECORDS SUMMARY | 2023-12-09 08:20 | XMS_ITS | Encounter Summary ---
Author Organization [facility] Address [address] [place] [address] Care Team Providers Care Lead Rider Name Role Phone Marco Antonio Hernandez MD Primary Care Provider [phone] Encounter Details Date Type Department Care Team (Late st Contact Info) Description 06/26/2020 Lab Requisition [facility] Pathology & Laboratory Medicine - [address] [address] Outr Resulting Lab, Provider Social History Tobacco [...] Priority Date/Time Associated Diagnosis Comments ZZCOVID-19 TEST [facility] PCR Today 06/26/2020 9:15 EST COVID-19 TESTING Routine 06/26/2020 9:15 EST documented in this encounter Results * COVID-19 TEST [facility] PCR (06/26/2020 9:15 EST) Swab ENTIRE NASOPHARYNX / Unknown 06/26/2020 9:15 EST 06/26/2020 20:57 EST Provider Outr Resulting Lab MICROBIOLOGY - GENERAL ORDERABLES [facility] [address] [place] [address] * COVID-19 TESTING (06/26/2020 9:15 EST) COVID-19 rt-PCR Result Negative Negative 06/27/2020 14:28 EST [facility] Comment: This test has not [...] clinical observations, patient history, and epidemiological information. This test was developed and its performance characteristics determined by [facility]. It has not been cleared or approved by the US Food and Drug Administration. FDA does not require this test to go through premarket FDA review. This test is used for clinical purposes. It should not be regarded as investigational or for research. This laboratory is certified under the Clinical Laboratory Improvement Amendments (CLIA) as qualified to perform high complexity clinical laboratory testing. This test is based on the [facility] COVID-19 Emergency Use Authorization (EUA) assay, with minor modification as defined by the FDA Performed on the [employer] 7 Flex RT-PCR System. Performing Lab [facility] 06/27/2020 14:28 EST [facility] Swab 06/26/2020 9:15 EST 06/26/2020 20:57 EST Provider Outr Resulting Lab MICROBIOLOGY - GENERAL ORDERABLES [facility] [address] [place] [address] documented in this encounter Visit Diagnoses Not on filedocumented in this encounter Care Teams Lead Rider Relationship Specialty Start Date End Date Marco Antonio Hernandez MD PCP - General 12/25/14 documented as of this encounter
--- OUTSIDE RECORDS SUMMARY | 2023-12-09 08:20 | XMS_ITS | Encounter Summary ---
[place] [address] Care Team Providers Care Dairy Farmer Name Role Phone Alejandra Jorgensen MD Primary Care Provider [phone] Encounter Details Date Type Department Care Team (Latest Contact Info) Description 12/21/2022 Travel Social History Tobacco Use Types Packs/Day Years Used Date Smoking Tobacco: Never Smokeless Tobacco: Never Alcohol Use Standard Drinks/Week Comments Not Currently 0 (1 standard drink = 0.6 oz pur e alcohol) Comments Yes Sex and Gender Information Value Date Recorded Sex Assigned at Not on file Gender Identity Not on file Sexual Orientation Not on file documented as of this encounter Plan of Treatment Not on file documented as of this encounter Visit Diagnoses Not on filedocumented in this encounter Care Teams Dairy Farmer Relationship Specialty Start Date End Date Alejandra Jorgensen MD [address] [place] [address] PCP - General Family Medicine 06/09/22 12/21/22 documented as of this encounter
--- OUTSIDE RECORDS SUMMARY | 2023-12-09 08:20 | XMS_ITS | Encounter Summary ---
Author Organization [facility] Address [address] [place] [address] Care Team Providers Care Component Engineer Name Role Phone Marco Antonio Hernandez MD Primary Care Provider [phone] Encounter Details Date Type Department Care Team (Late st Contact Info) Description 04/17/2022 Lab Requisition [facility] Pathology & Laboratory Medicine - [address] [address] Outr Resulting Lab, Provider Social History Tobacco [...] Procedure Name Priority Date/Time Associated Diagnosis Comments RUBELLA IGG ANTIBODY Routine 04/16/2022 14:58 EST VARICELLA IGG ANTIBODY Routine 04/16/2022 14:58 EST documented in this encounter Results * VARICELLA IGG ANTIBODY (04/16/2022 14:58 EST) Varicella IgG Ab Positive See Note 04/20/2022 9:09 EST [facility] Comment:Presence of detectab le Varicella Zoster virus IgG antibodies. Blood VENOUS BLOOD / Unknown 04/16/2022 14:58 EST 04/17/2022 18:35 EST Provider Outr Resulting Lab IMMUNOLOGY A ND SEROLOGY ORDERABLES Performing Organization Address City/State/[facility] Co de Phone Number [facility] [address] [place] [address] * RUBELLA IGG ANTIBODY (04/16/2022 14:58 EST) Rubella IgG Ab Positive See Note 04/20/2022 9:13 EST [facility] Comment:Positive for IgG ant ibodies to Rubella virus. Blood VENOUS BLOOD / Unknown 04/16/2022 14:58 EST 04/17/2022 18:35 EST Provider Outr Resulting Lab CHEMISTRY & BLOOD GAS ORDERABLES Performing Organization Address [facility] Co de Phone Number [facility] [address] [place] [address] documented in this encounter Visit Diagnoses Not on filedocumented in this encounter Care Teams Component Engineer Relationship Specialty Start Date End Date Marco Antonio Hernandez MD PCP - General 12/25/14 documented as of this encounter
--- OUTSIDE RECORDS SUMMARY | 2023-12-09 08:20 | XMS_ITS | Encounter Summary ---
[facility] [place] [address] Care Team Providers Care Players Assistant Name Role Phone Araceli Miner APRN Primary Care Provider [phone] Reason for Visit * Reason Comments Skin Check Encounter Details Date Type Department Care Team (Late st Contact Info) Description 12/22/2022 3:15 PM EDT Office Visit Dermatology at [address] [phone] Norm Cassidy MD [address] [facility] [place] [address] Tinea pedis of both feet; Acne vulgaris Social History Tobacco Use Types Packs/Day Years [...] documented as of this encounter Progress Notes * Norm Cassidy MD - 12/22/2022 3:15 PM EDT Problem: Leatha Knutson follows up and has given to a healthy baby boy. His name is Geoff. She calls him Honorio. She is here today however because of a rash that she has. States that she gave to her son on October 26. However during her she started to develop a burning somewhat uncomfortable rash on the right buttocks. This would heal after 2 weeks and then a few weeks later appear slightly more laterally again. Over the course of her the seem to come and go many times extending out more peripherally each time. Today everything is healed. Patient denies any past history of HSV. Physical examination reveals a pleasant 42-year-old woman who has inflammatory patches circular about silver dollar in size consistent with healed HSV. Assessment plan: Recurrent herpes simplex buttocks during . 1. Patient has not had any outbreaks since delivering her healthy baby boy 2. Would not recommend any intervention at this time as her innate immunity may well be able to suppress this again as it did prior to the Acne vulgaris 1. Patient is experiencing some recurrence of her acne vulgaris 2. She would like to go back on spironolactone 100 mg 1 p.o. twice daily. Dispense number #180 for a 3-month supply with 3 refills. Tinea pedis 1. Patient has itching on the soles of her feet. She would like to have a refill of her econazole nitrate 1% cream apply topically to feet soles of feet and toe webspaces spaces on a twice daily basis until symptoms are controlled. 30 g with 2 refills. CC: Araceli Miner APRN documented in this encounter Plan of Treatment Not on file documented as of this encounter Visit Diagnoses Diagnosis Tinea pedis of both feet Acne vulgaris Other acne documented in this encounter Care Teams Players Assistant Relationship Specialty Start Date End Date Araceli Miner APRN [address] [place] [address] PCP - General Family Medicine 12/22/22 documented as of this encounter
--- OUTSIDE RECORDS SUMMARY | 2023-12-09 08:20 | XMS_ITS | Encounter Summary ---
Author Organization [facility] Address [address] [place] [address] Care Team Providers Care Back Shoe Cutter Name Role Phone Marco Antonio Hernandez MD Primary Care Provider [phone] Encounter Details Date Type Department Care Team (Late st Contact Info) Description 04/17/2022 Lab Requisition [facility] Pathology & Laboratory Medicine - [address] [address] Outr Resulting Lab, Provider Social History Tobacco [...] RNA BY PCR Routine 04/16/2022 14:58 EST HEPATITIS B SURFACE ANTIGEN Routine 04/16/2022 14:58 EST documented in this encounter Results * HEPATITIS B SURFACE ANTIGEN (04/16/2022 14:58 EST) Hep B Surface Ag Negative Negative 04/20/2022 9:29 EST [facility] Blood VENOUS BLOOD / Unknown 04/16/2022 14:58 EST 04/17/2022 18:35 EST Provider Outr Resulting Lab CHEMISTRY & BLOOD GAS ORDERABLES [facility] [address] [place] [address] * HEPATITIS C AB W REFLEX TO HCV RNA BY PCR (04/16/2022 14:58 EST) Hep C Antibody Negative Negative 04/20/2022 10:02 EST [facility] Blood VENOUS BLOOD / Unknown 04/16/2022 14:58 EST 04/17/2022 18:35 EST Provider Outr Resulting Lab CHEMISTRY & BLOOD GAS ORDERABLES Performing Organization Address City/[facility] Co de Phone Number [facility] [address] [place] [address] documented in this encounter Visit Diagnoses Not on filedocumented in this encounter Care Teams Back Shoe Cutter Relationship Specialty Start Date End Date Marco Antonio Hernandez MD PCP - General 12/25/14 documented as of this encounter
--- OUTSIDE RECORDS SUMMARY | 2023-12-09 08:20 | XMS_ITS | Encounter Summary ---
Author Organization [facility] [place] [address] Care Team Providers Care Dental Chair Assembler Name Role Phone Araceli Miner APRN Primary Care Provider [phone] Encounter Details Date Type Department Care Team (Late st Contact Info) Description 12/22/2022 Refill Dermatology at [address] [place] [address] Marlin Jameson, CHEESEMAKER HELPER Social History Tobacco Use Types Packs/Day Years [...] on filedocumented in this encounter Care Teams Dental Chair Assembler Relationship Specialty Start Date End Date Araceli Miner APRN [address] [place] [address] PCP - General Family Medicine 12/22/22 documented as of this encounter
--- OUTSIDE RECORDS SUMMARY | 2023-12-09 08:20 | XMS_ITS | Encounter Summary ---
Author Organization [facility] [place] [address] Care Team Providers Care Profile Stitching Machine Operator Name Role Phone Alejandra Jorgensen MD Primary Care Provider [phone] Encounter Details Date Type Department Care Team (Late st Contact Info) Description 11/12/2022 Transcribe Orders eDH Incoming Referrals [phone] Adjovu, Araceli, GROCERY CLERK CHECKING [address] [place], [place] [address] Social History Tobacco Use Types Packs/Day Years [...] on filedocumented in this encounter Care Teams Profile Stitching Machine Operator Relationship Specialty Start Date End Date Alejandra Jorgensen MD [address] [place] [address] PCP - General Family Medicine 06/09/22 12/21/22 documented as of this encounter
--- OUTSIDE RECORDS SUMMARY | 2023-12-09 08:20 | XMS_ITS | Encounter Summary ---
[place] [address] Care Team Providers Care Social Services Manager Name Role Phone Flor Schuler MD Primary Care Provider [phone] Encounter Details Date Type Department Care Team (Late st Contact Info) Description 02/16/2019 Refill Dermatology at [address] [place] [address] Marlin Jameson, SENIOR PORTFOLIO MANAGER Social History Tobacco Use Types Packs/Day Years Used Date Smoking Tobacco: Never Smokeless Tobacco: Never Sex and Gender Information Value Date Recorded Sex Assigned at Not on file Gender Identity Not on file Sexual Orientation Not on file documented as of this encounter Plan of Treatment Not on file documented as of this encounter Visit Diagnoses Not on filedocumented in this encounter Care Teams Social Services Manager Relationship Specialty Start Date End Date Flor Schuler MD [address] [facility] [address] [place] [address] PCP - General Internal Medicine 02/16/19 04/19/22 documented as of this encounter
--- OUTSIDE RECORDS SUMMARY | 2023-12-09 08:20 | XMS_ITS | Encounter Summary ---
Author Organization [facility] Address [address] [place] [address] Care Team Providers Care Usability Engineer Name Role Phone Marco Antonio Hernandez MD Primary Care Provider [phone] Encounter Details Date Type Department Care Team (Late st Contact Info) Description 07/03/2021 Lab Requisition [facility] Pathology & Laboratory Medicine - [address] [address] Outr Resulting Lab, Provider Social History Tobacco [...] Procedure Name Priority Date/Time Associated Diagnosis Comments HIV 1/2 ANTIGEN AND ANTIBODY, 4TH GENERATION Routine 07/03/2021 9:53 EST documented in this encounter Results * HIV 1/2 ANTIGEN AND ANTIBODY, 4TH GENERATION (07/03/2021 9:53 EST) HIV 1 and 2 Antibody/p24 Antigen, 4th Generation Negative Negative 07/04/2021 10:18 EST [facility] Comment:If acute HIV-1 infec tion is suspected in a high risk patient, submit plasma specimen for HIV-1 RNA quantitation test. Blood VENOUS BLOOD / Unknown 07/03/2021 9:53 EST 07/03/2021 21:11 EST Narrative [facility] - 07/04/2021 10:18 EST Fourth Generation assay performed on the Siemens Centaur XPT. Provider Outr Resulting Lab IMMUNOLOGY A ND SEROLOGY ORDERABLES [facility] [address] [place] [address] documented in this encounter Visit Diagnoses Not on filedocumented in this encounter Care Teams Usability Engineer Relationship Specialty Start Date End Date Marco Antonio Hernandez MD PCP - General 12/25/14 documented as of this encounter
--- OUTSIDE RECORDS SUMMARY | 2023-12-09 08:20 | XMS_ITS | Encounter Summary ---
Author Organization [facility] Address [address] [place] [address] Care Team Providers Care Clock Repairer Name Role Phone Marco Antonio Hernandez MD Primary Care Provider [phone] Encounter Details Date Type Department Care Team (Late st Contact Info) Description 07/10/2020 Lab Requisition [facility] Pathology & Laboratory Medicine - [address] [address] Outr Resulting Lab, Provider Social History Tobacco [...] Comments ZZCOVID-19 TEST [facility] PCR Today 07/10/2020 11:26 EST COVID-19 TESTING Routine 07/10/2020 11:2 6 EST documented in this encounter Results * COVID-19 TEST [facility] PCR (07/10/2020 11:26 EST) Swab ENTIRE NASOPHARYNX / Unknown 07/10/2020 11:26 EST 07/10/2020 15:31 EST Provider Outr Resulting Lab MICROBIOLOGY - GENERAL ORDERABLES [facility] [address] [place] [address] * COVID-19 TESTING (07/10/2020 11:26 EST) COVID-19 rt-PCR Result Negative Negative 07/11/2020 11:[address] [facility] Comment: This test has not [...] was performed using the sherry SARS-CoV-2 assay ([employer] on the Sherry 6800 System Performing Lab Sherry [address] [facility] Lab 07/11/2020 11:[address] [facility] Swab 07/10/2020 11:2 6 EST 07/10/2020 15:31 EST Provider Outr Resulting Lab MICROBIOLOGY - GENERAL ORDERABLES Performing Organization Address City/State/[facility] Co de Phone Number [facility] [address] [place] [address] documented in this encounter Visit Diagnoses Not on filedocumented in this encounter Care Teams Clock Repairer Relationship Specialty Start Date End Date Marco Antonio Hernandez MD PCP - General 12/25/14 documented as of this encounter
--- OUTSIDE RECORDS SUMMARY | 2023-12-09 08:20 | XMS_ITS | Encounter Summary ---
[place] [address] Care Team Providers Care Pegger Dobby Looms Name Role Phone Araceli Miner APRN Primary Care Provider [phone] Encounter Details Date Type Department Care Team (Late st Contact Info) Description 03/16/2023 [place] [id number] Radha Ruby Social History Tobacco Use Types Packs/Day Years Used Date Smoking Tobacco: Never Smokeless Tobacco: Never Alcohol Use Standard Drinks/Week Comments Not Currently 0 (1 standard drink = 0.6 oz pur e alcohol) Comments Yes Sex and Gender Information Value Date Recorded Sex Assigned at Not on file Gender Identity Not on file Sexual Orientation Not on file documented as of this encounter Miscellaneous Notes * Telephone Encounter - Radha Ruby - 03/16/2023 11:44 AM EDT Called pt to try and magdi a bumped follow up, left message, sending letter documented in this encounter Plan of Treatment Not on file documented as of this encounter Visit Diagnoses Not on filedocumented in this encounter Care Teams Pegger Dobby Looms Relationship Specialty Start Date End Date Araceli Miner APRN [address] [place] [address] PCP - General Family Medicine 12/22/22 documented as of this encounter
--- OUTSIDE RECORDS SUMMARY | 2023-12-09 08:20 | XMS_ITS | Encounter Summary ---
Author Organization [facility] Address [address] [place] [address] Care Team Providers Care Accounting Officer Name Role Phone Prem Sheehan MD Primary Care Provider Unav ailable Encounter Details Date Type Department Care Team (Late st Contact Info) Description 06/16/2013 Results Only [facility] [phone] Yesica Ware MD [address] [place] [address] Social History Tobacco Use Types Packs/Day Years Used Date Smoking Tobacco: Never Assessed Sex and Gender Information Value Date Recorded Sex Assigned at Not on file Gender Identity Not on file Sexual Orientation Not on file documented as of this encounter Plan of Treatment Not on file documented as of this encounter Procedures Procedure Name Priority Date/Time Associated Diagnosis Comments PAP TEST- RESULT ONLY Routine 06/16/2013 0:00 EST documented in this encounter Results * PAP TEST- RESULT ONLY (06/16/2013 0:00 EST) Pathology Report: CYTOPATHOLOGY REPORT Reports generated via electronic interface contain original data; however they are lacking the format of the original report. Caution should be taken when reading/interpreti ng unformatted reports. Name: ? QI CASH ? Accession #: ? [id number] ? : ? 1980 (Age: 33) ??F ?Collect Date: ? 06/16/2013 ? Location: ? [facility] ? Receive Date: ? 06/20/2013 ? Provider: YESICA WARE MD Copy to: PREM SHEEHAN MD ? Final Report SPECIMEN ADEQUACY ? Satisfactory for Evaluation - transformation zone component present GENERAL CATEGORIZATION ? Negative for Intraepithelial Lesion or Malignancy ?? Last Menstrual Period: 05/26/2013 Specimen/Source: ??Pap Test, Cervix/Endocervix, ThinPrep Imaging System with manual evaluation Document reviewed and electronically signed by: ? ODELL Caraballo(ASCP) ? Report ??Date: 06/23/2013 14:17 HPV with Pap Test ? Date Ordered: ? 06/23/2013 ? Status: ?? Signed Out ?Date Complete: ? 06/27/2013 ? By: ??System Interface ? Date Reported: ? 06/27/2013 ? Interpretation RESULT: Negative for HPV. No E6 or E7 mRNA is detected from HPV types 16,18,31,33,35, 39,45,51,52,56,58, 59,66, and 68 by surveyor geodetic mediated amplification. Comments Document reviewed and electronically signed by: ? System Interface ? Report date: 06/27/2013 By the signature above, the attending physician certifies that he/she has personally conducted a gross and/or microscopic examination of the described specimens and rendered or confirmed the above diagnosis. End of Report [facility] 06/16/2013 06/20/2013 Yesica Ware MD PATHOLOGY ORDERABLES [facility] [address] [place] [address] documented in this encounter Visit Diagnoses Not on filedocumented in this encounter Care Teams Accounting Officer Relationship Specialty Start Date End Date Prem Sheehan MD PCP - General 01/21/10 12/24/14 documented as of this encounter
--- OUTSIDE RECORDS SUMMARY | 2023-12-09 08:20 | XMS_ITS | Encounter Summary ---
Author Organization [facility] Address [address] [place] [address] Care Team Providers Care Varitypist Name Role Phone Marco Antonio Hernandez MD Primary Care Provider [phone] Encounter Details Date Type Department Care Team (Late st Contact Info) Description 07/03/2021 Lab Requisition [facility] Pathology & Laboratory [place] [address] Outr Resulting Lab, Provider Social History Tobacco [...] Procedure Name Priority Date/Time Associated Diagnosis Comments CHRONIC HEPATITIS PROFILE, UNKNOWN TYPE Routine 07/03/2021 9:53 EST documented in this encounter Results * CHRONIC HEPATITIS PROFILE, UNKNOWN TYPE (07/03/2021 9:53 EST) Hep B Surface Ag Negative Negative 07/04/19 10:22 EST [facility] Hep B Surface Ab, Quantitative 646.9 See Note mIU/mL 07/04/2021 10:22 EST [facility] Comment: Reference Range for Hep B Surface Ab, Quant: Positive: >= 10.0 mIU/mL Negative: ??< 10.0 mIU/mL Patient is presumed to be immune to infection with Hepatitis B Virus. Hep B Surface Ab, Qualitative Positive See Note 07/04/2021 10:22 EST [facility] Comment: Reference Range for Hep B Surface Ab, Qual: Unvaccinated: ??Negative Vaccinated: ??Positive Hepatitis B Core Ab, Total Negative Negative 07/04/2021 10:22 EST [facility] Hep C Antibody Negative Negative 07/04/2021 10:22 EST [facility] Blood VENOUS BLOOD / Unknown 07/03/2021 9:53 EST 07/03/2021 21:11 EST Provider Outr Resulting Lab CHEMISTRY & BLOOD GAS ORDERABLES [facility] [address] [place] [address] documented in this encounter Visit Diagnoses Not on filedocumented in this encounter Care Teams Varitypist Relationship Specialty Start Date End Date Marco Antonio Hernandez MD PCP - General 12/25/14 documented as of this encounter
--- OUTSIDE RECORDS SUMMARY | 2023-12-09 08:20 | XMS_ITS | Encounter Summary ---
Author Organization [facility] [place] [address] Care Team Providers Care Hazardous Materials Handler Name Role Phone Alejandra Jorgensen MD Primary Care Provider [phone] Reason for Visit * Reason Comments Positive Genetic Carrier Screen Cystic f ibrosis * Consultation (Urgent) - Closed Specialty Diagnoses / Procedures Referred By Contac t Referred To Contact Obstetrics and Gynecology Diagnoses Supervision of other high risk pregnancies, second trimester Cystic fibrosis carrier Encounter for supervision of normal in second trimester, unspecified Supervision of multigravida of advanced maternal age, antepartum Cara Smith, [address] [place] [address] [facility] Gl[employer] Machine Operator Electronic [address] [place] [address] Referral ID Status Reason Start Date Expiration Date V isits Requested Visits Authorized [id number] Closed Consult, Test & Treat PCP Updated and/or Approved 06/09/2022 06/09/2023 1 1 Encounter Details Date Type Department Care Team (Late st Contact Info) Description 06/19/2022 9:00 AM EST Office Visit Obstetrics [place] [address] Velasquez Zhu, [facility] OBSTETR[facility] [place] [address] Encounter for procreative genetic counseling Social History Tobacco Use Types Packs/Day Years [...] as of this encounter Progress Notes * Velasquez Zhu, [facility] - 06/19/2022 9:00 AM EST Reproductive Genetics Zenia Fiore is a 42 y.o. female currently at 20w0d gestation. I met with Zenia for a 30-minute office visit at the [facility]. She was accompanied by her partner, Derik Reyna. Referring Provider: Cara Smith [address] [place] [address] Chief Concern Patient presents with ??? Positive Genetic Carrier Screen Cystic fibrosis Patient History Past Medical History: Diagnosis Date ??? ADHD ??? Anxiety ??? Gastric ulcer ??? GERD (gastroesophageal reflux disease) ??? Intrahepatic cholestasis of ??? Sleep apnea ?? Ancestry: Macedonian Russian, Wallisian, Yakut, , Citizen Of [place], non-Religious Partner History ?? Name: Derik Reyna ?? : 07/28/1979 ?? Sex: Male ?? Medical History: Not assessed ?? Ancestry: Macedonian Russian, Greek, Upper Sorbian, non-Religious Family History ?? Congenital anomalies: No ?? Known genetic conditions: No ?? Consanguinity: No OB History # Outcome Date GA Lbr Allen/2nd Weight Sex Delivery Anes PTL Lv 6 Current 5 SAB 03/04/21 4 Term 08/15/08 38w0d 3.175 kg (7 lb) M Vag-Spont ARIEL 3A Term 11/2003 41w0d 3.147 kg (6 lb 15 oz) M Vag-Spont ARIEL 3B Term 12/04/03 41w0d 3.232 kg (7 lb 2 oz) M Vag-Spont ARIEL 2 Term 06/18/02 42w0d 4.508 kg (9 lb 15 oz) F Vag-Spont ARIEL 1 IAB Patient's last menstrual period was 01/04/2022 (approximate). Ultrasound 03/24/2022: Predicted gestational age 7w 4d by CRL. Estimated Date of Delivery: 11/06/2022 based on ultrasound dating. Genetic Screening Results ?? Panorama screen (04/16/2022): Low risk for common autosomal trisomies, sex chromosome aneuploidy,and triploidy. ?? Cystic fibrosis carrier screen (04/29/2022): Variant detected...The following heterozygous variant wad identified: CFTR, p.[id number] (p.[id number]), c.3154T>G, [id number], Variant of Varying Clinical Consequence, Autosomal Recessive, Cystic Fibrosis ?? Spinal muscular atrophy carrier screen (04/29/2022): Negative for SMN1 deletion. Two copies of SMN1 exon 7 were detected. The g.00588J>G polymorphism is absent. Assessment 1. Cystic fibrosis carrier: Cystic fibrosis is an autosomal recessive condition. Zenia's cystic fibrosis carrier screen was positive for one copy of the CFTR variant commonly designated as [id number].This variant is associated with variable expressivity; the clinical symptoms that may be associatedwith this variant when in trans with another CFTR variant often cannot be predicted. Derik would like to have cystic fibrosis carrier screening. Based on his ancestry and negative family history, his chance of being a carrier for classic cystic fibrosis is 1 in 25 (4%). His chance of being a carrier for any CFTR-related disorder is estimated to be 1 in 9 (11%). I offered him carrier screening via full-gene sequencing and deletion/duplication analysis, which has a carrier detection rate of99%. Derik was in agreement with this plan. 2. Other carrier screening: In accordance with ACOG guidelines, I offered Zenia and Derik carrier screening for Agusto-Sachs disease based on their [place] ancestry. The carrier frequency of Agusto-Sachs disease is increased among individuals of [place] Russian ancestry living in [place] (1 in 73). Additionally, ACMG now recommends expanded carrier screening for around 100 conditions with a trfyhnyd-og-yspqlg phenotype and a high carrier frequency. During an ongoing , itis ideal to perform carrier screening on both partners simultaneously so that results can be obtained in a timely manner. After thoughtful consideration, the couple declined carrier screening for Agusto- Sachs disease and expanded carrier screening. Plan Partner testing: [employer] cystic fibrosis (CFTR) carrier screen ordered for Derik Reyna ( ). Results will be communicated to Derik directly. documented in this encounter Plan of Treatment Scheduled Referrals Name Type Priority Associated Diagnoses Orde r Schedule Referral to Maternal Medicine Outpatient Referral Urgent Supervision of other high risk pregnancies, second trimester Cystic fibrosis carrier Encounter for supervision of normal in second trimester, unspecified Supervision of multigravida of advanced maternal age, antepartum Ordered: 06/09/2022 documented as of this encounter Visit Diagnoses Diagnosis Encounter for procreative genetic counseling documented in this encounter Care Teams Hazardous Materials Handler Relationship Specialty Start Date End Date Alejandra Jorgensen MD [address] [place] [address] PCP - General Family Medicine 06/09/22 12/21/22 documented as of this encounter
--- OUTSIDE RECORDS SUMMARY | 2023-12-09 08:20 | XMS_ITS | Encounter Summary ---
[place] [address] Care Team Providers Care Math And Science Division Chair Name Role Phone Alejandra Jorgensen MD Primary Care Provider [phone] Reason for Referral * Consultation (Urgent) - Closed Specialty Diagnoses / Procedures Referred By Contac t Referred To Contact Obstetrics and Gynecology Diagnoses Supervision of other high risk pregnancies, second trimester Cystic fibrosis carrier Encounter for supervision of normal in second trimester, unspecified Supervision of multigravida of advanced maternal age, antepartum Cara Smith CNM [address] [place] [address] [address] [place] [address] [facility] [place] [facility] [employer] [place] [address] [address] Referral ID Status Reason Start Date Expiration Date V isits Requested Visits Authorized [id number] Closed Consult, Test & Treat PCP Updated and/or Approved 06/09/2022 06/09/2023 1 1 Encounter Details Date Type Department Care Team (Late st Contact Info) Description 06/09/2022 Transcribe Orders eDH Incoming Referrals [phone] Cara Smith CNM [address] [place] [address] [address] [place] [place], [place] [id number] Supervision of other high risk pregnancies, second trimester; Cystic fibrosis carrier; Encounter for supervision of normal in second trimester, unspecified ; Supervision of multigravida of advanced maternal age, antepartum Social History Tobacco Use Types Packs/Day Years Used Date Smoking Tobacco: Never Smokeless Tobacco: Never Sex and Gender Information Value Date Recorded Sex Assigned at Not on file Gender Identity Not on file Sexual Orientation Not on file documented as of this encounter Plan of Treatment Scheduled Referrals Name Type Priority Associated Diagnoses Orde r Schedule Referral to Maternal Medicine Outpatient Referral Urgent Supervision of other high risk pregnancies, second trimester Cystic fibrosis carrier Encounter for supervision of normal in second trimester, unspecified Supervision of multigravida of advanced maternal age, antepartum Ordered: 06/09/2022 documented as of this encounter Visit Diagnoses Diagnosis Supervision of other high risk pregnancies, second trimester Cystic fibrosis carrier Cystic fibrosis gene carrier Encounter for supervision of normal in second trimester, unspecified Supervision of multigravida of advanced maternal age, antepartum documented in this encounter Care Teams Math And Science Division Chair Relationship Specialty Start Date End Date Alejandra Jorgensen MD [address] [place] [address] PCP - General Family Medicine 06/09/22 12/21/22 documented as of this encounter
--- OUTSIDE RECORDS SUMMARY | 2023-12-09 08:20 | XMS_ITS | Encounter Summary ---
Author Organization [facility] Address [address] [place] [address] Care Team Providers Care Dye Lab Technician Name Role Phone Unavailable Primary Care Provider Unavailabl e Encounter Details Date Type Department Care Team (Late st Contact Info) Description 01/06/2010 Results Only [facility] [phone] Yesica Ware MD [address] [place] [address] Social History Tobacco Use Types Packs/Day Years Used Date Smoking Tobacco: Never Assessed Sex and Gender Information Value Date Recorded Sex Assigned at Not on file Gender Identity Not on file Sexual Orientation Not on file documented as of this encounter Plan of Treatment Not on file documented as of this encounter Procedures Procedure Name Priority Date/Time Associated Diagnosis Comments SURGICAL PATHOLOGY Routine 01/06/2010 0:00 EDT documented in this encounter Results * SURGICAL PATHOLOGY (01/06/2010 0:00 EDT) Pathology Report: SURGICAL PATHOLOGY REPORT ? Reports generated via electronic interface contain original data; ? however they are lacking the format of the original report. ? Caution should be taken when reading/interpreting unformatted reports. ? Name: ? HEROUX, QI L ? Accession #: ? [id number] ? : ? 1980 (Age: 29) ??F ?Collect Date: ? 01/06/2010 ? Location: ? [facility] ? Receive Date: ? 01/07/2010 ? Provider: YESICA WARE MD ? Copy to: SHANITA STEW MD ? Addendum ? Date Ordered: ? 01/22/2010 ? Status: Signed Out ? Date Complete: ? 01/22/2010 ? By: Elena Sammi ? Date Reported: ? 01/23/2010 ? Addendum Comment ? This addendum is being issued to report the result of DNA ploidy analysis ?? by florescent in situ hybridization (FISH) performed at the [facility]. ??No ? clonal aneuploidy was detected and therefore there is no support for a partial ?? molar . ??The morphologic ??changes seen in this case can also be ? observed in early non-molar . ??The findings have been communicated to ?? Dr. Yesica Ware's office on 01/22/[address] Damon Melendez. ??A copy of the ? FISH analysis will be faxed to the clinician's office under separate cover. ??The original diagnosis is unchanged. ??(Dr. Luis)/mpl ? Document reviewed and electronically signed by: ? SALVADOR LUIS MD ? Report date: 01/23/2010 ? By the signature above, the attending physician certifies that he/she has ? personally conducted a gross and/or microscopic examination of the described ? specimens and rendered or confirmed the above diagnosis. ? Final Report ? Final Pathologic Diagnosis: ? Uterine contents, curettage: ? 1. ?Immature chorionic villi with hydropic changes. See comment. ? 2. ? Gestational endometrium with placental site change. ? Comment: ? This case was reviewed in the intradepartmental consultation conference. ?? The specimen consists of a mixture of hydropic and normal appearing chorionic ?? villi. Some of the hydropic villi show a central, acellular cistern-like ? formation. The trophoblastic proliferation is essentially polar. A non-molar ? hydropic abortus, is favored. However a partial molar can not be ruled out on H&E morphologic grounds alone. Hence Formalin fixed paraffin embedded ? block (A3) is being sent to the [facility] [employer] for evaluation of DNA ploidy. The result of this assay will be issued separately in an addendum ? report. ? Gross Description: ? Received in formalin labelled Heroux, Qi and uterus are 3.0 x 2.5 x 0.4 cm of multiple palacios-pink to red, hemorrhagic irregular soft tissue ? fragments. ??No parts are grossly identified. ??The specimen is entirely ? submitted as (A1)-(A3) following filtration. ??(Santos Mistry)/mpl ? Clinical History: ? Blighted ovum on U/S IUD in cervix ? Specimens Received: ? Uterine suctioned contents with office [place] ? Document reviewed and electronically signed by: ? SALVADOR B AMBAYE MD ? Report ??Date: 01/09/2010 08:37 ? By the signature above, the attending physician certifies that he/she has ? personally conducted a gross and/or microscopic examination of the described ? specimens and rendered or confirmed the above diagnosis. ? End of Report ? [facility] 01/06/2010 01/07/2010 8:3 3 EDT Yesica Ware MD PATHOLOGY ORDERABLES [facility] [address] [place] [address] documented in this encounter Visit Diagnoses Not on filedocumented in this encounter
--- OUTSIDE RECORDS SUMMARY | 2023-12-09 08:20 | XMS_ITS | Encounter Summary ---
Author Organization [facility] Address [address] [place] [address] Care Team Providers Care Dynamite Packing Machine Operator Name Role Phone Marco Antonio Hernandez MD Primary Care Provider [phone] Encounter Details Date Type Department Care Team (Late st Contact Info) Description 03/17/2019 Results Only [facility] [phone] Catie George MD [address] [place] [address] [place] [address] Social History Tobacco Use Types Packs/Day Years [...] Diagnosis Comments PAP TEST- RESULT ONLY Routine 03/17/2019 0:00 EDT documented in this encounter Results * PAP TEST- RESULT ONLY (03/17/2019 0:00 EDT) Pathology Report: CYTOPATHOLOGY REPORT Reports generated via electronic interface contain original data; however they are lacking the format of the original report. Caution should be taken when reading/interpreti ng unformatted reports. Name: ? QI BLAIR ? Accession #: ? [id number] ? : ? 1980 (Age: 39) ??F ?Collect Date: ? 03/17/2019 ? Location: ? [facility] ? Receive Date: ? 03/20/2019 ? Provider: CATIE GEORGE MD Copy to: DANIEL RODRIGUEZ MD ? Final Report SPECIMEN ADEQUACY ? Satisfactory for Evaluation - transformation zone component present GENERAL CATEGORIZATION ? Negative for Intraepithelial Lesion or Malignancy ?? Hormonal/Contracep tive status: Yes: Progestin only pill Specimen/Source: ??Pap Test, Cervix, ThinPrep Imaging System with manual evaluation Document reviewed and electronically signed by: ? Wilman Alex, CT(ASCP) ? Report ??Date: 03/23/2019 11:27 HPV with Pap Test ? Date Ordered: ? 03/23/2019 ? Status: ?? Signed Out ?Date Complete: ? 03/24/2019 ? By: ??System Interface ? Date Reported: ? 03/24/2019 ? Interpretation RESULT: Negative for HPV. No E6 or E7 mRNA is detected from HPV types 16,18,31,33,35, 39,45,51,52,56,58, 59,66, and 68 by earth science faculty member mediated amplification. Comments Document reviewed and electronically signed by: ? System Interface ? Report date: 03/24/2019 By the signature above, the attending physician certifies that he/she has personally conducted a gross and/or microscopic examination of the described specimens and rendered or confirmed the above diagnosis. End of Report [facility] 03/17/2019 03/20/2019 Catie George MD PATHOLOGY ORDERABLES [facility] [address] [place] [address] documented in this encounter Visit Diagnoses Not on filedocumented in this encounter Care Teams Dynamite Packing Machine Operator Relationship Specialty Start Date End Date Marco Antonio Hernandez MD PCP - General 12/25/14 documented as of this encounter
--- OUTSIDE RECORDS SUMMARY | 2023-12-09 08:20 | XMS_ITS | Encounter Summary ---
Author Organization [facility] [place] [address] Care Team Providers Care Gas Desulfurizer Name Role Phone Alejandra Jorgensen MD Primary Care Provider [phone] Encounter Details Date Type Department Care Team ([facility] st Contact Info) Description 11/20/2022 [place] [phone] Harleen Martinez RN Social History Tobacco Use Types Packs/Day Years [...] encounter Miscellaneous Notes * Telephone Encounter - Harleen Martinez RN - 11/20/2022 3:27 PM EDT RTC to [facility] # [id number]. Message left on voicemail to call back One month Joints.hands affected. Not able to hold baby Hands wrists Elbows bilaterally. Swollen, no redness, or warmth.Very painful. Worsen after baby born. Laxity of joints, worsened. Provider asking if this patient would be able to be seen sooner in Rheumatology due to the exacerbation of her symptoms, making life with more difficult? Nurse said she would send message to Dr Smith, On-call Provider this week. documented in this encounter Plan of Treatment Not on file documented as of this encounter Visit Diagnoses Not on filedocumented in this encounter Care Teams Gas Desulfurizer Relationship Specialty Start Date End Date Alejandra Jorgensen MD [address] [place] [id number] PCP - General Family Medicine 06/09/22 12/21/22 documented as of this encounter
--- OUTSIDE RECORDS SUMMARY | 2023-12-09 08:20 | XMS_ITS | Encounter Summary ---
Author Organization [facility] Address [address] [place] [address] Care Team Providers Care Tap Puller Name Role Phone Prem Sheehan MD Primary Care Provider Unav ailable Encounter Details Date Type Department Care Team (Latest Contact Info) Description 12/21/2014 11:07 EDT - 12/21/2014 23:59 EDT Hospital Encounter [address] [address] Unknown, Provider, Discharge Disposition: Home or Self Care Social History Tobacco Use Types Packs/Day Years Used Date Smoking Tobacco: Never Assessed Sex and Gender Information Value Date Recorded Sex Assigned at Not on file Gender Identity Not on file Sexual Orientation Not on file documented as of this encounter Discharge Disposition Disposition Code Departure Means Destination Home or Self Nursing Home documented in this encounter Plan of Treatment Not on file documented as of this encounter Visit Diagnoses Not on filedocumented in this encounter Care Teams Tap Puller Relationship Specialty Start Date End Date Prem Sheehan MD PCP - General 01/21/10 12/24/14 documented as of this encounter
--- OUTSIDE RECORDS SUMMARY | 2023-12-09 08:20 | XMS_ITS | Encounter Summary ---
[place] [address] Care Team Providers Care Luggage Liner Name Role Phone Alejandra Jorgensen MD Primary Care Provider [phone] Reason for Referral * Diagnostic Test (Routine) - Closed Specialty Diagnoses / Procedures Referred By Contac t Referred To Contact Radiology Diagnoses Elderly multigravida with antepartum condition or complication Procedures US OB Detailed Morphology [facility] [address] [place] [address] [place] [address] Referral ID Status Reason Start Date Expiration Date V isits Requested Visits Authorized [id number] Closed Specialty Service Requested 04/20/2022 10/20/2023 1 1 Reason for Visit * Diagnostic Test (Routine) - Closed Specialty Diagnoses / Procedures Referred By Contac t Referred To Contact Radiology Diagnoses Elderly multigravida with antepartum condition or complication Procedures US OB Detailed Morphology [facility] [address] [place] [address] [place] [address] Referral ID Status Reason Start Date Expiration Date V isits Requested Visits Authorized [id number] Closed Specialty Service Requested 04/20/2022 10/20/2023 1 1 Encounter Details Date Type Department Care Team (Latest Contact Info) Description 06/19/2022 9:20 AM EST - 06/19/2022 11:59 PM EST Hospital [place] [address] [address] [place] [address] Elderly multigravida with antepartum condition or complication Discharge Disposition: Home Social History Tobacco Use Types Packs/Day Years Used Date Smoking Tobacco: Never Smokeless Tobacco: Never Alcohol Use Standard Drinks/Week Comments Not Currently 0 (1 standard drink = 0.6 oz pur e alcohol) Comments Yes Sex and Gender Information Value Date Recorded Sex Assigned at Not on file Gender Identity Not on file Sexual Orientation Not on file documented as of this encounter Medications at Time of Discharge Medication Sig Dispensed Refills Start Date End Date multivitamin (THERAGRAN) Tablet Take 1 tablet by mouth daily. documented as of this encounter Plan of Treatment Not on file documented as of this encounter Procedures Procedure Name Priority Date/Time Associated Diagnosis Comments US OB DETAILED MORPHOLOGY Routine 06/19/2022 11:09 AM EST Elderly multigravida with antepartum condition or complication documented in this encounter Results * US OB Detailed Morphology (06/19/2022 11:09 AM EST) Anatomical Region Laterality Modality Pelvis, Abdomen Ultrasound 06/19/2022 9:54 AM EST Impressions 06/19/2022 11:09 AM EST 2nd Trimester - Detailed Morphology - Summary Single intrauterine with a gestational age of 20w 0d based on Early Ultrasound ??(03/24/22) Composite age based on the current ultrasound alone is 20w 1d. Current growth parameters are consistent with prior dating indicating normal growth. Amniotic fluid volume is subjectively normal for gestational age. Detailed anatomic evaluation was performed and no structural abnormalities are noted. Thank you for letting us participate in the care of this patient. If you are a health care provider and have any questions regarding this report, please contact the number above. For patients who have questions, please contact the health ambulatory care that requested your imaging first. ?Susannah Pantoja, Staff Physician Electronically Signed Final Report ?? 06/19/2022 11:08 am Narrative 06/19/2022 11:09 AM EST OBSTETRICS REPORT ?(Signed Final 06/19/2022 11:08 am) PATIENT INFO: ID #: ? [id number] ?: ??[birth year] (42 yrs)(F) Name: ? QI Marquez SHAILESH ?Visit Date: 06/19/2022 09:54 am PERFORMED BY: Performed By: ? Cheryl Schwartz RDMS Attending: ?Kit OCONNOR, Susannah Downey Referred By: ?ELI LEIGH Location: ? [facility] SERVICE(S) PROVIDED: [facility] - Detailed Morphology - [id number] ? [id number] INDICATIONS: 20 weeks gestation of ?Z3A.20 AMA VITAL SIGNS: Weight (lb): 296.0 Height: ?6'0 ? BMI: ? 40.14 EVALUATION: Num Of Fetuses: ? 1 Heart Rate(bpm): ??144 Cardiac Activity: ? Observed, normal rhythm Presentation: ? Variable Placenta: ? Posterior P. Cord Insertion: ?Eccentric Amniotic Fluid ONI FV: ?Subjectively normal for gestational age --------- BIOMETRY: --------- BPD: ?44.4 ??mm ? G.Age: ?? 19w 3d OFD: ?60.7 ??mm HC: ?169.0 ??mm ? G.Age: ?? 19w 4d AC: ?165.3 ??mm ? G.Age: ?? 21w 4d FL: ? 32.3 ??mm ? G.Age: ?? 20w 0d HUM: ?31.5 ??mm ? G.Age: ?? 20w 4d CER: ?20.6 ??mm ? G.Age: ?? 19w 4d NFT: ?3.83 ??mm NB: ?2.4 ??mm LV: ?7.8 ??mm CM: ?4.7 ??mm CI: ?73.1 ??% ? 70 - 86 FL/HC: ? 19.1 ??% ? 16.8 - 19.8 HC/AC: ? 1.02 ?1.09 - 1.39 FL/BPD: ?72.7 ??% FL/AC: ? 19.5 ??% ? - 24 Est. FW: ? 371 ??gm ?0 lb 13 oz OB HISTORY: : ?6 ?SAB: ?? 1 TOP: ?1 ?Living: ??4 GESTATIONAL AGE: Clinical BOB: ??20w 0d ?BOB: ?? 11/06/22 U/S Today: ? 20w 1d ?BOB: ?? 11/05/22 Best: ?20w 0d ?? Det. By: ??Early ?BOB: ?? 11/06/22 ? Ultrasound ? (03/24/22) TARGETED ANATOMY: Central Nervous System Calvarium/Cranial V.: ??Within Normal Limits Intracranial Yessenia: ? Visualized Cavum: ? Visualized Parenchyma: ?Visualized Lateral Ventricles: ?Within Normal Limits Choroid Plexus: ?Visualized Cereb./Vermis: ? Within Normal Limits Cisterna Magna: ?Within Normal Limits Midline Falx: ?Visualized Spine Cervical: ?Visualized Thoracic: ?Visualized Lumbar: ?Visualized Sacral: ?Visualized Shape/Curvature: ? Visualized Head/Neck Face: ?Visualized Lips: ?Visualized Neck: ?Visualized Nuchal Fold: ? Within Normal Limits Nasal Bone: ?Present Profile: ? Visualized Orbits/Eyes: ? Visualized Mandible: ?Visualized Maxilla: ? Visualized Thorax Thoracic Contour: ?Visualized Lungs: ? Visualized 4 Chamber View: ?Visualized Cardiac Activity: ?Normal Rhythm Rt Outflow Tract: ?Visualized Lt Outflow Tract: ?Visualized Aortic Arch: ? Visualized Ductal Arch: ? Visualized SVC: ? Visualized Interventr. Septum: ?Visualized Cardiac Whitefield: ?Visualized Diaphragm: ? Visualized 3 Vessel View: ? Visualized 3 V Trachea View: ?Visualized IVC: ? Visualized Crossing: ?Visualized Abdomen Ventral Wall: ?Visualized Cord Insertion: ?Visualized Situs: ? Normal Stomach: ? Visualized Liver: ? Visualized Lt Kidney: ? Visualized Rt Kidney: ? Visualized Bladder: ? Visualized Bowel: ? Visualized Extremities Lt Humerus: ?Visualized Rt Humerus: ?Visualized Lt Forearm: ?Visualized Rt Forearm: ?Visualized Lt Hand: ? Visualized Rt Hand: ? Visualized Lt Femur: ?Visualized Rt Femur: ?Visualized Lt Lower Leg: ?Visualized Rt Lower Leg: ?Visualized Lt Foot: ? Visualized Rt Foot: ? Visualized Other Umbilical Cord: ?3 vessel cord Genitalia: ? Visualized CERVIX UTERUS ADNEXA: Right Ovary Size(cm) ? 2.9 ??x ?? 2.3 ?x ??1.5 ? Vol(ml): 5.2 Visualized Left Ovary Not visualized Procedure Note Susannah Pantoja MD - 06/19/2022 OBSTETRICS REPORT (Signed Final 06/19/2022 11:08 am) PATIENT INFO: ID #: [id number] : [birth year] (42 yrs)(F) Name: QI CASH Visit Date: 06/19/2022 09:54 am PERFORMED BY: Performed By: Cheryl Schwartz RDMS Attending: Susannah Pantoja MD Referred By: ELI LEIGH Location: [facility] SERVICE(S) PROVIDED: [facility] - Detailed Morphology - [id number] INDICATIONS: 20 weeks gestation of Z3A.20 AMA VITAL SIGNS: Weight (lb): 296.0 Height: 6'0 BMI: 40.14 EVALUATION: Num Of Fetuses: 1 Heart Rate(bpm): 144 Cardiac Activity: Observed, normal rhythm Presentation: Variable Placenta: Posterior P. Cord Insertion: Eccentric Amniotic Fluid ONI FV: Subjectively normal for gestational age --------- BIOMETRY: --------- BPD: 44.4 mm G.Age: 19w 3d OFD: 60.7 mm HC: 169.0 mm G.Age: 19w 4d AC: 165.3 mm G.Age: 21w 4d FL: 32.3 mm G.Age: 20w 0d HUM: 31.5 mm G.Age: 20w 4d CER: 20.6 mm G.Age: 19w 4d NFT: 3.83 mm NB: 2.4 mm LV: 7.8 mm CM: 4.7 mm CI: 73.1 % 70 - 86 FL/HC: 19.1 % 16.8 - 19.8 HC/AC: 1.02 1.09 - 1.39 FL/BPD: 72.7 % FL/AC: 19.5 % 20 - 24 Est. FW: 371 gm 0 lb 13 oz OB HISTORY: : 6 SAB: 1 TOP: 1 Livin GESTATIONAL AGE: Clinical BOB: 20w 0d BOB: 11/06/22 U/S Today: 20w 1d BOB: 11/05/22 Best: 20w 0d Det. By: Early BOB: 11/06/22 Ultrasound (03/24/22) TARGETED ANATOMY: Central Nervous System Calvarium/Cranial V.: Within Normal Limits Intracranial Yessenia: Visualized Cavum: Visualized Parenchyma: Visualized Lateral Ventricles: Within Normal Limits Choroid Plexus: Visualized Cereb./Vermis: Within Normal Limits Cisterna Magna: Within Normal Limits Midline Falx: Visualized Spine Cervical: Visualized Thoracic: Visualized Lumbar: Visualized Sacral: Visualized Shape/Curvature: Visualized Head/Neck Face: Visualized Lips: Visualized Neck: Visualized Nuchal Fold: Within Normal Limits Nasal Bone: Present Profile: Visualized Orbits/Eyes: Visualized Mandible: Visualized Maxilla: Visualized Thorax Thoracic Contour: Visualized Lungs: Visualized 4 Chamber View: Visualized Cardiac Activity: Normal Rhythm Rt Outflow Tract: Visualized Lt Outflow Tract: Visualized Aortic Arch: Visualized Ductal Arch: Visualized SVC: Visualized Interventr. Septum: Visualized Cardiac Whitefield: Visualized Diaphragm: Visualized 3 Vessel View: Visualized 3 V Trachea View: Visualized IVC: Visualized Crossing: Visualized Abdomen Ventral Wall: Visualized Cord Insertion: Visualized Situs: Normal Stomach: Visualized Liver: Visualized Lt Kidney: Visualized Rt Kidney: Visualized Bladder: Visualized Bowel: Visualized Extremities Lt Humerus: Visualized Rt Humerus: Visualized Lt Forearm: Visualized Rt Forearm: Visualized Lt Hand: Visualized Rt Hand: Visualized Lt Femur: Visualized Rt Femur: Visualized Lt Lower Leg: Visualized Rt Lower Leg: Visualized Lt Foot: Visualized Rt Foot: Visualized Other Umbilical Cord: 3 vessel cord Genitalia: Visualized CERVIX UTERUS ADNEXA: Right Ovary Size(cm) 2.9 x 2.3 x 1.5 Vol(ml): 5.2 Visualized Left Ovary Not visualized IMPRESSION 2nd Trimester - Detailed Morphology - Summary Single intrauterine with a gestational age of 20w 0d based on Early Ultrasound (03/24/22) Composite age based on the current ultrasound alone is 20w 1d. Current growth parameters are consistent with prior dating indicating normal growth. Amniotic fluid volume is subjectively normal for gestational age. Detailed anatomic evaluation was performed and no structural abnormalities are noted. Thank you for letting us participate in the care of this patient. If you are a health care provider and have any questions regarding this report, please contact the number above. For patients who have questions, please contact the health ambulatory care that requested your imaging first. Susannah Pantoja, Staff Physician Electronically Signed Final Report 06/19/2022 11:08 am Eli Leigh CNM IMG US OB ORDERABLE S documented in this encounter Visit Diagnoses Diagnosis Elderly multigravida with antepartum condition or complication documented in this encounter Care Teams Luggage Liner Relationship Specialty Start Date End Date Alejandra Jorgensen MD [address] [place] [place] [address] PCP - General Family Medicine 06/09/22 12/21/22 documented as of this encounter
--- OUTSIDE RECORDS SUMMARY | 2023-12-09 08:20 | XMS_ITS | Encounter Summary ---
Author Organization [facility] Address [address] [place] [address] Care Team Providers Care Neonatal Surgeon Name Role Phone Marco Antonio Hernandez MD Primary Care Provider [phone] Encounter Details Date Type Department Care Team (Late st Contact Info) Description 06/11/2020 Lab Requisition [facility] Pathology & Laboratory Medicine - [address] [address] Outr Resulting Lab, Provider Social History Tobacco [...] Comments ZZCOVID-19 TEST [facility] PCR Today 06/11/2020 8:56 EST COVID-19 TESTING Routine 06/11/2020 8:56 EST documented in this encounter Results * COVID-19 TEST [facility] PCR (06/11/2020 8:56 EST) Swab ENTIRE NASOPHARYNX / Unknown 06/11/2020 8:56 EST 06/11/2020 16:20 EST Provider Outr Resulting Lab MICROBIOLOGY - GENERAL ORDERABLES [facility] [address] [place] [address] * COVID-19 TESTING (06/11/2020 8:56 EST) COVID-19 rt-PCR Result Negative Negative 06/12/2020 12:50 EST [facility] Comment: Negative results do not preclude 2019-nCoV infection and should not be used as the sole basis for treatment or other patient management decisions. Negative results must be combined with clinical observations, patient history, and epidemiological information. This test was developed and its performance characteristics determined by [facility]. It has not been cleared or approved [...] testing. This test is based on the [facility] COVID-19 Emergency Use Authorization (EUA) assay, with minor modification as defined by the FDA Performed on the [employer] 7 Flex RT-PCR System. Performing Lab [facility] Lab 06/12/2020 12:50 EST [facility] Swab 06/11/2020 8:56 EST 06/11/2020 16:20 EST Provider Outr Resulting Lab MICROBIOLOGY - GENERAL ORDERABLES [facility] [address] [place] [address] documented in this encounter Visit Diagnoses Not on filedocumented in this encounter Care Teams Neonatal Surgeon Relationship Specialty Start Date End Date Marco Antonio Hernandez MD PCP - General 12/25/14 documented as of this encounter
--- OUTSIDE RECORDS SUMMARY | 2023-12-09 08:20 | XMS_ITS | Encounter Summary ---
[place] [address] Care Team Providers Care Wired Sweatband Cutter Name Role Phone Alejandra Jorgensen MD Primary Care Provider [phone] Encounter Details Date Type Department Care Team (Latest Contact Info) Description 06/19/2022 Travel Social History Tobacco Use Types Packs/Day [...] on filedocumented in this encounter Care Teams Wired Sweatband Cutter Relationship Specialty Start Date End Date Alejandra Jorgensen MD [address] [place] [address] PCP - General Family Medicine 06/09/22 12/21/22 documented as of this encounter
--- OUTSIDE RECORDS SUMMARY | 2023-12-09 08:20 | XMS_ITS | Encounter Summary ---
Author Organization Formerly [facility] [place] [address] Care Team Providers Care Stadium Manager Name Role Phone Alejandra Jorgensen MD Primary Care Provider [phone] Encounter Details Date Type Department Care Team (Latest Contact Info) Description 12/04/2022 2:50 PM EDT Laboratory Appointment Lab [address] [place] [id number] Polyarthralgia; Fibromyalgia affecting multiple sites; Brain fog; Fatigue, unspecified type Social History Tobacco Use Types Packs/Day Years [...] Procedure Name Priority Date/Time Associated Diagnosis Comments HC URINALYSIS ROUTINE Routine 12/04/2022 3:00 PM EDT Polyarthralgia Fibromyalgia affecting multiple sites Brain fog Fatigue, unspecified type HC PROTEIN, QUANTITATIVE, URINE Routine 12/04/2022 3:00 PM EDT Polyarthralgia Fibromyalgia affecting multiple sites Brain fog Fatigue, unspecified type HC C-REACTIVE PROTEIN Routine 12/04/2022 2:56 PM EDT Polyarthralgia Fibromyalgia affecting multiple sites Brain fog Fatigue, unspecified type HC FENG PANEL Routine 12/04/2022 2:56 PM EDT Polyarthralgia Fibromyalgia affecting multiple sites Brain fog Fatigue, unspecified type HC QUANTIFERON Routine 12/04/2022 2:56 PM EDT Polyarthralgia Fibromyalgia affecting multiple sites Brain fog Fatigue, unspecified type HC CYCLIC CITRULLINE PEPTIDE Routine 12/04/2022 2:56 PM EDT Polyarthralgia Fibromyalgia affecting multiple sites Brain fog Fatigue, unspecified type HEMOGRAM Routine 12/04/2022 2:56 PM EDT Polyarthralgia Fibromyalgia affecting multiple sites Brain fog Fatigue, unspecified type DIFFERENTIAL, AUTOMATED Routine 12/04/2022 2:56 PM EDT Polyarthralgia Fibromyalgia affecting multiple sites Brain fog Fatigue, unspecified type HC HEPATITIS B CORE AB Routine 2:56 PM EDT Polyarthralgia Fibromyalgia affecting multiple sites Brain fog Fatigue, unspecified type HC VITAMIN D TOTAL-25 HYDROXY Routine 12/04/2022 2:56 PM EDT Polyarthralgia Fibromyalgia affecting multiple sites Brain fog Fatigue, unspecified type HC HIV SCREEN, 4TH GENERATION Routine 12/04/2022 2:56 PM EDT Polyarthralgia Fibromyalgia affecting multiple sites Brain fog Fatigue, unspecified type HC ESR-SEDIMENTATION RATE, BLOOD Routine 12/04/2022 2:56 PM EDT Polyarthralgia Fibromyalgia affecting multiple sites Brain fog Fatigue, unspecified type HC CBC,PLT & AUTO DIFF Routine 2:56 PM EDT Polyarthralgia Fibromyalgia affecting multiple sites Brain fog Fatigue, unspecified type HC URIC ACID, SERUM Routine 12/04/2022 2 :56 PM EDT Polyarthralgia Fibromyalgia affecting multiple sites Brain fog Fatigue, unspecified type HC THYROID STIMULATING HORMONE, SERUM Routine 12/04/2022 2:56 PM EDT Polyarthralgia Fibromyalgia affecting multiple sites Brain fog Fatigue, unspecified type HC CREATINE PHOSPHOKINASE, SERUM Routine 12/04/2022 2:56 PM EDT Polyarthralgia Fibromyalgia affecting multiple sites Brain fog Fatigue, unspecified type COMPREHENSIVE METABOLIC PANEL (NON-FASTING) Routine 12/04/2022 2:56 PM EDT Polyarthralgia Fibromyalgia affecting multiple sites Brain fog Fatigue, unspecified type documented in this encounter Results * (ABNORMAL) _Urinalysis with microscopic (12/04/2022 3:00 PM EDT) Glucose UA Negative Negative mg/dL [facility] Protein UA Negative Negative mg/dL [facility] Bilirubin UA Negative Negative mg/dL [facility] Comment: Clinical correlation required for positive Urine Bilirubin results as false positive may occur with some drugs and drug related products. If a false positive is suspected a serum total bilirubin should be considered if clinically indicated. Urobilinogen UA Normal Normal mg/dL [facility] pH UA 6.0 5.0 - 8.0 [facility] Blood UA Negative Negative mg/dL [facility] Ketones UA Negative Negative mg/dL [facility] Nitrite UA Negative Negative [facility] Leukocytes UA Negative Negative mcL [facility] Appearance UA Clear Clear [facility] Spec [place] UA 1.018 1.005 - 1.030 [facility] Color UA Yellow Yellow [facility] RBC UA 1 0 - 4 /HPF [facility] WBC UA 2 0 - 5 /HPF [facility] Bacteria UA Rare(A) None /HPF [facility] Squam Epith UA 2 <=4 /HPF [facility] Urine 12/04/2022 3:00 PM EDT 12/04/2022 3:09 PM EDT Narrative Resulting Agency Comment Spec In Lab Maxi Crowder MD URINE ORDERABLES Performing Organization Address City/[facility]/ZIP Co de Phone Number [facility] [place] [address] * Protein/Creatinine Ratio, urine (12/04/2022 3:00 PM EDT) U Creatinine 104 mg/dL [facility] U Protein Ran <6 0 - 12 mg/dL [facility] Prot/Cre Ratio <0.1 ratio [facility] Urine 12/04/2022 3:00 PM EDT 12/04/2022 3:09 PM EDT Narrative Resulting Agency Comment Spec In Lab Maxi Crowder MD URINE ORDERABLES Performing Organization Address [facility] Co de Phone Number [facility] [place] [address] * Differential, Automated (12/04/2022 2:56 PM EDT) Neutrophils % 49.1 % [facility] Neutr Abs (ANC) 3.66 1.70 - 6.10 x10(3)/[facility] Lymphocytes % 38.3 % [facility] Lymphocytes Abs 2.9 0.9 - 3.2 x10(3)/[facility] Monocytes % 8.7 % [facility] Monocyte Abs 0.6 0.3 - 0.9 x10(3)/[facility] Eosinophils % 3.1 % [facility] Eosinophils Abs 0.2 0.0 - 0.4 x10(3)/[facility] Basophils % 0.4 % [facility] Basophils Abs 0.0 0.0 - 0.1 x10(3)/[facility] Immature Gran % 0.40 % [facility] Comment: Immature granulocytes(IG's)percentage and absolute count will include metamyelocytes, myelocytes, and promyelocytes. Blood smears from CBCs yielding IG's will be scanned manually for concordance. If this scan disagrees with the automated IG or if promyelocytes are noted, a manual differential will be performed. Viviana Gran Abs 0.03 0.00 - 0.04 x10(3)/[facility] Blood 12/04/2022 2:56 PM EDT 12/04/2022 3:00 PM EDT Narrative Resulting Agency Comment Spec In Lab Bonifacio Keane MD HEMATOLOGY ORDERABL ES [facility] [place] [address] * (ABNORMAL) Hemogram (12/04/2022 2:56 PM EDT) WBC 7.5 4.0 - 9.5 x10(3)/[facility] RBC 4.69 4.00 - 5.21 x10(6)/[facility] Hemoglobin 13.7 11.7 - 15.5 g/dL [facility] Hematocrit 41.9 35.7 - 45.8 % [facility] MCV 89.3 82.6 - 94.4 [facility] MCH 29.2 27.1 - 32.0 pg [facility] MCHC 32.7 31.7 - 35.0 g/dL [facility] Platelets 246 145 - 357 x10(3)/[facility] RDWSD 47.6(H) 37.0 - 46.0 [facility] RDWCV 14.6(H) 11.5 - 14.1 % [facility] MPV 10.2 7.6 - 12.9 [facility] nRBC % Auto 0.0 % [facility] nRBC Abs Auto 0.000 0.000 - 0.000 x10(3)/[facility] Blood 12/04/2022 2:56 PM EDT 12/04/2022 3:00 PM EDT Narrative Resulting Agency Comment Spec In Lab Bonifacio Keane MD HEMATOLOGY ORDERABL ES Performing Organization Address City/[facility]/ZIP Co de Phone Number [facility] [place] [address] * CK (12/04/2022 2:56 PM EDT) Pathologist [facility] CK, Total 92 0 - 160 unit/L [facility] Blood 12/04/2022 2:56 PM EDT 12/04/2022 3:01 PM EDT Narrative Resulting Agency Comment Spec In Lab Maxi Crowder MD CHEMISTRY ORDERABLES Performing Organization Address [facility] Co de Phone Number [facility] [place] [address] * (ABNORMAL) Uric acid (12/04/2022 2:56 PM EDT) [facility] Uric Acid 7.2(H) 2.5 - 6.5 mg/dL [facility] Blood 12/04/2022 2:56 PM EDT 12/04/2022 3:01 PM EDT Narrative Resulting Agency Comment Spec In Lab Maxi Crowder MD CHEMISTRY ORDERABLES Performing Organization Address [facility]/ZIP Co de Phone Number [facility] [place] [address] * QuantiFERON-TB Gold (12/04/2022 2:56 PM EDT) QFT Nil 0.332 IU/mL [facility] QFT TB Ag1-Nil -0.196 IU/mL [facility] QFT TB Ag2-Nil -0.154 IU/mL [facility] QFT Mitogen-Nil 9.668 IU/mL [facility] Quantiferon TB Negative Negative [facility] Quantiferon TB Interp M. tuberculosis infection NOT likely A negative specimen should have a TB1 Ag minus Nil value and TB2 Ag minus Nil value of less than 0.35 IU/mL OR a TB1 Ag minus Nil or TB2 Ag minus Nil value greater than or equal to 0.35 IU/mL AND a TB Ag minus Nil value from the same tube of less than 25% of the Nil value. A negative specimen must also have a mitogen minus Nil value greater than or equal to 0.5 IU/mL. A negative QFT-Plus result does not preclude the possibility of M. tuberculosis infection. False negative results can occur due to stage of infection (specimen obtained prior to the development of immune response), co-morbid conditions which affect immune function, or other immunological factors. [facility] Blood 12/04/2022 2:56 PM EDT 12/07/2022 7:25 AM EDT Narrative Resulting Agency Comment Spec In Lab Maxi Crowder MD CHEMISTRY ORDERABLES Performing Organization Address [facility]/ZIP Co de Phone Number [facility] [place] [address] * Cyclic Citrullinated Peptide (12/04/2022 2:56 PM EDT) Anti-Cyc Cit Peptide <8.0 <=16.9 unit/mL [facility] Blood 12/04/2022 2:56 PM EDT 12/04/2022 3:01 PM EDT Narrative Resulting Agency Comment Spec In Lab Maxi Crowder MD CHEMISTRY ORDERABLES Performing Organization Address City/[facility]/ZIP Co de Phone Number [facility] [place] [address] * (ABNORMAL) CRP, acute inflammation (12/04/2022 2:56 PM EDT) CRP 7.6(H) <=4.9 mg/L [facility] Blood 12/04/2022 2:56 PM EDT 12/04/2022 3:01 PM EDT Narrative Resulting Agency Comment Spec In Lab Maxi Crowder MD CHEMISTRY ORDERABLES Performing Organization Address [facility] Co de Phone Number [facility] [place] [address] * (ABNORMAL) Sedimentation rate (12/04/2022 2:56 PM EDT) Sed Rate 38(H) 2 - 37 mm/hr [facility] Comment: Effective April 26, 2019 new capillary photometric technology has resulted in a change in reference ranges. It is recommended that each ESR result be reviewed with its own age appropriate reference range. Blood 12/04/2022 2:56 PM EDT 12/04/2022 3:00 PM EDT Narrative Resulting Agency Comment Spec In Lab Maxi Crowder MD HEMATOLOGY ORDERABLE S Performing Organization Address [facility] Co de Phone Number [facility] [place] [address] * Vitamin D, 25-Hydroxy (12/04/2022 2:56 PM EDT) 25-OH Vit D Total 36 21 - 100 ng/mL [facility] 25-OH Vit D Interp Sufficient [facility] Blood 12/04/2022 2:56 PM EDT 12/04/2022 3:01 PM EDT Narrative Resulting Agency Comment Spec In Lab Maxi Crowder MD CHEMISTRY ORDERABLES Performing Organization Address City/[facility] Co de Phone Number [facility] [place] [address] * TSH (12/04/2022 2:56 PM EDT) TSH 1.63 0.27 - 4.20 mcIU/mL [facility] Comment: Reference Interval (mcIU/mL): Females: ??First Trimester: 0.23-3.88 ??Second Trimester: 0.22-3.90 ??Third Trimester: 0.44-4.66 Blood 12/04/2022 2:56 PM EDT 12/04/2022 3:01 PM EDT Narrative Resulting Agency Comment Spec In Lab Maxi Crowder MD CHEMISTRY ORDERABLES Performing Organization Address [facility] Co de Phone Number [facility] [place] [address] * HIV Screen, 4th Generation ([facility]/CGP/APD/NLH) (12/04/2022 2:56 PM EDT) HIV-1/2 Ab and Ag Negative Negative [facility] Comment: This 4th Generation HIV test screens for the presence of the HIV-1 p24 antigen as well as antibodies reactive against HIV-1 and HIV-2. A negative screen does not rule out an acute HIV infection. If acute HIV infection is suspected, testing should be repeated in 2 - 3 weeks or HIV nucleic acid testing performed. HIV Comment Low Risk of HIV Infection [facility] Blood 12/04/2022 2:56 PM EDT 12/04/2022 3:01 PM EDT Narrative Resulting Agency Comment Spec In Lab Maxi Crowder MD IMMUNOLOGY ORDERABLE S Performing Organization Address [facility] Co de Phone Number [facility] [place] [address] * Hepatitis B Core Antibody, Total (12/04/2022 2:56 PM EDT) Hep B Core Ab Negative Negative [facility] Blood 12/04/2022 2:56 PM EDT 12/04/2022 3:01 PM EDT Narrative Resulting Agency Comment Spec In Lab Maxi Crowder MD CHEMISTRY ORDERABLES Performing Organization Address [facility] Co de Phone Number [facility] [place] [address] * Extractable Nuclear Antigen (FENG) Ab (12/04/2022 2:56 PM EDT) SS-A/Ro Ab <0.40 <=10.00 unit/mL [facility] Comment: <7 negative 7-10 equivocal >10 positive The SS-A antibody result was generated using fluoroenzyme immunoassay on the Phadia 250 analyzer. the semi-quantitative test is designed to detect IgG antibodies in human serum that are reactive to the SS-A (Ro) protein. Please note that as of 03/10/2022 that this testing is performed by the Special [facility] Laboratory at [facility]. This change in testing location is associated with a change in testing method and reference intervals. Please review the results of this test in association with the posted reference intervals. SS-B/La Ab <0.40 <=10.00 unit/mL [facility] Comment: <7 negative 7-10 equivocal >10 positive The SS-B antibody result was generated using fluoroenzyme immunoassay on the Phadia 250 analyzer. the semi-quantitative test is designed to detect IgG antibodies in human serum that are reactive to the SS-B (La) protein. Please note that as of 03/10/2022 that this testing is performed by the [facility] Laboratory at [facility]. This change in testing location is associated with a change in testing method and reference intervals. Please review the results of this test in association with the posted reference intervals. SCL-70 Ab <0.60 <=10.00 unit/mL [facility] Comment: <7 negative 7-10 equivocal >10 positive The Scl-70 antibody result was generated using fluoroenzyme immunoassay on the Phadia 250 analyzer. the semi-quantitative test is designed to detect IgG antibodies in human serum that are reactive to the Scl-70 protein. Please note that as of 03/10/2022 that this testing is performed by the [facility] Laboratory at [facility]. This change in testing location is associated with a change in testing method and reference intervals. Please review the results of this test in association with the posted reference intervals. Sm (Pires) Ab <0.70 <=10.00 unit/mL [facility] Comment: <7 negative 7-10 equivocal >10 positive The Sm antibody result was generated using fluoroenzyme immunoassay on the Phadia 250 analyzer. the semi-quantitative test is designed to detect IgG antibodies in human serum that are reactive to the Sm protein. Please note that as of 03/10/2022 that this testing is performed by the [facility] at [facility]. This change in testing location is associated with a change in testing method and reference intervals. Please review the results of this test in association with the posted reference intervals. U1RNP Ab 1.50 <=10.00 unit/mL [facility] Comment: <5 negative 5-10 equivocal >10 positive The U1RNP antibody result was generated using fluoroenzyme immunoassay on the Phadia 250 analyzer. the semi-quantitative test is designed to detect IgG antibodies in human serum that are reactive to the U1RNP protein. Please note that as of 03/10/2022 that this testing is performed by the [facility] Laboratory at [facility]. This change in testing location is associated with a change in testing method and reference intervals. Please review the results of this test in association with the posted reference intervals. Centromere Ab <0.40 <=10.00 unit/mL [facility] Comment: <7 negative 7-10 equivocal >10 positive The CENP antibody result was generated using fluoroenzyme immunoassay on the Phadia 250 analyzer. the semi-quantitative test is designed to detect IgG antibodies in human serum that are reactive to the Centromere B protein. Please note that as of 03/10/2022 that this testing is performed by the [facility] Laboratory at [facility]. This change in testing location is associated with a change in testing method and reference intervals. Please review the results of this test in association with the posted reference intervals. Nuria-1 Ab <0.30 <=10.00 unit/mL [facility] Comment: <7 negative 7-10 equivocal >10 positive The Nuria-1 antibody result was generated using fluoroenzyme immunoassay on the Phadia 250 analyzer. the semi-quantitative test is designed to detect IgG antibodies in human serum that are reactive to the Nuria-1 protein. Please note that as of 03/10/2022 that this testing is performed by the [facility] Laboratory at [facility]. This change in testing location is associated with a change in testing method and reference intervals. Please review the results of this test in association with the posted reference intervals. Blood 12/04/2022 2:56 PM EDT 12/07/2022 7:15 AM EDT Narrative Resulting Agency Comment Spec In Lab Maxi Crowder MD IMMUNOLOGY ORDERABLE S [facility] [place] [address] * (ABNORMAL) Comprehensive metabolic panel (non-fasting) (12/04/2022 2:56 PM EDT) Glucose Lvl 93 65 - 199 mg/dL [facility] Comment:Diabetes: >=200 mg/d L plus symptoms BUN 21(H) 8 - 18 mg/dL [facility] Creatinine 1.12 0.70 - 1.20 mg/dL [facility] Sodium 138 135 - 145 mmol/L [facility] Potassium 3.9 3.5 - 5.0 mmol/L [facility] Comment: Please note: ??Patients with WBC >100,000 may have falsely elevated Potassium levels. ??For accurate Potassium quantification in these patients send serum separator tube (gold top) for subsequent determinations. ??Contact the Clinical Chemistry Laboratory if there are any questions. Chloride 101 98 - 107 mmol/L [facility] CO2 23 22 - 31 mmol/L [facility] Anion Gap 14 5 - 15 mmol/L [facility] Calcium 10.0 8.5 - 10.5 mg/dL [facility] Total Protein 8.2(H) 6.1 - 8.0 g/dL [facility] Albumin 4.7 3.2 - 5.2 g/dL [facility] AST 20 0 - 30 unit/L [facility] ALT 27 0 - 30 unit/L [facility] Alk Phos 66 35 - 105 unit/L [facility] Total Bilirubin 0.6 0.2 - 1.3 mg/dL [facility] Estimated GFR 64 >=60 mL/min/1. 73 m?? [facility] Comment: This patient's estimated GFR was calculated using the 2020 CKD-EPI equation. The estimated GFR can vary from the measured GFR by up to 30% in the absence of rapidly changing kidney function. Assessment of the estimated GFR is not appropriate when creatinine concentrations are rapidly changing. For clinical situations in which a more precise estimate of GFR is necessary, consider alternative methods of GFR estimation such as a 24-hour urine creatinine clearance. Assignment of CKD stage 1-5 for patients with an eGFR near the transition point between stages may be based on clinical assessment of muscle mass and symptoms in addition to eGFR. Blood 12/04/2022 2:56 PM EDT 12/04/2022 3:01 PM EDT Narrative Resulting Agency Comment Spec In Lab Maxi Crowder MD CHEMISTRY ORDERABLES [facility] [place] [address] documented in this encounter Visit Diagnoses Diagnosis Polyarthralgia Pain in joint, multiple sites Fibromyalgia affecting multiple sites Brain fog Fatigue, unspecified type documented in this encounter Care Teams Stadium Manager Relationship Specialty Start Date End Date Alejandra Jorgensen MD [address] [place] [id number] PCP - General Family Medicine 06/09/22 12/21/22 documented as of this encounter
--- OUTSIDE RECORDS SUMMARY | 2023-12-09 08:20 | XMS_ITS | Encounter Summary ---
Author Organization [facility] [place] [address] Care Team Providers Care Photo Graphics Librarian Name Role Phone Flor Schuler MD Primary Care Provider [phone] Reason for Visit * Reason Comments Medication Refill Encounter Details Date Type Department Care Team (Late st Contact Info) Description 05/10/2019 Refill Dermatology at [address] [place] [id number] Norm Cassidy MD [address] [place] [address] Social History Tobacco Use Types Packs/Day Years [...] on filedocumented in this encounter Care Teams Photo Graphics Librarian Relationship Specialty Start Date End Date Flor Schuler MD [address] [facility] [address] [place] [address] PCP - General Internal Medicine 02/16/19 04/19/22 documented as of this encounter
--- OUTSIDE RECORDS SUMMARY | 2023-12-09 08:20 | XMS_ITS | Encounter Summary ---
Author Organization [facility] Address [facility] [address] Care Team Providers Care Manager Corporate Marketing Name Role Phone Alejandra Jorgensen MD Primary Care Provider [phone] Reason for Visit * Consultation (Routine) - Closed Specialty Diagnoses / Procedures Referred By Contac t Referred To Contact Obstetrics and Gynecology Diagnoses Elderly multigravida with ante[place] [address] [place] [address] [place] [address] [facility] [address] [place] [address] Referral ID Status Reason Start Date Expiration Date V isits Requested Visits Authorized [id number] Closed Consult, Test & Treat PCP Updated and/or Approved 04/17/2022 04/17/2023 1 1 Encounter Details Date Type Department Care Team (Late Contact Info) Description 06/19/2022 11:00 AM EST Office Visit Obstetrics [place] [address] Gema Cook MD [facility] DR OBSTETRICS & [place] [address] Multigravida of advanced maternal age in second trimester Social History Tobacco Use Types Packs/Day Years Used Date Smoking Tobacco: Never Smokeless Tobacco: Never Alcohol Use Standard Drinks/Week Comments Not Currently 0 (1 standard drink = 0.6 oz pur e alcohol) Comments Yes Sex and Gender Information Value Date Recorded Sex Assigned at Not on file Gender Identity Not on file Sexual Orientation Not on file documented as of this encounter Last Filed Vital Signs Vital Sign Reading Time Taken Comments Blood Pressure 116/70 06/19/2022 11:26 AM EST Pulse 60 06/19/2022 11:26 AM EST Temperature - - Respiratory Rate - - Oxygen Saturation 97% 06/19/2022 11: 26 AM EST Inhaled Oxygen Concentration - - Weight 138.6 kg (305 lb 9.6 oz) 023 11:26 AM EST Height 182.9 cm (6') 06/19/2022 11:26 AM EST Body Mass Index 41.45 06/19/2022 11:26 AM EST documented in this encounter Progress Notes * Gema Cook MD - 06/19/2022 11:00 AM EST Diagnosis/Maternal Medicine Consult Note Zenia Cr is a 42 y.o. year old female who is at 20w0d gestation. She is seen in consultation at the request of Cara Leigh CNM for evaluation of . She was seen today for maternal- medicine consultation and ultrasound evaluation. Review of Systems Constitutional:feels well Movement: normal Contractions: none Leaking: None Bleeding: None Patient Active Problem List Diagnosis Code ??? Dermatitis L30.9 ??? Tinea pedis B35.3 ??? Acne L70.9 ??? Cystic fibrosis carrier Z14.1 ??? AMA (advanced maternal age) multigravida 35+ O09.529 ??? Obesity E66.9 Past Medical History: Diagnosis Date ??? ADHD ??? Anemia ??? Anorexia ??? Anxiety ??? Gastric ulcer ??? GERD (gastroesophageal reflux disease) ??? Intrahepatic cholestasis of 2009 ??? Sleep apnea Past Surgical History: Procedure Laterality Date ??? APPENDECTOMY ??? CHOLECYSTECTOMY ??? WISDOM TOOTH EXTRACTION Family History Problem Relation Age of Onset ??? Coronary Artery Disease Paternal Grandfather Social History Occupational History ??? Not on file Tobacco Use ??? Smoking status: Never ??? Smokeless tobacco: Never Substance and Sexual Activity ??? Alcohol use: Not Currently ??? Drug use: Never ??? Sexual activity: Not on file OB History 6 Para 3 Term 3 AB 2 Living 4 SAB 1 IAB 1 Ectopic Multiple 1 Live Births 4 # Outc Date GA Lbr Allen/2nd Wgt Sex Del Anes PTL Lv 1 IAB 2 Term 06/2002 42w0d 4.508 kg (9 lb 15 oz) F Vag-Spont Living 3A Term 11/2003 41w0d 3.147 kg (6 lb 15 oz) M Vag-Spont Living 3B Term 11/2003 41w0d 3.232 kg (7 lb 2 oz) M Vag-Spont Living 4 Term 08/2007 38w0d 3.175 kg (7 lb) M Vag-Spont Living 5 SAB 02/2021 6 Current Current Outpatient Medications Medication Sig Dispense Refill ??? multivitamin (THERAGRAN) Tablet Take 1 tablet by mouth daily. No current facility-administered medications for this visit. Allergies Allergen Reactions ??? Latex ??? Shellfish Containing Products Diarrhea and Nausea And Vomiting Ultrasound Date: 06/19/2022 Amniotic fluid volume normal Presentation variable Placenta posterior Growth appropriate for gestational age anatomy unremarkable Physical Exam LMP 01/04/2022 (Approximate) General: alert, well appearing, in no apparent distress HEENT: normocephalic, atraumatic Abdomen: Soft, nontender Neurologic:alert, oriented, normal speech, no focal findings or movement disorder noted Psychiatric: Affect is Appropriate. Assessment and Recommendations: 42 y.o. year old female at 20w0d weeks gestation, referred for counseling regarding. I spent 40 minutes in face to face time with the patient of which 100% was in direct counseling. We reviewed the ultrasound findings and limitations of ultrasound in detecting anomalies and aneuploidy. The growth, fluid, placenta and anatomy appear unremarkable. She is known cystic fibrosis carrier. Her partner has not yet had carrier testing. After discussionwith genetics, they decided to have cystic fibrosis carrier testing done. CF carrier testing for the FOB was ordered today. I appreciate the opportunity to be involved in this patients care, and am available if further questions should arise. GEMA COOK MD 06/19/2022 Cc: Cara Leigh, [place] [address] [place] [address] , with copy of ultrasound report documented in this encounter Plan of Treatment Scheduled Referrals Name Type Priority Associated Diagnoses Orde r Schedule Referral to Maternal Medicine Outpatient Referral Routine Elderly multigravida with antepartum condition or complication Ordered: 04/17/2022 documented as of this encounter Visit Diagnoses Diagnosis Multigravida of advanced maternal age in second trimester documented in this encounter Care Teams Manager Corporate Marketing Relationship Specialty Start Date End Date Alejandra Jorgensen MD [address] [place] [id number] PCP - General Family Medicine 06/09/22 12/21/22 documented as of this encounter
--- OUTSIDE RECORDS SUMMARY | 2023-12-09 08:20 | XMS_ITS | Encounter Summary ---
[place] [address] Care Team Providers Care [place] Name Role Phone Alejandra Jorgensen MD Primary Care Provider [phone] Encounter Details Date Type Department Care Team (Latest Contact Info) Description 12/04/2022 Travel Social History Tobacco Use Types Packs/Day [...] on filedocumented in this encounter Care Teams [place] Relationship Specialty Start Date End Date Alejandra Jorgensen MD [address] [place] [address] PCP - General Family Medicine 06/09/22 12/21/22 documented as of this encounter
--- OUTSIDE RECORDS SUMMARY | 2023-12-09 08:20 | XMS_ITS | Clinical Summary ---
Author Organization [facility] Address [facility] [place] [address] Care Team Providers Care Office Automation Clerk Name Role Phone AdrianneAraceli yadav CUONG Primary Care Provider Allergies Active Allergy Reactions Criticality Noted Date Comments Escitalopram Other (See Comments) High 12/04/2022 Antoinette- severe Latex 08/27/2016 Latex, Natural Rubber Rash 12/21/2022 Shellfish Containing Products Diarrhea,Nausea And Vomiting 06/19/2022 Medications Medication Sig Dispensed Refills Start Date End Date Status multivitamin (THERAGRAN) Tablet Take 1 tablet by mouth daily. Active famotidine (Pepcid) 40 mg tablet Take 40 mg by mouth nightly. 12/16/2022 Active Deblitane 0.35 mg tablet Take 1 tablet by mouth daily. 11/04/2022 Active spironolactone (Aldactone) 100 mg tablet Take 1 tablet by mouth 2 times daily. 180 tablet 3 12/22/2022 Active econazole nitrate 1 % Cream Apply topically to feet soles of feet and toe webspace's on a twice daily basis until symptoms are controlled 30 g 2 12/22/2022 Active Active Problems Problem Noted Date Diagnosed Date Cystic fibrosis carrier 06/19/2022 Overview (06/30/2022): 06/30/2022 Partner's screen is negative. AMA (advanced maternal age) multigravida 35+ 07/2022 Obesity 06/19/2022 Dermatitis 05/29/2014 Tinea pedis 05/29/2014 Acne 05/29/2014 Family History Medical History Relation Comments Coronary Artery Disease Paternal Grandfather Relation Status Comments Paternal Grandfather Social History Tobacco Use Types Packs/Day Years Used Date Smoking Tobacco: Never Smokeless Tobacco: Never Tobacco Cessation:Counseling Given: Not Answered Alcohol Use Standard Drinks/Week Comments Not Currently 0 (1 standard drink = 0.6 oz pur e alcohol) Sex and Gender Information Value Date Recorded Sex Assigned at Not on file Gender Identity Not on file Sexual Orientation Not on file Last Filed Vital Signs Vital Sign Reading Time Taken Comments Blood Pressure 114/63 12/21/2022 2:19 PM EDT Pulse 65 12/21/2022 2:19 PM EDT Temperature 36.4 ??C (97.6 ??F) 12/21/2022 2:19 PM ED T Respiratory Rate 16 12/21/2022 2:19 PM EDT Oxygen Saturation 98% 12/21/2022 2:19 PM EDT Inhaled Oxygen Concentration - - Weight 138.8 kg (305 lb 14.4 oz) 12/21/2022 2:19 PM EDT Height 182.9 cm (6') 12/04/2022 1:16 PM EDT Body Mass Index 41.49 12/04/2022 1:16 PM EDT Plan of Treatment Health Maintenance Due Date Last Done Comments Hepatitis C Screening 02/29/2000 Lipid Screening 02/29/2000 Hepatitis B vaccine (0-59 yrs) (1) 2001 Tdap adult 2001 Tetanus vaccine 2001 HPV test 02/29/2012 PAP Smear 02/29/2012 Breast Cancer Share Decision Needed 2022 Breast Cancer screening 2022 Covid-19 Vaccine ( season) 2023 Influenza (Flu) vaccine (1 o f 1 - Influenza standard series) 01/16/2024 Diabetes Screening (HgbA1C or Glucose) 12/04/2025 HIV screen Completed 12/04/2022 Procedures Procedure Name Priority Date/Time Associated Diagnosis Comments HC HIV SCREEN, 4TH GENERATION Routine 12/04/2022 2:56 PM EDT Polyarthralgia Fibromyalgia affecting multiple sites Brain fog Fatigue, unspecified type COMPREHENSIVE METABOLIC PANEL (NON-FASTING) Routine 12/04/2022 2:56 PM EDT Polyarthralgia Fibromyalgia affecting multiple sites Brain fog Fatigue, unspecified type from Last 3 Months or Most Recently Relevant to Health Maintenance Results * HIV Screen, 4th Generation ([facility]/CGP/APD/[facility]) (12/04/2022 2:56 PM EDT) HIV-1/2 Ab and Ag Negative Negative [facility] Comment: This 4th Generation HIV test [...] HIV Comment Low Risk of HIV Infection [facility] Blood 12/04/2022 2:56 PM EDT 12/04/2022 3:01 PM EDT Narrative Resulting Agency Comment Spec In Lab Maxi Crowder MD IMMUNOLOGY ORDERABLE S [facility] [place] [address] * (ABNORMAL) Comprehensive metabolic panel (non-fasting) (12/04/2022 2:56 PM EDT) Pathologist [facility] Glucose Lvl 93 65 - 199 mg/dL [facility] Comment:Diabetes: >=200 mg/d L plus symptoms BUN 21(H) 8 - 18 mg/dL [facility] Creatinine 1.12 0.70 - 1.20 mg/dL [facility] Sodium 138 135 - 145 mmol/L [facility] Potassium 3.9 3.5 - 5.0 mmol/L [facility] Comment: Please note: ??Patients with WBC >100,000 may have falsely elevated Potassium levels. ??For accurate Potassium quantification in these patients send serum separator tube (gold top) for subsequent determinations. ??Contact the Clinical Chemistry Laboratory if there are any questions. Chloride 101 98 - 107 mmol/L [facility] CO2 23 22 - 31 mmol/L [facility] Anion Gap 14 5 - 15 mmol/L [facility] Calcium 10.0 8.5 - 10.5 mg/dL [facility] Total Protein 8.2(H) 6.1 - 8.0 g/dL [facility] Albumin 4.7 3.2 - 5.2 g/dL [facility] AST 20 0 - 30 unit/L [facility] ALT 27 0 - 30 unit/L [facility] Alk Phos 66 35 - 105 unit/L [facility] Total Bilirubin 0.6 0.2 - 1.3 mg/dL [facility] Estimated GFR 64 >=60 mL/min/1. 73 m?? [facility] Comment: This patient's estimated GFR was [...] In Lab Maxi Crowder MD CHEMISTRY ORDERABLES [facility] [place] [place] [address] from Last 3 Months or Most Recently Relevant to Health Maintenance Care Teams Office Automation Clerk Relationship Specialty Start Date End Date Marci MinerCUONG brown [address] [place], [place] [phone] PCP - General Family Medicine 12/22/22
--- OUTSIDE RECORDS SUMMARY | 2023-12-09 08:20 | XMS_ITS | Encounter Summary ---
Author Organization [facility] [place] [address] Care Team Providers Care Technical Manager Name Role Phone Alejandra Jorgensen MD Primary Care Provider [phone] Reason for Visit * Consultation (Routine) - Closed Specialty Diagnoses / Procedures Referred By Contcorinna t Referred To Contact Rheumatology Diagnoses Arthralgia, unspecified joint Adjovu, Araceli, INTERNATIONAL TRAVEL CONSULTANT [address] [place] [address] [facility] Rheumatology [address] [place] [phone] Referral ID Status Reason Start Date Expiration Date V isits Requested Visits Authorized [id number] Closed Consult, Test & Treat PCP Updated and/or Approved 11/12/2022 11/12/2023 6 6 Encounter Details Date Type Department Care Team (Late st Contact Info) Description 12/04/2022 1:00 PM EDT Office [place] [phone] Maxi Crowder MD [facility] [id number] Bonifacio Keane MD [facility] [place] [address] Fibromyalgia affecting multiple sites (Primary Dx); Polyarthralgia; Brain fog; Fatigue, unspecified type Social History [...] Sign Reading Time Taken Comments Blood Pressure 119/75 12/04/2022 1:16 PM EDT Pulse 56 12/04/2022 1:16 PM EDT Temperature 36.5 ??C (97.7 ??F) 12/04/2022 1:16 PM ED T Respiratory Rate 18 12/04/2022 1:16 PM EDT Oxygen Saturation 100% 12/04/2022 1:16 PM EDT Inhaled Oxygen Concentration - - Weight 139.3 kg (307 lb) 12/04/2022 1:16 PM EDT Height 182.9 cm (6') 12/04/2022 1:16 PM EDT Body Mass Index 41.64 12/04/2022 1:16 PM EDT documented in this encounter Progress Notes * Bonifacio Keane MD - 12/04/2022 1:00 PM EDT Rheumatology Outpatient Consultation Note Reason for Consult: The patient is seen at the request of Araceli Miner for evaluation and treatment of polyarthralgia. History of Present Illness: Zenia Cr is a 42 y.o. female with a past medical history dermatitis, gastric ulcer, acid and bile reflux, and umbilical hernia of who presents today for evaluation of arthralgia. Patient has never seen a solar sales assessor before and states prior to her current joint pains she has never experienced arthralgias in the past. On October patient had a vaginal delivery (delivery was complicated as she was induced due to hepatic cholestasis, lost 2 L of blood) baby is healthy andpatient is breast feeding. Patient states 3 days after giving she started to experience diffuse joint pains that first started in her right wrist then left wrist and subsequently her left ankleand knee. Patient states over the span of 1.5 -2 weeks she had diffuse joint pains and muscle aches. Joint pain described as 9/10 intensity, constant, associated with morning stiffness for hours, andrereys a sensation of shard of glass inside her joints. Patient reports chronic fatigue and muscle tenderness along with poor sleep and anhedonia. Patient states she may have noticed some swellingin her joints but not too obvious. Joint pains make it difficult to perform daily activities. She went to her PCP who prescribed her 40 mg of steroids and patient states at 40 mg she felt maybe 30-35% relief and was able to fold laundry but as she decreased the dose to 30 mg and lower she did not feel much improvement in symptoms. Unfortunately, patient states on Friday 12/01 she was diagnosed with a gastric ulcer and was informed that the steroids she was taking could be a likely culprit therefore she stopped the steroids at 10 mg with last dose 11/30. -Reports history of Raynauds since late ->pallor and erythema (no cyanosis) -Reports chronic dry eyes and dry mouth since -Denies fevers, chills, shortness of breath -Patient states she does feel sad/depressed since past few weeks given her chronic pains and personal life -Hair loss (diffuse) but no patchy bald spots - Reports episode of chest pain 2 weeks back and went to the doctor -was advised conservative management -Reports chronic brain fog since giving -no new rashes;no new tick bites -2 Prior miscarriages: with twins miscarried at 5 months and then again at 6 months; then had a tubal ROS: General: no fevers, chills,night sweats HEENT(-)inflammatory eye disease, (-)vision loss, (-)epistaxis, (-)bleeding gums, (-)oral ulcers, (-)dry eyes, (-)dry mouth, (-)dysphagia, (-)GERD, (-)photo sensitivity CVS (-)palpitations Pulm (-)shortness of breath, (-)SPARKS, (-)wheezes, (-)cough, (-)pleuritic pain GI (-)N/V, (-)abdominal pain, (-)hematochezia (-)hematuria, (-)dysuria MS Per HPI Endo (-)thyroid disorders, (-)diabetes Neuro (-)focal weakness, (-)paresthesias, (-)gait instability. Skin (+)Raynaud's, (-)rashes - no psoriasis Psych Feels sad and stressed Family Hx: -Mother has arthritis -Son has psoriasis -Other family history unknown Social Hx: Former smoker- on and off for 6-8 years (quit March 2021) Alcohol intake none No drug use Physical Examination: General: AAOx3, NAD,emotional and sullen appearance HEENT: (-)scleral injection, mucous membranes are moist, no oral mucosal ulcerations Skin: (-)ulcers, (-)rash Neck: Supple, no lymphadenopathy, full range of motion. Cardiovascular: RR, (-)murmurs, rubs, or gallops. Lungs: Clear to auscultation bilaterally. (-)R/R/W Back: Nontender over the spine and costovertebral angles bilaterally. Neuro: Alert and oriented x3. Strength 5/5 throughout Extremities: Diffuse tender points throughout examination+ Shoulders: FROM, Tender to palpation Elbows:FROM, tender to palpation; no synovitis Wrists: FROM, no swelling, non-tender, Mor test+ Hands: No synovitis, tenderness over MCP and PIP joints ;normal appearance of joints Hips: FROM ;trochanteric bursa tenderness and iliotibial band tenderness elicited Knees: no effusions, tender to palpation Ankles: FROM,tender to palpation; mild swelling bilaterally Feet: no MTP compression tenderness, no toe splaying Laboratory Data: 10/2022: -JENNA negative -RF negative -Lyme :negative -HSCRP 11/11-> 4.16 -no chronic cytopenia and renal/liver abnormalities in previous chem profiles Studies: -Imaging in chart reviewed Impression: Zenia Cr is a 42 y.o. female with a past medical history dermatitis, gastric ulcer, acid and bile reflux, and umbilical hernia of who presents today for evaluation of arthralgia. Symptoms include diffuse arthralgias, generalized tenderness, hyperesthesias, muscle aches, fatigue, brain fog,poor sleep and depression. Lab workup with negative JENNA,RF, and only a mildly elevated HSCRP which could be from obesity itself. At this time, low suspicion for inflammatory arthritis given no synovitis on examination and unremarkable labs for lupus or rheumatoid arthritis. Low suspicion for psoriatic arthritis or infectious etiology. Patient has symptoms suggestive of fibromyalgia which is characterized by musculoskeletal pain accompanied by fatigue, sleep, memory and mood issues. We will do labs today to rule out other potential causes. Patient was counseled for fibromyalgia management and importance of sleep hygiene. She is currently therefore options are limited in terms of medications for fibromyalgia symptoms. Recommendations: -Counseling provided for fibromyalgia management; A graded exercise program can improve symptoms, can consider referral to CBT, recommend working on sleep hygiene. Other avenues for therapy include beatrice chi, accupuncture, for some patients massage therapy is beneficial, also discussed physical therapy if she is interested in the future. -Stop prednisone -Labs to be completed today:CBC, CMP, ESR, CRP, URIC ACID, CK, TSH, VIT D, HEPATITIS PANEL,HIV, JENNA/FENG, URINE PROTEIN:CREAT RATIO,UA Follow up in 2 weeks The patient was seen and discussed with Dr. Vel Keane MD Rheumatology Fellow,[id number] Pager: [phone] CC: Araceli Miner * Maxi Crowder MD - 12/04/2022 1:00 PM EDT Seen and reviewed with Dr. Keane. I agree with her assessment and recommendations. The picture of wide-spread arthralgia, fatigue, sleep disturbance, multiple trigger points and absence of synovitis on examination post- is most consistent with fibromyalgia syndrome and not inflammatory arthropathy. Post- depression may also need to be addressed.Today we discussed treatment options for fibromyalgia sydnrome. Since Ms. Cr wishes to continue breast feeding, pharmacologic optionssuch as pregabalin or duloxetine are not recommended. Low level aerobic exercise, yoga and beatrice-chi are to be encouraged. documented in this encounter Plan of Treatment Not on file documented as of this encounter Results * (ABNORMAL) _Urinalysis with microscopic (12/04/2022 3:00 PM EDT) Glucose UA Negative Negative mg/dL [facility] Protein UA Negative Negative mg/dL [facility] Bilirubin UA Negative Negative mg/dL [facility] Comment: Clinical correlation required for positive Urine Bilirubin results as false positive may occur with some drugs and drug related products. If a false positive is suspected a serum total bilirubin should be considered if clinically indicated. Urobilinogen UA Normal Normal mg/dL [facility] pH UA 6.0 5.0 - 8.0 [facility] Blood UA Negative Negative mg/dL [facility] Ketones UA Negative Negative mg/dL [facility] Nitrite UA Negative Negative [facility] Leukocytes UA Negative Negative mcL [facility] Appearance UA Clear Clear [facility] Spec [place] UA 1.018 1.005 - 1.030 [facility] Color UA Yellow Yellow [facility] RBC UA 1 0 - 4 /HPF [facility] WBC UA 2 0 - 5 /HPF [facility] Bacteria UA Rare(A) None /HPF [facility] Squam Epith UA 2 <=4 /HPF [facility] Urine 12/04/2022 3:00 PM EDT 12/04/2022 3:09 PM EDT Narrative Resulting Agency Comment Spec In Lab Maxi Crowder MD URINE ORDERABLES Performing Organization Address City/[facility]/ZIP Co de Phone Number [facility] [place] [address] * Protein/Creatinine Ratio, urine (12/04/2022 3:00 PM EDT) U Creatinine 104 mg/dL [facility] U Protein Ran <6 0 - 12 mg/dL [facility] Prot/Cre Ratio <0.1 ratio [facility] Urine 12/04/2022 3:00 PM EDT 12/04/2022 3:09 PM EDT Narrative Resulting Agency Comment Spec In Lab Maxi Crowder MD URINE ORDERABLES [facility] [place] [address] * CK (12/04/2022 2:56 PM EDT) Pathologist [facility] CK, Total 92 0 - 160 unit/L [facility] Blood 12/04/2022 2:56 PM EDT 12/04/2022 3:01 PM EDT Narrative Resulting Agency Comment Spec In Lab Maxi Crowder MD CHEMISTRY ORDERABLES [facility] [place] [address] * (ABNORMAL) Uric acid (12/04/2022 2:56 PM EDT) [facility] Uric Acid 7.2(H) 2.5 - 6.5 mg/dL [facility] Blood 12/04/2022 2:56 PM EDT 12/04/2022 3:01 PM EDT Narrative Resulting Agency Comment Spec In Lab Maxi Crowder MD CHEMISTRY ORDERABLES [facility] [place] [address] * QuantiFERON-TB Gold (12/04/2022 2:56 PM EDT) [facility] QFT Nil 0.332 IU/mL [facility] QFT TB Ag1-Nil -0.196 IU/mL [facility] QFT TB Ag2-Nil -0.154 IU/mL [facility] QFT Mitogen-Nil 9.668 IU/mL [facility] Quantiferon TB Negative Negative [facility] Quantiferon TB Interp M. tuberculosis [...] affect immune function, or other immunological factors. [facility] Blood 12/04/2022 2:56 PM EDT 12/07/2022 7:25 AM EDT Narrative Resulting Agency Comment Spec In Lab Maxi Crowder MD CHEMISTRY ORDERABLES Performing Organization Address [facility] Co de Phone Number [facility] [place] [address] * Cyclic Citrullinated Peptide (12/04/2022 2:56 PM EDT) Anti-Cyc Cit Peptide <8.0 <=16.9 unit/mL [facility] Blood 12/04/2022 2:56 PM EDT 12/04/2022 3:01 PM EDT Narrative Resulting Agency Comment Spec In Lab Maxi Crowder MD CHEMISTRY ORDERABLES Performing Organization Address [facility] Co de Phone Number [facility] [place] [address] * (ABNORMAL) CRP, acute inflammation (12/04/2022 2:56 PM EDT) CRP 7.6(H) <=4.9 mg/L [facility] Blood 12/04/2022 2:56 PM EDT 12/04/2022 3:01 PM EDT Narrative Resulting Agency Comment Spec In Lab Maxi Crowder MD CHEMISTRY ORDERABLES Performing Organization Address [facility] Co de Phone Number [facility] [place] [address] * (ABNORMAL) Sedimentation rate (12/04/2022 2:56 PM EDT) Pathologist [facility] Sed Rate 38(H) 2 - 37 mm/hr [facility] Comment: Effective April 26, 2019 new capillary photometric technology has resulted in a change in reference ranges. It is recommended that each ESR result be reviewed with its own age appropriate reference range. Blood 12/04/2022 2:56 PM EDT 12/04/2022 3:00 PM EDT Narrative Resulting Agency Comment Spec In Lab Maxi Crowder MD HEMATOLOGY ORDERABLE S Performing Organization Address City/[facility] Co de Phone Number [facility] [place] [address] * Vitamin D, 25-Hydroxy (12/04/2022 2:56 PM EDT) [facility] 25-OH Vit D Total 36 21 - 100 ng/mL [facility] 25-OH Vit D Interp Sufficient [facility] Blood 12/04/2022 2:56 PM EDT 12/04/2022 3:01 PM EDT Narrative Resulting Agency Comment Spec In Lab Maxi Crowder MD CHEMISTRY ORDERABLES Performing Organization Address [facility] Co de Phone Number [facility] [place] [address] * TSH (12/04/2022 2:56 PM EDT) [facility] TSH 1.63 0.27 - 4.20 mcIU/mL [facility] Comment: Reference Interval (mcIU/mL): Females: ??First Trimester: 0.23-3.88 ??Second Trimester: 0.22-3.90 ??Third Trimester: 0.44-4.66 Blood 12/04/2022 2:56 PM EDT 12/04/2022 3:01 PM EDT Narrative Resulting Agency Comment Spec In Lab Maxi Crowder MD CHEMISTRY ORDERABLES [facility] [place] [address] * HIV Screen, 4th Generation ([facility]/CGP/APD/NL[facility]) (12/04/2022 2:56 PM EDT) Pathologist [facility] HIV-1/2 Ab and Ag Negative Negative [facility] Comment: This 4th Generation HIV [...] HIV Comment Low Risk of HIV Infection [facility] Blood 12/04/2022 2:56 PM EDT 12/04/2022 3:01 PM EDT Narrative Resulting Agency Comment Spec In Lab Maxi Crowder MD IMMUNOLOGY ORDERABLE S Performing Organization Address City/[facility]/ZIP Co de Phone Number [facility] [place] [address] * Hepatitis B Core Antibody, Total (12/04/2022 2:56 PM EDT) Pathologist [facility] Hep B Core Ab Negative Negative [facility] Blood 12/04/2022 2:56 PM EDT 12/04/2022 3:01 PM EDT Narrative Resulting Agency Comment Spec In Lab Maxi Crowder MD CHEMISTRY ORDERABLES Performing Organization Address City/[facility]/ZIP Co de Phone Number [facility] [place] [address] * Extractable Nuclear Antigen (FENG) Ab (12/04/2022 2:56 PM EDT) Pathologist [facility] SS-A/Ro Ab <0.40 <=10.00 unit/mL [facility] Comment: <7 negative 7-10 equivocal >10 positive The SS-A antibody result was generated using fluoroenzyme immunoassay on the [employer] 250 analyzer. the semi-quantitative test is designed to detect IgG antibodies in human serum that are reactive to the SS-A (Ro) protein. Please note that as of 03/10/2022 that this testing is performed by the Special Chemistry Laboratory at [facility]. This change in testing location is associated with a change in testing method and reference intervals. Please review the results of this test in association with the posted reference intervals. SS-B/La Ab <0.40 <=10.00 unit/mL [facility] Comment: <7 negative 7-10 equivocal >10 positive The SS-B antibody result was generated using fluoroenzyme immunoassay on the [employer] 250 analyzer. the semi-quantitative test is designed to detect IgG antibodies in human serum that are reactive to the SS-B (La) protein. Please note that as of 03/10/2022 that this testing is performed by the [facility] Laboratory at [facility]. This change in testing location is associated with a change in testing method and reference intervals. Please review the results of this test in association with the posted reference intervals. SCL-70 Ab <0.60 <=10.00 unit/mL [facility] Comment: <7 negative 7-10 equivocal >10 positive The Scl-70 antibody result was generated using fluoroenzyme immunoassay on the [employer] 250 analyzer. the semi-quantitative test is designed to detect IgG antibodies in human serum that are reactive to the Scl-70 protein. Please note that as of 03/10/2022 that this testing is performed by the Special [facility] Laboratory at [facility]. This change in testing location is associated with a change in testing method and reference intervals. Please review the results of this test in association with the posted reference intervals. Sm (Pires) Ab <0.70 <=10.00 unit/mL [facility] Comment: <7 negative 7-10 equivocal >10 positive The Sm antibody result was generated using fluoroenzyme immunoassay on the [employer] 250 analyzer. the semi-quantitative test is designed to detect IgG antibodies in human serum that are reactive to the Sm protein. Please note that as of 03/10/2022 that this testing is performed by the [facility] Laboratory at [facility]. This change in testing location is associated with a change in testing method and reference intervals. Please review the results of this test in association with the posted reference intervals. U1RNP Ab 1.50 <=10.00 unit/mL [facility] Comment: <5 negative 5-10 equivocal >10 positive The U1RNP antibody result was generated using fluoroenzyme immunoassay on the [employer] 250 analyzer. the semi-quantitative test is designed to detect IgG antibodies in human serum that are reactive to the U1RNP protein. Please note that as of 03/10/2022 that this testing is performed by the Special [facility] Laboratory at [facility]. This change in testing location is associated with a change in testing method and reference intervals. Please review the results of this test in association with the posted reference intervals. Centromere Ab <0.40 <=10.00 unit/mL [facility] Comment: <7 negative 7-10 equivocal >10 positive The CENP antibody result was generated using fluoroenzyme immunoassay on the [employer] 250 analyzer. the semi-quantitative test is designed to detect IgG antibodies in human serum that are reactive to the Centromere B protein. Please note that as of 03/10/2022 that this testing is performed by the Special Chemistry Laboratory at [facility]. This change in testing location is associated with a change in testing method and reference intervals. Please review the results of this test in association with the posted reference intervals. Nuria-1 Ab <0.30 <=10.00 unit/mL [facility] Comment: <7 negative 7-10 equivocal >10 positive The Nuria-1 antibody result was generated using fluoroenzyme immunoassay on the [employer] 250 analyzer. the semi-quantitative test is designed to detect IgG antibodies in human serum that are reactive to the Nuria-1 protein. Please note that as of 03/10/2022 that this testing is performed by the [facility] Chemistry Laboratory at [facility]. This change in testing location is associated with a change in testing method and reference intervals. Please review the results of this test in association with the posted reference intervals. Blood 12/04/2022 2:56 PM EDT 12/07/2022 7:15 AM EDT Narrative Resulting Agency Comment Spec In Lab Maxi Crowder MD IMMUNOLOGY ORDERABLE S [facility] [place] [address] * (ABNORMAL) Comprehensive metabolic panel (non-fasting) (12/04/2022 2:56 PM EDT) Glucose Lvl 93 65 - 199 mg/dL [facility] Comment:Diabetes: >=200 mg/d L plus symptoms BUN 21(H) 8 - 18 mg/dL [facility] Creatinine 1.12 0.70 - 1.20 mg/dL [facility] Sodium 138 135 - 145 mmol/L [facility] Potassium 3.9 3.5 - 5.0 mmol/L [facility] Comment: Please note: ??Patients with WBC >100,000 may have falsely elevated Potassium levels. ??For accurate Potassium quantification in these patients send serum separator tube (gold top) for subsequent determinations. ??Contact the Clinical Chemistry Laboratory if there are any questions. Chloride 101 98 - 107 mmol/L [facility] CO2 23 22 - 31 mmol/L [facility] Anion Gap 14 5 - 15 mmol/L [facility] Calcium 10.0 8.5 - 10.5 mg/dL [facility] Total Protein 8.2(H) 6.1 - 8.0 g/dL [facility] Albumin 4.7 3.2 - 5.2 g/dL [facility] AST 20 0 - 30 unit/L [facility] ALT 27 0 - 30 unit/L [facility] Alk Phos 66 35 - 105 unit/L [facility] Total Bilirubin 0.6 0.2 - 1.3 mg/dL [facility] Estimated GFR 64 >=60 mL/min/1. 73 m?? [facility] Comment: This patient's estimated GFR [...] Crowder MD CHEMISTRY ORDERABLES Performing Organization Address City/State/[facility] Co de Phone Number [facility] [place] [address] documented in this encounter Visit Diagnoses Diagnosis Fibromyalgia affecting multiple sites- Primary Polyarthralgia Pain in joint, multiple sites Brain fog Fatigue, unspecified type documented in this encounter Care Teams Technical Manager Relationship Specialty Start Date End Date Alejandra Jorgensen MD [address] [place] [address] PCP - General Family Medicine 06/09/22 12/21/22 documented as of this encounter
--- OUTSIDE RECORDS SUMMARY | 2023-12-09 08:20 | XMS_ITS | Encounter Summary ---
Author Organization [facility] Address [address] [place] [address] Care Team Providers Care Youth Services Specialist Name Role Phone Marco Antonio Hernandez MD Primary Care Provider [phone] Encounter Details Date Type Department Care Team (Late st Contact Info) Description 04/17/2022 Lab Requisition [facility] Pathology & Laboratory Medicine - [address] [address] Outr Resulting Lab, Provider Social History Tobacco [...] 1/2 ANTIGEN AND ANTIBODY, 4TH GENERATION Routine 04/16/2022 14:58 EST documented in this encounter Results * HIV 1/2 ANTIGEN AND ANTIBODY, 4TH GENERATION (04/16/2022 14:58 EST) HIV 1 and 2 Antibody/p24 Antigen, 4th Generation Negative Negative 04/20/2022 10:11 EST [facility] Comment:If acute HIV-1 infec tion is suspected in a high risk patient, submit plasma specimen for HIV-1 RNA quantitation test. Blood VENOUS BLOOD / Unknown 04/16/2022 14:58 EST 04/17/2022 18:35 EST Narrative [facility] - 04/20/2022 10:11 EST Fourth Generation assay performed on the Siemens Centaur XPT. Provider Outr Resulting Lab IMMUNOLOGY A ND SEROLOGY ORDERABLES [facility] [address] [place] [address] documented in this encounter Visit Diagnoses Not on filedocumented in this encounter Care Teams Youth Services Specialist Relationship Specialty Start Date End Date Marco Antonio Hernandez MD PCP - General 12/25/14 documented as of this encounter
--- OUTSIDE RECORDS SUMMARY | 2023-12-09 08:20 | XMS_ITS | Encounter Summary ---
Author Organization [facility] Address [address] [place] [address] Care Team Providers Care Threat Analyst Name Role Phone Unknown, Provider Primary Care Provider [phone] Encounter Details Date Type Department Care Team (Latest Contact Info) Description 01/09/2010 13:04 EDT - 01/09/2010 13:05 EDT Hospital Encounter [facility] - Other [address] [place] [address] Diana Ware MD [address] [place] [address] Discharge Disposition: Home or Self Care Social [...] on filedocumented in this encounter Care Teams Threat Analyst Relationship Specialty Start Date End Date Unknown, Provider, PCP - General 01/08/10 01/20/10 documented as of this encounter
--- OUTSIDE RECORDS SUMMARY | 2023-12-09 08:20 | XMS_ITS | Encounter Summary ---
[place] [address] Care Team Providers Care Litigation Examiner Name Role Phone Alejandra Jorgensen MD Primary Care Provider [phone] Reason for Referral * Consultation (Routine) - Closed Specialty Diagnoses / Procedures Referred By Contcorinna t Referred To Contact Rheumatology Diagnoses Arthralgia, unspecified joint Araceli Miner APRN [address] [place] [address] [facility] [address] [place] [id number] Referral ID Status Reason Start Date Expiration Date V isits Requested Visits Authorized [id number] Closed Consult, Test & Treat PCP Updated and/or Approved 11/12/2022 11/12/2023 6 6 Encounter Details Date Type Department Care Team (Late st Contact Info) Description 11/12/2022 Transcribe Orders eDH Incoming Referrals [phone] Araceli Miner APRN [address] [place], [place] [id number] Arthralgia, unspecified joint Social History Tobacco Use Types Packs/Day Years [...] Associated Diagnoses Orde r Schedule Referral to Rheumatology Outpatient Referral Routine Arthralgia, unspecified joint Ordered: 11/12/2022 documented as of this encounter Visit Diagnoses Diagnosis Arthralgia, unspecified joint documented in this encounter Care Teams Litigation Examiner Relationship Specialty Start Date End Date Alejandra Jorgensen MD [address] [place] [address] PCP - General Family Medicine 06/09/22 12/21/22 documented as of this encounter
--- OUTSIDE RECORDS SUMMARY | 2023-12-09 08:20 | XMS_ITS | Encounter Summary ---
Author Organization [facility] Address [address] [place] [address] Care Team Providers Care Exchange Underwriting Consultant Name Role Phone Marco Antonio Hernandez MD Primary Care Provider [phone] Encounter Details Date Type Department Care Team (Late st Contact Info) Description 07/03/2021 Lab Requisition [facility] Pathology & Laboratory Medicine - [address] [address] Outr Resulting Lab, Provider Social History Tobacco [...] Procedure Name Priority Date/Time Associated Diagnosis Comments SYPHILIS SEROLOGY Routine 07/03/2021 9:53 EST documented in this encounter Results * SYPHILIS SEROLOGY (07/03/2021 9:53 EST) Syphilis Serology Negative Negative 07/04/2021 9:53 EST [facility] Blood VENOUS BLOOD / Unknown 07/03/2021 9:53 EST 07/03/2021 21:11 EST Provider Outr Resulting Lab IMMUNOLOGY A ND SEROLOGY ORDERABLES [facility] [address] [place] [address] documented in this encounter Visit Diagnoses Not on filedocumented in this encounter Care Teams Exchange Underwriting Consultant Relationship Specialty Start Date End Date Marco Antonio Hernandez MD PCP - General 12/25/14 documented as of this encounter
--- OUTSIDE RECORDS SUMMARY | 2023-12-09 08:20 | XMS_ITS | Encounter Summary ---
Author Organization [facility] Address [address] [place] [address] Care Team Providers Care Customer Operations Representative Name Role Phone Marco Antonio Hernandez MD Primary Care Provider [phone] Encounter Details Date Type Department Care Team (Late st Contact Info) Description 06/21/2015 Results Only [facility] [phone] Catie George MD [address] [place] [address] [place] [address] Social History Tobacco Use Types Packs/Day Years [...] Diagnosis Comments PAP TEST- RESULT ONLY Routine 06/21/2015 0:00 EST documented in this encounter Results * PAP TEST- RESULT ONLY (06/21/2015 0:00 EST) Pathology Report: CYTOPATHOLOGY REPORT Reports generated via electronic interface contain original data; however they are lacking the format of the original report. Caution should be taken when reading/interpreti ng unformatted reports. Name: ? QI BLAIR ? Accession #: ? [id number] ? : ? 1980 (Age: 35) ??F ?Collect Date: ? 06/21/2015 ? Location: ? [facility] ? Receive Date: ? 06/24/2015 ? Provider: CATIE GEORGE MD Copy to: ? Final Report SPECIMEN ADEQUACY ? Satisfactory for Evaluation - transformation zone component present GENERAL CATEGORIZATION ? Negative for Intraepithelial Lesion or Malignancy ?? Last Menstrual Period: 06/11/15 Specimen/Source: ??Pap Test, Cervix/Endocervix, ThinPrep Imaging System with manual evaluation Document reviewed and electronically signed by: ? Sandeep Holloway, CT(ASCP) ? Report ??Date: 06/28/2015 13:11 HPV with Pap Test ? Date Ordered: ? 06/28/2015 ? Status: ?? Signed Out ?Date Complete: ? 07/02/2015 ? By: ??System Interface ? Date Reported: ? 07/02/2015 ? Interpretation RESULT: Negative for HPV. No E6 or E7 mRNA is detected from HPV types 16,18,31,33,35, 39,45,51,52,56,58, 59,66, and 68 by civil cadd technician mediated amplification. Comments Document reviewed and electronically signed by: ? System Interface ? Report date: 07/02/2015 By the signature above, the attending physician certifies that he/she has personally conducted a gross and/or microscopic examination of the described specimens and rendered or confirmed the above diagnosis. End of Report [facility] 06/21/2015 06/24/2015 Catie George MD PATHOLOGY ORDERABLES [facility] [address] [place] [phone] documented in this encounter Visit Diagnoses Not on filedocumented in this encounter Care Teams Customer Operations Representative Relationship Specialty Start Date End Date Marco Antonio Hernandez MD PCP - General 12/25/14 documented as of this encounter
--- OUTSIDE RECORDS SUMMARY | 2023-12-09 08:20 | XMS_ITS | Encounter Summary ---
Author Organization [facility] [place] [address] Care Team Providers Care Large Animal Husbandry Technician Name Role Phone Alejandra Jorgensen MD Primary Care Provider [phone] Reason for Visit * Reason Comments Follow-up Encounter Details Date Type Department Care Team (Late st Contact Info) Description 08/11/2022 4:15 PM EDT Office Visit Dermatology at [address] [id number] Norm Cassidy MD [address] [facility] [place] [address] Benign neoplasm of skin of left upper extremity Social History Tobacco Use Types Packs/Day Years [...] Progress Notes * Norm Cassidy MD - 08/11/2022 4:15 PM EDT Problem: Left upper arm lesion Zenia follows up is now 42. She is 6 months and her due date is on November 06. She has noted a growing firm papule on the left upper arm. It is tender. It has been present for about 6 months, the same duration that she is has been .She does not recall any trauma to the site proceeding its development. She thinks it might have started off as a pimple. CC Physical examination reveals a pleasant 42-year-old woman who has a erythematous firm papule on theleft lateral arm which is lightly tender to palpation. It is dome-shaped and even. It is consistentwith a dermatofibroma. Assessment plan: Dermatofibroma left lateral arm 1. Discussed benign diagnosis with patient 2. No treatment is necessary 3. Discussed likely pathogenesis. Discussed lack of increased risk for numerous or additional sitesto develop. 4. Patient reassured, return to clinic prn. cc: Alejandra Jorgensen MD documented in this encounter Plan of Treatment Not on file documented as of this encounter Visit Diagnoses Diagnosis Benign neoplasm of skin of left upper extremity documented in this encounter Care Teams Large Animal Husbandry Technician Relationship Specialty Start Date End Date Alejandra Jorgensen MD [address] [place] [address] PCP - General Family Medicine 06/09/22 12/21/22 documented as of this encounter
--- OUTSIDE RECORDS SUMMARY | 2023-12-09 08:20 | XMS_ITS | Encounter Summary ---
Author Organization [facility] Address [address] [place] [address] Care Team Providers Care Pyrometallurgical Engineer Name Role Phone Unavailable Primary Care Provider Unavailabl e Encounter Details Date Type Department Care Team ([facility] st Contact Info) Description 07/04/2008 Before [facility] Converted Visit ([facility]) [facility] - [facility] conversion [address] [place] [address] Ambar De Luna, JORDI Social History Tobacco Use Types Packs/Day Years Used Date Smoking Tobacco: Never Assessed Sex and Gender Information Value Date Recorded Sex Assigned at Not on file Gender Identity Not on file Sexual Orientation Not on file documented as of this encounter Plan of Treatment Not on file documented as of this encounter Procedures Procedure Name Priority Date/Time Associated Diagnosis Comments CYTOPATHOLOGY Routine 07/04/2008 0:00 EST documented in this encounter Results * CYTOPATHOLOGY (07/04/2008 0:00 EST) Pathology Report: CYTOPATHOLOGY REPORT ? Reports generated via electronic interface contain original data; ? however they are lacking the format of the original report. ? Caution should be taken when reading/interpreti ng unformatted reports. ? Name: ? HEROUX, QI L ? Accession #: ? [id number] ? : ? 1980 (Age: 28) ??F ?Collect Date: ? 07/04/2008 ? Location: ? [facility] ? Receive Date: ? 07/05/2008 ? Provider: ?AMBAR M KEIKO UI ARCHITECT ? Copy to: ? Specimen/Source: ?Pap Test, Cervix/Endocervix, ThinPrep Imaging System ? with manual evaluation ? Last Menstrual Period: ? Edgar.09 ? Hormonal/Contracep tive Status: ? Intrauterine device: Paragard ? Previous Gynecologic Pathology: ? ASC-US: 5/12/08 ? HPV: + 5/12/08 ? Treatment History: ? Colposcopy: 6/24/08 Fragments benign endocervical tissue ? SPECIMEN ADEQUACY ? - scant squamous epithelial component secondary to excessive inflammation ?? Satisfactory for Evaluation ? - transformation zone component present ? GENERAL CATEGORIZATION ? Negative for Intraepithelial Lesion or Malignancy ? INTERPRETATION ? Reactive cellular changes associated with inflammation present (includes ?? repair). ? Shift in joshua present suggestive of bacterial vaginosis. ? Document reviewed and electronically signed by: ? Cindy C. Snider, MD ? Report Date: ??07/17/2008 09:13 ? End of Report ? [facility] 07/04/2008 07/05/2008 Ambar De Luna NP PATHOLOGY ORDERABLES [facility] [address] [place] [address] documented in this encounter Visit Diagnoses Not on filedocumented in this encounter
--- OUTSIDE RECORDS SUMMARY | 2023-12-09 08:20 | XMS_ITS | Encounter Summary ---
Author Organization [facility] Address [address] [place] [address] Care Team Providers Care Securities Counselor Name Role Phone Unknown, Provider Primary Care Provider [phone] Prem Sheehan MD Primary Care Provider Unav ailable Encounter Details Date Type Department Care Team (Late st Contact Info) Description 09/26/2007 Results Only [facility] - Maple conversion [address] [place] [address] Sonu Barrera [address] [place] [address] Social History Tobacco Use Types Packs/Day Years Used Date Smoking Tobacco: Never Assessed Sex and Gender Information Value Date Recorded Sex Assigned at Not on file Gender Identity Not on file Sexual Orientation Not on file documented as of this encounter Plan of Treatment Not on file documented as of this encounter Procedures Procedure Name Priority Date/Time Associated Diagnosis Comments HPV DETECTION, HIGH RISK TYPES Routine 09/26/2007 11:00 EDT CYTOPATHOLOGY Routine 09/26/2007 0:00 EDT documented in this encounter Results * HUMAN PAPILLOMA VIRUS DNA TEST (09/26/2007 11:00 EDT) Specimen Description Cervix, ThinPrep vial [facility] Result Positive for one or more of HPV types 16,18,31,33,35 ,39,45,51,52,5 6,58,59, or 68. These high/intermedi ate risk HPV types are associated with dysplasia and some cervical cancers. [facility] Report Status Final [id number] [facility] 09/26/2007 11:0 0 EDT 09/30/2007 11:32 EDT Sonu Barrera CNM MICROBIOLOGY - GENER AL ORDERABLES [facility] [address] [place] [address] * CYTOPATHOLOGY (09/26/2007 0:00 EDT) Pathology Report: CYTOPATHOLOGY REPORT Reports generated via electronic interface contain original data; however they are lacking the format of the original report. Caution should be taken when reading/interpreti ng unformatted reports. Name: ? NATALIO QI Alma ? Accession #: ? [id number] : ? 1980 (Age: 27) ??F ?Collect Date: ? 09/26/2007 Location: ? [facility] ? Receive Date: ? 09/27/2007 Provider: ?SONU DALTONM Copy to: ? Specimen/Source: ?ThinPrep Pap Test, Cervix/Endocervix, processed on [employer] ThinPrep Imaging System, with manual evaluation Last Menstrual Period: ? 12/10/06 Menstrual/Pregnanc y Status: ? Post Other: ? HPVA - HPV testing requested if ASC-US on the current ThinPrep Pap test. ? SPECIMEN ADEQUACY ? Satisfactory for Evaluation - transformation zone component present GENERAL CATEGORIZATION ? Epithelial Cell Abnormality INTERPRETATION ? Squamous Cell Abnormality - Atypical squamous cells, undetermined significance (ASC-US). EDUCATIONAL NOTES/RECOMMENDATI ONS ? FA recommends following the 2006 Consensus Guidelines for the Management of Women with Abnormal Cervical Cancer Screening Tests (JLGTD, 2007;11(4):201-222 ). ??Consensus guidelines are available online at www.ASCCP.org. ? Document reviewed and electronically signed by: ? PRAVEENA KELLY MD ? Report Date: ??09/29/2007 15:45 End of Report [facility] 09/26/2007 09/27/2007 Sonu Barrera CNM PATHOLOGY ORDERABLES Performing Organization Address City/State/[facility] Co de Phone Number [facility] [address] [place] [address] documented in this encounter Visit Diagnoses Not on filedocumented in this encounter Care Teams Securities Counselor Relationship Specialty Start Date End Date Unknown, Provider, PCP - General 01/08/10 01/20/10 Prem Sheehan MD PCP - General 01/21/10 12/24/14 documented as of this encounter
--- OUTSIDE RECORDS SUMMARY | 2023-12-09 08:20 | XMS_ITS | Encounter Summary ---
[place] [address] Care Team Providers Care Used Car Make Ready Mechanic Name Role Phone Flor Schuler MD Primary Care Provider [phone] Reason for Referral * Consultation (Routine) - Closed Specialty Diagnoses / Procedures Referred By Contac t Referred To Contact Obstetrics and Gynecology Diagnoses Elderly multigravida with antepartum condition or complication [facility] [address] [place] [address] [facility] [address] [address] Referral ID Status Reason Start Date Expiration Date V isits Requested Visits Authorized [id number] Closed Consult, Test & Treat PCP Updated and/or Approved 04/17/2022 04/17/2023 1 1 Encounter Details Date Type Department Care Team (Late st Contact Info) Description 04/17/2022 Transcribe Orders eDH Incoming Referrals [phone] [facility] [address] [place] [place], [place] [phone] Elderly multigravida with antepartum condition or complication Social History Tobacco Use Types Packs/Day Years [...] as of this encounter Visit Diagnoses Diagnosis Elderly multigravida with antepartum condition or complication documented in this encounter Care Teams Used Car Make Ready Mechanic Relationship Specialty Start Date End Date Flor Schuler MD [address] [place] [address] PCP - General Internal Medicine 02/16/19 04/19/22 documented as of this encounter
--- OUTSIDE RECORDS SUMMARY | 2023-12-09 08:20 | XMS_ITS | Encounter Summary ---
Author Organization [facility] Address [address] [place] [address] Care Team Providers Care Patient Navigator Name Role Phone Marco Antonio Hernandez MD Primary Care Provider [phone] Encounter Details Date Type Department Care Team ([facility] st Contact Info) Description 05/04/2017 Results Only [facility]- [facility] [phone] Addy Robles DPM [address] [place] [phone] Social History Tobacco Use Types Packs/Day Years Used Date Smoking Tobacco: Never Assessed Sex and Gender Information Value Date Recorded Sex Assigned at Not on file Gender Identity Not on file Sexual Orientation Not on file documented as of this encounter Plan of Treatment Not on file documented as of this encounter Procedures Procedure Name Priority Date/Time Associated Diagnosis Comments FUNGAL CULTURE/SMEAR, SKIN, HAIR OR NAIL Routine 05/04/2017 11:15 EST documented in this encounter Results * FUNGAL CULTURE/SMEAR, SKIN, HAIR OR NAIL (05/04/2017 11:15 EST) Fungal Smear Rare Fungal elements seen 05/05/2017 14:28 EST [facility] Result TRICHOPHYTON SPECIES This mould is a member of the dermatophytes, a group of fungi that affect skin, nails, and hair (Trichophyton, Microsporum, Epidermophyton). 05/18/2017 11:23 EST [facility] SPECIMEN FROM SKIN / Unknown 05/04/2017 11:15 EST 05/05/2017 13:45 EST Comment:Left~Foot~SCRAPINGS Addy Robles DPDemian MICROBIOLOGY - G ENERAL ORDERABLES [facility] [address] [place] [address] documented in this encounter Visit Diagnoses Not on filedocumented in this encounter Care Teams Patient Navigator Relationship Specialty Start Date End Date Marco Antonio Hernandez MD PCP - General 12/25/14 documented as of this encounter
--- OUTSIDE RECORDS SUMMARY | 2023-12-09 08:20 | XMS_ITS | Encounter Summary ---
Author Organization [facility] Address [address] [place] [address] Care Team Providers Care Lens Grinding Machine Operator Name Role Phone Unknown, Provider Primary Care Provider [phone] Encounter Details Date Type Department Care Team (Late st Contact Info) Description 01/16/2010 Results Only [facility] [phone] Yesica Ware MD [address] [place] [address] Social History Tobacco Use Types Packs/Day Years Used Date Smoking Tobacco: Never Assessed Sex and Gender Information Value Date Recorded Sex Assigned at Not on file Gender Identity Not on file Sexual Orientation Not on file documented as of this encounter Plan of Treatment Not on file documented as of this encounter Procedures Procedure Name Priority Date/Time Associated Diagnosis Comments SURGICAL PATHOLOGY Routine 01/16/2010 0:00 EDT documented in this encounter Results * SURGICAL PATHOLOGY (01/16/2010 0:00 EDT) Pathology Report: SURGICAL PATHOLOGY REPORT ? Reports generated via electronic interface contain original data; ? however they are lacking the format of the original report. ? Caution should be taken when reading/interpreti ng unformatted reports. ? Name: ? HEROUX, QI L ? Accession #: ? [id number] ? : ? 1980 (Age: 29) ??F ? Collect Date: ? 01/16/2010 ? Location: ? [facility] ? Receive Date: ? 01/16/2010 ? Provider: YESICA S FREEDOM MD ? Copy to: SHANITA MATHIAS MD ? Final Pathologic Diagnosis: ? Uterine contents, evacuation: ? 1. ?Placental tissue, immature (retained products of conception). ? 2. ? Decidua with necrosis. ? 3. ? Gestational endometrium. ? 4. ? Implantation site changes identified. ? Comment: ? This patient has also had a previous specimen evaluated for spontaneous ? ([id number]). (Dr. Whittaker)/[facility] ? Document reviewed and electronically signed by: ? Danie L. Griffin, MD ? Report ??Date: 01/22/2010 16:15 ? By the signature above, the attending physician certifies that he/she has ? personally conducted a gross and/or microscopic examination of the described ? specimens and rendered or confirmed the above diagnosis. ? Specimen(s) Received: ? Uterine tissue inc. AB. ? Clinical History: ? Incomplete AB ??suspected partial molar on prior tissue submitted ? Gross Description: ? Received in formalin labelled Heroux, Qi and uterine ? tissue-incomplete is a 4.0 x 3.5 x 2.0 cm aggregate of multiple ? pink-palacios irregular tissue fragments admixed with clotted blood. ??There are ? scant, probable chorionic villi identified. ??No parts are present. ? Track Mechanic section are submitted in (A1) ??(A3). ??(Jordy Wong)/mpl ? End of Report ? [facility] 01/16/2010 01/16/2010 16: 49 EDT Yesica Ware MD PATHOLOGY ORDERABLES [facility] [address] [place] [address] documented in this encounter Visit Diagnoses Not on filedocumented in this encounter Care Teams Lens Grinding Machine Operator Relationship Specialty Start Date End Date Unknown, Provider, PCP - General 01/08/10 01/20/10 documented as of this encounter
--- OUTSIDE RECORDS SUMMARY | 2023-12-09 08:20 | XMS_ITS | Encounter Summary ---
Author Organization [facility] Address [address] [place] [address] Care Team Providers Care Red Cross Worker Name Role Phone Unknown, Provider Primary Care Provider [phone] Encounter Details Date Type Department Care Team (Late st Contact Info) Description 01/09/2010 Results Only [facility] [phone] Diana Ware MD [address] [place] [address] Social History Tobacco Use Types Packs/Day Years Used Date Smoking Tobacco: Never Assessed Sex and Gender Information Value Date Recorded Sex Assigned at Not on file Gender Identity Not on file Sexual Orientation Not on file documented as of this encounter Plan of Treatment Not on file documented as of this encounter Procedures Procedure Name Priority Date/Time Associated Diagnosis Comments MISCELLANEOUS TEST, OTHER Routine 01/09/2010 11:22 EDT documented in this encounter Results * MISCELLANEOUS TEST, OTHER (01/09/2010 11:22 EDT) Test Name ANEUPLOIDY DETECTION BY FISH [facility] Result Aneuploidy Detection, POC, FISH ? Specimen ?? Tissue-Paraffin ? Specimen ID ?? [id number] ? Source ? POC [id number] ? Order Date ?? 10 Jan 2010 08:21 ? Reason For Referral ??r/o molar ? Method ? FISH analysis of 100 nuclei with probes for Xcen (DXZ1), ? Ycen (DYZ3), 13q14 (Rb1), 15cen (D15Z4), 16cen (D16Z3), ? 18cen (D18Z1), 21q22 (P73O730) and 22q11.2 (BCR). ? Results ? Chromosome ??Result ? XY ?? normal ? 13 ?? normal ? 15 ?? normal ? 16 ?? normal ? 18 ?? normal ? 21 ?? normal ? 22 ?? normal ? NOMENCLATURE: ? nuc ? geronimo(DXZ1x1,DYZ3x 1,H48E4a1),(Rb1, X77S491)x2,(D15Z 4,D16Z3, ? BCR)x2 ? Of 100 nuclei, 99 had 1 DXZ1 and 1 DYZ3 signal, 97 had 2 ? D18Z1 signals, 97 had 2 signals for 13q14, 99 had 2 signals ? for 21q22, 97 had 2 signals for D15Z4, 99 had 2 signals for ? D16Z3 and 97 had 2 signals for BCR. ? Interpretation ? A normal signal pattern for chromosomes 13, 15, 16, 18, 21, ? 22 and XY was observed. ? The reason for testing provided was rule out molar ? . This testing is not sufficient to rule out a ? complete molar . A surgical pathology consult on ? paraffin-embedde d tissue (test #[id number]) is recommended to test ? for complete molar . If interested in this ? testing, please call [phone]. ? DISCLAIMER: This test was developed and its performance ? characteristics determined by Laboratory Medicine and ? Pathology, [facility]. It has not been cleared ? or approved by the U.S. Food and Drug Administration. This ? FISH test does not rule out other chromosome anomalies. ? Arti et al., [place] Clin Proc 73:132-137, 1998. ? [employer] Police Officer ? Maxi Carolina MD, PhD ? Report Date ?? 22 Jan 2010 10:21 ? * Performing Site: ? [facility] Dpt of Lab Med & Pathology ? [address] [place] [address] ? Search Planner: Von Sanchez III, M.D. ? [facility] 01/09/2010 11:2 2 EDT 01/09/2010 11:22 EDT Diana Ware MD CHEMISTRY & BLOOD GA S ORDERABLES [facility] [address] [place] [address] documented in this encounter Visit Diagnoses Not on filedocumented in this encounter Care Teams Red Cross Worker Relationship Specialty Start Date End Date Unknown, Provider, PCP - General 01/08/10 01/20/10 documented as of this encounter
--- OUTSIDE RECORDS SUMMARY | 2023-12-09 08:20 | XMS_ITS | Encounter Summary ---
Author Organization [facility] Address [address] [place] [address] Care Team Providers Care Coiler Name Role Phone Unknown, Provider Primary Care Provider [phone] Prem Sheehan MD Primary Care Provider Unav ailable Encounter Details Date Type Department Care Team (Late st Contact Info) Description 11/08/2007 Results Only [facility] [address] [place] [address] Latonia Grant MD [address] [phone] Social History Tobacco Use Types Packs/Day Years Used Date Smoking Tobacco: Never Assessed Sex and Gender Information Value Date Recorded Sex Assigned at Not on file Gender Identity Not on file Sexual Orientation Not on file documented as of this encounter Plan of Treatment Not on file documented as of this encounter Procedures Procedure Name Priority Date/Time Associated Diagnosis Comments SURGICAL PATHOLOGY Routine 11/08/2007 0:00 EDT documented in this encounter Results * SURGICAL PATHOLOGY (11/08/2007 0:00 EDT) Pathology Report: SURGICAL PATHOLOGY REPORT Reports generated via electronic interface contain original data; however they are lacking the format of the original report. Caution should be taken when reading/interpreti ng unformatted reports. Name: ? QI CASH ? Accession #: ? [id number] ? : ? 1980 (Age: 27) ??F ? Collect Date: ? 11/08/2007 ? Location: ? [facility] ? Receive Date: ? 11/09/2007 ? Provider: LATONIA GRANT MD Copy to: DONY BOND MD ? Final Pathologic Diagnosis: A. ?Endocervix, curettage: 1. ?Fragments of benign endocervical tissue. 2. ? No dysplasia identified. B. ?Cervix, 12:00, biopsy: 1. ?Squamous metaplasia with mild chronic cervicitis and reactive epithelial changes. 2. ? No dysplasia identified. Document reviewed and electronically signed by: Kristin Mcdermott MD Report ??Date: 11/14/2007 16:45 By the signature above, the attending physician certifies that he/she has personally conducted a gross and/or microscopic examination of the described specimens and rendered or confirmed the above diagnosis. Specimen(s) Received: A. ?ECC (#1) B. ? Cervical biopsy @ 12 o'clock (#2) Clinical History: ? ASCUS Pap with (+) HPV; CECIL I on colpo Gross Description: ? Received in formalin labelled Heroux and endo cx is a 0.4 x 0.3 x 0.1 cm aggregate of mucinous and focally hemorrhagic material. ??The specimen is submitted in toto as (A). Received in formalin labelled Heroux and cx 12 is a 0.4 x 0.3 x 0.2 cm palacios-pink, firm piece of tissue which is submitted intact as (B). ??(James Gomes/[facility] End of Report [facility] 11/08/2007 11/09/2007 15: 03 EDT Latonia Grant MD PATHOLOGY ORDERABLES [facility] [address] [place] [address] documented in this encounter Visit Diagnoses Not on filedocumented in this encounter Care Teams Coiler Relationship Specialty Start Date End Date Unknown, Provider, PCP - General 01/08/10 01/20/10 Prem Sheehan MD PCP - General 01/21/10 12/24/14 documented as of this encounter
--- OUTSIDE RECORDS SUMMARY | 2023-12-09 08:20 | XMS_ITS | Encounter Summary ---
[place] [address] Care Team Providers Care Fish Icer Name Role Phone Alejandra Jorgensen MD Primary Care Provider [phone] Encounter Details Date Type Department Care Team (Latest Contact Info) Description 08/11/2022 Travel Social History Tobacco Use Types Packs/Day [...] filedocumented in this encounter Care Teams Fish Icer Relationship Specialty Start Date End Date Alejandra Jorgensen MD [address] [address] PCP - General Family Medicine 06/09/22 12/21/22 documented as of this encounter
--- OUTSIDE RECORDS SUMMARY | 2023-12-09 08:20 | XMS_ITS | Encounter Summary ---
Author Organization [facility] [place] [address] Care Team Providers Care Shuttle Repairer Name Role Phone AdrianneAraceli yadav CUONG Primary Care Provider [phone] Reason for Referral * Physical Therapy (Routine) - Closed Specialty Diagnoses / Procedures Referred By Contcorinna t Referred To Contact Diagnoses Fibromyalgia Bonifacio Keane MD [facility] [place] [address] Referral ID Status Reason Start Date Expiration Date V isits Requested Visits Authorized [id number] Closed Evaluate and Treat 12/21/2022 06/19/2023 12 12 Encounter Details Date Type Department Care Team (Late st Contact Info) Description 12/21/2022 2:30 PM EDT [place] [address] Bonifacio Keane MD [facility] [place] [address] Fibromyalgia; Polyarthralgia; Brain fog; Fatigue, unspecified type Social [...] 14.4 oz) 12/21/2022 2:19 PM EDT Height - - Body Mass Index 41.49 12/04/2022 1:16 PM EDT documented in this encounter Progress Notes * Bonifacio Keane MD - 12/21/2022 2:30 PM EDT .Rheumatology Outpatient Follow Up Note PCP: Alejandra Jorgensen MD Zenia Cr is a 42 y.o. female with a past medical history dermatitis, gastric ulcer, acid and bile reflux, and umbilical hernia seen for the continuing management of fibromyalgia/myofascial pain. Rheum History: -Joint pains and generalized muscle aches started 3 days (delivery October- (delivery was complicated as she was induced due to hepatic cholestasis, lost 2 L of blood) -baby is healthy 3 days after giving she started to experience diffuse joint pains that first started in her right wrist then left wrist and subsequently her left ankle and knee. Patient states over the span of1.5 -2 weeks she had diffuse joint pains and muscle aches. Joint pain described as 9/10 intensity, constant, associated with morning stiffness for hours, and reports a sensation of shard of glass inside her joints. Patient reports chronic fatigue and muscle tenderness along with poor sleep and anhedonia. Patient states she may have noticed some swelling in her joints but not too obvious. Joint pains make it difficult to perform daily activities. She went to her PCP who prescribed her 40 mg ofsteroids and patient states at 40 mg she [...] loss (diffuse) but no patchy bald spots -Reports chronic brain fog since giving -no new rashes;no new tick bites Labs on 11/2022: -JENNA,FENG,RF,CCP unremarkable -CBC and CMP wnl -Uric acid mildly elevated to 7.2 -ESR mildly elevated at 37 -Crp elevated at 7.6 -CK wnl;Vit D wnl -Infectious w/u negative (hepatitis,HIV) -Tsh wnl Interval History: -Today is her first follow up visit from her initial visit on 12/04/2022 -Accompanied by today and new 2 month old baby -Reports ongoing symptoms since last visit -Completed labs we had requested from last visit (as noted above) -Patient discusses today that that the diagnosis of fibromyalgia is frustrating for her because of the sudden onset and the fact that she is unable to perform her daily tasks -Is trying to improve her sleep since last visit but difficult with new baby -Trying to breastfeed but feels supply is low due to her ongoing symptoms -Reports easy bruising -platelets counts wnl on recent labs; no history of prolonged bleeding -Reports some rashes over right buttocks and a faint red rash over the right mid back which is mildly itchy; no other skin rashes ROS (positives in bold): Gen: no fevers, no chills, no night sweats Pulm: no SOB CV: no CP Abd: no abd pain, no nausea, no vomiting, no diarrhea MSK: see HPI Meds and Allergies: Reviewed in eDH Physical exam: BP 114/63 (BP Location (NBP): Left arm, Patient Position: Sitting, BP Cuff Sizes: Large Adult (32-43 cm)) Pulse 65 Temp 36.4 ??C (97.6 ??F) (Temporal) Resp 16 Wt (!) 138.8 kg (305 lb 14.4 oz) LMP 01/04/2022 (Approximate) SpO2 98% BMI 41.49 kg/m?? Physical Examination: General: AAOx3 HEENT: (-)scleral injection, mucous membranes are moist, no oral mucosal ulcerations Skin: mildly raised, pink colored rashes over right posterior buttocks -not scaly in appearance andnon-tender; faint oval shaped rash over right mid-back/nonscaly Neck: Supple, no lymphadenopathy, full range of [...] no MTP compression tenderness, no toe splaying Labs/Studies: Labs on 11/2022: -JENNA,FENG,RF,CCP unremarkable -CBC and CMP wnl -Uric acid mildly elevated to 7.2 -ESR mildly elevated at 37 -Crp elevated at 7.6 -CK wnl;Vit D wnl -Infectious w/u negative (hepatitis,HIV) -Tsh wnl Assessment/Plan: Zenia Cr is a 42 y.o. female with a past medical history dermatitis, gastric ulcer, acid and bile reflux, and umbilical hernia seen for the continuing management of fibromyalgia/myofascial pain. #Fibromyalgia/Myofascial pain Symptoms include diffuse arthralgias, generalized tenderness, hyperesthesias, muscle aches, fatigue, brain fog, poor sleep and depression. Lab workup with negative JENNA and autoimmune panel and mildlyelevated ESR/CRP which could be from obesity or period itself. . At this time, low suspicion for inflammatory arthritis given no synovitis on examination and unremarkable labs for an underlying CTD/inflammatory arthropathy. Patient has symptoms suggestive of fibromyalgia which is characterized by musculoskeletal pain accompanied by fatigue, sleep, memory and mood issues. There is possibly a component of depression. Patient was counseled for fibromyalgia management and importance of sleep hygiene. She is currently therefore options are limited in terms of medications for fibromyalgia symptoms. Recommendations: -Referral to physical therapy today- aquatic therapy for fibromyalgia -Counseling provided for fibromyalgia management; A graded exercise program can improve symptoms, can consider referral to CBT, recommend working on sleep hygiene. Other avenues for therapy include beatrice chi, accupuncture, for some patients massage therapy is beneficial -Can try Cymbalta,Lyrica, or even low dose naltrexone when patient not and is interested in pharmaceutical options but would prefer trying graded exercise programs and lifestyle modifications first -Check ESR and Crp in 3 months prior to next visit ;patient was advised to stay vigilant of symptoms to see if she develops any concerning signs/symptoms such as joint swelling or skin rashes References: Br??Rissa torres., Jose, ??., Shayan Mchugh et al. Inflammatory and anti- inflammatory markers in plasma: from late to early . Sci Rep 9, 5983 (2019). https://doi.org/10.1038/j52232-915-33157-e Follow up in 3 months Patient was discussed with Dr. Justin Kenae MD Rheumatology Fellow,[id number] Pager Number:[phone] * David Jain MD - 12/21/2022 2:30 PM EDT Attending Attestation I have not seen or examined this patient. I have reviewed the above history, exam, and assessment. The total history, medication review, examination, assessment and plan was formulated and derived bythe fellow. I have discussed the case post-visit with the fellow. It is possible that test such as labs, imaging, and other provider notes were not available at the time of this visit and may not be represented in this assessment and plan at this time. Thus, I have reviewed the information made available at this time as reasonable, as discussed and documented with possible additions and / or changes below which were communicated with the fellow. David Jain MD documented in this encounter Plan of Treatment Scheduled Orders Name Type Priority Associated Diagnoses Orde r Schedule CRP, acute inflammation Lab Routine Fibromyalgia Polyarthralgia Brain fog Fatigue, unspecified type Expected: 12/21/2022, Expires: 12/22/2023 Sedimentation rate Lab Routine Fibromyalgia Polyarthralgia Brain fog Fatigue, unspecified type Expected: 12/21/2022 (Approximate), Expires: 12/22/2023 Scheduled Referrals Name Type Priority Associated Diagnoses Orde r Schedule Referral to Physical Therapy Outpatient Referral Routine Fibromyalgia Ordered: 12/21/2022 documented as of this encounter Visit Diagnoses Diagnosis Fibromyalgia Mylagia and myositis, unspecified Polyarthralgia Pain in joint, multiple sites Brain fog Fatigue, unspecified type documented in this encounter Care Teams Shuttle Repairer Relationship Specialty Start Date End Date Araceli Miner CUONG [address] [place] [address] PCP - General Family Medicine 12/22/22 documented as of this encounter
--- OUTSIDE RECORDS SUMMARY | 2023-12-09 08:20 | XMS_ITS | Encounter Summary ---
Author Organization [facility] Address [address] [place] [address] Care Team Providers Care Assistant Softball Coach Name Role Phone Prem Sheehan MD Primary Care Provider Unav ailable Encounter Details Date Type Department Care Team (Late st Contact Info) Description 12/21/2014 Results Only [facility] [phone] Derik Claudio, DO [address] [facility] [address] [place] [address] Social History Tobacco Use Types Packs/Day Years Used Date Smoking Tobacco: Never Assessed Sex and Gender Information Value Date Recorded Sex Assigned at Not on file Gender Identity Not on file Sexual Orientation Not on file documented as of this encounter Plan of Treatment Not on file documented as of this encounter Procedures Procedure Name Priority Date/Time Associated Diagnosis Comments SURGICAL PATHOLOGY Routine 12/21/2014 10 :16 EDT documented in this encounter Results * SURGICAL PATHOLOGY (12/21/2014 10:16 EDT) Pathology Report: SURGICAL PATHOLOGY REPORT Reports generated via electronic interface contain original data; however they are lacking the format of the original report. Caution should be taken when reading/interpret ing unformatted reports. Name: ? QI BLAIR ? Accession #: ? [id number] ? : ? 1980 (Age: 34) ??F ? Collect Date: ? 12/21/2014 ? Location: ? [facility] ? Receive Date: ? 12/21/2014 ? Provider: DERIK CLAUDIO DO Copy to: BASIM CASTELLANO MD ? Final Pathologic Diagnosis: GALLBLADDER, CHOLECYSTECTOMY: - ??Chronic cholecystitis. - ??Cholelithiasis. Document reviewed and electronically signed by: KAREN MCCARTY MD Report ??Date: 12/26/2014 14:42 By the signature above, the attending physician certifies that he/she has personally conducted a gross and/or microscopic examination of the described specimens and rendered or confirmed the above diagnosis. Specimen(s) Received: Gallbladder Clinical History: Biliary colic Gross Description: ? Received in formalin labelled with proper patient identification (initials H, J) and gallbladder is an intact gallbladder (11.1 x 2.2 x 1.8 cm) with an attached segment of cystic duct (0.3 cm in length x 0.2 cm in diameter). ? The serosa is pink-purple, smooth, and glistening with cauterized adventitia. The mucosa is palacios-pink and velvety with focal thinned areas. The wall thickness varies from 0.1-0.2 cm. The cystic duct lumen is obstructed by gallstones. The cystic duct margin is inked blue. Multiple red-brown multifaceted choleliths are present, ranging from 0.5 to 1.1 cm in greatest dimension. ? Two claims customer service representative sections and the inked face cystic duct margin are submitted in 1. 12/24/2014 11:58 AM End of Report [facility] 12/21/2014 10:1 6 EDT 12/21/2014 10:16 EDT Derik Claudio DO PATHOLOGY ORDER MAGDI [facility] [address] [place] [address] documented in this encounter Visit Diagnoses Not on filedocumented in this encounter Care Teams Assistant Softball Coach Relationship Specialty Start Date End Date Prem Sheehan MD PCP - General 01/21/10 12/24/14 documented as of this encounter
--- OUTSIDE RECORDS SUMMARY | 2023-12-09 08:20 | XMS_ITS | Encounter Summary ---
Author Organization [facility] Address [address] [place] [address] Care Team Providers Care College Or University Business Manager Name Role Phone Marco Antonio Hernandez MD Primary Care Provider [phone] Encounter Details Date Type Department Care Team (Late st Contact Info) Description 06/25/2021 Lab Requisition [facility] Pathology & Laboratory Medicine - [address] [address] Outr Resulting Lab, Provider Social History Tobacco [...] Procedure Name Priority Date/Time Associated Diagnosis Comments CHLAMYDIA/N. GONORRHOEAE AMPLIFIED NUCLEIC ACID Routine 06/25/2021 9:00 EST documented in this encounter Results * CHLAMYDIA/N. GONORRHOEAE AMPLIFIED RNA (06/25/2021 9:00 EST) Neisseria gonorrhoeae Result Negative Negative 06/26/2021 13:25 EST [facility] Chlamydia trachomatis Result Negative Negative 06/26/2021 13:25 EST [facility] Urine URINE / Unknown 06/25/2021 9 :00 EST 06/25/2021 22:38 EST Narrative [facility] - 06/26/2021 13:25 EST A first catch urine specimen is acceptable for detection of Gonorrhea and Chlamydia, but might detect up to 10% fewer infections when compared with vaginal and endocervical swab samples. Provider Outr Resulting Lab MICROBIOLOGY - GENERAL ORDERABLES [facility] [address] [place] [address] documented in this encounter Visit Diagnoses Not on filedocumented in this encounter Care Teams College Or University Business Manager Relationship Specialty Start Date End Date Marco Antonio Hernandez MD PCP - General 12/25/14 documented as of this encounter
--- OUTSIDE RECORDS SUMMARY | 2023-12-09 08:21 | XMS_ITS | Encounter Summary ---
Author Organization [place] [address] Care Team Providers Care Cleaner Assistant Name Role Phone Maxi Ang MD Primary Care Provider [phone] Encounter Details Date Type Department Care Team (Late st Contact Info) Description 05/29/2014 9:00 AM EST Office Visit Dermatology at [address] [phone] Norm Cassidy MD [address] [place] [address] [place] [address] Dermatitis; Tinea pedis; Acne vulgaris Discharge Disposition: Home Social History Tobacco Use Types Packs/Day Years Used Date Smoking Tobacco: Never Assessed Sex and Gender Information Value Date Recorded Sex Assigned at Not on file Gender Identity Not on file Sexual Orientation Not on file documented as of this encounter Progress Notes * Norm Cassidy MD - 05/29/2014 9:35 AM [...] years that has not responded to numerous oynx-owf-aurvxqy products including witch simone, Proactiv, etc. I [...] acne documented in this encounter Care Teams Cleaner Assistant Relationship Specialty Start Date End Date Maxi Ang MD [address] [address] PCP - General 04/08/10 08/26/16 documented as of this encounter
--- OUTSIDE RECORDS SUMMARY | 2023-12-09 08:21 | XMS_ITS | Encounter Summary ---
Author Organization [facility] [place] [address] Care Team Providers Care Levers Lace Machine Operator Name Role Phone Maxi Ang MD Primary Care Provider [phone] Reason for Visit * Reason Comments Follow-up Encounter Details Date Type Department Care Team ([facility] st Contact Info) Description 07/02/2014 2:00 PM EST Office Visit Dermatology at [address] [phone] Norm Cassidy MD [address] [place] [address] [place] [address] Acne vulgaris; Tinea pedis Discharge Disposition: Home Social History Tobacco Use Types Packs/Day Years Used Date Smoking Tobacco: Never Sex and Gender Information Value Date Recorded Sex Assigned at Not on file Gender Identity Not on file Sexual Orientation Not on file documented as of this encounter Patient Instructions * Patient Instructions* María Elena Sutton LPN - 07/02/2014 2:08 PM EST Images from the original note were not included. [facility] Acne: After Your Visit Your Care Instructions Acne is a skin problem that shows up as blackheads, whiteheads, and pimples. It most often affects the face, neck, and upper body. Acne occurs when oil and skin cells clog the skin's pores. Acne usually starts during the teen years and often lasts into adulthood. Gentle cleansing every day controls most mild acne. If home treatment does not work, your doctor may prescribe creams, antibiotics, or a stronger medicine called isotretinoin. Sometimes control pills help women who havemonthly acne flare-ups. Follow-up care is a barnes part of your treatment and safety. Be sure to make and go to all appointments, and call your doctor if you are having problems. It???s also a good idea to know your test results and keep a list of the medicines you take. How can you care for yourself at home? ?? Gently wash your face 1 or 2 times a day with warm (not hot) water and a mild soap or cleanser. Always rinse well. ?? Use an tktx-web-gjcqzri lotion or gel that contains benzoyl peroxide. [...] signs of depression while you are taking the prescription medicine isotretinoin. ?? You start to have other symptoms, such as facial hair growth in women or bone and muscle pain. Where can you learn more? Visit our health information library at [email or web address] You can also view health information on [email or web address], your personal patient account. Log in or sign up today. Enter V108 in the search box to learn more about Acne: After Your Visit. ?? [id number] [place], [place]. Care instructions adapted under license by [facility]. This care instruction is for use with your licensed healthcare professional. If you have questions about a medical condition or this instruction, always ask your healthcare professional. [employer] disclaims any warranty or liability for your use of this information. Content Version: 10.3.916593; Current as of: July 26, 2013 documented in this encounter Progress Notes * Norm Cassidy MD - 07/02/2014 2:14 PM [...] foot documented in this encounter Care Teams Levers Lace Machine Operator Relationship Specialty Start Date End Date Maxi Ang MD [address] [place] [address] PCP - General 04/08/10 08/26/16 documented as of this encounter
--- OUTSIDE RECORDS SUMMARY | 2023-12-09 08:21 | XMS_ITS | Encounter Summary ---
Author Organization [facility] [place] [address] Care Team Providers Care Barrel Finisher Name Role Phone Flor Schuler MD Primary Care Provider [phone] Reason for Visit * Reason Comments Follow-up Encounter Details Date Type Department Care Team ([facility] st Contact Info) Description 02/16/2019 11:30 AM EDT Office Visit Dermatology at [address] [phone] Norm Cassidy MD [address] [facility] [place] [address] Acne vulgaris Social History Tobacco Use Types Packs/Day Years Used Date Smoking Tobacco: Never Smokeless Tobacco: Never Sex and Gender Information Value Date Recorded Sex Assigned at Not on file Gender Identity Not on file Sexual Orientation Not on file documented as of this encounter Progress Notes * Norm Cassidy MD - 02/16/2019 11:30 AM EDT PROBLEM: 1. Follow up acne vulgaris on spironolactone. 2. History of tinea corporis. Zenia follows up and is been 2-1/2-year since I saw her last. She decided not to conceive a child after our last visit. She is been taking [...] This will be called in to her [facility] drugstore in [place] 2. Continue current control pill, she is [...] dry skin. Winter is when this usually flares on the buttock. 2. Recommended changing socks midday if her feet are sweaty, and recommended once every 1 to 2 weeks application of Spectazole cream to her feet the soles of the feet and the toe webspaces, utilizingeconazole nitrate 1% cream. 3. Will call in refill for her econazole nitrate 1% cream for twice daily application to buttock rash/athlete's foot as needed, dispense 30 g with 2 refills. CC: Flor Schuler MD documented in this encounter Plan of Treatment Not on file documented as of this encounter Visit Diagnoses Diagnosis Acne vulgaris Other acne documented in this encounter Care Teams Barrel Finisher Relationship Specialty Start Date End Date Flor Schuler MD [address] [place] [address] PCP - General Internal Medicine 02/16/19 04/19/22 documented as of this encounter
--- OUTSIDE RECORDS SUMMARY | 2023-12-09 08:21 | XMS_ITS | Encounter Summary ---
Author Organization [facility] [place] [address] Care Team Providers Care Recycling Operations Manager Name Role Phone Catie Chu MD Primary Care Provider [phone] Reason for Visit * Reason Comments Medication Refill Encounter Details Date Type Department Care Team (Late st Contact Info) Description 02/07/2019 Refill Dermatology at [address] [phone] Norm Cassidy MD [address] [place] [address] [place] [address] Social History Tobacco Use Types Packs/Day Years Used Date Smoking Tobacco: Never Sex and Gender Information Value Date Recorded Sex Assigned at Not on file Gender Identity Not on file Sexual Orientation Not on file documented as of this encounter Plan of Treatment Not on file documented as of this encounter Visit Diagnoses Not on filedocumented in this encounter Care Teams Recycling Operations Manager Relationship Specialty Start Date End Date Catie Chu MD [address] [place] [address] [place] [address] PCP - General Pediatrics 08/27/16 02/15/19 documented as of this encounter
--- OUTSIDE RECORDS SUMMARY | 2023-12-09 08:21 | XMS_ITS | Encounter Summary ---
Author Organization [facility] [address] Care Team Providers Care Police Radio Dispatcher Name Role Phone Catie Chu MD Primary Care Provider Reason for Visit * Reason Comments Medication Refill Encounter Details Date Type Department Care Team (Late st Contact Info) Description 08/25/2016 Refill Dermatology at [address] [phone] Norm Cassidy MD [address] [place] [address] [place] [address] Social History Tobacco Use Types Packs/Day Years Used Date Smoking Tobacco: Never Sex and Gender Information Value Date Recorded Sex Assigned at Not on file Gender Identity Not on file Sexual Orientation Not on file documented as of this encounter Plan of Treatment Not on file documented as of this encounter Visit Diagnoses Not on filedocumented in this encounter Care Teams Police Radio Dispatcher Relationship Specialty Start Date End Date Catie Chu MD [address] [place] [address] [place] [address] PCP - General Pediatrics 08/27/16 02/15/19 documented as of this encounter
--- OUTSIDE RECORDS SUMMARY | 2023-12-09 08:21 | XMS_ITS | Encounter Summary ---
Author Organization [facility] [place] [address] Care Team Providers Care Yard Clerk Name Role Phone Catie Chu MD Primary Care Provider [phone] Encounter Details Date Type Department Care Team (Late st Contact Info) Description 02/02/2018 Refill Dermatology at [address] [phone] Marlin Jameson LPN Social History Tobacco Use Types Packs/Day Years Used Date Smoking Tobacco: Never Sex and Gender Information Value Date Recorded Sex Assigned at Not on file Gender Identity Not on file Sexual Orientation Not on file documented as of this encounter Miscellaneous Notes * Telephone Encounter - Marlin Jameson LPN - 02/03/2018 11:[address] Cassidy approved Refill Spironolactone 100 mg one tablet by mouth every day Disp#90 Refill#3. Patient notif * Telephone Encounter - Marlin Jameson LPN - 02/02/2018 4:47 PM EDT Patient requesting refill for spironolactone. Having an acne breakout on her face. Last prescription filled 08/27/16. (spironolactone 100 mg one tablet by mouth every day Disp# 90 Refill #3) documented in this encounter Plan of Treatment Not on file documented as of this encounter Visit Diagnoses Not on filedocumented in this encounter Care Teams Yard Clerk Relationship Specialty Start Date End Date Catie Chu MD [address] [place] [address] [facility] [place] [address] PCP - General Pediatrics 08/27/16 02/15/19 documented as of this encounter
--- OUTSIDE RECORDS SUMMARY | 2023-12-09 08:21 | XMS_ITS | Encounter Summary ---
Author Organization [facility] [place] [address] Care Team Providers Care Chart Clerk Name Role Phone Catie Chu MD Primary Care Provider [phone] Reason for Visit * Reason Comments Follow-up Encounter Details Date Type Department Care Team ([facility] st Contact Info) Description 08/27/2016 10:00 AM EDT Office Visit Dermatology at [address] [phone] Norm Cassidy MD [address] [place] [address] [place] [address] Acne vulgaris Social History Tobacco Use Types Packs/Day Years Used Date Smoking Tobacco: Never Sex and Gender Information Value Date Recorded Sex Assigned at Not on file Gender Identity Not on file Sexual Orientation Not on file documented as of this encounter Progress Notes * Norm Cassidy MD - 08/27/2016 10:00 AM [...] will be called in to [facility] in [place]. b. Again discussed benefits and risks of [...] acne documented in this encounter Care Teams Chart Clerk Relationship Specialty Start Date End Date Catie Chu MD [address] [place] [address] PCP - General Pediatrics 08/27/16 02/15/19 documented as of this encounter
[2023-12-09 08:33] LABS: Hemoglobin A1C 5.3 % (<5.7)
== END 2023-12-09 08:17 | disposition home or self-care (01) ==
LOC: LBO 08:18
PROVIDERS: PCP Nurse Practitioner Family; Visit Provider Nurse Practitioner Family
DX: Z86.32 Personal history of gestational diabetes (principal)
CPT/HCPCS: 36415; 80048; 80061; 83036

== ENCOUNTER → 2023-12-13 01:08 | Outpatient (CLI) | payer OTHER, SELFPAY ==
--- OUTSIDE RECORDS SUMMARY | 2023-12-13 01:10 | XMS_ITS | Encounter Summary ---
Author Organization [facility] Address [address] [place] [address] Care Team Providers Care Lifter Name Role Phone Marco Antonio Hernandez MD Primary Care Provider [phone] Encounter Details Date Type Department Care Team (Late st Contact Info) Description 05/23/2022 Lab Requisition [facility] Pathology & Laboratory Medicine - [address] [address] Outr Resulting Lab, Provider Social History Tobacco [...] Outr Resulting Lab MICROBIOLOGY - GENERAL ORDERABLES [facility] [address] [place] [address] * COVID-19 TESTING (05/22/2022 12:09 EST) COVID-19 rt-PCR Result Negative Negative 05/24/2022 12:11 EST [facility] Comment: This test has not [...] was performed using the sherry SARS-CoV-2 assay ([employer] on the Sherry 6800 System Performing Lab Sherry [address] [facility] 05/24/2022 12:11 EST [facility] Swab 05/22/2022 12:0 9 EST 05/23/2022 22:39 EST Provider Outr Resulting Lab MICROBIOLOGY - GENERAL ORDERABLES [facility] [address] [place] [address] documented in this encounter Visit Diagnoses Not on filedocumented in this encounter Care Teams Lifter Relationship Specialty Start Date End Date Marco Antonio Hernandez MD PCP - General 12/25/14 documented as of this encounter
--- OUTSIDE RECORDS SUMMARY | 2023-12-13 01:10 | XMS_ITS | Encounter Summary ---
Author Organization [facility] Address [address] [place] [address] Care Team Providers Care Drywall Carrier Name Role Phone Marco Antonio Hernandez MD Primary Care Provider [phone] Encounter Details Date Type Department Care Team (Late st Contact Info) Description 02/02/2023 Lab Requisition 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
--- OUTSIDE RECORDS SUMMARY | 2023-12-13 01:10 | XMS_ITS | Referral Summary ---
Author Organization [facility] Address [address] [place] [address] Care Team Providers Care Senior Producer Name Role Phone Marco Antonio Hernandez MD Primary Care Provider Social History Tobacco Use Types Packs/Day [...] C Antibody Negative Negative 04/20/2022 10:02 EST [facility] Blood VENOUS BLOOD / Unknown 04/16/2022 14:58 EST 04/17/2022 18:35 EST Provider Outr Resulting Lab CHEMISTRY & BLOOD GAS ORDERABLES [facility] [address] [place] [address] from Last 3 Months or Most Recently Relevant to Health Maintenance Care Teams Senior Producer Relationship Specialty Start Date End Date Marco Antonio Hernandez MD PCP - General 12/25/14
--- OUTSIDE RECORDS SUMMARY | 2023-12-13 01:10 | XMS_ITS | Encounter Summary ---
Author Organization [facility] Address [address] [place] [address] Care Team Providers Care Pricer Bagger Name Role Phone Prem Sheehan MD Primary Care Provider Unav ailable Encounter Details Date Type Department Care Team (Late st Contact Info) Description 12/21/[address] [facility] [phone] Derik Claudio, DO [address] [facility] [address] [place] [address] Social History Tobacco Use Types Packs/Day Years [...] ? QI BLAIR ? Accession #: ? [id number] ? : ? 1980 (Age: 34) ??F [...] 1.1 cm in greatest dimension. ? Two primary care sales representative sections and the inked face cystic duct margin are submitted in 1. 12/24/2014 11:58 AM End of Report [facility] 12/21/2014 10:1 6 EDT 12/21/2014 10:16 EDT Derik Claudio DO PATHOLOGY ORDER MAGDI [facility] [address] [place] [address] documented in this encounter Visit Diagnoses Not on filedocumented in this encounter Care Teams Pricer Bagger Relationship Specialty Start Date End Date Prem Sheehan MD PCP - General 01/21/10 12/24/14 documented as of this encounter
--- OUTSIDE RECORDS SUMMARY | 2023-12-13 01:10 | XMS_ITS | Encounter Summary ---
Author Organization [facility] Address [address] [place] [address] Care Team Providers Care Machinery Cleaner Name Role Phone Marco Atnonio Hernandez MD Primary Care Provider [phone] Encounter Details Date Type Department Care Team (Late st Contact Info) Description 06/26/2020 Lab Requisition [facility] Pathology & Laboratory Medicine - [address] [address] Outr Resulting Lab, Provider Social History Tobacco [...] Outr Resulting Lab MICROBIOLOGY - GENERAL ORDERABLES [facility] [address] [place] [address] * COVID-19 TESTING (06/26/2020 9:15 EST) COVID-19 rt-PCR Result Negative Negative 06/27/2020 14:28 EST [facility] Comment: This test has not [...] developed and its performance characteristics determined by [facility]. It has not been cleared or [...] testing. This test is based on the [facility] COVID-19 Emergency Use Authorization (EUA) assay, with minor modification as defined by the FDA Performed on the [employer] 7 Flex RT-PCR System. Performing Lab [facility] 06/27/2020 14:28 EST [facility] Swab 06/26/2020 9:15 EST 06/26/2020 20:57 EST Provider Outr Resulting Lab MICROBIOLOGY - GENERAL ORDERABLES [facility] [address] [place] [address] documented in this encounter Visit Diagnoses Not on filedocumented in this encounter Care Teams Machinery Cleaner Relationship Specialty Start Date End Date Marco Antonio Hernandez MD PCP - General 12/25/14 documented as of this encounter
--- OUTSIDE RECORDS SUMMARY | 2023-12-13 01:10 | XMS_ITS | Encounter Summary ---
Author Organization [facility] Address [address] [place] [address] Care Team Providers Care Tongue Lining Stitcher Name Role Phone Marco Antonio Hernandez MD Primary Care Provider Encounter Details Date Type Department Care Team (Late st Contact Info) Description 07/03/2021 Lab Requisition [facility] Pathology & Laboratory Medicine - [address] [address] Outr Resulting Lab, Provider Social History Tobacco [...] 4th Generation Negative Negative 07/04/2021 10:[address] [facility] Comment:If acute HIV-1 infec tion is suspected in a high risk patient, submit plasma specimen for HIV-1 RNA quantitation test. Blood VENOUS BLOOD / Unknown 07/03/2021 9:53 EST 07/03/2021 21:11 EST Narrative [facility] - 07/04/2021 10:18 EST Fourth Generation assay performed on the Siemens Centaur XPT. Provider Outr Resulting Lab IMMUNOLOGY A ND SEROLOGY ORDERABLES [facility] [address] [place] [address] documented in this encounter Visit Diagnoses Not on filedocumented in this encounter Care Teams Tongue Lining Stitcher Relationship Specialty Start Date End Date Marco Antonio Hernandez MD PCP - General 12/25/14 documented as of this encounter
--- OUTSIDE RECORDS SUMMARY | 2023-12-13 01:10 | XMS_ITS | Encounter Summary ---
Author Organization [facility] Address [address] [place] [address] Care Team Providers Care Welder/Fabricator Name Role Phone Unavailable Primary Care Provider Unavailabl e Encounter Details Date Type Department Care Team ([facility] st Contact Info) Description 07/04/2008 Before PRISM Converted Visit (Maple) [facility] - Maple conversion [address] [place] [address] Ambar De Luna, JORDI Social History Tobacco [...] HEROUX, QI L ? Accession #: ? [id number] ? : ? 1980 (Age: 28) ??F ?Collect Date: ? 07/04/2008 ? Location: ? [facility] ? Receive Date: ? 07/05/2008 ? Provider: ?AMBAR M KEIKO TENNIS CENTRE MANAGER ? Copy to: ? Specimen/Source: ?Pap Test, [...] Luna NP PATHOLOGY ORDERABLES [facility] [address] [place] [address] documented in this encounter Visit Diagnoses Not on filedocumented in this encounter
--- OUTSIDE RECORDS SUMMARY | 2023-12-13 01:10 | XMS_ITS | Encounter Summary ---
Author Organization [facility] Address [address] [place] [address] Care Team Providers Care Pillow Agent Name Role Phone Prem Sheehan MD Primary Care Provider Unav ailable Encounter Details Date Type Department Care Team (Latest Contact Info) Description 12/21/2014 11:07 EDT - 12/21/2014 23:59 EDT Hospital Encounter [address] [address] Unknown, Provider, Discharge Disposition: Home or Self Care Social History Tobacco Use Types Packs/Day Years Used Date Smoking Tobacco: Never Assessed Sex and Gender Information Value Date Recorded Sex Assigned at Not on file Gender Identity Not on file Sexual Orientation Not on file documented as of this encounter Discharge Disposition Disposition Code Departure Means Destination Home or Self Skilled Nursing documented in this encounter Plan of Treatment Not on file documented as of this encounter Visit Diagnoses Not on filedocumented in this encounter Care Teams Pillow Agent Relationship Specialty Start Date End Date Prem Sheehan MD PCP - General 01/21/10 12/24/14 documented as of this encounter
--- OUTSIDE RECORDS SUMMARY | 2023-12-13 01:10 | XMS_ITS | Encounter Summary ---
Author Organization [facility] Address [address] [place] [address] Care Team Providers Care Court Worker Name Role Phone Marco Antonio Hernandez MD Primary Care Provider [phone] Encounter Details Date Type Department Care Team (Late st Contact Info) Description 06/11/2020 Lab Requisition [facility] Pathology & Laboratory Medicine - [address] [address] Outr Resulting Lab, Provider Social History Tobacco [...] Lab MICROBIOLOGY - GENERAL ORDERABLES [facility] [address] [place] [address] * COVID-19 TESTING (06/11/2020 8:56 EST) COVID-19 rt-PCR Result Negative Negative 06/12/2020 12:50 EST [facility] Comment: Negative results do not preclude 2019-nCoV infection and should not be used as the sole basis for treatment or other patient management decisions. Negative results must be combined with clinical observations, patient history, and epidemiological information. This test was developed and its performance characteristics determined by [facility]. It has not been cleared or [...] testing. This test is based on the [facility] COVID-19 Emergency Use Authorization (EUA) assay, with minor modification as defined by the FDA Performed on the App[employer] 7 Flex RT-PCR System. Performing Lab [facility] 06/12/2020 12:50 EST [facility] Swab 06/11/2020 8:56 EST 06/11/2020 16:20 EST Provider Outr Resulting Lab MICROBIOLOGY - GENERAL ORDERABLES [facility] [address] [place] [address] documented in this encounter Visit Diagnoses Not on filedocumented in this encounter Care Teams Court Worker Relationship Specialty Start Date End Date Marco Antonio Hernandez MD PCP - General 12/25/14 documented as of this encounter
--- OUTSIDE RECORDS SUMMARY | 2023-12-13 01:10 | XMS_ITS | Encounter Summary ---
Author Organization [facility] Address [address] [place] [address] Care Team Providers Care Strike Operations Officer Name Role Phone Prem Sheehan MD Primary Care Provider Unav ailable Encounter Details Date Type Department Care Team (Late st Contact Info) Description 06/16/2013 Results Only [facility] [phone] Yesica Ware MD [address] [place] [address] Social History Tobacco Use Types Packs/Day Years [...] ? QI CASH ? Accession #: ? [id number] ? : ? 1980 (Age: 33) ??F [...] types 16,18,31,33,35, 39,45,51,52,56,58, 59,66, and 68 by paper feeder mediated amplification. Comments Document reviewed and electronically signed by: ? System Interface ? Report date: 06/27/2013 By the signature above, the attending physician certifies that he/she has personally conducted a gross and/or microscopic examination of the described specimens and rendered or confirmed the above diagnosis. End of Report [facility] 06/16/2013 06/20/2013 Yesica Ware MD PATHOLOGY ORDERABLES [facility] [address] [place] [address] documented in this encounter Visit Diagnoses Not on filedocumented in this encounter Care Teams Strike Operations Officer Relationship Specialty Start Date End Date Prem Sheehan MD PCP - General 01/21/10 12/24/14 documented as of this encounter
--- OUTSIDE RECORDS SUMMARY | 2023-12-13 01:10 | XMS_ITS | Encounter Summary ---
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
--- OUTSIDE RECORDS SUMMARY | 2023-12-13 01:10 | XMS_ITS | Encounter Summary ---
Author Organization [facility] Address [address] [place] [address] Care Team Providers Care Docketing Specialist Name Role Phone Unknown, Provider Primary Care Provider [phone] Encounter Details Date Type Department Care Team (Late st Contact Info) Description 01/09/2010 Results Only [facility] [phone] Diana Ware MD [address] [place] [address] Social History Tobacco Use Types Packs/Day Years [...] Specimen ?? Tissue-Paraffin ? Specimen ID ?? [id number] ? Source ? POC [id number] ? Order Date ?? 10 Jan 2010 08:21 ? Reason For Referral ??r/o molar ? Method ? FISH analysis of 100 nuclei with probes for Xcen (DXZ1), ? Ycen (DYZ3), 13q14 (Rb1), 15cen (D15Z4), 16cen (D16Z3), ? 18cen (D18Z1), 21q22 ([id number]) and 22q11.2 (BCR). ? Results ? Chromosome ??Result ? XY ?? normal ? 13 ?? normal ? 15 ?? normal ? 16 ?? normal ? 18 ?? normal ? 21 ?? normal ? 22 ?? normal ? NOMENCLATURE: ? nuc ? geronimo(DXZ1x1,DYZ3x 1,U91U4s5),(Rb1, N95T070)x2,(D15Z 4,D16Z3, ? BCR)x2 ? Of 100 nuclei, [...] interested in this ? testing, please call [phone]. ? DISCLAIMER: This test was developed and its performance ? characteristics determined by Laboratory Medicine and ? Pathology, [facility]. It has not been cleared ? or approved by the U.S. Food and Drug Administration. This ? FISH test does not rule out other chromosome anomalies. ? Arti et al., [place] Clin Proc 73:132-137, 1998. ? Service Dispatcher ? Maxi Carolina MD, PhD ? Report Date ?? 22 Jan 2010 10:21 ? * Performing Site: ? [facility] Lab Med & Pathology ? [address] [place] [address] ? Drill Press Operator: Von Sanchez III, M.D. ? [facility] 01/09/2010 11:2 2 EDT 01/09/2010 11:22 EDT Diana Ware MD CHEMISTRY & BLOOD GA S ORDERABLES [facility] [address] [place] [address] documented in this encounter Visit Diagnoses Not on filedocumented in this encounter Care Teams Docketing Specialist Relationship Specialty Start Date End Date Unknown, Provider, PCP - General 01/08/10 01/20/10 documented as of this encounter
--- OUTSIDE RECORDS SUMMARY | 2023-12-13 01:10 | XMS_ITS | Encounter Summary ---
Author Organization [facility] Address [address] [place] [address] Care Team Providers Care Social Media Marketing Analyst Name Role Phone Unknown, Provider Primary Care Provider [phone] Encounter Details Date Type Department Care Team (Late st Contact Info) Description 01/16/2010 Results Only [facility] [phone] Yesica Ware MD [address] [place] [address] Social History Tobacco Use Types Packs/Day Years [...] HEROUX, QI L ? Accession #: ? [id number] ? : ? 1980 (Age: 29) ??F [...] a previous specimen evaluated for spontaneous ? ([id number]). (Dr. Whittaker)/[facility] ? Document reviewed and electronically signed by: [...] villi identified. ??No parts are present. ? Ground Wirer section are submitted in (A1) ??(A3). ??(Jordy Wong)/mpl ? End of Report ? [facility] 01/16/2010 01/16/2010 16: 49 EDT Yesica Ware MD PATHOLOGY ORDERABLES [facility] [address] [place] [address] documented in this encounter Visit Diagnoses Not on filedocumented in this encounter Care Teams Social Media Marketing Analyst Relationship Specialty Start Date End Date Unknown, Provider, PCP - General 01/08/10 01/20/10 documented as of this encounter
--- OUTSIDE RECORDS SUMMARY | 2023-12-13 01:10 | XMS_ITS | Encounter Summary ---
Author Organization [facility] Address [address] [place] [address] Care Team Providers Care Industrial Energy Engineer Name Role Phone Marco Antonio Hernandez MD Primary Care Provider [phone] Encounter Details Date Type Department Care Team (Late st Contact Info) Description 06/25/2021 Lab Requisition [facility] Pathology & Laboratory Medicine - [address] [address] Outr Resulting Lab, Provider Social History Tobacco [...] gonorrhoeae Result Negative Negative 06/26/2021 13:25 EST [facility] Chlamydia trachomatis Result Negative Negative 06/26/2021 13:25 EST [facility] Urine URINE / Unknown 06/25/2021 9 :00 EST 06/25/2021 22:38 EST Narrative [facility] - 06/26/2021 13:25 EST A first catch urine specimen is acceptable for detection of Gonorrhea and Chlamydia, but might detect up to 10% fewer infections when compared with vaginal and endocervical swab samples. Provider Outr Resulting Lab MICROBIOLOGY - GENERAL ORDERABLES [facility] [address] [place] [address] documented in this encounter Visit Diagnoses Not on filedocumented in this encounter Care Teams Industrial Energy Engineer Relationship Specialty Start Date End Date Marco Antonio Hernandez MD PCP - General 12/25/14 documented as of this encounter
--- OUTSIDE RECORDS SUMMARY | 2023-12-13 01:10 | XMS_ITS | Encounter Summary ---
Author Organization [facility] Address [address] [place] [address] Care Team Providers Care Pediatric Cardiologist Name Role Phone Marco Antonio Hernandez MD Primary Care Provider Encounter Details Date Type Department Care Team (Late st Contact Info) Description 04/17/2022 Lab Requisition [facility] Pathology & Laboratory Medicine - [address] [address] Outr Resulting Lab, Provider Social History Tobacco [...] 4th Generation Negative Negative 04/20/2022 10:11 EST [facility] Comment:If acute HIV-1 infec tion is suspected in a high risk patient, submit plasma specimen for HIV-1 RNA quantitation test. Blood VENOUS BLOOD / Unknown 04/16/2022 14:58 EST 04/17/2022 18:35 EST Narrative [facility] - 04/20/2022 10:11 EST Fourth Generation assay performed on the Siemens Centaur XPT. Provider Outr Resulting Lab IMMUNOLOGY A ND SEROLOGY ORDERABLES [facility] [address] [place] [address] documented in this encounter Visit Diagnoses Not on filedocumented in this encounter Care Teams Pediatric Cardiologist Relationship Specialty Start Date End Date Marco Antonio Hernandez MD PCP - General 12/25/14 documented as of this encounter
--- OUTSIDE RECORDS SUMMARY | 2023-12-13 01:10 | XMS_ITS | Encounter Summary ---
Author Organization [facility] Address [address] [place] [address] Care Team Providers Care Certified Pharmacy Tech Name Role Phone Marco Antonio Hernandez MD Primary Care Provider [phone] Encounter Details Date Type Department Care Team (Late st Contact Info) Description 07/03/[address] [facility] Pathology & [place] [address] Outr Resulting Lab, Provider Social History Tobacco [...] Surface Ag Negative Negative 07/04/19 10:22 EST [facility] Hep B Surface Ab, Quantitative 646.9 See Note mIU/mL 07/04/2021 10:22 EST [facility] Comment: Reference Range for Hep B Surface Ab, Quant: Positive: >= 10.0 mIU/mL Negative: ??< 10.0 mIU/mL Patient is presumed to be immune to infection with Hepatitis B Virus. Hep B Surface Ab, Qualitative Positive See Note 07/04/2021 10:22 EST [facility] Comment: Reference Range for Hep B Surface Ab, Qual: Unvaccinated: ??Negative Vaccinated: ??Positive Hepatitis B Core Ab, Total Negative Negative 07/04/2021 10:22 EST [facility] Hep C Antibody Negative Negative 07/04/2021 10:22 EST [facility] Blood VENOUS BLOOD / Unknown 07/03/2021 9:53 EST 07/03/2021 21:11 EST Provider Outr Resulting Lab CHEMISTRY & BLOOD GAS ORDERABLES [facility] [address] [place] [address] documented in this encounter Visit Diagnoses Not on filedocumented in this encounter Care Teams Certified Pharmacy Tech Relationship Specialty Start Date End Date Marco Antonio Hernandez MD PCP - General 12/25/14 documented as of this encounter
--- OUTSIDE RECORDS SUMMARY | 2023-12-13 01:10 | XMS_ITS | Encounter Summary ---
Author Organization [facility] Address [address] [place] [address] Care Team Providers Care Grease Machine Worker Name Role Phone Marco Antonio Hernandez MD Primary Care Provider [phone] Encounter Details Date Type Department Care Team (Late st Contact Info) Description 03/17/2019 Results Only [facility] [phone] Catie George MD [address] [place] [address] [place] [address] Social History Tobacco Use Types Packs/Day Years [...] ? QI BLAIR ? Accession #: ? [id number] ? : ? 1980 (Age: 39) ??F [...] types 16,18,31,33,35, 39,45,51,52,56,58, 59,66, and 68 by master craftsman mediated amplification. Comments Document reviewed and electronically signed by: ? System Interface ? Report date: 03/24/2019 By the signature above, the attending physician certifies that he/she has personally conducted a gross and/or microscopic examination of the described specimens and rendered or confirmed the above diagnosis. End of Report [facility] 03/17/2019 03/20/2019 Catie George MD PATHOLOGY ORDERABLES [facility] [address] [place] [address] documented in this encounter Visit Diagnoses Not on filedocumented in this encounter Care Teams Grease Machine Worker Relationship Specialty Start Date End Date Marco Antonio Hernandez MD PCP - General 12/25/14 documented as of this encounter
--- OUTSIDE RECORDS SUMMARY | 2023-12-13 01:10 | XMS_ITS | Encounter Summary ---
Author Organization [facility] Address [address] [place] [address] Care Team Providers Care Rubber Compounder Supervisor Name Role Phone Marco Antonio Hernandez MD Primary Care Provider [phone] Encounter Details Date Type Department Care Team (Late st Contact Info) Description 07/10/2020 Lab Requisition [facility] Pathology & Laboratory Medicine - [address] [address] Outr Resulting Lab, Provider Social History Tobacco [...] Outr Resulting Lab MICROBIOLOGY - GENERAL ORDERABLES [facility] [address] [place] [address] * COVID-19 TESTING (07/10/2020 11:26 EST) COVID-19 rt-PCR Result Negative Negative 07/11/2020 11:[address] [facility] Comment: This test has [...] was performed using the sherry SARS-CoV-2 assay ([employer] on the Sherry 6800 System Performing Lab [address] [facility] 07/11/2020 11:[address] [facility] Swab 07/10/2020 11:2 6 EST 07/10/2020 15:31 EST Provider Outr Resulting Lab MICROBIOLOGY - GENERAL ORDERABLES Performing Organization Address City/State/[facility] Co de Phone Number [facility] [address] [place] [address] documented in this encounter Visit Diagnoses Not on filedocumented in this encounter Care Teams Rubber Compounder Supervisor Relationship Specialty Start Date End Date Marco Antonio Hernandez MD PCP - General 12/25/14 documented as of this encounter
--- OUTSIDE RECORDS SUMMARY | 2023-12-13 01:10 | XMS_ITS | Encounter Summary ---
Author Organization [facility] Address [address] [place] [address] Care Team Providers Care Maintenance Dispatcher Name Role Phone Marco Antonio Hernandez MD Primary Care Provider [phone] Encounter Details Date Type Department Care Team (Late st Contact Info) Description 04/17/2022 Lab Requisition [facility] Pathology & Laboratory Medicine - [address] [address] Outr Resulting Lab, Provider Social History Tobacco [...] Ab Positive See Note 04/20/2022 9:09 EST [facility] Comment:Presence of detectab le Varicella Zoster virus IgG antibodies. Blood VENOUS BLOOD / Unknown 04/16/2022 14:58 EST 04/17/2022 18:35 EST Provider Outr Resulting Lab IMMUNOLOGY A ND SEROLOGY ORDERABLES Performing Organization Address City/State/[facility] Co de Phone Number [facility] [address] [place] [address] * RUBELLA IGG ANTIBODY (04/16/2022 14:58 EST) Rubella IgG Ab Positive See Note 04/20/2022 9:13 EST [facility] Comment:Positive for IgG ant ibodies to Rubella virus. Blood VENOUS BLOOD / Unknown 04/16/2022 14:58 EST 04/17/2022 18:35 EST Provider Outr Resulting Lab CHEMISTRY & BLOOD GAS ORDERABLES Performing Organization Address [facility] Co de Phone Number [facility] [address] [place] [address] documented in this encounter Visit Diagnoses Not on filedocumented in this encounter Care Teams Maintenance Dispatcher Relationship Specialty Start Date End Date Marco Antonio Hernandez MD PCP - General 12/25/14 documented as of this encounter
--- OUTSIDE RECORDS SUMMARY | 2023-12-13 01:10 | XMS_ITS | Encounter Summary ---
Author Organization [facility] Address [address] [place] [address] Care Team Providers Care Therapy Administrative Assistant Name Role Phone Unavailable Primary Care Provider Unavailabl e Encounter Details Date Type Department Care Team (Late st Contact Info) Description 01/06/2010 Results Only [facility]- [facility] [phone] Yesica Ware MD [address] [place] [address] Social History Tobacco Use Types Packs/Day Years [...] HEROUX, QI L ? Accession #: ? [id number] ? : ? 1980 (Age: 29) ??F [...] hybridization (FISH) performed at the [facility]. ??No ? clonal aneuploidy was detected and [...] block (A3) is being sent to the [facility] I Do Now I Don't, for evaluation of DNA ploidy. The result [...] MD PATHOLOGY ORDERABLES [facility] [address] [place] [address] documented in this encounter Visit Diagnoses Not on filedocumented in this encounter
--- OUTSIDE RECORDS SUMMARY | 2023-12-13 01:10 | XMS_ITS | Encounter Summary ---
Author Organization [facility] Address [address] [place] [address] Care Team Providers Care Car Unloader Helper Name Role Phone Marco Antonio Hernandez MD Primary Care Provider [phone] Encounter Details Date Type Department Care Team (Late st Contact Info) Description 06/21/2015 Results Only [facility] [phone] Catie George MD [address] [place] [address] [place] [address] Social History Tobacco Use Types Packs/Day Years [...] ? QI BLAIR ? Accession #: ? [id number] ? : ? 1980 (Age: 35) ??F [...] types 16,18,31,33,35, 39,45,51,52,56,58, 59,66, and 68 by structural designer mediated amplification. Comments Document reviewed and electronically signed by: ? System Interface ? Report date: 07/02/2015 By the signature above, the attending physician certifies that he/she has personally conducted a gross and/or microscopic examination of the described specimens and rendered or confirmed the above diagnosis. End of Report [facility] 06/21/2015 06/24/2015 Catie George MD PATHOLOGY ORDERABLES [facility] [address] [place] [phone] documented in this encounter Visit Diagnoses Not on filedocumented in this encounter Care Teams Car Unloader Helper Relationship Specialty Start Date End Date Marco Antonio Hernadnez MD PCP - General 12/25/14 documented as of this encounter
--- OUTSIDE RECORDS SUMMARY | 2023-12-13 01:10 | XMS_ITS | Encounter Summary ---
Author Organization [facility] Address [address] [place] [address] Care Team Providers Care Hide And Skin Colerer Name Role Phone Marco Antonio Hernandez MD Primary Care Provider [phone] Encounter Details Date Type Department Care Team (Late st Contact Info) Description 04/17/2022 Lab Requisition [facility] Pathology & Laboratory Medicine - [address] [address] Outr Resulting Lab, Provider Social History Tobacco [...] Surface Ag Negative Negative 04/20/2022 9:29 EST [facility] Blood VENOUS BLOOD / Unknown 04/16/2022 14:58 EST 04/17/2022 18:35 EST Provider Outr Resulting Lab CHEMISTRY & BLOOD GAS ORDERABLES [facility] [address] [place] [address] * HEPATITIS C AB W REFLEX TO HCV RNA BY PCR (04/16/2022 14:58 EST) Hep C Antibody Negative Negative 04/20/2022 10:02 EST [facility] Blood VENOUS BLOOD / Unknown 04/16/2022 14:58 EST 04/17/2022 18:35 EST Provider Outr Resulting Lab CHEMISTRY & BLOOD GAS ORDERABLES Performing Organization Address City/[facility] Co de Phone Number [facility] [address] [place] [address] documented in this encounter Visit Diagnoses Not on filedocumented in this encounter Care Teams Hide And Skin Colerer Relationship Specialty Start Date End Date Marco Antonio Hernandez MD PCP - General 12/25/14 documented as of this encounter
--- OUTSIDE RECORDS SUMMARY | 2023-12-13 01:10 | XMS_ITS | Clinical Summary ---
Author Organization [facility] Address [address] [place] [address] Care Team Providers Care Hatchery Man Name Role Phone Marco Antonio Hernandez MD Primary Care Provider [phone] Social History Tobacco Use Types Packs/Day Years [...] C Antibody Negative Negative 04/20/2022 10:02 EST [facility] Blood VENOUS BLOOD / Unknown 04/16/2022 14:58 EST 04/17/2022 18:35 EST Provider Outr Resulting Lab CHEMISTRY & BLOOD GAS ORDERABLES [facility] [address] [place] [address] from Last 3 Months or Most Recently Relevant to Health Maintenance Care Teams Hatchery Man Relationship Specialty Start Date End Date Marco Antonio Hernandez MD PCP - General 12/25/14
--- OUTSIDE RECORDS SUMMARY | 2023-12-13 01:10 | XMS_ITS | Encounter Summary ---
Author Organization [facility] Address [address] [place] [address] Care Team Providers Care Juvenile Court Judge Name Role Phone Marco Antonio Hernandez MD Primary Care Provider Encounter Details Date Type Department Care Team (Late st Contact Info) Description 11/11/2022 Lab Requisition [facility] Pathology & Laboratory Medicine - [address] [address] Outr Resulting Lab, Provider Social History Tobacco [...] IgM, Antibody Negative Negative 11/13/2022 10:27 EDT [facility] Comment:Absence of detectabl e VCA IgM antibodies. EBV VCA IgG, Antibody Positive(A) Negative 11/13/2022 10:27 EDT [facility] Comment:Presence of detectab le VCA IgG antibodies. EBNA IgG Antibody Positive(A) Negative 2022 10:27 EDT [facility] Comment:Presence of detectab le EBNA IgG antibodies. 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 11/13/2022 10:27 EDT [facility] Blood VENOUS BLOOD / Unknown 11/11/2022 9:23 EDT 11/11/2022 17:07 EDT Provider Outr Resulting Lab IMMUNOLOGY A ND SEROLOGY ORDERABLES Performing Organization Address [facility] de Phone Number [facility] [address] [place] [address] * HIGH SENSITIVITY C-REACTIVE PROTEIN (CARDIOVASCULAR DISEASE) (11/11/2022 9:23 EDT) High Sensitivity CRP 4.16 See Note mg/L 11/11/2022 18:20 EDT [facility] Comment: Reference Range: ??Low Risk: ? <1.0 mg/L ??Average Risk: ?? 1.0 - 3.0 mg/L ??High Risk: ?>3.0 mg/L ??Indeterminate*: >10.0 mg/L ??*May be an indication of another source of inflammation or infection Blood VENOUS BLOOD / Unknown 11/11/2022 9:23 EDT 11/11/2022 17:07 EDT Provider Outr Resulting Lab CHEMISTRY & BLOOD GAS ORDERABLES Performing Organization Address [facility] Co de Phone Number [facility] [address] [place] [address] documented in this encounter Visit Diagnoses Not on filedocumented in this encounter Care Teams Juvenile Court Judge Relationship Specialty Start Date End Date Marco Antonio Hernandez MD PCP - General 12/25/14 documented as of this encounter
--- OUTSIDE RECORDS SUMMARY | 2023-12-13 01:10 | XMS_ITS | Encounter Summary ---
Author Organization [facility] Address [address] [place] [address] Care Team Providers Care Field Trainer Name Role Phone Unknown, Provider Primary Care Provider [phone] Encounter Details Date Type Department Care Team (Latest Contact Info) Description 01/09/2010 13:04 EDT - 01/09/2010 13:05 EDT Hospital Encounter [facility] - Other [address] [place] [address] Diana Ware MD [address] [place] [address] Discharge Disposition: Home or Self Care Social [...] filedocumented in this encounter Care Teams Field Trainer Relationship Specialty Start Date End Date Unknown, Provider, PCP - General 01/08/10 01/20/10 documented as of this encounter
--- OUTSIDE RECORDS SUMMARY | 2023-12-13 01:10 | XMS_ITS | Encounter Summary ---
Author Organization [facility] Address [address] [place] [address] Care Team Providers Care Supervisor Purification Name Role Phone Marco Antonio Hernandez MD Primary Care Provider [phone] Encounter Details Date Type Department Care Team (Late st Contact Info) Description 07/03/2021 Lab Requisition [facility] Pathology & Laboratory Medicine - [address] [address] Outr Resulting Lab, Provider Social History Tobacco [...] Syphilis Serology Negative Negative 07/04/2021 9:53 EST [facility] Blood VENOUS BLOOD / Unknown 07/03/2021 9:53 EST 07/03/2021 21:11 EST Provider Outr Resulting Lab IMMUNOLOGY A ND SEROLOGY ORDERABLES [facility] [address] [place] [address] documented in this encounter Visit Diagnoses Not on filedocumented in this encounter Care Teams Supervisor Purification Relationship Specialty Start Date End Date Marco Antonio Hernandez MD PCP - General 12/25/14 documented as of this encounter
--- OUTSIDE RECORDS SUMMARY | 2023-12-13 01:10 | XMS_ITS | Encounter Summary ---
Author Organization [facility] Address [address] [place] [address] Care Team Providers Care Profiling Machine Setup Operator Name Role Phone Marco Antonio Hernandez MD Primary Care Provider [phone] Encounter Details Date Type Department Care Team (Late st Contact Info) Description 10/26/2022 Lab Requisition [facility] Pathology & Laboratory Medicine - [address] [address] Outr Resulting Lab, Provider Social History Tobacco [...] Lyme Ab Negative Negative 10/27/2022 11:22 EDT [facility] Blood VENOUS BLOOD / Unknown 10/26/2022 11:00 EDT 10/26/2022 21:34 EDT Provider Outr Resulting Lab IMMUNOLOGY A ND SEROLOGY ORDERABLES [facility] [address] [place] [address] * HIGH SENSITIVITY C-REACTIVE PROTEIN (CARDIOVASCULAR DISEASE) (10/26/2022 11:00 EDT) High Sensitivity CRP 7.41 See Note mg/L 10/26/2022 21:50 EDT [facility] Comment: Reference Range: ??Low Risk: ? <1.0 mg/L ??Average Risk: ?? 1.0 - 3.0 mg/L ??High Risk: ?>3.0 mg/L ??Indeterminate*: >10.0 mg/L ??*May be an indication of another source of inflammation or infection Blood VENOUS BLOOD / Unknown 10/26/2022 11:00 EDT 10/26/2022 21:34 EDT Provider Outr Resulting Lab CHEMISTRY & BLOOD GAS ORDERABLES Performing Organization Address [facility] Co de Phone Number [facility] [address] [place] [address] documented in this encounter Visit Diagnoses Not on filedocumented in this encounter Care Teams Profiling Machine Setup Operator Relationship Specialty Start Date End Date Marco Antonio Hernandez MD PCP - General 12/25/14 documented as of this encounter
--- OUTSIDE RECORDS SUMMARY | 2023-12-13 01:10 | XMS_ITS | Encounter Summary ---
Author Organization [facility] Address [address] [place] [address] Care Team Providers Care Scoop Filler Name Role Phone Marco Antonio Hernandez MD Primary Care Provider [phone] Encounter Details Date Type Department Care Team ([facility] st Contact Info) Description 05/04/2017 Results Only [facility] [phone] Addy Robles DPM [address] [place] [phone] Social History Tobacco Use Types Packs/Day [...] Rare Fungal elements seen 05/05/2017 14:28 EST [facility] Result TRICHOPHYTON SPECIES This mould is a member of the dermatophytes, a group of fungi that affect skin, nails, and hair (Trichophyton, Microsporum, Epidermophyton). 05/18/2017 11:23 EST [facility] SPECIMEN FROM SKIN / Unknown 05/04/2017 11:15 EST 05/05/2017 13:45 EST Comment:Left~Foot~SCRAPINGS Addy Robles DPDemian MICROBIOLOGY - G ENERAL ORDERABLES [facility] [address] [place] [address] documented in this encounter Visit Diagnoses Not on filedocumented in this encounter Care Teams Scoop Filler Relationship Specialty Start Date End Date Marco Antonio Hernandez MD PCP - General 12/25/14 documented as of this encounter
--- OUTSIDE RECORDS SUMMARY | 2023-12-13 01:10 | XMS_ITS | Encounter Summary ---
Author Organization [facility] Address [address] [place] [address] Care Team Providers Care Complex Human Resources Manager Name Role Phone Marco Antonio Hernandez MD Primary Care Provider [phone] Encounter Details Date Type Department Care Team (Late st Contact Info) Description 12/01/2022 Lab Requisition [facility] Pathology & Laboratory Medicine - [address] [address] Monica Mcgrath, DO [address] [place] [address] Gastric ulcer, unspecified as acute or chronic, [...] explore management options, if applicable. 12/02/2022 11:33 [facility] Final Diagnosis A. JEJUNUM, PROXIMAL, [...] mucosa with mild reactive changes. 12/02/2022 11:33 [facility] Attestation By the signature below, the attending physician certifies that they have 1) personally conducted a gross and/or microscopic examination of the described specimen(s), and/or personally interpreted the results of laboratory testing of the described specimen(s), and 2) personally rendered or confirmed the above diagnosis. 12/02/2022 11:33 [facility] at 1133 Clinical History Bile reflux gastritis, mild; GERD 12/02/2022 11:33 [facility] Gross Description A. Received in [...] DAMIAN PULIDO(ASCP) 12/01/2022 19:22 12/02/2022 11:33 EDT [facility] Performing Lab [facility] 11:33 EDT [facility] Scanned Images 12/02/2022 11:33 EDT [facility] Tissue ENTIRE ESOPHAGUS / Unknown [...] 17:33 EDT Monica Mcgrath DO PATHOLOGY ORDERABLES [facility] [address] [place] [address] documented in this encounter Visit Diagnoses Diagnosis [...] pain documented in this encounter Care Teams Complex Human Resources Manager Relationship Specialty Start Date End Date Marco Antonio Hernandez MD PCP - General 12/25/14 documented as of this encounter
--- OUTSIDE RECORDS SUMMARY | 2023-12-13 01:10 | XMS_ITS | Encounter Summary ---
Author Organization [facility] Address [address] [place] [address] Care Team Providers Care Malt House Loader Name Role Phone Marco Antonio Hernandze MD Primary Care Provider [phone] Encounter Details Date Type Department Care Team (Late st Contact Info) Description 10/29/2022 Lab Requisition [facility] Pathology & Laboratory Medicine - [address] [address] Outr Resulting Lab, Provider Social History Tobacco [...] Factor <8.6 <12.0 IU/mL 10/29/2022 21:41 EDT [facility] Blood VENOUS BLOOD / Unknown 10/26/2022 11:05 EDT 10/29/2022 21:18 EDT Provider Outr Resulting Lab CHEMISTRY & BLOOD GAS ORDERABLES Performing Organization Address City/[facility] Co de Phone Number [facility] [address] [place] [address] * ANTI NUCLEAR AB (JENNA), IFA (10/26/2022 11:05 EDT) JENNA Interpretation Negative Negative 2022 14:52 EDT [facility] Comment:No titer performed, JENNA Screen is negative. Blood VENOUS BLOOD / Unknown 10/26/2022 11:05 EDT 10/29/2022 21:18 EDT Narrative [facility] - 10/30/2022 14:52 EDT Results were obtained with the [employer] NOVA Lite HEp-2 JENNA Kit by indirect immunofluorescence. Provider Outr Resulting Lab IMMUNOLOGY A ND SEROLOGY ORDERABLES Performing Organization Address [facility] de Phone Number [facility] [address] [place] [address] documented in this encounter Visit Diagnoses Not on filedocumented in this encounter Care Teams Malt House Loader Relationship Specialty Start Date End Date Marco Antonio Hernandez MD PCP - General 12/25/14 documented as of this encounter
--- OUTSIDE RECORDS SUMMARY | 2023-12-13 01:11 | XMS_ITS | Encounter Summary ---
Author Organization [facility] [place] [address] Care Team Providers Care Manager Asset Management Name Role Phone Araceli Miner APRN Primary Care Provider [phone] Encounter Details Date Type Department Care Team (Late st Contact Info) Description 12/22/2022 Refill Dermatology at [address] [place] [address] Marlin Jameson, LIABILITY CLAIMS EXAMINER Social History Tobacco Use Types Packs/Day Years [...] on filedocumented in this encounter Care Teams Manager Asset Management Relationship Specialty Start Date End Date Araceli Miner APRN [address] [place] [address] PCP - General Family Medicine 12/22/22 documented as of this encounter
--- OUTSIDE RECORDS SUMMARY | 2023-12-13 01:11 | XMS_ITS | Encounter Summary ---
[place] [address] Care Team Providers Care Air Support Control Officer Name Role Phone Flor Schuler MD Primary Care Provider [phone] Reason for Referral * Consultation (Routine) - Closed Specialty Diagnoses / Procedures Referred By Contac t Referred To Contact Obstetrics and Gynecology Diagnoses Elderly multigravida with antepartum condition or complication Cara Leigh CNM [facility] [address] [place] [address] [facility] [address]key [address] [address] Referral ID Status Reason Start Date Expiration Date V isits Requested Visits Authorized [id number] Closed Consult, Test & Treat PCP Updated and/or Approved 04/17/2022 04/17/2023 1 1 Encounter Details Date Type Department Care Team (Late st Contact Info) Description 04/17/2022 Transcribe Orders eDH Incoming Referrals [phone] Cara Leigh CNM [facility] [address] [place], [place] [id number] Elderly multigravida with antepartum condition or complication [...] complication documented in this encounter Care Teams Air Support Control Officer Relationship Specialty Start Date End Date Flor Schuler MD [address] [place] [address] PCP - General Internal Medicine 02/16/19 04/19/22 documented as of this encounter
--- OUTSIDE RECORDS SUMMARY | 2023-12-13 01:11 | XMS_ITS | Encounter Summary ---
Author Organization [facility] [place] [address] Care Team Providers Care Public Records Officer Name Role Phone Catie Chu MD Primary Care Provider [phone] Reason for Visit * Reason Comments Medication Refill Encounter Details Date Type Department Care Team (Late st Contact Info) Description 08/25/2016 Refill Dermatology at [address] [place] [address] Norm Cassidy MD [address] [place] [address], [place] [address] Social History Tobacco Use Types Packs/Day Years Used Date Smoking Tobacco: Never Sex and Gender Information Value Date Recorded Sex Assigned at Not on file Gender Identity Not on file Sexual Orientation Not on file documented as of this encounter Plan of Treatment Not on file documented as of this encounter Visit Diagnoses Not on filedocumented in this encounter Care Teams Public Records Officer Relationship Specialty Start Date End Date Catie Chu MD [address] [place] [address] [place] [address] PCP - General Pediatrics 08/27/16 02/15/19 documented as of this encounter
--- OUTSIDE RECORDS SUMMARY | 2023-12-13 01:11 | XMS_ITS | Encounter Summary ---
[place] [address] Care Team Providers Care Heavy Forger Helper Name Role Phone Alejandra Jorgensen MD Primary Care Provider [phone] Encounter Details Date Type Department Care Team [...] on filedocumented in this encounter Care Teams Heavy Forger Helper Relationship Specialty Start Date End Date Alejandra Jorgensen MD [address] [place] [address] PCP - General Family Medicine 06/09/22 12/21/22 documented as of this encounter
--- OUTSIDE RECORDS SUMMARY | 2023-12-13 01:11 | XMS_ITS | Encounter Summary ---
[place] [address] Care Team Providers Care Vp Project Name Role Phone Alejandra Jorgensen MD Primary Care Provider [phone] Reason for Referral * Consultation (Urgent) - Closed Specialty Diagnoses / Procedures Referred By Contac t Referred To Contact Obstetrics and Gynecology Diagnoses Supervision of other high risk pregnancies, second trimester Cystic fibrosis carrier Encounter for supervision of normal in second trimester, unspecified Supervision of multigravida of advanced maternal age, antepartum Cara Smith CNM [address] [place] [address] [address] [place] [address] [facility] [address] [address] Referral ID Status Reason Start Date Expiration Date V isits Requested Visits Authorized [id number] Closed Consult, Test & Treat PCP Updated and/or Approved 06/09/2022 06/09/2023 1 1 Encounter Details Date Type Department Care Team (Late st Contact Info) Description 06/09/2022 Transcribe Orders eDH Incoming Referrals [phone] Cara Smith CNM [address] [place] [address] [address] [place], [place] [phone] Supervision of other high risk pregnancies, second [...] antepartum documented in this encounter Care Teams Vp Project Relationship Specialty Start Date End Date Alejandra Jorgensen MD [address] [place] [address] PCP - General Family Medicine 06/09/22 12/21/22 documented as of this encounter
--- OUTSIDE RECORDS SUMMARY | 2023-12-13 01:11 | XMS_ITS | Encounter Summary ---
Author Organization [facility] Address [address] [place] [address] Care Team Providers Care Maint Mechanic Name Role Phone Unknown, Provider Primary Care Provider [phone] Prem Sheehan MD Primary Care Provider Unav ailable Encounter Details Date Type Department Care Team (Late st Contact Info) Description 11/08/2007 Results Only [facility] [address] [place] [address] Latonia Grant MD [address] [address] Social History Tobacco Use Types [...] ? QI CASH ? Accession #: ? [id number] ? : ? 1980 (Age: 27) ??F [...] which is submitted intact as (B). ??([facility] End of Report [facility] 11/08/2007 11/09/2007 15: 03 EDT Latonia Grant MD PATHOLOGY ORDERABLES [facility] [address] [place] [address] documented in this encounter Visit Diagnoses Not on filedocumented in this encounter Care Teams Maint Mechanic Relationship Specialty Start Date End Date Unknown, Provider, PCP - General 01/08/10 01/20/10 Prem Sheehan MD PCP - General 01/21/10 12/24/14 documented as of this encounter
--- OUTSIDE RECORDS SUMMARY | 2023-12-13 01:11 | XMS_ITS | Encounter Summary ---
Author Organization [facility] [place] [address] Care Team Providers Care Shrimp Cleaner Name Role Phone Maxi Ang MD Primary Care Provider [phone] Encounter Details Date Type Department Care Team (Late st Contact Info) Description 05/29/2014 9:00 AM EST Office Visit Dermatology at [address] [place] [phone] Norm Cassidy MD [address], [address] [address] Dermatitis; Tinea pedis; Acne vulgaris Discharge Disposition: [...] years that has not responded to numerous popx-fji-obwpdcd products including witch simone, Proactiv, etc. I [...] acne documented in this encounter Care Teams Shrimp Cleaner Relationship Specialty Start Date End Date Maxi Ang MD [address] [address] PCP - General 04/08/10 08/26/16 documented as of this encounter
--- OUTSIDE RECORDS SUMMARY | 2023-12-13 01:11 | XMS_ITS | Encounter Summary ---
Author Organization [facility] [place] [address] Care Team Providers Care Liquid Yeast Supervisor Name Role Phone Araceli Miner APRN Primary Care Provider [phone] Reason for Visit * Reason Comments Skin Check Encounter Details Date Type Department Care Team (Late st Contact Info) Description 12/22/2022 3:15 PM EDT Office Visit Dermatology at [address] [phone] Norm Cassidy MD [address] [facility], [address] [address] Tinea pedis of both feet; Acne vulgaris [...] acne documented in this encounter Care Teams Liquid Yeast Supervisor Relationship Specialty Start Date End Date Araceli Miner APRN [address] [place] [address] PCP - General Family Medicine 12/22/22 documented as of this encounter
--- OUTSIDE RECORDS SUMMARY | 2023-12-13 01:11 | XMS_ITS | Encounter Summary ---
Author Organization [facility] [place] [address] Care Team Providers Care Tomographic Tech Name Role Phone AdrianneAraceli yadav CUONG Primary Care Provider [phone] Reason for Referral * Physical Therapy (Routine) - Closed Specialty Diagnoses / Procedures Referred By Contcorinna t Referred To Contact Diagnoses Fibromyalgia Bonifacio Keane MD [facility] [place] [address] Referral ID Status Reason Start Date Expiration Date V isits Requested Visits Authorized [id number] Closed Evaluate and Treat 12/21/2022 06/19/2023 12 12 Encounter Details Date Type Department Care Team (Late st Contact Info) Description 12/21/2022 2:30 PM EDT Office [place] [address] Bonifacio Keane MD [facility] [address] Fibromyalgia; Polyarthralgia; Brain fog; Fatigue, unspecified type [...] late to early . Sci Rep 9, 4593 (2019). [email or web address]://doi.org/10.1038/[email or web address]-m Follow up in 3 months Patient was discussed with Dr. Justin Keane MD Rheumatology Fellow,[id number] Pager Number:[phone] * David [...] type documented in this encounter Care Teams Tomographic Tech Relationship Specialty Start Date End Date Araceli Miner CUONG [address] [place] [address] PCP - General Family Medicine 12/22/22 documented as of this encounter
--- OUTSIDE RECORDS SUMMARY | 2023-12-13 01:11 | XMS_ITS | Encounter Summary ---
Author Organization [facility] [place] [place] [address] Care Team Providers Care Transmission Calibration Engineer Name Role Phone Maxi Ang MD Primary Care Provider [phone] Reason for Visit * Reason Comments Follow-up Encounter Details Date Type Department Care Team ([facility] st Contact Info) Description 07/02/2014 2:00 PM EST Office Visit Dermatology at [address] [phone] Norm Cassidy MD [address] [place] [address] RD, [address] [address] Acne vulgaris; Tinea pedis Discharge Disposition: Home [...] from the original note were not included. [facility] Acne: After Your Visit Your Care [...] cleanser. Always rinse well. ?? Use an bhio-hwd-gvaeiix lotion or gel that contains benzoyl peroxide. [...] more? Visit our health information library at [email or web address] You can also view health information on [email or web address], your personal patient account. Log in or sign up today. Enter V108 in the search box to learn more about Acne: After Your Visit. ?? [id number] [employer], [employer]. Care instructions adapted under license by [facility]. This care instruction is for use with your licensed healthcare professional. If you have questions about a medical condition or this instruction, always ask your healthcare professional. [employer] disclaims any warranty or liability for your use of this information. Content Version: 10.3.244206; Current as of: July 26, 2013 documented [...] foot documented in this encounter Care Teams Transmission Calibration Engineer Relationship Specialty Start Date End Date Maxi Ang MD [address] [place] [address] PCP - General 04/08/10 08/26/16 documented as of this encounter
--- OUTSIDE RECORDS SUMMARY | 2023-12-13 01:11 | XMS_ITS | Encounter Summary ---
Author Organization [facility] Address [facility] [address] Care Team Providers Care Pin Ticket Machine Operator Name Role Phone Alejandra Jorgensen MD Primary Care Provider [phone] Reason for Visit * Consultation (Routine) - Closed Specialty Diagnoses / Procedures Referred By Contac t Referred To Contact Obstetrics and Gynecology Diagnoses Elderly multigravida with [place] or [place] [address] [place] [address] [place] [address] [facility] Frozen Pie Maker [address] [place] [address] Referral ID Status Reason Start Date Expiration Date V isits Requested Visits Authorized [id number] Closed Consult, Test & Treat PCP Updated and/or Approved 04/17/2022 04/17/2023 1 1 Encounter Details Date Type Department Care Team (Late Contact Info) Description 06/19/2022 11:00 AM EST Office Visit Obstetrics [place] [address] Susannah Cook MD [facility] DR OBSTET[place] [address] Multigravida of advanced maternal age [...] documented in this encounter Progress Notes * Susannah Cook MD - 06/19/2022 11:00 AM EST [...] am available if further questions should arise. SUSANNAH COOK MD 06/19/2022 Cc: Cara Leigh, [place] [address] [place] [address] , with copy of ultrasound report documented in this encounter Plan of Treatment Scheduled Referrals Name Type Priority Associated Diagnoses Orde r Schedule Referral to Maternal Medicine Outpatient Referral Routine Elderly multigravida with antepartum condition or complication Ordered: 04/17/2022 documented as of this encounter Visit Diagnoses Diagnosis Multigravida of advanced maternal age in second trimester documented in this encounter Care Teams Pin Ticket Machine Operator Relationship Specialty Start Date End Date Alejandra Jorgensen MD [address] [place] [address] PCP - General Family Medicine 06/09/22 12/21/22 documented as of this encounter
--- OUTSIDE RECORDS SUMMARY | 2023-12-13 01:11 | XMS_ITS | Clinical Summary ---
Author Organization [facility] Address [facility] [place] [address] Care Team Providers Care Aluminum Welder Name Role Phone AdrianneAraceli yadav CUONG Primary Care Provider [phone] Allergies Active Allergy Reactions Criticality Noted Date [...] EDT) HIV-1/2 Ab and Ag Negative Negative [facility] Comment: This 4th Generation HIV [...] HIV Comment Low Risk of HIV Infection [facility] Blood 12/04/2022 2:56 PM EDT 12/04/2022 3:01 PM EDT Narrative Resulting Agency Comment Spec In Lab Maxi Crowder MD IMMUNOLOGY ORDERABLE S [facility] [place] [address] * (ABNORMAL) Comprehensive metabolic panel (non-fasting) (12/04/2022 2:56 PM EDT) Pathologist [facility] Glucose Lvl 93 65 - 199 mg/dL [facility] Comment:Diabetes: >=200 mg/d L plus symptoms BUN 21(H) 8 - 18 mg/dL [facility] Creatinine 1.12 0.70 - 1.20 mg/dL [facility] Sodium 138 135 - 145 mmol/L [facility] Potassium 3.9 3.5 - 5.0 mmol/L [facility] Comment: Please note: ??Patients with WBC >100,000 may have falsely elevated Potassium levels. ??For accurate Potassium quantification in these patients send serum separator tube (gold top) for subsequent determinations. ??Contact the Clinical Chemistry Laboratory if there are any questions. Chloride 101 98 - 107 mmol/L [facility] CO2 23 22 - 31 mmol/L [facility] Anion Gap 14 5 - 15 mmol/L [facility] Calcium 10.0 8.5 - 10.5 mg/dL [facility] Total Protein 8.2(H) 6.1 - 8.0 g/dL [facility] Albumin 4.7 3.2 - 5.2 g/dL [facility] AST 20 0 - 30 unit/L [facility] ALT 27 0 - 30 unit/L [facility] Alk Phos 66 35 - 105 unit/L [facility] Total Bilirubin 0.6 0.2 - 1.3 mg/dL [facility] Estimated GFR 64 >=60 mL/min/1. 73 m?? [facility] Comment: This patient's estimated GFR [...] In Lab Maxi Crowder MD CHEMISTRY ORDERABLES [facility] [place] [address] from Last 3 Months or Most Recently Relevant to Health Maintenance Care Teams Aluminum Welder Relationship Specialty Start Date End Date Marci MinerCUONG brown [address] [place], [place] [id number] PCP - General Family Medicine 12/22/22
--- OUTSIDE RECORDS SUMMARY | 2023-12-13 01:11 | XMS_ITS | Encounter Summary ---
Author Organization [facility] [place] [address] Care Team Providers Care Hospital Unit Clerk Name Role Phone Alejandra Jorgensen MD Primary Care Provider + [phone] Reason for Visit * Consultation (Routine) - Closed Specialty Diagnoses / Procedures Referred By Contcorinna t Referred To Contact Rheumatology Diagnoses Arthralgia, unspecified joint Adjovu, Araceli, APPLIANCES SAMPLE MAKER [address] [place] [address] [facility] Rheumatology [address] [place] [phone] Referral ID Status Reason Start Date Expiration Date V isits Requested Visits Authorized [id number] Closed Consult, Test & Treat PCP Updated and/or Approved 11/12/2022 11/12/2023 6 6 Encounter Details Date Type Department Care Team (Late st Contact Info) Description 12/04/2022 1:00 PM EDT Office [place] [phone] Maxi Crowder MD [facility] [place] [address] Bonifacio Keane MD [facility] [address] Fibromyalgia affecting multiple sites (Primary [...] of arthralgia. Patient has never seen a rental sales agent before and states prior to her current [...] constant, associated with morning stiffness for hours, andreports a sensation of shard of glass inside [...] Dr. Vel Keane MD Rheumatology Fellow,[id number] Pager: [phone] CC: Araceli Miner * Maxi Crowder MD [...] PM EDT) Glucose UA Negative Negative mg/dL [facility] Protein UA Negative Negative mg/dL [facility] Bilirubin UA Negative Negative mg/dL [facility] Comment: Clinical correlation required for positive Urine Bilirubin results as false positive may occur with some drugs and drug related products. If a false positive is suspected a serum total bilirubin should be considered if clinically indicated. Urobilinogen UA Normal Normal mg/dL [facility] pH UA 6.0 5.0 - 8.0 [facility] Blood UA Negative Negative mg/dL [facility] Ketones UA Negative Negative mg/dL [facility] Nitrite UA Negative Negative [facility] Leukocytes UA Negative Negative mcL [facility] Appearance UA Clear Clear [facility] Spec [place] UA 1.018 1.005 - 1.030 [facility] Color UA Yellow Yellow [facility] RBC UA 1 0 - 4 /HPF [facility] WBC UA 2 0 - 5 /HPF [facility] Bacteria UA Rare(A) None /HPF [facility] Squam Epith UA 2 <=4 /HPF [facility] Urine 12/04/2022 3:00 PM EDT 12/04/2022 3:09 PM EDT Narrative Resulting Agency Comment Spec In Lab Maxi Crowder MD URINE ORDERABLES Performing Organization Address City/[facility]/ZIP Co de Phone Number [facility] [place] [address] * Protein/Creatinine Ratio, urine (12/04/2022 3:00 PM EDT) U Creatinine 104 mg/dL [facility] U Protein Ran <6 0 - 12 mg/dL [facility] Prot/Cre Ratio <0.1 ratio [facility] Urine 12/04/2022 3:00 PM EDT 12/04/2022 3:09 PM EDT Narrative Resulting Agency Comment Spec In Lab Maxi Crowder MD URINE ORDERABLES Performing Organization Address City/[facility]/ZIP Co de Phone Number [facility] [place] [address] * CK (12/04/2022 2:56 PM EDT) Pathologist [facility] CK, Total 92 0 - 160 unit/L [facility] Blood 12/04/2022 2:56 PM EDT 12/04/2022 3:01 PM EDT Narrative Resulting Agency Comment Spec In Lab Maxi Crowder MD CHEMISTRY ORDERABLES [facility] [place] [address] * (ABNORMAL) Uric acid (12/04/2022 2:56 PM EDT) [facility] Uric Acid 7.2(H) 2.5 - 6.5 mg/dL [facility] Blood 12/04/2022 2:56 PM EDT 12/04/2022 3:01 PM EDT Narrative Resulting Agency Comment Spec In Lab Maxi Crowder MD CHEMISTRY ORDERABLES [facility] [place] [address] * QuantiFERON-TB Gold (12/04/2022 2:56 PM EDT) [facility] QFT Nil 0.332 IU/mL [facility] QFT TB Ag1-Nil -0.196 IU/mL [facility] QFT TB Ag2-Nil -0.154 IU/mL [facility] QFT Mitogen-Nil 9.668 IU/mL [facility] Quantiferon TB Negative Negative [facility] Quantiferon TB Interp M. tuberculosis infection [...] affect immune function, or other immunological factors. [facility] Blood 12/04/2022 2:56 PM EDT 12/07/2022 7:25 AM EDT Narrative Resulting Agency Comment Spec In Lab Maxi Crowder MD CHEMISTRY ORDERABLES Performing Organization Address [facility] Co de Phone Number [facility] [place] [address] * Cyclic Citrullinated Peptide (12/04/2022 2:56 PM EDT) Anti-Cyc Cit Peptide <8.0 <=16.9 unit/mL [facility] Blood 12/04/2022 2:56 PM EDT 12/04/2022 3:01 PM EDT Narrative Resulting Agency Comment Spec In Lab Maxi Crowder MD CHEMISTRY ORDERABLES Performing Organization Address [facility] Co de Phone Number [facility] [place] [address] * (ABNORMAL) CRP, acute inflammation (12/04/2022 2:56 PM EDT) CRP 7.6(H) <=4.9 mg/L [facility] Blood 12/04/2022 2:56 PM EDT 12/04/2022 3:01 PM EDT Narrative Resulting Agency Comment Spec In Lab Maxi Crowder MD CHEMISTRY ORDERABLES Performing Organization Address City/[facility] Co de Phone Number [facility] [place] [address] * (ABNORMAL) Sedimentation rate (12/04/2022 2:56 PM EDT) Sed Rate 38(H) 2 - 37 mm/hr [facility] Comment: Effective April 26, 2019 new capillary photometric technology has resulted in a change in reference ranges. It is recommended that each ESR result be reviewed with its own age appropriate reference range. Blood 12/04/2022 2:56 PM EDT 12/04/2022 3:00 PM EDT Narrative Resulting Agency Comment Spec In Lab Maxi Crowder MD HEMATOLOGY ORDERABLE S Performing Organization Address City/[facility] Co de Phone Number [facility] [place] [address] * Vitamin D, 25-Hydroxy (12/04/2022 2:56 PM EDT) [facility] 25-OH Vit D Total 36 21 - 100 ng/mL [facility] 25-OH Vit D Interp Sufficient [facility] Blood 12/04/2022 2:56 PM EDT 12/04/2022 3:01 PM EDT Narrative Resulting Agency Comment Spec In Lab Maxi Crowder MD CHEMISTRY ORDERABLES Performing Organization Address [facility] Co de Phone Number [facility] [place] [address] * TSH (12/04/2022 2:56 PM EDT) [facility] TSH 1.63 0.27 - 4.20 mcIU/mL [facility] Comment: Reference Interval (mcIU/mL): Females: ??First Trimester: 0.23-3.88 ??Second Trimester: 0.22-3.90 ??Third Trimester: 0.44-4.66 Blood 12/04/2022 2:56 PM EDT 12/04/2022 3:01 PM EDT Narrative Resulting Agency Comment Spec In Lab Maxi Crowder MD CHEMISTRY ORDERABLES [facility] [place] [address] * HIV Screen, 4th Generation ([facility]/CGP/APD/NLH) (12/04/2022 2:56 PM EDT) HIV-1/2 Ab and Ag Negative Negative [facility] Comment: This 4th [...] HIV Comment Low Risk of HIV Infection [facility] Blood 12/04/2022 2:56 PM EDT 12/04/2022 3:01 PM EDT Narrative Resulting Agency Comment Spec In Lab Maxi Crowder MD IMMUNOLOGY ORDERABLE S Performing Organization Address City/[facility]/ZIP Co de Phone Number [facility] [place] [address] * Hepatitis B Core Antibody, Total (12/04/2022 2:56 PM EDT) Pathologist [facility] Hep B Core Ab Negative Negative [facility] Blood 12/04/2022 2:56 PM EDT 12/04/2022 3:01 PM EDT Narrative Resulting Agency Comment Spec In Lab Maxi Crowder MD CHEMISTRY ORDERABLES Performing Organization Address City/[facility]/ZIP Co de Phone Number [facility] [place] [address] * Extractable Nuclear Antigen (FENG) Ab (12/04/2022 2:56 PM EDT) SS-A/Ro Ab <0.40 <=10.00 unit/mL [facility] Comment: <7 negative 7-10 equivocal >10 positive The SS-A antibody result was generated using fluoroenzyme immunoassay on the [employer] 250 analyzer. the semi-quantitative test is designed to detect IgG antibodies in human serum that are reactive to the SS-A (Ro) protein. Please note that as of 03/10/2022 that this testing is performed by the Special Chemistry Laboratory at [facility]. This change in testing location is associated with a change in testing method and reference intervals. Please review the results of this test in association with the posted reference intervals. SS-B/La Ab <0.40 <=10.00 unit/mL [facility] Comment: <7 negative 7-10 equivocal >10 positive The SS-B antibody result was generated using fluoroenzyme immunoassay on the Phadia 250 analyzer. the semi-quantitative test is designed to detect IgG antibodies in human serum that are reactive to the SS-B (La) protein. Please note that as of 03/10/2022 that this testing is performed by the Special Chemistry Laboratory at [facility]. This change in testing location is associated with a change in testing method and reference intervals. Please review the results of this test in association with the posted reference intervals. SCL-70 Ab <0.60 <=10.00 unit/mL [facility] Comment: <7 negative 7-10 equivocal >10 positive The Scl-70 antibody result was generated using fluoroenzyme immunoassay on the Phadia 250 analyzer. the semi-quantitative test is designed to detect IgG antibodies in human serum that are reactive to the Scl-70 protein. Please note that as of 03/10/2022 that this testing is performed by the Special Chemistry Laboratory at [facility]. This change in testing location is associated with a change in testing method and reference intervals. Please review the results of this test in association with the posted reference intervals. Sm (Pires) Ab <0.70 <=10.00 unit/mL [facility] Comment: <7 negative 7-10 equivocal >10 positive The Sm antibody result was generated using fluoroenzyme immunoassay on the Phadia 250 analyzer. the semi-quantitative test is designed to detect IgG antibodies in human serum that are reactive to the Sm protein. Please note that as of 03/10/2022 that this testing is performed by the Special Chemistry Laboratory at [facility]. This change in testing location is associated with a change in testing method and reference intervals. Please review the results of this test in association with the posted reference intervals. U1RNP Ab 1.50 <=10.00 unit/mL [facility] Comment: <5 negative 5-10 equivocal >10 positive The U1RNP antibody result was generated using fluoroenzyme immunoassay on the Phadia 250 analyzer. the semi-quantitative test is designed to detect IgG antibodies in human serum that are reactive to the U1RNP protein. Please note that as of 03/10/2022 that this testing is performed by the Special Chemistry Laboratory at [facility]. This change in testing location is associated with a change in testing method and reference intervals. Please review the results of this test in association with the posted reference intervals. Centromere Ab <0.40 <=10.00 unit/mL [facility] Comment: <7 negative 7-10 equivocal >10 positive The CENP antibody result was generated using fluoroenzyme immunoassay on the Phadia 250 analyzer. the semi-quantitative test is designed to detect IgG antibodies in human serum that are reactive to the Centromere B protein. Please note that as of 03/10/2022 that this testing is performed by the Special Chemistry Laboratory at [facility]. This change in testing location is associated with a change in testing method and reference intervals. Please review the results of this test in association with the posted reference intervals. Nuria-1 Ab <0.30 <=10.00 unit/mL [facility] Comment: <7 negative 7-10 equivocal >10 positive The Nuria-1 antibody result was generated using fluoroenzyme immunoassay on the Phadia 250 analyzer. the semi-quantitative test is designed to detect IgG antibodies in human serum that are reactive to the Nuria-1 protein. Please note that as of 03/10/2022 that this testing is performed by the Special Chemistry Laboratory at [facility]. This change in testing location is associated with a change in testing method and reference intervals. Please review the results of this test in association with the posted reference intervals. Blood 12/04/2022 2:56 PM EDT 12/07/2022 7:15 AM EDT Narrative Resulting Agency Comment Spec In Lab Maxi Crowder MD IMMUNOLOGY ORDERABLE S [facility] [place] [address] * (ABNORMAL) Comprehensive metabolic panel (non-fasting) (12/04/2022 2:56 PM EDT) Glucose Lvl 93 65 - 199 mg/dL [facility] Comment:Diabetes: >=200 mg/d L plus symptoms BUN 21(H) 8 - 18 mg/dL [facility] Creatinine 1.12 0.70 - 1.20 mg/dL [facility] Sodium 138 135 - 145 mmol/L [facility] Potassium 3.9 3.5 - 5.0 mmol/L [facility] Comment: Please note: ??Patients with WBC >100,000 may have falsely elevated Potassium levels. ??For accurate Potassium quantification in these patients send serum separator tube (gold top) for subsequent determinations. ??Contact the Clinical Chemistry Laboratory if there are any questions. Chloride 101 98 - 107 mmol/L [facility] CO2 23 22 - 31 mmol/L [facility] Anion Gap 14 5 - 15 mmol/L [facility] Calcium 10.0 8.5 - 10.5 mg/dL [facility] Total Protein 8.2(H) 6.1 - 8.0 g/dL [facility] Albumin 4.7 3.2 - 5.2 g/dL [facility] AST 20 0 - 30 unit/L [facility] ALT 27 0 - 30 unit/L [facility] Alk Phos 66 35 - 105 unit/L [facility] Total Bilirubin 0.6 0.2 - 1.3 mg/dL [facility] Estimated GFR 64 >=60 mL/min/1. 73 m?? [facility] Comment: This patient's [...] Crowder MD CHEMISTRY ORDERABLES Performing Organization Address City/State/[facility] Co de Phone Number [facility] [place] [address] documented in this encounter Visit Diagnoses Diagnosis Fibromyalgia affecting multiple sites- Primary Polyarthralgia Pain in joint, multiple sites Brain fog Fatigue, unspecified type documented in this encounter Care Teams Hospital Unit Clerk Relationship Specialty Start Date End Date Alejandra Jorgensen MD [address] [place] [address] PCP - General Family Medicine 06/09/22 12/21/22 documented as of this encounter
--- OUTSIDE RECORDS SUMMARY | 2023-12-13 01:11 | XMS_ITS | Encounter Summary ---
Author Organization [facility] [address] Care Team Providers Care Veterinary Technologist Name Role Phone Catie Chu MD Primary Care Provider [phone] Encounter Details Date Type Department Care Team (Late st Contact Info) Description 02/02/2018 Refill Dermatology at [address] [phone] Marlin Jameson LPN Social History [...] on filedocumented in this encounter Care Teams Veterinary Technologist Relationship Specialty Start Date End Date Catie Chu MD [address] [place] [address] [address] [facility] [place] [address] PCP - General Pediatrics 08/27/16 02/15/19 documented as of this encounter
--- OUTSIDE RECORDS SUMMARY | 2023-12-13 01:11 | XMS_ITS | Encounter Summary ---
[place] [address] Care Team Providers Care Impact Retail Service Merchandiser Name Role Phone Araceli Miner APRN Primary Care Provider [phone] Encounter Details Date Type Department Care Team (Late st Contact Info) Description 03/16/2023 Telephone [place] [phone] Radha Ruby Social History Tobacco Use Types [...] on filedocumented in this encounter Care Teams Impact Retail Service Merchandiser Relationship Specialty Start Date End Date Araceli Miner APRN [address] [place] [address] PCP - General Family Medicine 12/22/22 documented as of this encounter
--- OUTSIDE RECORDS SUMMARY | 2023-12-13 01:11 | XMS_ITS | Encounter Summary ---
Author Organization [facility] Address [address] [place] [address] Care Team Providers Care Department Helper Name Role Phone Unknown, Provider Primary Care Provider [phone] Prem Sheehan MD Primary Care Provider Unav ailable Encounter Details Date Type Department Care Team (Late st Contact Info) Description 09/26/2007 Results Only [facility] [address] [place] [address] Sonu Barrera [address] [place] [address] Social History Tobacco Use Types Packs/Day Years [...] cancers. [facility] Report Status Final [id number] [facility] 09/26/2007 11:0 0 EDT 09/30/2007 11:32 EDT Sonu Barrera CNM MICROBIOLOGY - GENER AL ORDERABLES [facility] [address] [place] [address] * CYTOPATHOLOGY (09/26/2007 0:00 EDT) Pathology Report: CYTOPATHOLOGY REPORT Reports generated via electronic interface contain original data; however they are lacking the format of the original report. Caution should be taken when reading/interpreti ng unformatted reports. Name: ? NATALIO IQ Alma ? Accession #: ? [id number] : ? 1980 (Age: 27) ??F ?Collect Date: ? 09/26/2007 Location: ? [facility] ? Receive Date: ? 09/27/2007 Provider: ?SONU DALTONM Copy to: ? Specimen/Source: ?ThinPrep Pap Test, Cervix/Endocervix, processed on Trovit ThinPrep Imaging System, with manual evaluation Last [...] Barrera CNM PATHOLOGY ORDERABLES Performing Organization Address City/State/[facility] Co de Phone Number [facility] [address] [place] [address] documented in this encounter Visit Diagnoses Not on filedocumented in this encounter Care Teams Department Helper Relationship Specialty Start Date End Date Unknown, Provider, PCP - General 01/08/10 01/20/10 Prem Sheehan MD PCP - General 01/21/10 12/24/14 documented as of this encounter
--- OUTSIDE RECORDS SUMMARY | 2023-12-13 01:11 | XMS_ITS | Encounter Summary ---
[facility] Organization [facility] [place] [address] Care Team Providers Care Virtual Office Assistant Name Role Phone Catie Chu MD Primary Care Provider [phone] Reason for Visit * Reason Comments Follow-up Encounter Details Date Type Department Care Team (Late st Contact Info) Description 08/27/2016 10:00 AM EDT Office Visit Dermatology at [address] [phone] Norm Cassidy MD [address] [facility] [address] Acne vulgaris Social History Tobacco Use Types [...] refills. This will be called in to [facility] in [place]. b. Again discussed benefits and risks of [...] acne documented in this encounter Care Teams Virtual Office Assistant Relationship Specialty Start Date End Date Catie Chu MD [address] [place] [address] PCP - General Pediatrics 08/27/16 02/15/19 documented as of this encounter
--- OUTSIDE RECORDS SUMMARY | 2023-12-13 01:11 | XMS_ITS | Encounter Summary ---
Author Organization [facility] [place] [address] Care Team Providers Care Airport Ramp Supervisor Name Role Phone Alejandra Jorgensen MD Primary Care Provider [phone] Encounter Details Date Type Department Care Team ([facility] st Contact Info) Description 11/20/2022 Telephone [place] [phone] Harleen Martinez RN Social History Tobacco Use [...] - 11/20/2022 3:27 PM EDT RTC to [facility] # [id number]. Message left on voicemail to call back [...] on filedocumented in this encounter Care Teams Airport Ramp Supervisor Relationship Specialty Start Date End Date Alejandra Jorgensen MD [address] [place] [address] PCP - General Family Medicine 06/09/22 12/21/22 documented as of this encounter
--- OUTSIDE RECORDS SUMMARY | 2023-12-13 01:11 | XMS_ITS | Encounter Summary ---
Author Organization [facility] [place] [address] Care Team Providers Care Pit Furnace Melter Name Role Phone Alejandra Jorgensen MD Primary Care Provider [phone] Encounter Details Date Type Department Care Team (Latest Contact Info) Description 12/04/2022 2:50 PM EDT Laboratory Appointment Lab [address] [place] [id number] Polyarthralgia; Fibromyalgia affecting multiple sites; Brain fog; [...] PM EDT) Glucose UA Negative Negative mg/dL [facility] Protein UA Negative Negative mg/dL [facility] Bilirubin UA Negative Negative mg/dL [facility] Comment: Clinical correlation required for positive Urine Bilirubin results as false positive may occur with some drugs and drug related products. If a false positive is suspected a serum total bilirubin should be considered if clinically indicated. Urobilinogen UA Normal Normal mg/dL [facility] pH UA 6.0 5.0 - 8.0 [facility] Blood UA Negative Negative mg/dL [facility] Ketones UA Negative Negative mg/dL [facility] Nitrite UA Negative Negative [facility] Leukocytes UA Negative Negative mcL [facility] Appearance UA Clear Clear [facility] Spec [place] UA 1.018 1.005 - 1.030 [facility] Color UA Yellow Yellow [facility] RBC UA 1 0 - 4 /HPF [facility] WBC UA 2 0 - 5 /HPF [facility] Bacteria UA Rare(A) None /HPF [facility] Squam Epith UA 2 <=4 /HPF [facility] Urine 12/04/2022 3:00 PM EDT 12/04/2022 3:09 PM EDT Narrative Resulting Agency Comment Spec In Lab Maxi Crowder MD URINE ORDERABLES Performing Organization Address City/[facility]/ZIP Co de Phone Number [facility] [place] [address] * Protein/Creatinine Ratio, urine (12/04/2022 3:00 PM EDT) U Creatinine 104 mg/dL [facility] U Protein Ran <6 0 - 12 mg/dL [facility] Prot/Cre Ratio <0.1 ratio [facility] Urine 12/04/2022 3:00 PM EDT 12/04/2022 3:09 PM EDT Narrative Resulting Agency Comment Spec In Lab Maxi Crowder MD URINE ORDERABLES Performing Organization Address [facility] Co de Phone Number [facility] [place] [address] * Differential, Automated (12/04/2022 2:56 PM EDT) Neutrophils % 49.1 % [facility] Neutr Abs (ANC) 3.66 1.70 - 6.10 x10(3)/[facility] Lymphocytes % 38.3 % [facility] Lymphocytes Abs 2.9 0.9 - 3.2 x10(3)/[facility] Monocytes % 8.7 % [facility] Monocyte Abs 0.6 0.3 - 0.9 x10(3)/[facility] Eosinophils % 3.1 % [facility] Eosinophils Abs 0.2 0.0 - 0.4 x10(3)/[facility] Basophils % 0.4 % [facility] Basophils Abs 0.0 0.0 - 0.1 x10(3)/[facility] Immature Gran % 0.40 % [facility] Comment: Immature granulocytes(IG's)percentage and absolute count will include metamyelocytes, myelocytes, and promyelocytes. Blood smears from CBCs yielding IG's will be scanned manually for concordance. If this scan disagrees with the automated IG or if promyelocytes are noted, a manual differential will be performed. Viviana Gran Abs 0.03 0.00 - 0.04 x10(3)/[facility] Blood 12/04/2022 2:56 PM EDT 12/04/2022 3:00 PM EDT Narrative Resulting Agency Comment Spec In Lab Bonifacio Keane MD HEMATOLOGY ORDERABL ES [facility] [place] [address] * (ABNORMAL) Hemogram (12/04/2022 2:56 PM EDT) WBC 7.5 4.0 - 9.5 x10(3)/[facility] RBC 4.69 4.00 - 5.21 x10(6)/[facility] Hemoglobin 13.7 11.7 - 15.5 g/dL [facility] Hematocrit 41.9 35.7 - 45.8 % [facility] MCV 89.3 82.6 - 94.4 [facility] MCH 29.2 27.1 - 32.0 pg [facility] MCHC 32.7 31.7 - 35.0 g/dL [facility] Platelets 246 145 - 357 x10(3)/[facility] RDWSD 47.6(H) 37.0 - 46.0 [facility] RDWCV 14.6(H) 11.5 - 14.1 % [facility] MPV 10.2 7.6 - 12.9 [facility] nRBC % Auto 0.0 % [facility] nRBC Abs Auto 0.000 0.000 - 0.000 x10(3)/[facility] Blood 12/04/2022 2:56 PM EDT 12/04/2022 3:00 PM EDT Narrative Resulting Agency Comment Spec In Lab Bonifacio Keane MD HEMATOLOGY ORDERABL ES Performing Organization Address City/[facility]/ZIP Co de Phone Number [facility] [place] [address] * CK (12/04/2022 2:56 PM EDT) Pathologist [facility] CK, Total 92 0 - 160 unit/L [facility] Blood 12/04/2022 2:56 PM EDT 12/04/2022 3:01 PM EDT Narrative Resulting Agency Comment Spec In Lab Maxi Crowder MD CHEMISTRY ORDERABLES Performing Organization Address [facility] Co de Phone Number [facility] [place] [address] * (ABNORMAL) Uric acid (12/04/2022 2:56 PM EDT) [facility] Uric Acid 7.2(H) 2.5 - 6.5 mg/dL [facility] Blood 12/04/2022 2:56 PM EDT 12/04/2022 3:01 PM EDT Narrative Resulting Agency Comment Spec In Lab Maxi Crowder MD CHEMISTRY ORDERABLES Performing Organization Address [facility]/ZIP Co de Phone Number [facility] [place] [address] * QuantiFERON-TB Gold (12/04/2022 2:56 PM EDT) QFT Nil 0.332 IU/mL [facility] QFT TB Ag1-Nil -0.196 IU/mL [facility] QFT TB Ag2-Nil -0.154 IU/mL [facility] QFT Mitogen-Nil 9.668 IU/mL [facility] Quantiferon TB Negative Negative [facility] Quantiferon TB Interp M. tuberculosis [...] affect immune function, or other immunological factors. [facility] Blood 12/04/2022 2:56 PM EDT 12/07/2022 7:25 AM EDT Narrative Resulting Agency Comment Spec In Lab Maxi Crowder MD CHEMISTRY ORDERABLES Performing Organization Address [facility]/ZIP Co de Phone Number [facility] [place] [address] * Cyclic Citrullinated Peptide (12/04/2022 2:56 PM EDT) Anti-Cyc Cit Peptide <8.0 <=16.9 unit/mL [facility] Blood 12/04/2022 2:56 PM EDT 12/04/2022 3:01 PM EDT Narrative Resulting Agency Comment Spec In Lab Maxi Crowder MD CHEMISTRY ORDERABLES Performing Organization Address City/[facility]/ZIP Co de Phone Number [facility] [place] [address] * (ABNORMAL) CRP, acute inflammation (12/04/2022 2:56 PM EDT) CRP 7.6(H) <=4.9 mg/L [facility] Blood 12/04/2022 2:56 PM EDT 12/04/2022 3:01 PM EDT Narrative Resulting Agency Comment Spec In Lab Maxi Crowder MD CHEMISTRY ORDERABLES Performing Organization Address [facility] Co de Phone Number [facility] [place] [address] * (ABNORMAL) Sedimentation rate (12/04/2022 2:56 PM EDT) Sed Rate 38(H) 2 - 37 mm/hr [facility] Comment: Effective April 26, 2019 new capillary photometric technology has resulted in a change in reference ranges. It is recommended that each ESR result be reviewed with its own age appropriate reference range. Blood 12/04/2022 2:56 PM EDT 12/04/2022 3:00 PM EDT Narrative Resulting Agency Comment Spec In Lab Maxi Crowder MD HEMATOLOGY ORDERABLE S Performing Organization Address [facility] Co de Phone Number [facility] [place] [address] * Vitamin D, 25-Hydroxy (12/04/2022 2:56 PM EDT) 25-OH Vit D Total 36 21 - 100 ng/mL [facility] 25-OH Vit D Interp Sufficient [facility] Blood 12/04/2022 2:56 PM EDT 12/04/2022 3:01 PM EDT Narrative Resulting Agency Comment Spec In Lab Maxi Crowder MD CHEMISTRY ORDERABLES Performing Organization Address City/[facility] Co de Phone Number [facility] [place] [address] * TSH (12/04/2022 2:56 PM EDT) TSH 1.63 0.27 - 4.20 mcIU/mL [facility] Comment: Reference Interval (mcIU/mL): Females: ??First Trimester: 0.23-3.88 ??Second Trimester: 0.22-3.90 ??Third Trimester: 0.44-4.66 Blood 12/04/2022 2:56 PM EDT 12/04/2022 3:01 PM EDT Narrative Resulting Agency Comment Spec In Lab Maxi Crowder MD CHEMISTRY ORDERABLES Performing Organization Address [facility] Co de Phone Number [facility] [place] [address] * HIV Screen, 4th Generation ([facility]/CGP/APD/NLH) (12/04/2022 2:56 PM EDT) HIV-1/2 Ab and Ag Negative Negative [facility] Comment: This 4th Generation [...] HIV Comment Low Risk of HIV Infection [facility] Blood 12/04/2022 2:56 PM EDT 12/04/2022 3:01 PM EDT Narrative Resulting Agency Comment Spec In Lab Maxi Crowder MD IMMUNOLOGY ORDERABLE S Performing Organization Address [facility] Co de Phone Number [facility] [place] [address] * Hepatitis B Core Antibody, Total (12/04/2022 2:56 PM EDT) Hep B Core Ab Negative Negative [facility] Blood 12/04/2022 2:56 PM EDT 12/04/2022 3:01 PM EDT Narrative Resulting Agency Comment Spec In Lab Maxi Crowder MD CHEMISTRY ORDERABLES Performing Organization Address [facility] Co de Phone Number [facility] [place] [address] * Extractable Nuclear Antigen (FENG) Ab (12/04/2022 2:56 PM EDT) SS-A/Ro Ab <0.40 <=10.00 unit/mL [facility] Comment: <7 negative 7-10 equivocal >10 positive The SS-A antibody result was generated using fluoroenzyme immunoassay on the Phadia 250 analyzer. the semi-quantitative test is designed to detect IgG antibodies in human serum that are reactive to the SS-A (Ro) protein. Please note that as of 03/10/2022 that this testing is performed by the Special [facility] Laboratory at [facility]. This change in testing location is associated with a change in testing method and reference intervals. Please review the results of this test in association with the posted reference intervals. SS-B/La Ab <0.40 <=10.00 unit/mL [facility] Comment: <7 negative 7-10 equivocal >10 positive The SS-B antibody result was generated using fluoroenzyme immunoassay on the Phadia 250 analyzer. the semi-quantitative test is designed to detect IgG antibodies in human serum that are reactive to the SS-B (La) protein. Please note that as of 03/10/2022 that this testing is performed by the [facility] Laboratory at [facility]. This change in testing location is associated with a change in testing method and reference intervals. Please review the results of this test in association with the posted reference intervals. SCL-70 Ab <0.60 <=10.00 unit/mL [facility] Comment: <7 negative 7-10 equivocal >10 positive The Scl-70 antibody result was generated using fluoroenzyme immunoassay on the Phadia 250 analyzer. the semi-quantitative test is designed to detect IgG antibodies in human serum that are reactive to the Scl-70 protein. Please note that as of 03/10/2022 that this testing is performed by the [facility] Laboratory at [facility]. This change in testing location is associated with a change in testing method and reference intervals. Please review the results of this test in association with the posted reference intervals. Sm (Pires) Ab <0.70 <=10.00 unit/mL [facility] Comment: <7 negative 7-10 equivocal >10 positive The Sm antibody result was generated using fluoroenzyme immunoassay on the Phadia 250 analyzer. the semi-quantitative test is designed to detect IgG antibodies in human serum that are reactive to the Sm protein. Please note that as of 03/10/2022 that this testing is performed by the [facility] Laboratory at [facility]. This change in testing location is associated with a change in testing method and reference intervals. Please review the results of this test in association with the posted reference intervals. U1RNP Ab 1.50 <=10.00 unit/mL [facility] Comment: <5 negative 5-10 equivocal >10 positive The U1RNP antibody result was generated using fluoroenzyme immunoassay on the Phadia 250 analyzer. the semi-quantitative test is designed to detect IgG antibodies in human serum that are reactive to the U1RNP protein. Please note that as of 03/10/2022 that this testing is performed by the [facility] Laboratory at [facility]. This change in testing location is associated with a change in testing method and reference intervals. Please review the results of this test in association with the posted reference intervals. Centromere Ab <0.40 <=10.00 unit/mL [facility] Comment: <7 negative 7-10 equivocal >10 positive The CENP antibody result was generated using fluoroenzyme immunoassay on the Phadia 250 analyzer. the semi-quantitative test is designed to detect IgG antibodies in human serum that are reactive to the Centromere B protein. Please note that as of 03/10/2022 that this testing is performed by the [facility] Laboratory at [facility]. This change in testing location is associated with a change in testing method and reference intervals. Please review the results of this test in association with the posted reference intervals. Nuria-1 Ab <0.30 <=10.00 unit/mL [facility] Comment: <7 negative 7-10 equivocal >10 positive The Nuria-1 antibody result was generated using fluoroenzyme immunoassay on the Phadia 250 analyzer. the semi-quantitative test is designed to detect IgG antibodies in human serum that are reactive to the Nuria-1 protein. Please note that as of 03/10/2022 that this testing is performed by the [facility] Laboratory at [facility]. This change in testing location is associated with a change in testing method and reference intervals. Please review the results of this test in association with the posted reference intervals. Blood 12/04/2022 2:56 PM EDT 12/07/2022 7:15 AM EDT Narrative Resulting Agency Comment Spec In Lab Maxi Crowder MD IMMUNOLOGY ORDERABLE S [facility] [place] [address] * (ABNORMAL) Comprehensive metabolic panel (non-fasting) (12/04/2022 2:56 PM EDT) Glucose Lvl 93 65 - 199 mg/dL [facility] Comment:Diabetes: >=200 mg/d L plus symptoms BUN 21(H) 8 - 18 mg/dL [facility] Creatinine 1.12 0.70 - 1.20 mg/dL [facility] Sodium 138 135 - 145 mmol/L [facility] Potassium 3.9 3.5 - 5.0 mmol/L [facility] Comment: Please note: ??Patients with WBC >100,000 may have falsely elevated Potassium levels. ??For accurate Potassium quantification in these patients send serum separator tube (gold top) for subsequent determinations. ??Contact the Clinical Chemistry Laboratory if there are any questions. Chloride 101 98 - 107 mmol/L [facility] CO2 23 22 - 31 mmol/L [facility] Anion Gap 14 5 - 15 mmol/L [facility] Calcium 10.0 8.5 - 10.5 mg/dL [facility] Total Protein 8.2(H) 6.1 - 8.0 g/dL [facility] Albumin 4.7 3.2 - 5.2 g/dL [facility] AST 20 0 - 30 unit/L [facility] ALT 27 0 - 30 unit/L [facility] Alk Phos 66 35 - 105 unit/L [facility] Total Bilirubin 0.6 0.2 - 1.3 mg/dL [facility] Estimated GFR 64 >=60 mL/min/1. 73 m?? [facility] Comment: This patient's estimated [...] In Lab Maxi Crowder MD CHEMISTRY ORDERABLES [facility] [place] [address] documented in this encounter Visit Diagnoses Diagnosis Polyarthralgia Pain in joint, multiple sites Fibromyalgia affecting multiple sites Brain fog Fatigue, unspecified type documented in this encounter Care Teams Pit Furnace Melter Relationship Specialty Start Date End Date Alejandra Jorgensen MD [address] [place] [id number] PCP - General Family Medicine 06/09/22 12/21/22 documented as of this encounter
--- OUTSIDE RECORDS SUMMARY | 2023-12-13 01:11 | XMS_ITS | Encounter Summary ---
Author Organization [facility] [place] [address] Care Team Providers Care Slice Plug Cutter Operator Helper Name Role Phone Alejandra Jorgensen MD Primary Care Provider [phone] Reason for Visit * Reason Comments Positive Genetic Carrier Screen Cystic f ibrosis * Consultation (Urgent) - Closed Specialty Diagnoses / Procedures Referred By Contac t Referred To Contact Obstetrics and Gynecology Diagnoses Supervision of other high risk pregnancies, second trimester Cystic fibrosis carrier Encounter for supervision of normal in second trimester, unspecified Supervision of multigravida of advanced maternal age, antepartum Cara Smith, [address] [place] [address] [facility] [address] [place] [address] Referral ID Status Reason Start Date Expiration Date V isits Requested Visits Authorized [id number] Closed Consult, Test & Treat PCP Updated and/or Approved 06/09/2022 06/09/2023 1 1 Encounter Details Date Type Department Care Team (Late st Contact Info) Description 06/19/2022 9:00 AM EST Office Visit Obstetrics [place] [address] Velasquez Zhu, [facility] [place] [address] Encounter for procreative genetic counseling [...] this encounter Progress Notes * Velasquez Zhu, [facility] - 06/19/2022 9:00 AM EST Reproductive Genetics Zenia Fiore is a 42 y.o. female currently at 20w0d gestation. I met with Zenia for a 30-minute office visit at the [facility]. She was accompanied by her partner, Derik Reyna. Referring Provider: Cara Smith [address] [place] [address] Chief Concern Patient presents with ??? Positive Genetic Carrier Screen Cystic fibrosis Patient History Past Medical History: Diagnosis Date ??? ADHD ??? Anxiety ??? Gastric ulcer ??? GERD (gastroesophageal reflux disease) ??? Intrahepatic cholestasis of ??? Sleep apnea ?? Ancestry: [place], British, Lithuanian, , [place]an, non-Evangelical Partner History ?? Name: Derik Reyna ?? : [birth year]1979 ?? Sex: Male ?? Medical History: Not assessed ?? Ancestry: [place] Citizen [place], [place], Lithuanian, non-Evangelical Family History ?? Congenital anomalies: No ?? [...] detected...The following heterozygous variant wad identified: CFTR, [id number] ([id number]), c.3154T>G, [id number], Variant of Varying Clinical Consequence, Autosomal Recessive, Cystic Fibrosis ?? Spinal muscular atrophy carrier screen (04/29/2022): Negative for SMN1 deletion. Two copies of SMN1 exon 7 were detected. The g.28914L>G polymorphism is absent. Assessment 1. Cystic fibrosis carrier: Cystic fibrosis is an autosomal recessive condition. Zenia's cystic fibrosis carrier screen was positive for one copy of the CFTR variant commonly designated as [id number].This variant is associated with variable expressivity; the [...] screening for Agusto-Sachs disease based on their [place] ancestry. The carrier frequency of Agusto-Sachs disease is increased among individuals of [place] Citizen [place] ancestry living in [place] (1 in 73). Additionally, ACMG now recommends expanded carrier screening for around 100 conditions with a xzabbooe-gy-umcapo phenotype and a high carrier frequency. During [...] counseling documented in this encounter Care Teams Slice Plug Cutter Operator Helper Relationship Specialty Start Date End Date Alejandra Jorgensen MD [address] [place] [id number] PCP - General Family Medicine 06/09/22 12/21/22 documented as of this encounter
--- OUTSIDE RECORDS SUMMARY | 2023-12-13 01:11 | XMS_ITS | Encounter Summary ---
[place] [address] Care Team Providers Care Crimping Press Operator Name Role Phone Alejandra Jorgensen MD Primary Care Provider [phone] Reason for Referral * Consultation (Routine) - Closed Specialty Diagnoses / Procedures Referred By Contcorinna t Referred To Contact Rheumatology Diagnoses Arthralgia, unspecified joint Araceli Miner APRN [address] [place] [address] [facility] [address] [place] [phone] Referral ID Status Reason Start Date Expiration Date V isits Requested Visits Authorized [id number] Closed Consult, Test & Treat PCP Updated and/or Approved 11/12/2022 11/12/2023 6 6 Encounter Details Date Type Department Care Team (Late st Contact Info) Description 11/12/2022 Transcribe Orders eDH Incoming Referrals [phone] Araceli Miner APRN [address] [place], [place] [id number] Arthralgia, unspecified joint Social History Tobacco Use [...] joint documented in this encounter Care Teams Crimping Press Operator Relationship Specialty Start Date End Date Alejandra Jorgensen MD [address] [place] [id number] PCP - General Family Medicine 06/09/22 12/21/22 documented as of this encounter
--- OUTSIDE RECORDS SUMMARY | 2023-12-13 01:11 | XMS_ITS | Encounter Summary ---
[place] [address] Care Team Providers Care Vacuum Metalizer Operator Name Role Phone Flor Schuler MD Primary Care Provider [phone] Reason for Visit * Reason Comments Medication Refill Encounter Details Date Type Department Care Team (Late st Contact Info) Description 05/10/2019 Refill Dermatology at [address] [place] [phone] Norm Cassidy MD [address], [place] [address] Social History Tobacco Use Types Packs/Day Years [...] on filedocumented in this encounter Care Teams Vacuum Metalizer Operator Relationship Specialty Start Date End Date Flor Schuler MD [address] [facility] [address] [place] [address] PCP - General Internal Medicine 02/16/19 04/19/22 documented as of this encounter
--- OUTSIDE RECORDS SUMMARY | 2023-12-13 01:11 | XMS_ITS | Encounter Summary ---
[place] [address] Care Team Providers Care Adoption Coordinator Name Role Phone Alejandra Jorgensen MD Primary Care Provider [phone] Encounter Details Date Type Department Care Team [...] on filedocumented in this encounter Care Teams Adoption Coordinator Relationship Specialty Start Date End Date Alejandra Jorgensen MD [address] [place] [address] PCP - General Family Medicine 06/09/22 12/21/22 documented as of this encounter
--- OUTSIDE RECORDS SUMMARY | 2023-12-13 01:11 | XMS_ITS | Encounter Summary ---
[facility] [place] [address] Care Team Providers Care Shop Coordinator Name Role Phone Alejandra Jorgensen MD Primary Care Provider [phone] Encounter Details Date Type Department Care Team (Late st Contact Info) Description 11/12/2022 Transcribe Orders eDH Incoming Referrals [phone] Adjovu, Araceli, PROTOHISTORIAN [address] [place], [place] [id number] Social History Tobacco Use Types Packs/Day Years [...] on filedocumented in this encounter Care Teams Shop Coordinator Relationship Specialty Start Date End Date Alejandra Jorgensen MD [address] [place] [address] PCP - General Family Medicine 06/09/22 12/21/22 documented as of this encounter
--- OUTSIDE RECORDS SUMMARY | 2023-12-13 01:11 | XMS_ITS | Encounter Summary ---
[place] [address] Care Team Providers Care Baling Press Operator Name Role Phone Alejandra Jorgensen MD Primary Care Provider [phone] Encounter Details Date Type Department Care Team [...] on filedocumented in this encounter Care Teams Baling Press Operator Relationship Specialty Start Date End Date Alejandra Jorgensen MD [address] [place] [address] PCP - General Family Medicine 06/09/22 12/21/22 documented as of this encounter
--- OUTSIDE RECORDS SUMMARY | 2023-12-13 01:11 | XMS_ITS | Encounter Summary ---
[place] [address] Care Team Providers Care Striping Machine Operator Name Role Phone Flor Schuler MD Primary Care Provider [phone] Encounter Details Date Type Department Care Team (Late st Contact Info) Description 02/16/2019 Refill Dermatology at [address] [place] [address] Marlin Jameson, CLIENT LEADER Social History Tobacco Use Types Packs/Day Years [...] on filedocumented in this encounter Care Teams Striping Machine Operator Relationship Specialty Start Date End Date Flor Schuler MD [address] [facility] [address] [place] [address] PCP - General Internal Medicine 02/16/19 04/19/22 documented as of this encounter
--- OUTSIDE RECORDS SUMMARY | 2023-12-13 01:11 | XMS_ITS | Encounter Summary ---
[place] [address] Care Team Providers Care High [employer] Home Economics Teacher Name Role Phone Alejandra Jorgensen MD Primary Care Provider [phone] Encounter Details Date Type Department Care Team [...] on filedocumented in this encounter Care Teams High [employer] Home Economics Teacher Relationship Specialty Start Date End Date Alejandra Jorgensen MD [address] [place] [address] PCP - General Family Medicine 06/09/22 12/21/22 documented as of this encounter
--- OUTSIDE RECORDS SUMMARY | 2023-12-13 01:11 | XMS_ITS | Encounter Summary ---
Author Organization [facility] [place] [address] Care Team Providers Care Research Technician Name Role Phone Flor Schuler MD Primary Care Provider [phone] Reason for Visit * Reason Comments Follow-up Encounter Details Date Type Department Care Team (Late st Contact Info) Description 02/16/2019 11:30 AM EDT Office Visit Dermatology at [address] [phone] Norm Cassidy MD [address] [facility] [place] [address] Acne vulgaris Social History Tobacco Use Types [...] This will be called in to her [facility] in [place] 2. Continue current control pill, she is [...] acne documented in this encounter Care Teams Research Technician Relationship Specialty Start Date End Date Flor Schuler MD [address] [place] [address] PCP - General Internal Medicine 02/16/19 04/19/22 documented as of this encounter
--- OUTSIDE RECORDS SUMMARY | 2023-12-13 01:11 | XMS_ITS | Encounter Summary ---
[place] [address] Care Team Providers Care Lubricating Machine Tender Name Role Phone Alejandra Jorgensen MD Primary Care Provider [phone] Reason for Referral * Diagnostic Test (Routine) - Closed Specialty Diagnoses / Procedures Referred By Contac t Referred To Contact Radiology Diagnoses Elderly multigravida with antepartum condition or complication Procedures US OB Detailed Morphology [facility] [address] [place] [address] [place] [address] Referral ID Status Reason Start Date Expiration Date V isits Requested Visits Authorized [id number] Closed Specialty Service Requested 04/20/2022 10/20/2023 1 1 Reason for Visit * Diagnostic Test (Routine) - Closed Specialty Diagnoses / Procedures Referred By Contac t Referred To Contact Radiology Diagnoses Elderly multigravida with antepartum condition or complication Procedures US OB Detailed Morphology [facility] [address] [place] [address] [place] [address] Referral ID Status Reason Start Date Expiration Date V isits Requested Visits Authorized [id number] Closed Specialty Service Requested 04/20/2022 10/20/2023 1 1 Encounter Details Date Type Department Care Team (Latest Contact Info) Description 06/19/2022 9:20 AM EST - 06/19/2022 11:59 PM EST Hospital [place] [address] [address] [place] [address] Elderly multigravida with antepartum condition or complication [...] who have questions, please contact the health child caregiver private home that requested your imaging first. ?Susannah Pantoja, Staff Physician Electronically Signed Final Report ?? 06/19/2022 11:08 am Narrative 06/19/2022 11:09 AM EST OBSTETRICS REPORT ?(Signed Final 06/19/2022 11:08 am) PATIENT INFO: ID #: ? [id number] ?: ??[birth year] (42 yrs)(F) Name: ? QI Marquez SHAILESH ?Visit Date: 06/19/2022 09:54 am PERFORMED BY: Performed By: ? Cheryl Schwartz RDMS Attending: ?Kit OCONNOR, Susannah Downey Referred By: ?ELI LEIGH Location: ? [place] SERVICE(S) PROVIDED: [facility] - Detailed Morphology - [id number] ? [id number] INDICATIONS: 20 weeks gestation of ?Z3A.20 AMA [...] SVC: ? Visualized Interventr. Septum: ?Visualized Cardiac Sparks: ?Visualized Diaphragm: ? Visualized 3 Vessel View: [...] 06/19/2022 11:08 am) PATIENT INFO: ID #: [id number] : [birth year] (42 yrs)(F) Name: QI CASH Visit Date: 06/19/2022 09:54 am PERFORMED BY: Performed By: Cheryl Schwartz RDMS Attending: Susannah Pantoja MD Referred By: ELI LEIGH Location: [place] SERVICE(S) PROVIDED: [facility] - Detailed Morphology - [id number] INDICATIONS: 20 weeks gestation of Z3A.20 AMA [...] Visualized SVC: Visualized Interventr. Septum: Visualized Cardiac Sparks: Visualized Diaphragm: Visualized 3 Vessel View: Visualized [...] who have questions, please contact the health child caregiver private home that requested your imaging first. Susannah Pantoja, Staff Physician Electronically Signed Final Report 06/19/2022 11:08 am Eli Leigh CNM IMG US OB ORDERABLE S documented in this encounter Visit Diagnoses Diagnosis Elderly multigravida with antepartum condition or complication documented in this encounter Care Teams Lubricating Machine Tender Relationship Specialty Start Date End Date Alejandra Jorgensen MD [address] [address] PCP - General Family Medicine 06/09/22 12/21/22 documented as of this encounter
--- OUTSIDE RECORDS SUMMARY | 2023-12-13 01:11 | XMS_ITS | Encounter Summary ---
Author Organization [facility] [place] [address] [address] Care Ct Scan Tech Name Role Phone Catie Chu MD Primary Care Provider [phone] Reason for Visit * Reason Comments Medication Refill Encounter Details Date Type Department Care Team (Late st Contact Info) Description 02/07/2019 Refill Dermatology at [address] [place] [address] Norm Cassidy MD [address] [place] [address], [address] [address] Social History Tobacco Use Types Packs/Day Years Used Date Smoking Tobacco: Never Sex and Gender Information Value Date Recorded Sex Assigned at Not on file Gender Identity Not on file Sexual Orientation Not on file documented as of this encounter Plan of Treatment Not on file documented as of this encounter Visit Diagnoses Not on filedocumented in this encounter Care Teams Ct Scan Tech Relationship Specialty Start Date End Date Catie Chu MD [address] [place] [address] [place] [address] PCP - General Pediatrics 08/27/16 02/15/19 documented as of this encounter
--- OUTSIDE RECORDS SUMMARY | 2023-12-13 01:11 | XMS_ITS | Encounter Summary ---
Author Organization [facility] [place] [address] Care Team Providers Care Grinder Operator Tool Name Role Phone Alejandra Jorgensen MD Primary Care Provider [phone] Reason for Visit * Reason Comments Follow-up Encounter Details Date Type Department Care Team (Late st Contact Info) Description 08/11/2022 4:15 PM EDT Office Visit Dermatology at [address] [phone] Norm Cassidy MD [address] [facility], [address] [address] Benign neoplasm of skin of left upper [...] extremity documented in this encounter Care Teams Grinder Operator Tool Relationship Specialty Start Date End Date Alejandra Jorgensen MD [address] [place] [address] PCP - General Family Medicine 06/09/22 12/21/22 documented as of this encounter
--- NOTE | 2023-12-13 06:30 | DI.MAMMO_ITS ---
Exam(s) MAMMO SCREENING EXAM: MAMMO SCREENING CLINICAL HISTORY: screening,z12.39 TECHNIQUE: Mammograms were interpreted according to the usual protocol including computer analysis w [employer] CAD system, tomosynthesis and C-view imaging. COMPARISON: 2021 FINDINGS: The breasts are composed of scattered fibroglandular densities, Breast Density category B. No suspicious masses or suspicious microcalcifications are seen. No skin thickening or abnormal axillary lymph nodes are seen. There has been no significant change from prior exams. IMPRESSION: BI-RADS Category 1, Negative mammogram Yearly screening mammography is recommended. Breast Density - Category B, scattered fibroglandular densities. A negative radiographic report should not delay biopsy if a dominant or clinically suspicious mass is present. Up to ten percent of cancers are not identified on mammography. A negative report may reinforce clinical impression. Adenosis and dense breasts may obscure an underlying neoplasm. False positive reports average 6 to 10%. Patient will receive a letter notifying them of these results.
== END ==
PROVIDERS: PCP Nurse Practitioner Family; Visit Provider Nurse Practitioner Family
DX: Z12.31 Encounter for screening mammogram for malignant neoplasm of breast (principal)
CPT/HCPCS: 77063; 77067

== ENCOUNTER 2024-02-01 14:35 | Outpatient (REF) | payer OTHER, SELFPAY ==
--- NOTE | 2024-02-01 14:30 | PAPFT_PTH ---
PATIENT: Zenia Monreal LOC: [facility]#:[id number] AGE/SX: 43/F ROOM: RE02/01/[address]: Crys Kidd DO : 1980 BED: DIS: 02/01/2024 SPEC #: [id number] RECD: 02/01/24 18:14 STATUS: RADHA REQ #: [id number] MILLY: 02/01/24 14:[address]: Crys Kidd DEPT: [facility] Cytology RECD BY: Meeta Navas ENTERED: 02/01/24 18:14 SP TYPE: PAPFT OTHR DR: Araceli Miner, VISUAL EDUCATION TEACHER Tissues: 1 - CX/ENDOCX FOR PAP SMEARS Procedures: PAP THIN PREP/UVM Screening HPV DNA PROBE Comments: [id number] (HPV 16 & 18/45)
== END 2024-02-01 14:36 | disposition home or self-care (01) ==
LOC: LBN 14:35
PROVIDERS: PCP Nurse Practitioner Family; Visit Provider Obstetrics & Gynecology
DX: Z01.419 Encounter for gynecological examination (general) (routine) without abnormal findings (principal)
CPT/HCPCS: 88142; 87624

== ENCOUNTER 2025-01-16 13:36 | Outpatient (CLI) | payer OTHER, SELFPAY ==
--- NOTE | 2025-01-16 06:30 | DI.MRI_ITS ---
Exam(s) MR LUMBAR SPINE WO EXAM: MR LUMBAR SPINE WO CLINICAL HISTORY: lumbar radiculopathy,acute,m54.16. TECHNIQUE: Multiplanar multisequence MRI of the Lumbar spine was performed. COMPARISON: CT CT ABDOMEN PELVIS W from 01/08/2023 CR XR LUMBAR SPINE COMPLETE from 01/16/2025 FINDINGS: Bones: The last intervertebral disc space is designated the L5/S1 level for the numbering purpose of this examination. The vertebral body heights are well maintained. Alignment: Unremarkable. The marrow signal characteristics are unremarkable. Cord: The conus tip ends at the T12 level. It is of normal size and signal intensity. T12-L1: No focal disc herniation is present. No central spinal canal stenosis.No neural foraminal stenosis. L1-2: No focal disc herniation is present. No central spinal canal stenosis.No neural foraminal stenosis. L2-3: No focal disc herniation is present. No central spinal canal stenosis.No neural foraminal stenosis. L3-4: Partial disc desiccation. Mild disc bulging. Small left foraminal disc protrusion mildly narrowing the left neural foramen. No central spinal canal stenosis.No right neural foraminal stenosis. L4-5: The disc height is maintained. Disc desiccation. Minimal disc bulging and endplate osteophytes. No focal disc herniation is present. Mild facet degenerative changes. No central spinal canal stenosis.No neural foraminal stenosis. L5-S1: Moderate to severe loss of disc height. Small circumferentially projecting osteophytes.Small right paracentral disc protrusion which may contact the right S1 nerve root. No central spinal canal stenosis.No neural foraminal stenosis. The visualized SI joints and sacrum are unremarkable. Soft tissues: The paraspinal soft tissues are unremarkable. IMPRESSION: Degenerative disc changes at L5-S1. Tiny right paracentral disc protrusion may impinge on the right S1 nerve root. Mild disc bulge with small left foraminal disc protrusion which may impinge on the exiting nerve root. DATA REPOSITORY:
--- NOTE | 2025-01-16 06:30 | DI.RAD_ITS ---
Exam(s) XR LUMBAR SPINE COMPLETE EXAM: XR LUMBAR SPINE COMPLETE CLINICAL HISTORY: Lumbar radiculopathy,acute,m54.16. TECHNIQUE: 2D digital imaging was performed. Five views. COMPARISON: No exams were available for comparison FINDINGS: BONES: No fracture or destructive lesion. Vertebral body heights are maintained. Mild facet hypertrophy identified at L5-S1. DISKS: Severe narrowing of the L5-S1 disc space with small endplate osteophytes. The remaining intervertebral disc spaces are maintained. ALIGNMENT: Lumbar spinal alignment is within normal limits. SOFT TISSUE: Right upper quadrant surgical clips. IMPRESSION: Severe degenerative disc changes at L5-S1. DATA REPOSITORY: RADIATION DOSE DELIVERED:
--- NOTE | 2025-01-16 06:30 | DI.MAMMO_ITS ---
Exam(s) MAMMO SCREENING EXAM: MAMMO SCREENING CLINICAL HISTORY: screening,z12.39 TECHNIQUE: Mammograms were interpreted according to the usual protocol including computer analysis with CAD system, tomosynthesis and C-view imaging. COMPARISON: 2021 in 2023 FINDINGS: The breasts are composed of scattered fibroglandular densities, Breast Density category B. No suspicious microcalcifications are seen in either breast. There is a question of increased densities in the upper outer quadrant of the right breast compared the previous exam versus of fibroglandular tissue. Spot compression views and ultrasound are recommended for further evaluation. No skin thickening or abnormal axillary lymph nodes are seen. There has been no significant change in the left breast from prior exams. IMPRESSION: BI-RADS Category 0 - Incomplete: Need additional imaging evaluation of the right breast Left breast: Yearly screening mammography is recommended. Breast Density - Category B - There are scattered areas of fibroglandular density. Breast density Category C or D implies that the patient has dense breast tissue. Dense breast tissue can make it harder to find cancer on a mammogram. Dense breast tissue is also associated with an increased risk of breast cancer. This information about the result of the mammogram report was provided to the patient to raise their awareness. Use this report when you speak with the patient about their risks for breast cancer, which includes their family history. At that time, you may recommend additional screening tests (Ultrasound or MRI) as these tests may add significant information. A negative radiographic report should not delay biopsy if a dominant or clinically suspicious mass is present. Up to ten percent of cancers are not identified on mammography. A negative report may reinforce clinical impression. Adenosis and dense breasts may obscure an underlying neoplasm. False positive reports average 6 to 10%. Patient will receive a letter notifying them of these results.
== END 2025-01-16 13:56 ==
LOC: DI 13:36
PROVIDERS: PCP Nurse Practitioner Family; Visit Provider Nurse Practitioner Family
DX: M54.16 Radiculopathy, lumbar region (principal); Z12.31 Encounter for screening mammogram for malignant neoplasm of breast; M51.360 Other intervertebral disc degeneration, lumbar region with discogenic back pain only
CPT/HCPCS: 77063; 77067; 72110; 72148

== ENCOUNTER 2025-01-25 03:01 | Outpatient (CLI) | payer OTHER, SELFPAY ==
--- NOTE | 2025-01-25 | DI.MAMMO_ITS ---
Exam(s) MAMMO SCREEN CALL BACK UNI EXAM: MAMMO SCREEN CALL BACK UNI -LEFT CLINICAL HISTORY: ? INCREASED DENSITY UPPER OUTER QUAD RT BREAST VS FIBRIGLANDULAR TISSUE. TECHNIQUE: Unilateral LEFT BREAST spot CC AND MLO mammographic images obtained with 3D tomosynthesisand utilizing computer aided detection (CAD). . COMPARISON: Prior mammograms were reviewed. This additional imaging was performed due to findings described on the recent screening mammogram of 01/16/2025. FINDINGS: DIAGNOSTIC MAMMOGRAM: Additional mammographic views performed todayrender this area less concerning. IMPRESSION: 1. No radiographic evidence of malignancy. 2. Unfortunately the scheduled breast ultrasound was not able to be performed today because of technologist illness/absent. This should be scheduled The patient was informed of these findings and recommendations by myself prior to leaving the department today. BI-RADS Category 0 - Incomplete: Need additional imaging evaluation Breast Density - Category B - There are scattered areas of fibroglandular density. Breast density Category C or D implies that the patient has dense breast tissue. Dense breast tissue can make it harder to find cancer on a mammogram. Dense breast tissue is also associated with an increased risk of breast cancer. This information about the result of the mammogram report was provided to the patient to raise their awareness. Use this report when you speak with the patient about their risks for breast cancer, which includes their family history. At that time, you may recommend additional screening tests (Ultrasound or MRI) as these tests may add significant information. A negative radiographic report should not delay biopsy if a dominant or clinically suspicious mass is present. Up to ten percent of cancers are not identified on mammography. A negative report may reinforce clinical impression. Adenosis and dense breasts may obscure an underlying neoplasm. False positive reports average 6 to 10%. Patient will receive a letter notifying them of these results.
== END 2025-01-25 03:21 ==
LOC: DI 03:01
PROVIDERS: PCP Nurse Practitioner Family; Visit Provider Nurse Practitioner Family
DX: Z12.31 Encounter for screening mammogram for malignant neoplasm of breast (principal)
CPT/HCPCS: 77063; 77067

== ENCOUNTER 2025-02-06 14:00 | Outpatient (CLI) | payer OTHER, SELFPAY ==
--- NOTE | 2025-02-06 06:00 | DI.RAD_ITS ---
Exam(s) XR PAIN CLINIC LUMBAR SP 2V EXAM: XR PAIN CLINIC LUMBAR SP 2V CLINICAL HISTORY: DX: Lumbar Radiculopathy TECHNIQUE: 2D and realtime digital imaging was performed. CONTRAST MATERIAL: Refer to procedure report. COMPARISON: No exams were available for comparison FINDINGS: Fluoroscopy was provided for Dr. Marino during the performance of a lumbar epidural steroid injection. Please refer to the procedure report for complete details. Ka,r=15.1 mGy IMPRESSION: RADIATION DOSE DELIVERED: 0.0 0.0 0
[2025-02-06 14:15] VITALS: BP 123/69; PULSE 74; RESP 20; TEMP 37; O2SAT 98
--- NOTE | 2025-02-06 14:15 | PDOC.PAIN ---
Date of service: 02/06/25 Time of Service: 14:59 Pain Managment Procedure Note Procedure Note Procedure Note: Lumbar Interlaminar Epidural Steroid Injection ? Location: L5-S1 ? Pre-procedure Diagnosis: M54.16- Radiculopathy, LUMBAR region ? Post-procedure Diagnosis:? The same as above ? Sedation:? ? None ? Medication: Depo-Medrol 80 mg, Omnipaque 1 mL ? Estimated blood loss:? less than 2 cc ? Surgeon:? Ronnell Marino MD COMMENT: RLE pain L5-S1: Moderate to severe loss of disc height. Small circumferentially projecting osteophytes.Small right paracentral disc protrusion which may contact the right S1 nerve root. ? Procedure Detail:? The procedure and potential risks were explained to the patient and informed written consent was obtained. The patient was escorted to the procedure room and placed in the prone position. Pillows were utilized for proper positioning and comfort. Time out was performed in the procedure room with nursing staff confirming the patient's identity, procedure to be performed, allergies, and any blood thinning or anti-platelet medications.? The patient's neck and upper back was prepped with ChloraPrep and draped in a sterile fashion. Sterile technique was maintained throughout the procedure.? Sterile gloves were used, a face mask was worn, and new single dose vials of all medications were used with the top being swabbed with alcohol and given time to dry prior to withdrawal of medication. Lidocane 1% was used to anesthetize the skin.Using a 25-gauge 1.5 inch needle, 1% lidocaine was instilled into the superficial soft tissue overlying the targeted area to provide local anesthesia. With fluoroscopic guidance, a 17 -gauge Tuohy needle was advanced toward the interlaminar space of L5-S1. The needle was then advance through the ligamentum flavum and into the posterior epidural space using the loss of resistance technique. Correct needle placement was confirmed through review of the AP and contralateral oblique fluoroscopic views. A 19-gauge arrow catheter was threaded cephalad and to the Right Following negative aspiration, one cc of Omnipaque 240 contrast was injected which confirmed good flow throughout the epidural space and no evidence of vascular flow or flow into adjacent compartments. Next, following negative aspiration, 1 cc's of normal saline and 80mg of Depo-Medrol was injected. The needle was gently removed. The patient tolerated the procedure well and was transported to the recovery area for observation and discharge instructions. Permanent images saved and recorded. PAIN PRE-PROCEDURE 07/24 POST-PROCEDURE 06/26 Plan:? Follow up prn. COMMENT: Pt has some mechanical low back pain related to her facets and possibly some discogenic pain from the degenerative disc at L5-S1 and Modic changes at that level. Coding Conscious Sedation used for procedure: No CPT Codes: Inj Spine L/S w/Imaging - 65506 ([id number] ~G) Additional Codes: Date of Service (27309) Date of service: 02/06/25 Diagnoses: M54.16- Radiculopathy, LUMBAR region
[2025-02-06 14:41] VITALS: PULSE 82; O2SAT 97
[2025-02-06 14:50] VITALS: PULSE 71; O2SAT 97
[2025-02-06] MEDS: methylPREDNISolone ACETATE 40 MG/ML VIAL IJ (15:02)
[2025-02-06] MEDS: Omnipaque 240 MG/ML 50 ML BTL IJ (15:02)
[2025-02-06] MEDS: Epidural Tray 1 EACH MC (15:02)
== END 2025-02-06 14:01 | disposition home or self-care (01) ==
PROVIDERS: PCP Nurse Practitioner Family; Visit Provider Anesthesiology Pain Medicine
DX: M54.16 Radiculopathy, lumbar region (principal)
CPT/HCPCS: 62323; 72100; J1010; Q9967